=== PATIENT | female | born 1960 ===

== ENCOUNTER 2021-02-09 15:05 | Observation (INO) | payer MEDICAID, MEDICARE ==
[2021-02-09 20:14] VITALS: BP 127/81
--- NOTE | 2021-02-09 20:30 | NUR ---
The patient, PENNIE GORDILLO, 60 y/o, F admitted by GLENN CAVANAUGH MD, was given written information regarding hospital policies, unit procedures and contact persons. Pt is being admitted for 48hr hold to then transfer to [facility]. Valuables were checked and vitals obtained. Pt is alert and oriented to self and time only. Pt can ambulated to toilet with minimal assist. Currently pt is eating a box lunch. Will continue to monitor.
--- NOTE | 2021-02-10 03:38 | EKG ---
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
[2021-02-10 06:48] LABS: BASO # 0.1 x10^3/uL (0.0-0.2); BASO % 1 % (0-3); EOS # 0.1 x10^3/uL (0.0-0.7); EOS % 2 % (0-3); HEMATOCRIT 39.7 % (36.0-47.0); HEMOGLOBIN 13.5 g/dL (12.0-15.5); LYMPH # 2.5 x10^3/uL (1.0-4.8); LYMPH % 39 % (24-48); MEAN CORPUSCULAR HEMOGLOBIN 34 pg (25-35); MEAN CORPUSCULAR HGB CONC 34 g/dL (31-37); MEAN CORPUSCULAR VOLUME 100 fL (79-100); MONO # 0.6 x10^3/uL (0.0-1.1); MONO % 10 % (0-9); NEUT # 3.1 x10^3uL (1.8-7.7); NEUT % 48 % (31-73); PLATELET COUNT 518 x10^3/uL (140-400); RED BLOOD COUNT 3.99 x10^6/uL (3.50-5.40); RED CELL DISTRIBUTION WIDTH 15.7 % (11.5-14.5); WHITE BLOOD COUNT 6.4 x10^3/uL (4.0-11.0)
[2021-02-10 07:12] LABS: ALBUMIN 2.8 g/dL (3.4-5.0); ALBUMIN/GLOBULIN RATIO 0.8 (1.0-1.7); CALCIUM 8.4 mg/dL (8.5-10.1); CREATININE 0.4 mg/dL (0.6-1.0); GFR 162.8; MAGNESIUM 1.7 mg/dL (1.8-2.4); POTASSIUM 4.1 mmol/L (3.5-5.1); TOTAL BILIRUBIN 0.5 mg/dL (0.2-1.0); TOTAL PROTEIN 6.1 g/dL (6.4-8.2)
--- NOTE | 2021-02-10 08:43 | NUR ---
nursing note pt attempting to hit staff, trying to walk out the door, exit seeking, banging on the window. pt not redirectable. dr so notified, order for prn Zyprexa ordered and given. nursing sup notified of risk of self harm, motorcoach driver at bedside until pt calms down. sanjuana gil
--- NOTE | 2021-02-10 09:16 | NUR ---
Patient has been provided with Practical Counseling for tobacco cessation. It included a face to face interaction and the following was discussed: Recognizing danger situations, Developing coping skills,Basic cessation information. Will follow for discharge needs and discharge planning.
[2021-02-10 10:18] VITALS: BP 114/71
--- NOTE | 2021-02-10 11:59 | HP ---
ATTENDING PHYSICIAN: Dr. Otoole. We were asked to see this patient for medical admission and screening prior to going to the [facility]. HISTORY OF PRESENT ILLNESS: The patient is a 60-year-old female from [place], [place]. Recently, she was hospitalized at [facility] in [place]. She is demented. She has significant alcohol-related Wernicke-Korsakoff syndrome. She is a smoker with COPD, transaminitis, generalized anxiety and some hyponatremia. She was given several doses of Haldol and lorazepam on the recent hospitalization. She is transferred here for eventual admission to the [facility]. Prior to that she had to have coronavirus screening ruled out. She does not appear toxic. There are no fevers or chills. PAST MEDICAL HISTORY: Unobtainable except from the old chart. She has been acting up with the behavioral issues at her previous facility. ALLERGIES: She has no known drug allergies. CURRENT MEDICATIONS: Zyprexa Zydis only. SOCIAL HISTORY: Smoking history as noted; drinking history, heavy in the past. FAMILY HISTORY: Unobtainable. REVIEW OF SYSTEMS: Significant for the behavioral issues. She does not have any fevers, chills or recent exposure. I am not aware of her vaccination status. PHYSICAL EXAMINATION: GENERAL: When I saw her, this is a pleasant, confused female. VITAL SIGNS: Showed blood pressure of 127/81, pulse is 100 and regular, she was afebrile, oxygen saturation 99% on room air. HEENT: Head is without trauma. Pupils are reactive. Sclerae nonicteric. Oropharynx is clear. NECK: Supple, no bruits identified. LUNGS: Clear. CARDIOVASCULAR: Showed regular heart tones. No gallop. ABDOMEN: Soft. EXTREMITIES: Without edema. NEUROLOGIC: Pleasantly confused. PERTINENT LABORATORY AND X-RAY STUDIES: Hemoglobin 13.5 g/dL, white count 6400. Electrolytes within normal range. Transaminases were normal. Serology is pending. ASSESSMENT: 1. A 60-year-old female with dementia. 2. Wernicke-Korsakoff syndrome. 3. Chronic alcoholism. 4. Chronic obstructive pulmonary disease. PLAN: 1. The patient is medically stable. 2. I will await her coronavirus swab. 3. She will be discharged to the [facility] when the swab is negative. LYLA/MYKEL DR: Mary TID: [id number] CC: Dr. Carreon
[2021-02-10 14:12] LABS: THYROXINE 5.2 ug/dL (4.5-12.0)
[2021-02-10 14:29] LABS: THYROID STIM HORMONE (TSH) 3.563 uIU/mL (0.358-3.740)
[2021-02-10 15:08] VITALS: BP 115/66
--- NOTE | 2021-02-10 18:12 | NUR ---
NURSING NOTE THIS PT BEGAN YELLING AND AGGRESSIVE AFTER NEW ADMISSION NEXT DOOR TO HER. PT WOULD NOT STAY IN HER ROOM, DEMANDING TO CALL 911. PRN ZYPREXA GIVEN. SAM SHERMAN
[2021-02-10 19:55] VITALS: BP 129/87
[2021-02-10 23:02] LABS: BILIRUBIN,URINE NEG (NEG); CLARITY,URINE CLEAR; COLOR,URINE YELLOW; GLUCOSE,URINE NEG (NEG)
[2021-02-10 23:03] LABS: BACTERIA,URINE 0 /HPF (0-FEW); NITRITE,URINE NEG (NEG); RBC,URINE 0 /HPF (0-2); SQUAMOUS EPITHELIAL CELL,UR OCC /LPF; UROBILINOGEN,URINE 0.2 mg/dL (0.2 mg/dL); WBC,URINE OCC /HPF (0-4)
[2021-02-11 00:10] LABS: HEMOGLOBIN A1C 5.2 % (4.8-5.6)
--- NOTE | 2021-02-11 00:42 | NUR ---
Nursing Note Pt in room awakens periodically to look for her family and her car. Is confused, speech is hyperverbal and rambling, manic. Pt talks about events from her youth as if they are happening currently, regarding feeling neglected, no one cared about her, she was the middle child, no one congratulated her on anything, she wasn't special. Seems to be processing intense feelings of inadequacy regarding her place within the family unit. States she was forced to sleep on the couch most of her life and didn't have a bed or room of her own. Pt is hyperverbal, manic, tangential and tearful at times.
[2021-02-11] MEDS ORDERED: OLAN5TAB67 PO (05:45)
[2021-02-11] MEDS ORDERED: NICO1PAT21 TP (05:51)
[2021-02-11] MEDS ORDERED: FOLI0.8C PO (05:55)
[2021-02-11] MEDS ORDERED: ENOX40DI SQ (06:37)
[2021-02-11] MEDS ORDERED: POTA-121 PO (06:37)
[2021-02-11] MEDS ORDERED: Folic Acid PO (06:37)
[2021-02-11] MEDS ORDERED: THIA100T57 PO (06:37)
[2021-02-11] MEDS ORDERED: NICO2GUM5 BC (06:37)
[2021-02-11] MEDS ORDERED: ACET325T21 PO (06:37)
[2021-02-11] MEDS ORDERED: OLAN5TAB7 PO (06:37)
[2021-02-11] MEDS ORDERED: NICO1PAT21 TD (06:37)
[2021-02-11] MEDS ORDERED: LORA-254 PO (06:37)
[2021-02-11] MEDS ORDERED: MELA3TAB4 PO (06:37)
--- NOTE | 2021-02-11 07:31 | NUR ---
Nursing Note Discharge to [facility] report to Allan Nicholson RN. Transfer documents faxed to [id number].
--- NOTE | 2021-02-20 09:12 | DS ---
DATE OF DISCHARGE: 02/10/2021 ATTENDING PHYSICIAN: Dr. Otoole. FINAL DISCHARGE DIAGNOSES: 1. A 60-year-old female with dementia. 2. Wernicke-Korsakoff syndrome. 3. Chronic alcoholism. 4. Chronic obstructive pulmonary disease. HISTORY AND PHYSICAL: The patient is a 60-year-old female admitted to the medical floor prior to going to the [facility]. She is here for screening and rule out COVID. The patient is from [place], [place]. Recently hospitalized in [place]. She is demented, significant alcohol-related Wernicke-Korsakoff syndrome. She is also a smoker with some generalized medical issues. PHYSICAL EXAMINATION: Please see the dictated note. PERTINENT LABORATORY AND X-RAY STUDIES: Hemoglobin on admission was 13.5 g/dL, white count 6400. Chemistry panel was fairly unremarkable. Iron is 93. Serology was negative for coronavirus. Urinalysis was clear. COURSE IN THE HOSPITAL: The patient was admitted to the medical floor. She had her labs drawn, some of her home meds were continued. She was not on any prescription meds. On the second hospital day, she was discharged to the [facility], folic acid only. Other psychiatric meds per psychiatry service. We did try to do smoking cessation, but with all due respect, I do not think she understood even though we tried because of her dementia. LYLA/KWASI DR: Mary TID: [id number] CC: IVANNA GUNDERSON MD
== END 2021-02-11 06:15 ==
LOC: 1 SOUTH 19:49
PROVIDERS: ADMIT Hospitalist; ATTEND Hospitalist
DX: F03.90 Unspecified dementia, unspecified severity, without behavioral disturbance, psychotic disturbance, mood disturbance, and anxiety (principal); F41.1 Generalized anxiety disorder; J44.9 Chronic obstructive pulmonary disease, unspecified; E87.1 Hypo-osmolality and hyponatremia; F10.26 Alcohol dependence with alcohol-induced persisting amnestic disorder; F17.200 Nicotine dependence, unspecified, uncomplicated; Z71.6 Tobacco abuse counseling
CPT/HCPCS: G0378; G0379; 36415; 80053; 80061; 81001; 82306; 82607; 83036; 83540; 83550; 83735; 84436; 84443; 84480; 85025; 85379; 86592; 93005; 99406; U0003

== ENCOUNTER 2021-02-11 06:29 | Inpatient (IN) | payer MEDICARE, MEDICAID ==
[~2021-02-11] VITALS: Ht 162.6 cm; Wt 55.1 kg
[~2021-02-11 06:29] MED LIST: FOLI0.8C PO; NICO1PAT21 TP; OLAN5TAB67 PO
[2021-02-11] MEDS ORDERED: Folic Acid PO (06:37)
[2021-02-11] MEDS ORDERED: NICO2GUM5 BC (06:37)
[2021-02-11] MEDS ORDERED: ACET325T21 PO (06:37)
[2021-02-11] MEDS ORDERED: MELA3TAB4 PO (06:37)
[2021-02-11] MEDS ORDERED: NICO1PAT21 TD (06:37)
[2021-02-11] MEDS ORDERED: ENOX40DI SQ (06:37)
[2021-02-11] MEDS ORDERED: LORA-254 PO (06:37)
[2021-02-11] MEDS ORDERED: THIA100T57 PO (06:37)
[2021-02-11] MEDS ORDERED: POTA-121 PO (06:37)
[2021-02-11] MEDS ORDERED: OLAN5TAB7 PO (06:37)
[2021-02-11] MEDS ORDERED: MAG HYDROX/AL HYDROX/SIMETH 30 ML ORAL.SUSP PO PRN ×2 (06:45→12:15)
[2021-02-11] MEDS ORDERED: MAGNESIUM HYDROXIDE 2,400 MG/30 ML ORAL.SUSP. PO PRN ×2 (06:45→12:15)
[2021-02-11 09:00] VITALS: BP 108/84
[2021-02-11] MEDS ORDERED: LORazepam 1 MG TABLET PO PRN (12:00)
[2021-02-11] MEDS ORDERED: METHYL SALICYLATE/MENTHOL TOPICAL OINTMENT 57GM TUBE. TP PRN (12:15)
[2021-02-11] MEDS ORDERED: ACETAMINOPHEN 325 MG TABLET PO PRN (12:15)
[2021-02-11 16:02] VITALS: BP 95/71
--- NOTE | 2021-02-11 21:58 | PDOC ---
Exam Note: Nadeem Note: Please also refer to the separate dictated note~for this date of service dictated separately.~Patient seen individually. Discussed the patient with Nursing staff reviewed the chart.~Reviewed interim history and current functioning. Reviewed vital signs,~Labs/ Radiology~and current medications noted below. Continue current treatment with the changes noted in the dictated addendum note Assessment: Vital Signs/I&O: Vital Signs Date Time Temp Pulse Resp B/P (MAP) Pulse Ox O2 Delivery O2 Flow Rate FiO2 02/11/21 16:02 97.4 93 16 95/71 (79) 99 02/11/21 09:00 Room Air Current Medications: Meds: Current Medications Medications (Trade) Dose Ordered Sig/Hunter Route PRN Reason Start Time Stop Time Status Last Admin Dose Admin Multi-Ingredient Ointment (Analgesic [place]) 1 lico PRN QID PRN TP MUSCLE PAIN 02/11/21 06:45 Al Hydroxide/Mg Hydroxide (Mylanta Plus Xs) 15 ml PRN AFTMEALHC PRN PO DYSPEPSIA 02/11/21 06:45 Magnesium Hydroxide (Milk Of Magnesia) 2,400 mg PRN QHS PRN PO CONSTIPATION 02/11/21 06:45 Acetaminophen (Tylenol) 650 mg PRN Q6HRS PRN PO MILD PAIN / TEMP > 100.3'F 02/11/21 12:00 Enoxaparin Sodium (Lovenox 40mg Syringe) 40 mg DAILY SQ 02/12/21 09:00 Lorazepam (Ativan) 1 mg PRN Q4HRS PRN PO ANXIETY / AGITATION 02/11/21 12:00 Melatonin (Melatonin) 3 mg PRN QHS PRN PO INSOMNIA 02/11/21 12:00 Nicotine (Nicoderm Cq 21mg Patch) 1 patch DAILY TD 02/12/21 09:00 Nicotine Polacrilex (Nicorette Gum) 2 mg PRN Q2HRS PRN BC SMOKING CESSATION 02/11/21 12:00 Olanzapine (ZyPREXA ZYDIS) 5 mg PRN BID PRN PO PSYCHOSIS 02/11/21 12:00 Potassium Chloride (Klor-Con) 20 meq DAILY PO 02/12/21 09:00 Folic Acid (Folic Acid) 1 mg DAILY PO 02/12/21 09:00 Thiamine HCl (Vitamin B-1) 100 mg DAILY PO 02/12/21 09:00 Non-Formulary Medication ([Folic Acid] ) 1 mg DAILY PO 02/12/21 09:00 02/11/21 12:25 DC Acetaminophen (Tylenol) 650 mg PRN Q6HRS PRN PO MILD PAIN / TEMP > 100.3'F 02/11/21 12:15 02/11/21 12:22 DC Multi-Ingredient Ointment (Analgesic [place]) 1 lico PRN QID PRN TP MUSCLE PAIN 02/11/21 12:15 02/11/21 12:22 DC Al Hydroxide/Mg Hydroxide (Mylanta Plus Xs) 15 ml PRN AFTMEALHC PRN PO DYSPEPSIA 02/11/21 12:15 02/11/21 12:22 DC Magnesium Hydroxide (Milk Of Magnesia) 2,400 mg PRN QHS PRN PO CONSTIPATION 02/11/21 12:15 02/11/21 12:22 DC I have reviewed the current psychotropics carefully including drug interactions. Risk benefit ratio favors no change other than as noted in my dictated progress note. IVANNA GUNDERSON MD Feb 11, 2021 21:58
[2021-02-12] MEDS: MELATONIN 3 MG TABLET PO PRN (01:29)
[2021-02-12 06:15] VITALS: BP 144/77
[2021-02-12] MEDS ORDERED: FOLIC ACID 1 MG PO SCH (09:00)
[2021-02-12] MEDS: ENOXAPARIN 40 MG/0.4 ML SYRINGE. SQ SCH (09:00)
[2021-02-12] MEDS: FOLIC ACID 1 MG TABLET PO SCH (09:04)
[2021-02-12] MEDS: THIAMINE 100 MG TABLET. PO SCH (09:04)
[2021-02-12] MEDS: POTASSIUM CHLORIDE 20 MEQ TABLET.ER. PO SCH (09:04)
[2021-02-12] MEDS: NICOTINE 21MG PATCH. TD SCH (09:06)
[2021-02-12] MEDS: ACETAMINOPHEN 325 MG TABLET PO PRN (13:27)
[2021-02-12 16:26] VITALS: BP 125/85
--- NOTE | 2021-02-12 22:17 | PDOC ---
Exam Note: Nadeem Note: Please also refer to the separate dictated note~for this date of service dictated separately.~Patient seen individually. Discussed the patient with Nursing staff reviewed the chart.~Reviewed interim history and current functioning. Reviewed vital signs,~Labs/ Radiology~and current medications noted below. Continue current treatment with the changes noted in the dictated addendum note Assessment: Vital Signs/I&O: Vital Signs Date Time Temp Pulse Resp B/P (MAP) Pulse Ox O2 Delivery O2 Flow Rate FiO2 02/12/21 16:26 98.1 76 18 125/85 (98) 99 02/11/21 09:00 Room Air I & O 02/11/21 02/11/21 02/12/21 14:00 22:00 06:00 Intake Total 240 ml 600 ml 360 ml Balance 240 ml 600 ml 360 ml Current Medications: Meds: Current Medications Medications (Trade) Dose Ordered Sig/Hunter Route PRN Reason Start Time Stop Time Status Last Admin Dose Admin Nicotine (Nicoderm Cq 21mg Patch) 1 patch DAILY TD 02/12/21 09:00 02/12/21 09:06 Potassium Chloride (Klor-Con) 20 meq DAILY PO 02/12/21 09:00 02/12/21 09:04 Folic Acid (Folic Acid) 1 mg DAILY PO 02/12/21 09:00 02/12/21 09:04 Thiamine HCl (Vitamin B-1) 100 mg DAILY PO 02/12/21 09:00 02/12/21 09:04 I have reviewed the current psychotropics carefully including drug interactions. Risk benefit ratio favors no change other than as noted in my dictated progress note. IVANNA GUNDERSON MD Feb 12, 2021 22:17
--- NOTE | 2021-02-12 23:02 | HP ---
ADMIT DATE: 02/11/2021 PSYCHIATRIC ADMISSION HISTORY/EVALUATION This is a late entry, date of service 02/11/2021, covers elements not covered in my initial note. IDENTIFYING DATA: The patient is a 60-year-old female referred to us from [facility] on account of her alcohol dependence and Wernicke's encephalopathy. Reportedly, the patient has been having active hallucinations, has been abusing alcohol, had acute mental status changes, was wandering naked in the street. She had crawled into the neighbor's car. She had a marked mood lability, disorganized speech, cognitively impaired, restless, fighting with staff at the [facility]. She had failed outpatient psychiatric interventions. Behavior is deemed dangerous, unmanageable where she lives alone at home, referred for inpatient psychiatric stabilization. CHIEF COMPLAINT: "I just had too much to drink and it is silly things." HISTORY OF PRESENT ILLNESS: The patient has a history of alcohol abuse and dependence. She has had two DUIs in the past, lost her license. Currently, she lives alone. Family is involved in her care and she has been extremely disorganized, paranoid with marked mood lability, worsening alcohol abuse, and admits to being depressed. No active suicidal or homicidal ideation. No clear history of bipolar disorder. PAST PSYCHIATRIC HISTORY: As above. MEDICAL HISTORY: Positive for hyponatremia, hypokalemia, Wernicke's encephalopathy, COPD, partial lung removal. ACCU-CHEKS: None. DIET: Regular. Takes medications whole. Ambulates ad carli. CODE STATUS: Full code. ALLERGIES: Negative. CURRENT PSYCHOTROPICS: Melatonin 3 mg at bedtime p.r.n., Zyprexa p.r.n. FAMILY HISTORY: Noncontributory. SOCIAL HISTORY: No physical, sexual, or elder abuse history is noted. She is not known to be a perpetrator. She denies any drug abuse. Does admit to the alcohol abuse as noted. REVIEW OF SYSTEMS: No CV, , pulmonary, eye system symptoms on review. MENTAL STATUS EXAM: Oriented to herself, situation. Speech is coherent, has some latency. Abstraction fair. Computation, unable to do serial sevens even one step. Attention span short. Distractible, anxious, with ongoing mood lability. No active suicidal or homicidal ideation. LABORATORY DATA: Reviewed. IMPRESSION: Major depressive disorder, recurrent; history of alcohol dependence; history of Wernicke's encephalopathy; anxiety disorder, unspecified; impulse control disorder, unspecified. Rest unchanged from admission. PLAN: Admit to geropsychiatry unit at [facility]. I will see the patient daily individually from a psychiatric standpoint, medical followup with Dr. Vidales/Dr. Otoole. The patient had a CT head on the 02/03. No acute changes. No midline shift. Does show some chronic sinusitis, we will defer to Dr. Mcintyre. We will observe the patient's baseline and adjust psychotropics as clinically indicated. Consider Antabuse or naltrexone for alcohol. Consider SSRIs. ESTIMATED LENGTH OF STAY: 10-12 days. DISPOSITION PLANS: Transition to [facility] when stable. RADHA DR: Vianey TID: [id number]
[2021-02-13 06:22] VITALS: BP 115/69
[2021-02-13] MEDS: NICOTINE 21MG PATCH. TD SCH (08:18)
[2021-02-13] MEDS: FOLIC ACID 1 MG TABLET PO SCH (08:18)
[2021-02-13] MEDS: THIAMINE 100 MG TABLET. PO SCH (08:19)
[2021-02-13] MEDS: POTASSIUM CHLORIDE 20 MEQ TABLET.ER. PO SCH (08:19)
[2021-02-13] MEDS: ENOXAPARIN 40 MG/0.4 ML SYRINGE. SQ SCH (09:00)
--- NOTE | 2021-02-13 09:21 | PDOC ---
Exam Note: Nadeem Note: This note is a late entry for 02/12/2021 covers elements not covered in my initial note. Subjective: The patient was reviewed at treatment team meeting individually in the morning on 02/12/2021 with Keli Butler (social services coordinator), Lissette, activity therapy and Allan SHERMAN, discussed and reviewed the chart. The patient slept 6-1/4 hours previous night. We reviewed the patients history, diagnoses. Per Allan RN the patient has been exit seeking, wanting to be home. Reviewed that she has lost the license with 2 DUIs. Review of Systems: No CV, , pulmonary, eye, ENT system symptoms on review. Mental Status Exam: The patient is oriented to herself and situation. Speech has some latency, coherent. Abstraction fair. Computation impaired. Language function intact. She felt the day was 09/11/2020 and that President was President Devonte and before him was President Gaurav. Mood and affect somewhat depressed, withdrawn. No suicidal or homicidal ideation. Laboratory Data: Reviewed. Impression: Major depressive disorder recurrent. Alcohol dependence and abuse. Anxiety disorder unspecified. History of Wernickes encephalopathy. Plan: Continue current psychotropics. Check CT head if not done in 3 months. Observe baseline and make further adjustments as clinically indicated. Assessment: Vital Signs/I&O: Vital Signs Date Time Temp Pulse Resp B/P (MAP) Pulse Ox O2 Delivery O2 Flow Rate FiO2 02/13/21 06:22 96.4 64 18 115/69 (84) 100 02/11/21 09:00 Room Air I & O 02/12/21 02/12/21 02/13/21 14:00 22:00 06:00 Intake Total 360 ml 560 ml 240 ml Balance 360 ml 560 ml 240 ml Current Medications: Meds: Current Medications Medications (Trade) Dose Ordered Sig/Hunter Route PRN Reason Start Time Stop Time Status Last Admin Dose Admin Multi-Ingredient Ointment (Analgesic [place]) 1 lico PRN QID PRN TP MUSCLE PAIN 02/11/21 06:45 Al Hydroxide/Mg Hydroxide (Mylanta Plus Xs) 15 ml PRN AFTMEALHC PRN PO DYSPEPSIA 02/11/21 06:45 Magnesium Hydroxide (Milk Of Magnesia) 2,400 mg PRN QHS PRN PO CONSTIPATION 02/11/21 06:45 Acetaminophen (Tylenol) 650 mg PRN Q6HRS PRN PO MILD PAIN / TEMP > 100.3'F 02/11/21 12:00 02/12/21 13:27 Enoxaparin Sodium (Lovenox 40mg Syringe) 40 mg DAILY SQ 02/12/21 09:00 Lorazepam (Ativan) 1 mg PRN Q4HRS PRN PO ANXIETY / AGITATION 02/11/21 12:00 Melatonin (Melatonin) 3 mg PRN QHS PRN PO INSOMNIA 02/11/21 12:00 02/12/21 01:29 Nicotine (Nicoderm Cq 21mg Patch) 1 patch DAILY TD 02/12/21 09:00 02/13/21 08:18 Nicotine Polacrilex (Nicorette Gum) 2 mg PRN Q2HRS PRN BC SMOKING CESSATION 02/11/21 12:00 Olanzapine (ZyPREXA ZYDIS) 5 mg PRN BID PRN PO PSYCHOSIS 02/11/21 12:00 Potassium Chloride (Klor-Con) 20 meq DAILY PO 02/12/21 09:00 02/13/21 08:19 Folic Acid (Folic Acid) 1 mg DAILY PO 02/12/21 09:00 02/13/21 08:18 Thiamine HCl (Vitamin B-1) 100 mg DAILY PO 02/12/21 09:00 02/13/21 08:19 Non-Formulary Medication ([Folic Acid] ) 1 mg DAILY PO 02/12/21 09:00 02/11/21 12:25 DC Acetaminophen (Tylenol) 650 mg PRN Q6HRS PRN PO MILD PAIN / TEMP > 100.3'F 02/11/21 12:15 02/11/21 12:22 DC Multi-Ingredient Ointment (Analgesic [place]) 1 lico PRN QID PRN TP MUSCLE PAIN 02/11/21 12:15 02/11/21 12:22 DC Al Hydroxide/Mg Hydroxide (Mylanta Plus Xs) 15 ml PRN AFTMEALHC PRN PO DYSPEPSIA 02/11/21 12:15 02/11/21 12:22 DC Magnesium Hydroxide (Milk Of Magnesia) 2,400 mg PRN QHS PRN PO CONSTIPATION 02/11/21 12:15 02/11/21 12:22 DC I have reviewed the current psychotropics carefully including drug interactions. Risk benefit ratio favors no change other than as noted in my dictated progress note. Diagnosis: Problems: (1) Major depressive disorder, recurrent episode (2) Alcohol abuse (3) Anxiety disorder, unspecified (4) Wernicke encephalopathy IVANNA GUNDERSON MD Feb 13, 2021 09:21
[2021-02-13 15:46] VITALS: BP 123/77
[2021-02-13] MEDS: risperiDONE 0.5 MG TABLET. PO SCH (20:24)
[2021-02-13] MEDS: MULTIVITAMIN with MINERAL TABLET. PO SCH (21:30)
[2021-02-13] MEDS ORDERED: cloNIDine HCL 0.1 MG TABLET PO PRN (21:30)
[2021-02-13] MEDS: MAGNESIUM OXIDE 400 MG TABLET PO SCH (21:45)
--- NOTE | 2021-02-13 22:03 | PDOC ---
Exam Note: Nadeem Note: Please also refer to the separate dictated note~for this date of service dictated separately.~Patient seen individually. Discussed the patient with Nursing staff reviewed the chart.~Reviewed interim history and current functioning. Reviewed vital signs,~Labs/ Radiology~and current medications noted below. Continue current treatment with the changes noted in the dictated addendum note Assessment: Vital Signs/I&O: Vital Signs Date Time Temp Pulse Resp B/P (MAP) Pulse Ox O2 Delivery O2 Flow Rate FiO2 02/13/21 15:46 98.7 69 18 123/77 (92) 98 Room Air I & O 02/12/21 02/12/21 02/13/21 14:00 22:00 06:00 Intake Total 360 ml 560 ml 240 ml Balance 360 ml 560 ml 240 ml Current Medications: Meds: Current Medications Medications (Trade) Dose Ordered Sig/Hunter Route PRN Reason Start Time Stop Time Status Last Admin Dose Admin Multi-Ingredient Ointment (Analgesic [place]) 1 lico PRN QID PRN TP MUSCLE PAIN 02/11/21 06:45 Al Hydroxide/Mg Hydroxide (Mylanta Plus Xs) 15 ml PRN AFTMEALHC PRN PO DYSPEPSIA 02/11/21 06:45 Magnesium Hydroxide (Milk Of Magnesia) 2,400 mg PRN QHS PRN PO CONSTIPATION 02/11/21 06:45 Acetaminophen (Tylenol) 650 mg PRN Q6HRS PRN PO MILD PAIN / TEMP > 100.3'F 02/11/21 12:00 02/12/21 13:27 Enoxaparin Sodium (Lovenox 40mg Syringe) 40 mg DAILY SQ 02/12/21 09:00 02/13/21 17:54 DC Lorazepam (Ativan) 1 mg PRN Q4HRS PRN PO ANXIETY / AGITATION 02/11/21 12:00 02/13/21 21:35 DC 02/13/21 16:15 Melatonin (Melatonin) 3 mg PRN QHS PRN PO INSOMNIA 02/11/21 12:00 02/12/21 01:29 Nicotine (Nicoderm Cq 21mg Patch) 1 patch DAILY TD 02/12/21 09:00 02/13/21 08:18 Nicotine Polacrilex (Nicorette Gum) 2 mg PRN Q2HRS PRN BC SMOKING CESSATION 02/11/21 12:00 Olanzapine (ZyPREXA ZYDIS) 5 mg PRN BID PRN PO PSYCHOSIS 02/11/21 12:00 02/13/21 20:07 DC 02/13/21 18:10 Potassium Chloride (Klor-Con) 20 meq DAILY PO 02/12/21 09:00 02/13/21 08:19 Folic Acid (Folic Acid) 1 mg DAILY PO 02/12/21 09:00 02/13/21 08:18 Thiamine HCl (Vitamin B-1) 100 mg DAILY PO 02/12/21 09:00 02/13/21 08:19 Non-Formulary Medication ([Folic Acid] ) 1 mg DAILY PO 02/12/21 09:00 02/11/21 12:25 DC Acetaminophen (Tylenol) 650 mg PRN Q6HRS PRN PO MILD PAIN / TEMP > 100.3'F 02/11/21 12:15 02/11/21 12:22 DC Multi-Ingredient Ointment (Analgesic [place]) 1 lico PRN QID PRN TP MUSCLE PAIN 02/11/21 12:15 02/11/21 12:22 DC Al Hydroxide/Mg Hydroxide (Mylanta Plus Xs) 15 ml PRN AFTMEALHC PRN PO DYSPEPSIA 02/11/21 12:15 02/11/21 12:22 DC Magnesium Hydroxide (Milk Of Magnesia) 2,400 mg PRN QHS PRN PO CONSTIPATION 02/11/21 12:15 02/11/21 12:22 DC Lidocaine (Lidoderm) 1 patch PRN DAILY PRN TD MUSCLE PAIN 02/13/21 19:00 Olanzapine (ZyPREXA ZYDIS) 2.5 mg PRN Q2HR PRN PO PSYCHOSIS 02/13/21 20:15 02/13/21 20:24 Sertraline HCl (Zoloft) 50 mg DAILY PO 02/14/21 09:00 Risperidone (RisperDAL) 0.5 mg QHS PO 02/13/21 21:00 02/13/21 20:24 Lorazepam (Ativan) 0.5 mg PRN Q1HR PRN PO ANXIETY / AGITATION 02/13/21 21:45 Multivitamins/ Calcium (Thera-M Plus) 1 tab DAILY PO 02/13/21 21:30 Clonidine HCl (Catapres) 0.1 mg PRN Q1HR PRN PO SBP>180 OR DBP>100, MR X 3 02/13/21 21:30 Magnesium Oxide (Magnesium Oxide) 400 mg DAILY PO 02/14/21 09:00 02/13/21 21:36 DC Magnesium Oxide (Magnesium Oxide) 400 mg DAILY PO 02/13/21 21:45 Current Medications Medications (Trade) Dose Ordered Sig/Hunter Route PRN Reason Start Time Stop Time Status Last Admin Dose Admin Olanzapine (ZyPREXA ZYDIS) 2.5 mg PRN Q2HR PRN PO PSYCHOSIS 02/13/21 20:15 02/13/21 20:24 Risperidone (RisperDAL) 0.5 mg QHS PO 02/13/21 21:00 02/13/21 20:24 I have reviewed the current psychotropics carefully including drug interactions. Risk benefit ratio favors no change other than as noted in my dictated progress note. Diagnosis: Problems: (1) Alcohol dependence (2) Major depressive disorder, recurrent episode (3) Wernicke encephalopathy (4) Anxiety disorder, unspecified (5) Alcohol abuse IVANNA GUNDERSON MD Feb 13, 2021 22:03
[2021-02-13] MEDS: LORazepam 0.5 MG TABLET PO PRN ×2 (22:06→23:06)
[2021-02-13 22:42] LABS: BILIRUBIN,URINE NEG (NEG); CLARITY,URINE CLEAR; COLOR,URINE COLORLESS; GLUCOSE,URINE NEG (NEG); NITRITE,URINE NEG (NEG); UROBILINOGEN,URINE 0.2 mg/dL (0.2 mg/dL)
[2021-02-13 22:43] LABS: BACTERIA,URINE 0 /HPF (0-FEW); RBC,URINE 0 /HPF (0-2); WBC,URINE OCC /HPF (0-4)
[2021-02-14] MEDS: MELATONIN 3 MG TABLET PO PRN ×2 (00:15→19:56)
[2021-02-14 04:26] VITALS: BP 105/69
[2021-02-14] MEDS: SERTRALINE 50 MG TABLET. PO SCH (09:00)
[2021-02-14] MEDS: NICOTINE 21MG PATCH. TD SCH (09:00)
[2021-02-14] MEDS: FOLIC ACID 1 MG TABLET PO SCH (09:00)
[2021-02-14] MEDS ORDERED: MAGNESIUM OXIDE 400 MG TABLET PO SCH (09:00)
[2021-02-14] MEDS: THIAMINE 100 MG TABLET. PO SCH (09:00)
[2021-02-14] MEDS: MAGNESIUM OXIDE 400 MG TABLET PO SCH (09:00)
[2021-02-14] MEDS: POTASSIUM CHLORIDE 20 MEQ TABLET.ER. PO SCH (09:00)
[2021-02-14] MEDS: MULTIVITAMIN with MINERAL TABLET. PO SCH (09:00)
[2021-02-14] MEDS: LORazepam 0.5 MG TABLET PO PRN ×3 (11:16→19:55)
[2021-02-14 15:05] VITALS: BP 88/59
[2021-02-14] MEDS: risperiDONE 0.5 MG TABLET. PO SCH (19:53)
--- NOTE | 2021-02-14 22:15 | PDOC ---
Exam Note: Nadeem Note: Please also refer to the separate dictated note~for this date of service dictated separately.~Patient seen individually. Discussed the patient with Nursing staff reviewed the chart.~Reviewed interim history and current functioning. Reviewed vital signs,~Labs/ Radiology~and current medications noted below. Continue current treatment with the changes noted in the dictated addendum note Assessment: Vital Signs/I&O: Vital Signs Date Time Temp Pulse Resp B/P (MAP) Pulse Ox O2 Delivery O2 Flow Rate FiO2 02/14/21 15:05 98.7 77 16 88/59 (69) 95 02/13/21 15:46 Room Air I & O 02/13/21 02/13/21 02/14/21 14:00 22:00 06:00 Intake Total 900 ml 240 ml 360 ml Balance 900 ml 240 ml 360 ml Current Medications: Meds: Current Medications Medications (Trade) Dose Ordered Sig/Hunter Route PRN Reason Start Time Stop Time Status Last Admin Dose Admin Multi-Ingredient Ointment (Analgesic [place]) 1 lico PRN QID PRN TP MUSCLE PAIN 02/11/21 06:45 Al Hydroxide/Mg Hydroxide (Mylanta Plus Xs) 15 ml PRN AFTMEALHC PRN PO DYSPEPSIA 02/11/21 06:45 Magnesium Hydroxide (Milk Of Magnesia) 2,400 mg PRN QHS PRN PO CONSTIPATION 02/11/21 06:45 Acetaminophen (Tylenol) 650 mg PRN Q6HRS PRN PO MILD PAIN / TEMP > 100.3'F 02/11/21 12:00 02/12/21 13:27 Enoxaparin Sodium (Lovenox 40mg Syringe) 40 mg DAILY SQ 02/12/21 09:00 02/13/21 17:54 DC Lorazepam (Ativan) 1 mg PRN Q4HRS PRN PO ANXIETY / AGITATION 02/11/21 12:00 02/13/21 21:35 DC 02/13/21 16:15 Melatonin (Melatonin) 3 mg PRN QHS PRN PO INSOMNIA 02/11/21 12:00 02/14/21 19:56 Nicotine (Nicoderm Cq 21mg Patch) 1 patch DAILY TD 02/12/21 09:00 02/14/21 09:00 Nicotine Polacrilex (Nicorette Gum) 2 mg PRN Q2HRS PRN BC SMOKING CESSATION 02/11/21 12:00 Olanzapine (ZyPREXA ZYDIS) 5 mg PRN BID PRN PO PSYCHOSIS 02/11/21 12:00 02/13/21 20:07 DC 02/13/21 18:10 Potassium Chloride (Klor-Con) 20 meq DAILY PO 02/12/21 09:00 02/14/21 09:00 Folic Acid (Folic Acid) 1 mg DAILY PO 02/12/21 09:00 02/14/21 09:00 Thiamine HCl (Vitamin B-1) 100 mg DAILY PO 02/12/21 09:00 02/14/21 09:00 Non-Formulary Medication ([Folic Acid] ) 1 mg DAILY PO 02/12/21 09:00 02/11/21 12:25 DC Acetaminophen (Tylenol) 650 mg PRN Q6HRS PRN PO MILD PAIN / TEMP > 100.3'F 02/11/21 12:15 02/11/21 12:22 DC Multi-Ingredient Ointment (Analgesic [place]) 1 lico PRN QID PRN TP MUSCLE PAIN 02/11/21 12:15 02/11/21 12:22 DC Al Hydroxide/Mg Hydroxide (Mylanta Plus Xs) 15 ml PRN AFTMEALHC PRN PO DYSPEPSIA 02/11/21 12:15 02/11/21 12:22 DC Magnesium Hydroxide (Milk Of Magnesia) 2,400 mg PRN QHS PRN PO CONSTIPATION 02/11/21 12:15 02/11/21 12:22 DC Lidocaine (Lidoderm) 1 patch PRN DAILY PRN TD MUSCLE PAIN 02/13/21 19:00 Olanzapine (ZyPREXA ZYDIS) 2.5 mg PRN Q2HR PRN PO PSYCHOSIS 02/13/21 20:15 02/13/21 23:06 Sertraline HCl (Zoloft) 50 mg DAILY PO 02/14/21 09:00 02/14/21 09:00 Risperidone (RisperDAL) 0.5 mg QHS PO 02/13/21 21:00 02/14/21 19:53 Lorazepam (Ativan) 0.5 mg PRN Q1HR PRN PO ANXIETY / AGITATION 02/13/21 21:45 02/14/21 19:55 Multivitamins/ Calcium (Thera-M Plus) 1 tab DAILY PO 02/13/21 21:30 02/14/21 09:00 Clonidine HCl (Catapres) 0.1 mg PRN Q1HR PRN PO SBP>180 OR DBP>100, MR X 3 02/13/21 21:30 Magnesium Oxide (Magnesium Oxide) 400 mg DAILY PO 02/14/21 09:00 02/13/21 21:36 DC Magnesium Oxide (Magnesium Oxide) 400 mg DAILY PO 02/13/21 21:45 02/14/21 09:00 Current Medications Medications (Trade) Dose Ordered Sig/Hunter Route PRN Reason Start Time Stop Time Status Last Admin Dose Admin Sertraline HCl (Zoloft) 50 mg DAILY PO 02/14/21 09:00 02/14/21 09:00 I have reviewed the current psychotropics carefully including drug interactions. Risk benefit ratio favors no change other than as noted in my dictated progress note. Diagnosis: Problems: (1) Major depressive disorder, recurrent episode (2) Wernicke encephalopathy (3) Anxiety disorder, unspecified (4) Alcohol dependence IVANNA GUNDERSON MD Feb 14, 2021 22:15
--- NOTE | 2021-02-14 23:05 | CONS ---
DATE OF CONSULTATION: 02/14/2021 HISTORY OF PRESENT ILLNESS: The patient is a 60-year-old female patient who was referred from [facility] on account of her alcohol dependence and Wernicke's encephalopathy. She apparently was admitted to [address] [place] [address] and screened for coronavirus and was found to be negative, and therefore, she was admitted for inpatient psychiatric stabilization. PAST MEDICAL HISTORY: Significant for Wernicke's encephalopathy, COPD, hyponatremia, hypokalemia. PAST SURGICAL HISTORY: Significant for partial lung removal. ALLERGIES: She has no known drug allergies. FAMILY HISTORY: Noncontributory. SOCIAL HISTORY: Unremarkable except that she apparently has been abusing alcohol. MEDICATIONS: She is currently on the following medications: She is on sertraline 50 mg once a day, magnesium oxide 400 mg daily, lorazepam 0.5 mg every hour as needed, clonidine 0.4 mg every hour as needed, multivitamin 1 tablet once a day, risperidone 0.5 mg at bedtime, olanzapine 2.5 mg every 2 hours, thiamine 100 mg daily, folic acid 1 mg once a day, potassium chloride 20 mEq daily, nicotine patch 21 mg topically daily, she is on melatonin 3 mg at bedtime, Tylenol 650 mg every 4 hours, magnesium hydroxide for milk of magnesia 30 mL p.o. daily p.r.n. for constipation, Mylanta 15 mL after meals and bedtime. PHYSICAL EXAMINATION: GENERAL: On examining her, she looked well and was clearly in no apparent respiratory distress. No pallor, jaundice, cyanosis, or thyromegaly. No jugular venous distention. No limb edema. VITAL SIGNS: Her heart rate was 100, blood pressure was 105/69, temperature 97.6, respiratory rate was 18, and oxygen saturation was 100% on room air. HEAD, EYES, EARS, NOSE, AND THROAT: Showed she is normocephalic, atraumatic. NECK: Supple. HEART: Normal first and second heart sounds. No gallop, rub, or murmur. CHEST: Clear to auscultation. No crepitation or rhonchi. ABDOMEN: Distended, soft, nontender. NEUROLOGIC: She was grossly intact, but confused. LABORATORY DATA: Her lab work showed a white cell count of 6400, hemoglobin 13.5, hematocrit 39, MCV 100, and platelet count of 518,000 with normal manual differential. Her chemistry showed a serum sodium 137, potassium 4.1, chloride 104, bicarbonate 27, anion gap of 6, BUN 8, creatinine 0.4. Estimated GFR was 162 mL per minute. Her glucose was 90, calcium was 8.4, magnesium was 1.7. Total bilirubin, AST, ALT, alkaline phosphatase were normal. Total protein 6.1, albumin was 2.8. Her D-dimer was 0.45. Urinalysis showed the urine was yellow, clear with a pH of 7, specific gravity of 1.010. The urine was negative for protein, glucose, ketones, blood, nitrite, and leukocyte esterase. There are no rbc's, no wbc's, and no bacteria. Her treponema pallidum antibodies were negative and coronavirus by PCR was negative. ASSESSMENT AND PLAN: In summary, this is a 60-year-old female patient who was referred to [facility] from [facility] on account of her alcohol dependence and Wernicke's encephalopathy. Reportedly, the patient has been having active hallucination, has been abusing alcohol, had acute mental status change, was wandering naked in the street. She had crawled into the neighbor's car. She had a marked mood lability, disorganized speech, cognitive impairment, restlessness, fighting with staff at [facility]. She apparently had failed outpatient psychiatric intervention and behavior that is deemed dangerous, unmanageable where she lives alone at home. Medically, the patient has history of Wernicke's encephalopathy, nicotine use disorder, and COPD. She has also alcoholism. However, for the time being, all her vital signs seem to be well within normal range. Her labs are also well within acceptable range. There are mild thrombocytosis. Her vitamin B12 was normal. A 25-hydroxy vitamin D is low. However, her TSH, total T4, and total T3 are all within normal range. Her iron studies are all consistent with replete iron stores, and so all in all, the patient seems to be medically stable. We will obviously follow her closely, and if there are any labs that are still pending, I will make any necessary recommendation. Otherwise, I will start her on vitamin D if she was not started already. Thank you, Dr. Carreon, for allowing me to participate in the care of this patient. MAXIMO DR: Isabel TID: [id number]
[2021-02-15 06:12] VITALS: BP 121/72
[2021-02-15] MEDS: SERTRALINE 50 MG TABLET. PO SCH (08:08)
[2021-02-15] MEDS: POTASSIUM CHLORIDE 20 MEQ TABLET.ER. PO SCH (08:08)
[2021-02-15] MEDS: MULTIVITAMIN with MINERAL TABLET. PO SCH (08:08)
[2021-02-15] MEDS: THIAMINE 100 MG TABLET. PO SCH (08:08)
[2021-02-15] MEDS: FOLIC ACID 1 MG TABLET PO SCH (08:08)
[2021-02-15] MEDS: MAGNESIUM OXIDE 400 MG TABLET PO SCH (08:09)
[2021-02-15] MEDS: NICOTINE 21MG PATCH. TD SCH (08:10)
[2021-02-15 10:32] LABS: BASO # 0.2 x10^3/uL (0.0-0.2); BASO % 3 % (0-3); EOS # 0.1 x10^3/uL (0.0-0.7); EOS % 2 % (0-3); HEMATOCRIT 40.1 % (36.0-47.0); HEMOGLOBIN 13.5 g/dL (12.0-15.5); LYMPH # 1.9 x10^3/uL (1.0-4.8); LYMPH % 26 % (24-48); MEAN CORPUSCULAR HEMOGLOBIN 34 pg (25-35); MEAN CORPUSCULAR HGB CONC 34 g/dL (31-37); MEAN CORPUSCULAR VOLUME 100 fL (79-100); MONO # 0.5 x10^3/uL (0.0-1.1); MONO % 7 % (0-9); NEUT # 4.7 x10^3uL (1.8-7.7); NEUT % 63 % (31-73); PLATELET COUNT 715 x10^3/uL (140-400); RED CELL DISTRIBUTION WIDTH 15.2 % (11.5-14.5); WHITE BLOOD COUNT 7.5 x10^3/uL (4.0-11.0)
[2021-02-15 10:42] LABS: ALBUMIN/GLOBULIN RATIO 0.8 (1.0-1.7); CALCIUM 8.6 mg/dL (8.5-10.1); CREATININE 0.5 mg/dL (0.6-1.0); GFR 125.9; POTASSIUM 3.8 mmol/L (3.5-5.1); TOTAL BILIRUBIN 0.3 mg/dL (0.2-1.0); TOTAL PROTEIN 6.6 g/dL (6.4-8.2)
[2021-02-15 15:55] VITALS: BP 107/69
[2021-02-15] MEDS: CHOLECALCIFEROL (VITAMIN D3) 50,000 UNIT CAPSULE PO SCH (17:01)
[2021-02-15] MEDS: risperiDONE 0.5 MG TABLET. PO SCH (20:10)
[2021-02-15] MEDS: MELATONIN 3 MG TABLET PO PRN (20:10)
--- NOTE | 2021-02-15 22:01 | PDOC ---
Exam Note: Nadeem Note: Please also refer to the separate dictated note~for this date of service dictated separately.~Patient seen individually. Discussed the patient with Nursing staff reviewed the chart.~Reviewed interim history and current functioning. Reviewed vital signs,~Labs/ Radiology~and current medications noted below. Continue current treatment with the changes noted in the dictated addendum note Assessment: Vital Signs/I&O: Vital Signs Date Time Temp Pulse Resp B/P (MAP) Pulse Ox O2 Delivery O2 Flow Rate FiO2 02/15/21 15:55 98.0 92 16 107/69 (82) 98 02/13/21 15:46 Room Air I & O 02/14/21 02/14/21 02/15/21 15:00 23:00 07:00 Intake Total 480 ml 780 ml Balance 480 ml 780 ml Labs: Laboratory Tests Test 02/15/21 10:07 White Blood Count 7.5 x10^3/uL (4.0-11.0) Red Blood Count 4.00 x10^6/uL (3.50-5.40) Hemoglobin 13.5 g/dL (12.0-15.5) Hematocrit 40.1 % (36.0-47.0) Mean Corpuscular Volume 100 fL (79-100) Mean Corpuscular Hemoglobin 34 pg (25-35) Mean Corpuscular Hemoglobin Concent 34 g/dL (31-37) Red Cell Distribution Width 15.2 % (11.5-14.5) H Platelet Count 715 x10^3/uL (140-400) H Neutrophils (%) (Auto) 63 % (31-73) Lymphocytes (%) (Auto) 26 % (24-48) Monocytes (%) (Auto) 7 % (0-9) Eosinophils (%) (Auto) 2 % (0-3) Basophils (%) (Auto) 3 % (0-3) Neutrophils # (Auto) 4.7 x10^3uL (1.8-7.7) Lymphocytes # (Auto) 1.9 x10^3/uL (1.0-4.8) Monocytes # (Auto) 0.5 x10^3/uL (0.0-1.1) Eosinophils # (Auto) 0.1 x10^3/uL (0.0-0.7) Basophils # (Auto) 0.2 x10^3/uL (0.0-0.2) Sodium Level 139 mmol/L (136-145) Potassium Level 3.8 mmol/L (3.5-5.1) Chloride Level 102 mmol/L (98-107) Carbon Dioxide Level 30 mmol/L (21-32) Anion Gap 7 (6-14) Blood Urea Nitrogen 15 mg/dL (7-20) Creatinine 0.5 mg/dL (0.6-1.0) L Estimated GFR (Cockcroft-Gault) 125.9 BUN/Creatinine Ratio 30 (6-20) H Glucose Level 128 mg/dL (70-99) H Calcium Level 8.6 mg/dL (8.5-10.1) Total Bilirubin 0.3 mg/dL (0.2-1.0) Aspartate Amino Transferase (AST) 22 U/L (15-37) Alanine Aminotransferase (ALT) 41 U/L (14-59) Alkaline Phosphatase 69 U/L (46-116) Ammonia < 10 mcmol/L (11-34) L Total Protein 6.6 g/dL (6.4-8.2) Albumin 3.0 g/dL (3.4-5.0) L Albumin/Globulin Ratio 0.8 (1.0-1.7) L Current Medications: Meds: Laboratory Tests Test 02/15/21 10:07 White Blood Count 7.5 x10^3/uL Red Blood Count 4.00 x10^6/uL Hemoglobin 13.5 g/dL Hematocrit 40.1 % Mean Corpuscular Volume 100 fL Mean Corpuscular Hemoglobin 34 pg Mean Corpuscular Hemoglobin Concent 34 g/dL Red Cell Distribution Width 15.2 % Platelet Count 715 x10^3/uL Neutrophils (%) (Auto) 63 % Lymphocytes (%) (Auto) 26 % Monocytes (%) (Auto) 7 % Eosinophils (%) (Auto) 2 % Basophils (%) (Auto) 3 % Neutrophils # (Auto) 4.7 x10^3uL Lymphocytes # (Auto) 1.9 x10^3/uL Monocytes # (Auto) 0.5 x10^3/uL Eosinophils # (Auto) 0.1 x10^3/uL Basophils # (Auto) 0.2 x10^3/uL Sodium Level 139 mmol/L Potassium Level 3.8 mmol/L Chloride Level 102 mmol/L Carbon Dioxide Level 30 mmol/L Anion Gap 7 Blood Urea Nitrogen 15 mg/dL Creatinine 0.5 mg/dL Estimated GFR (Cockcroft-Gault) 125.9 BUN/Creatinine Ratio 30 Glucose Level 128 mg/dL Calcium Level 8.6 mg/dL Total Bilirubin 0.3 mg/dL Aspartate Amino Transf (AST/SGOT) 22 U/L Alanine Aminotransferase (ALT/SGPT) 41 U/L Alkaline Phosphatase 69 U/L Ammonia < 10 mcmol/L Total Protein 6.6 g/dL Albumin 3.0 g/dL Albumin/Globulin Ratio 0.8 Current Medications Medications (Trade) Dose Ordered Sig/Hunter Route PRN Reason Start Time Stop Time Status Last Admin Dose Admin Multi-Ingredient Ointment (Analgesic [place]) 1 lico PRN QID PRN TP MUSCLE PAIN 02/11/21 06:45 Al Hydroxide/Mg Hydroxide (Mylanta Plus Xs) 15 ml PRN AFTMEALHC PRN PO DYSPEPSIA 02/11/21 06:45 Magnesium Hydroxide (Milk Of Magnesia) 2,400 mg PRN QHS PRN PO CONSTIPATION 02/11/21 06:45 Acetaminophen (Tylenol) 650 mg PRN Q6HRS PRN PO MILD PAIN / TEMP > 100.3'F 02/11/21 12:00 02/12/21 13:27 Enoxaparin Sodium (Lovenox 40mg Syringe) 40 mg DAILY SQ 02/12/21 09:00 02/13/21 17:54 DC Lorazepam (Ativan) 1 mg PRN Q4HRS PRN PO ANXIETY / AGITATION 02/11/21 12:00 02/13/21 21:35 DC 02/13/21 16:15 Melatonin (Melatonin) 3 mg PRN QHS PRN PO INSOMNIA 02/11/21 12:00 02/15/21 20:10 Nicotine (Nicoderm Cq 21mg Patch) 1 patch DAILY TD 02/12/21 09:00 02/15/21 08:10 Nicotine Polacrilex (Nicorette Gum) 2 mg PRN Q2HRS PRN BC SMOKING CESSATION 02/11/21 12:00 Olanzapine (ZyPREXA ZYDIS) 5 mg PRN BID PRN PO PSYCHOSIS 02/11/21 12:00 02/13/21 20:07 DC 02/13/21 18:10 Potassium Chloride (Klor-Con) 20 meq DAILY PO 02/12/21 09:00 02/15/21 08:08 Folic Acid (Folic Acid) 1 mg DAILY PO 02/12/21 09:00 02/15/21 08:08 Thiamine HCl (Vitamin B-1) 100 mg DAILY PO 02/12/21 09:00 02/15/21 08:08 Non-Formulary Medication ([Folic Acid] ) 1 mg DAILY PO 02/12/21 09:00 02/11/21 12:25 DC Acetaminophen (Tylenol) 650 mg PRN Q6HRS PRN PO MILD PAIN / TEMP > 100.3'F 02/11/21 12:15 02/11/21 12:22 DC Multi-Ingredient Ointment (Analgesic [place]) 1 lico PRN QID PRN TP MUSCLE PAIN 02/11/21 12:15 02/11/21 12:22 DC Al Hydroxide/Mg Hydroxide (Mylanta Plus Xs) 15 ml PRN AFTMEALHC PRN PO DYSPEPSIA 02/11/21 12:15 02/11/21 12:22 DC Magnesium Hydroxide (Milk Of Magnesia) 2,400 mg PRN QHS PRN PO CONSTIPATION 02/11/21 12:15 02/11/21 12:22 DC Lidocaine (Lidoderm) 1 patch PRN DAILY PRN TD MUSCLE PAIN 02/13/21 19:00 Olanzapine (ZyPREXA ZYDIS) 2.5 mg PRN Q2HR PRN PO PSYCHOSIS 02/13/21 20:15 02/13/21 23:06 Sertraline HCl (Zoloft) 50 mg DAILY PO 02/14/21 09:00 02/15/21 08:08 Risperidone (RisperDAL) 0.5 mg QHS PO 02/13/21 21:00 02/15/21 20:10 Lorazepam (Ativan) 0.5 mg PRN Q1HR PRN PO ANXIETY / AGITATION 02/13/21 21:45 02/14/21 19:55 Multivitamins/ Calcium (Thera-M Plus) 1 tab DAILY PO 02/13/21 21:30 02/15/21 08:08 Clonidine HCl (Catapres) 0.1 mg PRN Q1HR PRN PO SBP>180 OR DBP>100, MR X 3 8/27/21 21:30 Magnesium Oxide (Magnesium Oxide) 400 mg DAILY PO 02/14/21 09:00 02/13/21 21:36 DC Magnesium Oxide (Magnesium Oxide) 400 mg DAILY PO 02/13/21 21:45 02/15/21 08:09 Vitamin D (Vitamin D3) 50,000 unit WEEKLY PO 02/15/21 16:30 02/15/21 17:01 Current Medications Medications (Trade) Dose Ordered Sig/Hunter Route PRN Reason Start Time Stop Time Status Last Admin Dose Admin Vitamin D (Vitamin D3) 50,000 unit WEEKLY PO 02/15/21 16:30 02/15/21 17:01 I have reviewed the current psychotropics carefully including drug interactions. Risk benefit ratio favors no change other than as noted in my dictated progress note. Diagnosis: Problems: (1) Major depressive disorder, recurrent episode (2) Wernicke encephalopathy (3) Anxiety disorder, unspecified (4) Alcohol dependence (5) Alcohol abuse IVANNA GUNDERSON MD Feb 15, 2021 22:01
[2021-02-16 05:34] VITALS: BP 112/74
--- NOTE | 2021-02-16 06:40 | PDOC ---
Exam Note: Nadeem Note: This note is a late entry for 02/13/2021 covers elements not covered in my initial note. Subjective: The patient was seen face to face in the evening of 02/13/2021 with Asia SHERMAN, discussed and reviewed the chart. The patient slept 4 hours previous night. She has been crying, anxious per nursing staff, more confused in the evening, grabbing at things on the floor as I met with her. She seems somewhat delirious. Given her history of alcohol withdrawal treated on IV Ativan at the [facility], we will go ahead and initiate Ativan 0.5 mg q.1h. p.r.n. alcohol withdrawal symptoms/delirium and magnesium, vitamin B1 supplements, multivitamins and the other supplements per alcohol withdrawal protocol. We will also start her on Zoloft 50 mg a day, Risperdal 0.5 mg h.s and change Zyprexa to 2.5 mg q.2h. p.r.n. psychosis and agitation max 10 mg in 24 hours. At times she has been combative, kicked at the female nursing staff Neville during the day. She was delusional, at times hallucinating, paranoid. Zyprexa p.r.n. had to be syringed. Review of Systems: No CV, , pulmonary, eye, ENT system symptoms on review. Reliability poor. Mental Status Exam: The patient is oriented to herself. Insight and judgment, recent and remote memory, attention and concentration, fund of knowledge is poor consistent with her diagnoses. This is quite a change from the day before probably accounted at least to a large part by the possible delirium consequent to alcohol withdrawal. Laboratory Data: Reviewed. Impression: Major depressive disorder recurrent. Alcohol abuse/depend ence/withdrawal. Probable early delirium tremens. Anxiety disorder unspecified. History of Wernickes encephalopathy. Plan: We will initiate the changes as noted above in her psychotropics. Monitor her for the alcohol withdrawal symptoms. Treat further as clinically indicated. Assessment: Vital Signs/I&O: Vital Signs Date Time Temp Pulse Resp B/P (MAP) Pulse Ox O2 Delivery O2 Flow Rate FiO2 02/16/21 05:34 98.6 67 16 112/74 (87) 99 Room Air I & O 02/15/21 02/15/21 02/16/21 15:00 23:00 07:00 Intake Total 960 ml 480 ml Balance 960 ml 480 ml Labs: Laboratory Tests Test 02/15/21 10:07 White Blood Count 7.5 x10^3/uL (4.0-11.0) Red Blood Count 4.00 x10^6/uL (3.50-5.40) Hemoglobin 13.5 g/dL (12.0-15.5) Hematocrit 40.1 % (36.0-47.0) Mean Corpuscular Volume 100 fL (79-100) Mean Corpuscular Hemoglobin 34 pg (25-35) Mean Corpuscular Hemoglobin Concent 34 g/dL (31-37) Red Cell Distribution Width 15.2 % (11.5-14.5) H Platelet Count 715 x10^3/uL (140-400) H Neutrophils (%) (Auto) 63 % (31-73) Lymphocytes (%) (Auto) 26 % (24-48) Monocytes (%) (Auto) 7 % (0-9) Eosinophils (%) (Auto) 2 % (0-3) Basophils (%) (Auto) 3 % (0-3) Neutrophils # (Auto) 4.7 x10^3uL (1.8-7.7) Lymphocytes # (Auto) 1.9 x10^3/uL (1.0-4.8) Monocytes # (Auto) 0.5 x10^3/uL (0.0-1.1) Eosinophils # (Auto) 0.1 x10^3/uL (0.0-0.7) Basophils # (Auto) 0.2 x10^3/uL (0.0-0.2) Sodium Level 139 mmol/L (136-145) Potassium Level 3.8 mmol/L (3.5-5.1) Chloride Level 102 mmol/L (98-107) Carbon Dioxide Level 30 mmol/L (21-32) Anion Gap 7 (6-14) Blood Urea Nitrogen 15 mg/dL (7-20) Creatinine 0.5 mg/dL (0.6-1.0) L Estimated GFR (Cockcroft-Gault) 125.9 BUN/Creatinine Ratio 30 (6-20) H Glucose Level 128 mg/dL (70-99) H Calcium Level 8.6 mg/dL (8.5-10.1) Total Bilirubin 0.3 mg/dL (0.2-1.0) Aspartate Amino Transferase (AST) 22 U/L (15-37) Alanine Aminotransferase (ALT) 41 U/L (14-59) Alkaline Phosphatase 69 U/L (46-116) Ammonia < 10 mcmol/L (11-34) L Total Protein 6.6 g/dL (6.4-8.2) Albumin 3.0 g/dL (3.4-5.0) L Albumin/Globulin Ratio 0.8 (1.0-1.7) L Current Medications: Meds: Current Medications Medications (Trade) Dose Ordered Sig/Hunter Route PRN Reason Start Time Stop Time Status Last Admin Dose Admin Vitamin D (Vitamin D3) 50,000 unit WEEKLY PO 02/15/21 16:30 02/15/21 17:01 I have reviewed the current psychotropics carefully including drug interactions. Risk benefit ratio favors no change other than as noted in my dictated progress note. Diagnosis: Problems: (1) Major depressive disorder, recurrent episode (2) Wernicke encephalopathy (3) Anxiety disorder, unspecified (4) Alcohol dependence (5) Alcohol abuse (6) DTs (delirium tremens) (7) Alcohol withdrawal IVANNA GUNDERSON MD Feb 16, 2021 06:40
--- NOTE | 2021-02-16 06:53 | PDOC ---
Exam Note: Nadeem Note: This note is a late entry for 02/14/2021 covers elements not covered in my initial note. Subjective: The patient was seen face to face in the evening of 02/14/2021 with Asia SHERMAN, discussed and reviewed the chart. The patient slept 2-3/4 hours previous night. She did receive Ativan previous night, is being much better today and it does seem like she was having some early DTs which seems to resolve with the Ativan. She has had some aspiration risk, has been coughing. We will speech eval, will defer to Dr. Vidales. She is somewhat delusional, talking about going to a wedding. Review of Systems: No CV, , pulmonary, eye, ENT system symptoms on review. Mental Status Exam: The patient is oriented to herself and situation. Speech has some latency, coherent. Abstraction fair. Computation impaired. Language function intact. Attention span short. Mood and affect somewhat anxious, labile. Laboratory Data: Reviewed. Impression: Major depressive disorder recurrent. Alcohol abuse/dependence/withdrawal. Probable early delirium tremens. Anxiety disorder unspecified. History of Wernickes encephalopathy. Plan: Continue current psychotropics. Adjust as clinically indicated. Assessment: Vital Signs/I&O: Vital Signs Date Time Temp Pulse Resp B/P (MAP) Pulse Ox O2 Delivery O2 Flow Rate FiO2 02/16/21 05:34 98.6 67 16 112/74 (87) 99 Room Air I & O 02/15/21 02/15/21 02/16/21 15:00 23:00 07:00 Intake Total 960 ml 480 ml Balance 960 ml 480 ml Labs: Laboratory Tests Test 02/15/21 10:07 White Blood Count 7.5 x10^3/uL (4.0-11.0) Red Blood Count 4.00 x10^6/uL (3.50-5.40) Hemoglobin 13.5 g/dL (12.0-15.5) Hematocrit 40.1 % (36.0-47.0) Mean Corpuscular Volume 100 fL (79-100) Mean Corpuscular Hemoglobin 34 pg (25-35) Mean Corpuscular Hemoglobin Concent 34 g/dL (31-37) Red Cell Distribution Width 15.2 % (11.5-14.5) H Platelet Count 715 x10^3/uL (140-400) H Neutrophils (%) (Auto) 63 % (31-73) Lymphocytes (%) (Auto) 26 % (24-48) Monocytes (%) (Auto) 7 % (0-9) Eosinophils (%) (Auto) 2 % (0-3) Basophils (%) (Auto) 3 % (0-3) Neutrophils # (Auto) 4.7 x10^3uL (1.8-7.7) Lymphocytes # (Auto) 1.9 x10^3/uL (1.0-4.8) Monocytes # (Auto) 0.5 x10^3/uL (0.0-1.1) Eosinophils # (Auto) 0.1 x10^3/uL (0.0-0.7) Basophils # (Auto) 0.2 x10^3/uL (0.0-0.2) Sodium Level 139 mmol/L (136-145) Potassium Level 3.8 mmol/L (3.5-5.1) Chloride Level 102 mmol/L (98-107) Carbon Dioxide Level 30 mmol/L (21-32) Anion Gap 7 (6-14) Blood Urea Nitrogen 15 mg/dL (7-20) Creatinine 0.5 mg/dL (0.6-1.0) L Estimated GFR (Cockcroft-Gault) 125.9 BUN/Creatinine Ratio 30 (6-20) H Glucose Level 128 mg/dL (70-99) H Calcium Level 8.6 mg/dL (8.5-10.1) Total Bilirubin 0.3 mg/dL (0.2-1.0) Aspartate Amino Transferase (AST) 22 U/L (15-37) Alanine Aminotransferase (ALT) 41 U/L (14-59) Alkaline Phosphatase 69 U/L (46-116) Ammonia < 10 mcmol/L (11-34) L Total Protein 6.6 g/dL (6.4-8.2) Albumin 3.0 g/dL (3.4-5.0) L Albumin/Globulin Ratio 0.8 (1.0-1.7) L Current Medications: Meds: Laboratory Tests Test 02/15/21 10:07 White Blood Count 7.5 x10^3/uL Red Blood Count 4.00 x10^6/uL Hemoglobin 13.5 g/dL Hematocrit 40.1 % Mean Corpuscular Volume 100 fL Mean Corpuscular Hemoglobin 34 pg Mean Corpuscular Hemoglobin Concent 34 g/dL Red Cell Distribution Width 15.2 % Platelet Count 715 x10^3/uL Neutrophils (%) (Auto) 63 % Lymphocytes (%) (Auto) 26 % Monocytes (%) (Auto) 7 % Eosinophils (%) (Auto) 2 % Basophils (%) (Auto) 3 % Neutrophils # (Auto) 4.7 x10^3uL Lymphocytes # (Auto) 1.9 x10^3/uL Monocytes # (Auto) 0.5 x10^3/uL Eosinophils # (Auto) 0.1 x10^3/uL Basophils # (Auto) 0.2 x10^3/uL Sodium Level 139 mmol/L Potassium Level 3.8 mmol/L Chloride Level 102 mmol/L Carbon Dioxide Level 30 mmol/L Anion Gap 7 Blood Urea Nitrogen 15 mg/dL Creatinine 0.5 mg/dL Estimated GFR (Cockcroft-Gault) 125.9 BUN/Creatinine Ratio 30 Glucose Level 128 mg/dL Calcium Level 8.6 mg/dL Total Bilirubin 0.3 mg/dL Aspartate Amino Transf (AST/SGOT) 22 U/L Alanine Aminotransferase (ALT/SGPT) 41 U/L Alkaline Phosphatase 69 U/L Ammonia < 10 mcmol/L Total Protein 6.6 g/dL Albumin 3.0 g/dL Albumin/Globulin Ratio 0.8 Current Medications Medications (Trade) Dose Ordered Sig/Hunter Route PRN Reason Start Time Stop Time Status Last Admin Dose Admin Multi-Ingredient Ointment (Analgesic [place]) 1 lico PRN QID PRN TP MUSCLE PAIN 02/11/21 06:45 Al Hydroxide/Mg Hydroxide (Mylanta Plus Xs) 15 ml PRN AFTMEALHC PRN PO DYSPEPSIA 02/11/21 06:45 Magnesium Hydroxide (Milk Of Magnesia) 2,400 mg PRN QHS PRN PO CONSTIPATION 02/11/21 06:45 Acetaminophen (Tylenol) 650 mg PRN Q6HRS PRN PO MILD PAIN / TEMP > 100.3'F 02/11/21 12:00 02/12/21 13:27 Enoxaparin Sodium (Lovenox 40mg Syringe) 40 mg DAILY SQ 02/12/21 09:00 02/13/21 17:54 DC Lorazepam (Ativan) 1 mg PRN Q4HRS PRN PO ANXIETY / AGITATION 02/11/21 12:00 02/13/21 21:35 DC 02/13/21 16:15 Melatonin (Melatonin) 3 mg PRN QHS PRN PO INSOMNIA 02/11/21 12:00 02/15/21 20:10 Nicotine (Nicoderm Cq 21mg Patch) 1 patch DAILY TD 02/12/21 09:00 02/15/21 08:10 Nicotine Polacrilex (Nicorette Gum) 2 mg PRN Q2HRS PRN BC SMOKING CESSATION 02/11/21 12:00 Olanzapine (ZyPREXA ZYDIS) 5 mg PRN BID PRN PO PSYCHOSIS 02/11/21 12:00 02/13/21 20:07 DC 02/13/21 18:10 Potassium Chloride (Klor-Con) 20 meq DAILY PO 02/12/21 09:00 02/15/21 08:08 Folic Acid (Folic Acid) 1 mg DAILY PO 02/12/21 09:00 02/15/21 08:08 Thiamine HCl (Vitamin B-1) 100 mg DAILY PO 02/12/21 09:00 02/15/21 08:08 Non-Formulary Medication ([Folic Acid] ) 1 mg DAILY PO 02/12/21 09:00 02/11/21 12:25 DC Acetaminophen (Tylenol) 650 mg PRN Q6HRS PRN PO MILD PAIN / TEMP > 100.3'F 02/11/21 12:15 02/11/21 12:22 DC Multi-Ingredient Ointment (Analgesic [place]) 1 lico PRN QID PRN TP MUSCLE PAIN 02/11/21 12:15 02/11/21 12:22 DC Al Hydroxide/Mg Hydroxide (Mylanta Plus Xs) 15 ml PRN AFTMEALHC PRN PO DYSPEPSIA 02/11/21 12:15 02/11/21 12:22 DC Magnesium Hydroxide (Milk Of Magnesia) 2,400 mg PRN QHS PRN PO CONSTIPATION 02/11/21 12:15 02/11/21 12:22 DC Lidocaine (Lidoderm) 1 patch PRN DAILY PRN TD MUSCLE PAIN 02/13/21 19:00 Olanzapine (ZyPREXA ZYDIS) 2.5 mg PRN Q2HR PRN PO PSYCHOSIS 02/13/21 20:15 02/13/21 23:06 Sertraline HCl (Zoloft) 50 mg DAILY PO 02/14/21 09:00 02/15/21 08:08 Risperidone (RisperDAL) 0.5 mg QHS PO 02/13/21 21:00 02/15/21 20:10 Lorazepam (Ativan) 0.5 mg PRN Q1HR PRN PO ANXIETY / AGITATION 02/13/21 21:45 02/14/21 19:55 Multivitamins/ Calcium (Thera-M Plus) 1 tab DAILY PO 02/13/21 21:30 02/15/21 08:08 Clonidine HCl (Catapres) 0.1 mg PRN Q1HR PRN PO SBP>180 OR DBP>100, MR X 3 02/13/21 21:30 Magnesium Oxide (Magnesium Oxide) 400 mg DAILY PO 02/14/21 09:00 02/13/21 21:36 DC Magnesium Oxide (Magnesium Oxide) 400 mg DAILY PO 02/13/21 21:45 02/15/21 08:09 Vitamin D (Vitamin D3) 50,000 unit WEEKLY PO 02/15/21 16:30 02/15/21 17:01 Current Medications Medications (Trade) Dose Ordered Sig/Hunter Route PRN Reason Start Time Stop Time Status Last Admin Dose Admin Vitamin D (Vitamin D3) 50,000 unit WEEKLY PO 02/15/21 16:30 02/15/21 17:01 I have reviewed the current psychotropics carefully including drug interactions. Risk benefit ratio favors no change other than as noted in my dictated progress note. Diagnosis: Problems: (1) Major depressive disorder, recurrent episode (2) Wernicke encephalopathy (3) Anxiety disorder, unspecified (4) Alcohol dependence (5) Alcohol withdrawal delirium (6) DTs (delirium tremens) IVANNA GUNDERSON MD Feb 16, 2021 06:53
[2021-02-16] MEDS: NICOTINE 21MG PATCH. TD SCH (08:40)
[2021-02-16] MEDS: MAGNESIUM OXIDE 400 MG TABLET PO SCH (08:40)
[2021-02-16] MEDS: MULTIVITAMIN with MINERAL TABLET. PO SCH (08:40)
[2021-02-16] MEDS: FOLIC ACID 1 MG TABLET PO SCH (08:40)
[2021-02-16] MEDS: SERTRALINE 50 MG TABLET. PO SCH (08:40)
[2021-02-16] MEDS: POTASSIUM CHLORIDE 20 MEQ TABLET.ER. PO SCH (08:41)
[2021-02-16] MEDS: THIAMINE 100 MG TABLET. PO SCH (08:41)
[2021-02-16 16:29] VITALS: BP 124/77
[2021-02-16] MEDS: ACETAMINOPHEN 325 MG TABLET PO PRN (18:16)
[2021-02-16] MEDS: MELATONIN 3 MG TABLET PO PRN (20:31)
[2021-02-16] MEDS: risperiDONE 0.5 MG TABLET. PO SCH (20:31)
--- NOTE | 2021-02-16 22:03 | PDOC ---
Exam Note: Nadeem Note: Please also refer to the separate dictated note~for this date of service dictated separately.~Patient seen individually. Discussed the patient with Nursing staff reviewed the chart.~Reviewed interim history and current functioning. Reviewed vital signs,~Labs/ Radiology~and current medications noted below. Continue current treatment with the changes noted in the dictated addendum note Assessment: Vital Signs/I&O: Vital Signs Date Time Temp Pulse Resp B/P (MAP) Pulse Ox O2 Delivery O2 Flow Rate FiO2 02/16/21 16:29 97.7 80 16 124/77 (93) 99 02/16/21 05:34 Room Air I & O 02/15/21 02/15/21 02/16/21 15:00 23:00 07:00 Intake Total 960 ml 480 ml Balance 960 ml 480 ml Current Medications: Meds: Current Medications Medications (Trade) Dose Ordered Sig/Hunter Route PRN Reason Start Time Stop Time Status Last Admin Dose Admin Multi-Ingredient Ointment (Analgesic [place]) 1 lico PRN QID PRN TP MUSCLE PAIN 02/11/21 06:45 Al Hydroxide/Mg Hydroxide (Mylanta Plus Xs) 15 ml PRN AFTMEALHC PRN PO DYSPEPSIA 02/11/21 06:45 Magnesium Hydroxide (Milk Of Magnesia) 2,400 mg PRN QHS PRN PO CONSTIPATION 02/11/21 06:45 Acetaminophen (Tylenol) 650 mg PRN Q6HRS PRN PO MILD PAIN / TEMP > 100.3'F 02/11/21 12:00 02/16/21 18:16 Enoxaparin Sodium (Lovenox 40mg Syringe) 40 mg DAILY SQ 02/12/21 09:00 02/13/21 17:54 DC Lorazepam (Ativan) 1 mg PRN Q4HRS PRN PO ANXIETY / AGITATION 02/11/21 12:00 02/13/21 21:35 DC 02/13/21 16:15 Melatonin (Melatonin) 3 mg PRN QHS PRN PO INSOMNIA 02/11/21 12:00 02/16/21 20:31 Nicotine (Nicoderm Cq 21mg Patch) 1 patch DAILY TD 02/12/21 09:00 02/16/21 08:40 Nicotine Polacrilex (Nicorette Gum) 2 mg PRN Q2HRS PRN BC SMOKING CESSATION 02/11/21 12:00 Olanzapine (ZyPREXA ZYDIS) 5 mg PRN BID PRN PO PSYCHOSIS 02/11/21 12:00 02/13/21 20:07 DC 02/13/21 18:10 Potassium Chloride (Klor-Con) 20 meq DAILY PO 02/12/21 09:00 02/16/21 08:41 Folic Acid (Folic Acid) 1 mg DAILY PO 02/12/21 09:00 02/16/21 08:40 Thiamine HCl (Vitamin B-1) 100 mg DAILY PO 02/12/21 09:00 02/16/21 08:41 Non-Formulary Medication ([Folic Acid] ) 1 mg DAILY PO 02/12/21 09:00 02/11/21 12:25 DC Acetaminophen (Tylenol) 650 mg PRN Q6HRS PRN PO MILD PAIN / TEMP > 100.3'F 02/11/21 12:15 02/11/21 12:22 DC Multi-Ingredient Ointment (Analgesic [place]) 1 lico PRN QID PRN TP MUSCLE PAIN 02/11/21 12:15 02/11/21 12:22 DC Al Hydroxide/Mg Hydroxide (Mylanta Plus Xs) 15 ml PRN AFTMEALHC PRN PO DYSPEPSIA 02/11/21 12:15 02/11/21 12:22 DC Magnesium Hydroxide (Milk Of Magnesia) 2,400 mg PRN QHS PRN PO CONSTIPATION 02/11/21 12:15 02/11/21 12:22 DC Lidocaine (Lidoderm) 1 patch PRN DAILY PRN TD MUSCLE PAIN 02/13/21 19:00 Olanzapine (ZyPREXA ZYDIS) 2.5 mg PRN Q2HR PRN PO PSYCHOSIS 02/13/21 20:15 02/13/21 23:06 Sertraline HCl (Zoloft) 50 mg DAILY PO 02/14/21 09:00 02/16/21 08:40 Risperidone (RisperDAL) 0.5 mg QHS PO 02/13/21 21:00 02/16/21 20:31 Lorazepam (Ativan) 0.5 mg PRN Q1HR PRN PO ANXIETY / AGITATION 02/13/21 21:45 02/14/21 19:55 Multivitamins/ Calcium (Thera-M Plus) 1 tab DAILY PO 02/13/21 21:30 02/16/21 08:40 Clonidine HCl (Catapres) 0.1 mg PRN Q1HR PRN PO SBP>180 OR DBP>100, MR X 3 02/13/21 21:30 Magnesium Oxide (Magnesium Oxide) 400 mg DAILY PO 02/14/21 09:00 02/13/21 21:36 DC Magnesium Oxide (Magnesium Oxide) 400 mg DAILY PO 02/13/21 21:45 02/16/21 08:40 Vitamin D (Vitamin D3) 50,000 unit WEEKLY PO 02/15/21 16:30 02/15/21 17:01 I have reviewed the current psychotropics carefully including drug interactions. Risk benefit ratio favors no change other than as noted in my dictated progress note. Diagnosis: Problems: (1) Major depressive disorder, recurrent episode (2) Wernicke encephalopathy (3) Anxiety disorder, unspecified (4) Alcohol dependence (5) Alcohol withdrawal (6) DTs (delirium tremens) IVANNA GUNDERSON MD Feb 16, 2021 22:03
[2021-02-17 05:51] VITALS: BP 92/60
[2021-02-17] MEDS: NICOTINE 21MG PATCH. TD SCH (08:51)
[2021-02-17] MEDS: THIAMINE 100 MG TABLET. PO SCH (08:51)
[2021-02-17] MEDS: FOLIC ACID 1 MG TABLET PO SCH (08:51)
[2021-02-17] MEDS: POTASSIUM CHLORIDE 20 MEQ TABLET.ER. PO SCH (08:51)
[2021-02-17] MEDS: MULTIVITAMIN with MINERAL TABLET. PO SCH (08:51)
[2021-02-17] MEDS: SERTRALINE 50 MG TABLET. PO SCH (08:51)
[2021-02-17] MEDS: ACETAMINOPHEN 325 MG TABLET PO PRN (08:56)
[2021-02-17] MEDS: MAGNESIUM OXIDE 400 MG TABLET PO SCH (08:57)
[2021-02-17] MEDS: NICOTINE POLACRILEX GUM 2 MG GUM. BC PRN ×2 (12:56→18:24)
[2021-02-17 15:32] VITALS: BP 109/70
[2021-02-17] MEDS: risperiDONE 0.5 MG TABLET. PO SCH (20:20)
[2021-02-17] MEDS: MELATONIN 3 MG TABLET PO PRN (20:20)
[2021-02-17] MEDS: LORazepam 0.5 MG TABLET PO PRN (21:05)
--- NOTE | 2021-02-17 21:59 | PDOC ---
Exam Note: Nadeem Note: Please also refer to the separate dictated note~for this date of service dictated separately.~Patient seen individually. Discussed the patient with Nursing staff reviewed the chart.~Reviewed interim history and current functioning. Reviewed vital signs,~Labs/ Radiology~and current medications noted below. Continue current treatment with the changes noted in the dictated addendum note Assessment: Vital Signs/I&O: Vital Signs Date Time Temp Pulse Resp B/P (MAP) Pulse Ox O2 Delivery O2 Flow Rate FiO2 02/17/21 15:32 97.9 69 16 109/70 (83) 98 02/16/21 05:34 Room Air I & O 02/16/21 02/16/21 02/17/21 15:00 23:00 07:00 Intake Total 840 ml 840 ml Balance 840 ml 840 ml Labs: Laboratory Tests Test 02/17/21 05:15 SARS-CoV-2 (PCR) Negative (NEGATIVE) Current Medications: Meds: Laboratory Tests Test 02/17/21 05:15 Coronavirus (COVID-19)(PCR) Negative Current Medications Medications (Trade) Dose Ordered Sig/Hunter Route PRN Reason Start Time Stop Time Status Last Admin Dose Admin Multi-Ingredient Ointment (Analgesic [place]) 1 lico PRN QID PRN TP MUSCLE PAIN 02/11/21 06:45 Al Hydroxide/Mg Hydroxide (Mylanta Plus Xs) 15 ml PRN AFTMEALHC PRN PO DYSPEPSIA 02/11/21 06:45 Magnesium Hydroxide (Milk Of Magnesia) 2,400 mg PRN QHS PRN PO CONSTIPATION 02/11/21 06:45 Acetaminophen (Tylenol) 650 mg PRN Q6HRS PRN PO MILD PAIN / TEMP > 100.3'F 02/11/21 12:00 02/17/21 08:56 Enoxaparin Sodium (Lovenox 40mg Syringe) 40 mg DAILY SQ 02/12/21 09:00 02/13/21 17:54 DC Lorazepam (Ativan) 1 mg PRN Q4HRS PRN PO ANXIETY / AGITATION 02/11/21 12:00 02/13/21 21:35 DC 02/13/21 16:15 Melatonin (Melatonin) 3 mg PRN QHS PRN PO INSOMNIA 02/11/21 12:00 02/17/21 20:20 Nicotine (Nicoderm Cq 21mg Patch) 1 patch DAILY TD 02/12/21 09:00 02/17/21 08:51 Nicotine Polacrilex (Nicorette Gum) 2 mg PRN Q2HRS PRN BC SMOKING CESSATION 02/11/21 12:00 02/17/21 18:24 Olanzapine (ZyPREXA ZYDIS) 5 mg PRN BID PRN PO PSYCHOSIS 02/11/21 12:00 02/13/21 20:07 DC 02/13/21 18:10 Potassium Chloride (Klor-Con) 20 meq DAILY PO 02/12/21 09:00 02/17/21 08:51 Folic Acid (Folic Acid) 1 mg DAILY PO 02/12/21 09:00 02/17/21 08:51 Thiamine HCl (Vitamin B-1) 100 mg DAILY PO 02/12/21 09:00 02/17/21 08:51 Non-Formulary Medication ([Folic Acid] ) 1 mg DAILY PO 02/12/21 09:00 02/11/21 12:25 DC Acetaminophen (Tylenol) 650 mg PRN Q6HRS PRN PO MILD PAIN / TEMP > 100.3'F 02/11/21 12:15 02/11/21 12:22 DC Multi-Ingredient Ointment (Analgesic [place]) 1 lico PRN QID PRN TP MUSCLE PAIN 02/11/21 12:15 02/11/21 12:22 DC Al Hydroxide/Mg Hydroxide (Mylanta Plus Xs) 15 ml PRN AFTMEALHC PRN PO DYSPEPSIA 02/11/21 12:15 02/11/21 12:22 DC Magnesium Hydroxide (Milk Of Magnesia) 2,400 mg PRN QHS PRN PO CONSTIPATION 02/11/21 12:15 02/11/21 12:22 DC Lidocaine (Lidoderm) 1 patch PRN DAILY PRN TD MUSCLE PAIN 02/13/21 19:00 Olanzapine (ZyPREXA ZYDIS) 2.5 mg PRN Q2HR PRN PO PSYCHOSIS 02/13/21 20:15 02/13/21 23:06 Sertraline HCl (Zoloft) 50 mg DAILY PO 02/14/21 09:00 02/17/21 08:51 Risperidone (RisperDAL) 0.5 mg QHS PO 02/13/21 21:00 02/17/21 20:20 Lorazepam (Ativan) 0.5 mg PRN Q1HR PRN PO ANXIETY / AGITATION 02/13/21 21:45 02/17/21 21:05 Multivitamins/ Calcium (Thera-M Plus) 1 tab DAILY PO 02/13/21 21:30 02/17/21 08:51 Clonidine HCl (Catapres) 0.1 mg PRN Q1HR PRN PO SBP>180 OR DBP>100, MR X 3 02/13/21 21:30 Magnesium Oxide (Magnesium Oxide) 400 mg DAILY PO 02/14/21 09:00 02/13/21 21:36 DC Magnesium Oxide (Magnesium Oxide) 400 mg DAILY PO 02/13/21 21:45 02/17/21 08:57 Vitamin D (Vitamin D3) 50,000 unit WEEKLY PO 02/15/21 16:30 02/15/21 17:01 I have reviewed the current psychotropics carefully including drug interactions. Risk benefit ratio favors no change other than as noted in my dictated progress note. Diagnosis: Problems: (1) Major depressive disorder, recurrent episode (2) Wernicke encephalopathy (3) Anxiety disorder, unspecified (4) Alcohol dependence (5) Alcohol withdrawal (6) DTs (delirium tremens) IVANNA GUNDERSON MD Feb 17, 2021 21:59
[2021-02-18] MEDS: LORazepam 0.5 MG TABLET PO PRN ×2 (04:14→14:36)
[2021-02-18 06:15] VITALS: BP 102/58
[2021-02-18] MEDS: THIAMINE 100 MG TABLET. PO SCH (08:26)
[2021-02-18] MEDS: POTASSIUM CHLORIDE 20 MEQ TABLET.ER. PO SCH (08:26)
[2021-02-18] MEDS: MULTIVITAMIN with MINERAL TABLET. PO SCH (08:26)
[2021-02-18] MEDS: FOLIC ACID 1 MG TABLET PO SCH (08:27)
[2021-02-18] MEDS: NICOTINE 21MG PATCH. TD SCH (08:27)
[2021-02-18] MEDS: SERTRALINE 50 MG TABLET. PO SCH (08:27)
[2021-02-18] MEDS: MAGNESIUM OXIDE 400 MG TABLET PO SCH (08:27)
--- NOTE | 2021-02-18 09:06 | PDOC ---
Exam Note: Nadeem Note: This note is a late entry for 02/15/2021 covers elements not covered in my initial note. Subjective: The patient was seen face to face in the evening of 02/15/2021 with Keisha SHERMAN, discussed and reviewed the chart. The patient slept 7-3/4 hours previous night. She is compliant with her medications. Short-term memory is impaired. She is asking for her purse. Review of Systems: No CV, , pulmonary, eye, ENT system symptoms on review. Mental Status Exam: The patient is reasonably oriented, pleasant at times. Speech coherent. Abstraction fair. Computation impaired. Language function intact. Attention span short. Mood and affect lability is improved. Short- term memory is impaired. Laboratory Data: Reviewed. Impression: Major depressive disorder recurrent. Alcohol abuse/dependence/withdrawal. Probable early delirium tremens. Anxiety disorder unspecified. History of Wernickes encephalopathy. Plan: Continue current psychotropics. I had lengthy discussion with the patient about abstaining from alcohol post discharge. She convincingly states she will do this but it is unclear she will be able to follow through with this once she returns home. Assessment: Vital Signs/I&O: Vital Signs Date Time Temp Pulse Resp B/P (MAP) Pulse Ox O2 Delivery O2 Flow Rate FiO2 02/18/21 06:15 97.4 63 20 102/58 (73) 98 02/16/21 05:34 Room Air I & O 02/17/21 02/17/21 02/18/21 15:00 23:00 07:00 Intake Total 840 ml 720 ml Balance 840 ml 720 ml Current Medications: Meds: Current Medications Medications (Trade) Dose Ordered Sig/Hunter Route PRN Reason Start Time Stop Time Status Last Admin Dose Admin Multi-Ingredient Ointment (Analgesic [place]) 1 lico PRN QID PRN TP MUSCLE PAIN 02/11/21 06:45 Al Hydroxide/Mg Hydroxide (Mylanta Plus Xs) 15 ml PRN AFTMEALHC PRN PO DYSPEPSIA 02/11/21 06:45 Magnesium Hydroxide (Milk Of Magnesia) 2,400 mg PRN QHS PRN PO CONSTIPATION 02/11/21 06:45 Acetaminophen (Tylenol) 650 mg PRN Q6HRS PRN PO MILD PAIN / TEMP > 100.3'F 02/11/21 12:00 02/17/21 08:56 Enoxaparin Sodium (Lovenox 40mg Syringe) 40 mg DAILY SQ 02/12/21 09:00 02/13/21 17:54 DC Lorazepam (Ativan) 1 mg PRN Q4HRS PRN PO ANXIETY / AGITATION 02/11/21 12:00 02/13/21 21:35 DC 02/13/21 16:15 Melatonin (Melatonin) 3 mg PRN QHS PRN PO INSOMNIA 02/11/21 12:00 02/17/21 20:20 Nicotine (Nicoderm Cq 21mg Patch) 1 patch DAILY TD 02/12/21 09:00 02/18/21 08:27 Nicotine Polacrilex (Nicorette Gum) 2 mg PRN Q2HRS PRN BC SMOKING CESSATION 02/11/21 12:00 02/17/21 18:24 Olanzapine (ZyPREXA ZYDIS) 5 mg PRN BID PRN PO PSYCHOSIS 02/11/21 12:00 02/13/21 20:07 DC 02/13/21 18:10 Potassium Chloride (Klor-Con) 20 meq DAILY PO 02/12/21 09:00 02/18/21 08:26 Folic Acid (Folic Acid) 1 mg DAILY PO 02/12/21 09:00 02/18/21 08:27 Thiamine HCl (Vitamin B-1) 100 mg DAILY PO 02/12/21 09:00 02/18/21 08:26 Non-Formulary Medication ([Folic Acid] ) 1 mg DAILY PO 02/12/21 09:00 02/11/21 12:25 DC Acetaminophen (Tylenol) 650 mg PRN Q6HRS PRN PO MILD PAIN / TEMP > 100.3'F 02/11/21 12:15 02/11/21 12:22 DC Multi-Ingredient Ointment (Analgesic [place]) 1 lico PRN QID PRN TP MUSCLE PAIN 02/11/21 12:15 02/11/21 12:22 DC Al Hydroxide/Mg Hydroxide (Mylanta Plus Xs) 15 ml PRN AFTMEALHC PRN PO DYSPEPSIA 02/11/21 12:15 02/11/21 12:22 DC Magnesium Hydroxide (Milk Of Magnesia) 2,400 mg PRN QHS PRN PO CONSTIPATION 02/11/21 12:15 02/11/21 12:22 DC Lidocaine (Lidoderm) 1 patch PRN DAILY PRN TD MUSCLE PAIN 02/13/21 19:00 Olanzapine (ZyPREXA ZYDIS) 2.5 mg PRN Q2HR PRN PO PSYCHOSIS 02/13/21 20:15 02/13/21 23:06 Sertraline HCl (Zoloft) 50 mg DAILY PO 02/14/21 09:00 02/18/21 08:27 Risperidone (RisperDAL) 0.5 mg QHS PO 02/13/21 21:00 02/17/21 20:20 Lorazepam (Ativan) 0.5 mg PRN Q1HR PRN PO ANXIETY / AGITATION 02/13/21 21:45 02/18/21 04:14 Multivitamins/ Calcium (Thera-M Plus) 1 tab DAILY PO 02/13/21 21:30 02/18/21 08:26 Clonidine HCl (Catapres) 0.1 mg PRN Q1HR PRN PO SBP>180 OR DBP>100, MR X 3 02/13/21 21:30 Magnesium Oxide (Magnesium Oxide) 400 mg DAILY PO 02/14/21 09:00 02/13/21 21:36 DC Magnesium Oxide (Magnesium Oxide) 400 mg DAILY PO 02/13/21 21:45 02/18/21 08:27 Vitamin D (Vitamin D3) 50,000 unit WEEKLY PO 02/15/21 16:30 02/15/21 17:01 I have reviewed the current psychotropics carefully including drug interactions. Risk benefit ratio favors no change other than as noted in my dictated progress note. Diagnosis: Problems: (1) Major depressive disorder, recurrent episode (2) Wernicke encephalopathy (3) Anxiety disorder, unspecified (4) Alcohol dependence (5) Alcohol withdrawal delirium (6) DTs (delirium tremens) IVANNA GUNDERSON MD Feb 18, 2021 09:06
--- NOTE | 2021-02-18 09:34 | PDOC ---
Exam Note: Nadeem Note: This note is a late entry for 02/16/2021 covers elements not covered in my initial note. Subjective: The patient was seen face to face in the evening of 02/16/2021 with Neville SHERMAN, discussed and reviewed the chart. The patient slept 7 hours previous night. She talked about using alcohol because she is lonely at home. Review of Systems: No CV, , pulmonary, eye, ENT system symptoms on review. Mental Status Exam: The patient is reasonably oriented. Speech coherent. Abstraction fair. Computation impaired. Language function intact. Mood and affect improved. Laboratory Data: Reviewed. Impression: Major depressive disorder recurrent. Alcohol abuse/dependence/withdrawal. Probable early delirium tremens. Anxiety disorder unspecified. History of Wernickes encephalopathy. Plan: Continue current psychotropics. Adjust as clinically indicated.Continue current treatment with the changes noted in the dictated addendum note Assessment: Vital Signs/I&O: Vital Signs Date Time Temp Pulse Resp B/P (MAP) Pulse Ox O2 Delivery O2 Flow Rate FiO2 02/18/21 06:15 97.4 63 20 102/58 (73) 98 02/16/21 05:34 Room Air I & O 02/17/21 02/17/21 02/18/21 15:00 23:00 07:00 Intake Total 840 ml 720 ml Balance 840 ml 720 ml Current Medications: Meds: Current Medications Medications (Trade) Dose Ordered Sig/Hunter Route PRN Reason Start Time Stop Time Status Last Admin Dose Admin Multi-Ingredient Ointment (Analgesic [place]) 1 lico PRN QID PRN TP MUSCLE PAIN 02/11/21 06:45 Al Hydroxide/Mg Hydroxide (Mylanta Plus Xs) 15 ml PRN AFTMEALHC PRN PO DYSPEPSIA 02/11/21 06:45 Magnesium Hydroxide (Milk Of Magnesia) 2,400 mg PRN QHS PRN PO CONSTIPATION 02/11/21 06:45 Acetaminophen (Tylenol) 650 mg PRN Q6HRS PRN PO MILD PAIN / TEMP > 100.3'F 02/11/21 12:00 02/17/21 08:56 Enoxaparin Sodium (Lovenox 40mg Syringe) 40 mg DAILY SQ 02/12/21 09:00 02/13/21 17:54 DC Lorazepam (Ativan) 1 mg PRN Q4HRS PRN PO ANXIETY / AGITATION 02/11/21 12:00 02/13/21 21:35 DC 02/13/21 16:15 Melatonin (Melatonin) 3 mg PRN QHS PRN PO INSOMNIA 02/11/21 12:00 02/17/21 20:20 Nicotine (Nicoderm Cq 21mg Patch) 1 patch DAILY TD 02/12/21 09:00 02/18/21 08:27 Nicotine Polacrilex (Nicorette Gum) 2 mg PRN Q2HRS PRN BC SMOKING CESSATION 02/11/21 12:00 02/17/21 18:24 Olanzapine (ZyPREXA ZYDIS) 5 mg PRN BID PRN PO PSYCHOSIS 02/11/21 12:00 02/13/21 20:07 DC 02/13/21 18:10 Potassium Chloride (Klor-Con) 20 meq DAILY PO 02/12/21 09:00 02/18/21 08:26 Folic Acid (Folic Acid) 1 mg DAILY PO 02/12/21 09:00 02/18/21 08:27 Thiamine HCl (Vitamin B-1) 100 mg DAILY PO 02/12/21 09:00 02/18/21 08:26 Non-Formulary Medication ([Folic Acid] ) 1 mg DAILY PO 02/12/21 09:00 02/11/21 12:25 DC Acetaminophen (Tylenol) 650 mg PRN Q6HRS PRN PO MILD PAIN / TEMP > 100.3'F 02/11/21 12:15 02/11/21 12:22 DC Multi-Ingredient Ointment (Analgesic [place]) 1 lico PRN QID PRN TP MUSCLE PAIN 02/11/21 12:15 02/11/21 12:22 DC Al Hydroxide/Mg Hydroxide (Mylanta Plus Xs) 15 ml PRN AFTMEALHC PRN PO DYSPEPSIA 02/11/21 12:15 02/11/21 12:22 DC Magnesium Hydroxide (Milk Of Magnesia) 2,400 mg PRN QHS PRN PO CONSTIPATION 02/11/21 12:15 02/11/21 12:22 DC Lidocaine (Lidoderm) 1 patch PRN DAILY PRN TD MUSCLE PAIN 02/13/21 19:00 Olanzapine (ZyPREXA ZYDIS) 2.5 mg PRN Q2HR PRN PO PSYCHOSIS 02/13/21 20:15 02/13/21 23:06 Sertraline HCl (Zoloft) 50 mg DAILY PO 02/14/21 09:00 02/18/21 08:27 Risperidone (RisperDAL) 0.5 mg QHS PO 02/13/21 21:00 02/17/21 20:20 Lorazepam (Ativan) 0.5 mg PRN Q1HR PRN PO ANXIETY / AGITATION 02/13/21 21:45 02/18/21 04:14 Multivitamins/ Calcium (Thera-M Plus) 1 tab DAILY PO 02/13/21 21:30 02/18/21 08:26 Clonidine HCl (Catapres) 0.1 mg PRN Q1HR PRN PO SBP>180 OR DBP>100, MR X 3 02/13/21 21:30 Magnesium Oxide (Magnesium Oxide) 400 mg DAILY PO 02/14/21 09:00 02/13/21 21:36 DC Magnesium Oxide (Magnesium Oxide) 400 mg DAILY PO 02/13/21 21:45 02/18/21 08:27 Vitamin D (Vitamin D3) 50,000 unit WEEKLY PO 02/15/21 16:30 02/15/21 17:01 I have reviewed the current psychotropics carefully including drug interactions. Risk benefit ratio favors no change other than as noted in my dictated progress note. Diagnosis: Problems: (1) Major depressive disorder, recurrent episode (2) Wernicke encephalopathy (3) Anxiety disorder, unspecified (4) Alcohol dependence (5) Alcohol withdrawal (6) DTs (delirium tremens) IVANNA GUNDERSON MD Feb 18, 2021 09:34
--- NOTE | 2021-02-18 10:34 | PDOC ---
Exam Note: Nadeem Note: This note is a late entry for 02/17/2021 covers elements not covered in my initial note. Subjective: The patient was seen face to face in the evening of 02/17/2021 with Aicha SHERMAN, discussed and reviewed the chart. The patient slept 6-1/2 hours previous night. She is cooperative, compliant with treatment. Review of Systems: No CV, , pulmonary, eye, ENT system symptoms on review. Mental Status Exam: The patient is alert and oriented x4. Speech coherent. Abstraction fair. Computation impaired. Language function intact. Attention span short. Mood and affect appears more interactive, less withdrawn, less anxious. Laboratory Data: Reviewed. Impression: Major depressive disorder recurrent. Alcohol abuse/dependence/withdrawal. Probable early delirium tremens. Anxiety disorder unspecified. History of Wernickes encephalopathy. Plan: Continue current psychotropics. I had a lengthy discussion with the patient about abstaining from alcohol and she convincingly stated she intends to do that. Assessment: Vital Signs/I&O: Vital Signs Date Time Temp Pulse Resp B/P (MAP) Pulse Ox O2 Delivery O2 Flow Rate FiO2 02/18/21 06:15 97.4 63 20 102/58 (73) 98 02/16/21 05:34 Room Air I & O 02/17/21 02/17/21 02/18/21 15:00 23:00 07:00 Intake Total 840 ml 720 ml Balance 840 ml 720 ml Current Medications: Meds: Current Medications Medications (Trade) Dose Ordered Sig/[place]unter Route PRN Reason Start Time Stop Time Status Last Admin Dose Admin Multi-Ingredient Ointment (Analgesic [place]) 1 lico PRN QID PRN TP MUSCLE PAIN 02/11/21 06:45 Al Hydroxide/Mg Hydroxide (Mylanta Plus Xs) 15 ml PRN AFTMEALHC PRN PO DYSPEPSIA 02/11/21 06:45 Magnesium Hydroxide (Milk Of Magnesia) 2,400 mg PRN QHS PRN PO CONSTIPATION 02/11/21 06:45 Acetaminophen (Tylenol) 650 mg PRN Q6HRS PRN PO MILD PAIN / TEMP > 100.3'F 02/11/21 12:00 02/17/21 08:56 Enoxaparin Sodium (Lovenox 40mg Syringe) 40 mg DAILY SQ 02/12/21 09:00 02/13/21 17:54 DC Lorazepam (Ativan) 1 mg PRN Q4HRS PRN PO ANXIETY / AGITATION 02/11/21 12:00 02/13/21 21:35 DC 02/13/21 16:15 Melatonin (Melatonin) 3 mg PRN QHS PRN PO INSOMNIA 02/11/21 12:00 02/17/21 20:20 Nicotine (Nicoderm Cq 21mg Patch) 1 patch DAILY TD 02/12/21 09:00 02/18/21 08:27 Nicotine Polacrilex (Nicorette Gum) 2 mg PRN Q2HRS PRN BC SMOKING CESSATION 02/11/21 12:00 02/17/21 18:24 Olanzapine (ZyPREXA ZYDIS) 5 mg PRN BID PRN PO PSYCHOSIS 02/11/21 12:00 02/13/21 20:07 DC 02/13/21 18:10 Potassium Chloride (Klor-Con) 20 meq DAILY PO 02/12/21 09:00 02/18/21 08:26 Folic Acid (Folic Acid) 1 mg DAILY PO 02/12/21 09:00 02/18/21 08:27 Thiamine HCl (Vitamin B-1) 100 mg DAILY PO 02/12/21 09:00 02/18/21 08:26 Non-Formulary Medication ([Folic Acid] ) 1 mg DAILY PO 02/12/21 09:00 02/11/21 12:25 DC Acetaminophen (Tylenol) 650 mg PRN Q6HRS PRN PO MILD PAIN / TEMP > 100.3'F 02/11/21 12:15 02/11/21 12:22 DC Multi-Ingredient Ointment (Analgesic [place]) 1 lico PRN QID PRN TP MUSCLE PAIN 02/11/21 12:15 02/11/21 12:22 DC Al Hydroxide/Mg Hydroxide (Mylanta Plus Xs) 15 ml PRN AFTMEALHC PRN PO DYSPEPSIA 02/11/21 12:15 02/11/21 12:22 DC Magnesium Hydroxide (Milk Of Magnesia) 2,400 mg PRN QHS PRN PO CONSTIPATION 02/11/21 12:15 02/11/21 12:22 DC Lidocaine (Lidoderm) 1 patch PRN DAILY PRN TD MUSCLE PAIN 02/13/21 19:00 Olanzapine (ZyPREXA ZYDIS) 2.5 mg PRN Q2HR PRN PO PSYCHOSIS 02/13/21 20:15 02/13/21 23:06 Sertraline HCl (Zoloft) 50 mg DAILY PO 02/14/21 09:00 02/18/21 08:27 Risperidone (RisperDAL) 0.5 mg QHS PO 02/13/21 21:00 02/17/21 20:20 Lorazepam (Ativan) 0.5 mg PRN Q1HR PRN PO ANXIETY / AGITATION 02/13/21 21:45 02/18/21 04:14 Multivitamins/ Calcium (Thera-M Plus) 1 tab DAILY PO 02/13/21 21:30 02/18/21 08:26 Clonidine HCl (Catapres) 0.1 mg PRN Q1HR PRN PO SBP>180 OR DBP>100, MR X 3 02/13/21 21:30 Magnesium Oxide (Magnesium Oxide) 400 mg DAILY PO 02/14/21 09:00 02/13/21 21:36 DC Magnesium Oxide (Magnesium Oxide) 400 mg DAILY PO 02/13/21 21:45 02/18/21 08:27 Vitamin D (Vitamin D3) 50,000 unit WEEKLY PO 02/15/21 16:30 02/15/21 17:01 I have reviewed the current psychotropics carefully including drug interactions. Risk benefit ratio favors no change other than as noted in my dictated progress note. Diagnosis: Problems: (1) Major depressive disorder, recurrent episode (2) Wernicke encephalopathy (3) Anxiety disorder, unspecified (4) Alcohol dependence (5) Alcohol withdrawal (6) DTs (delirium tremens) IVANNA GUNDERSON MD Feb 18, 2021 10:34
[2021-02-18] MEDS: ACETAMINOPHEN 325 MG TABLET PO PRN (14:37)
[2021-02-18 15:45] VITALS: BP 102/71
[2021-02-18] MEDS: risperiDONE 0.5 MG TABLET. PO SCH (19:54)
--- NOTE | 2021-02-18 21:56 | PDOC ---
Exam Note: Nadeem Note: Please also refer to the separate dictated note~for this date of service dictated separately.~Patient seen individually. Discussed the patient with Nursing staff reviewed the chart.~Reviewed interim history and current functioning. Reviewed vital signs,~Labs/ Radiology~and current medications noted below. Continue current treatment with the changes noted in the dictated addendum note Assessment: Vital Signs/I&O: Vital Signs Date Time Temp Pulse Resp B/P (MAP) Pulse Ox O2 Delivery O2 Flow Rate FiO2 02/18/21 15:45 98.3 77 16 102/71 (81) 99 02/16/21 05:34 Room Air I & O 02/17/21 02/17/21 02/18/21 15:00 23:00 07:00 Intake Total 840 ml 720 ml Balance 840 ml 720 ml Current Medications: Meds: Current Medications Medications (Trade) Dose Ordered Sig/Hunter Route PRN Reason Start Time Stop Time Status Last Admin Dose Admin Multi-Ingredient Ointment (Analgesic [place]) 1 lico PRN QID PRN TP MUSCLE PAIN 02/11/21 06:45 Al Hydroxide/Mg Hydroxide (Mylanta Plus Xs) 15 ml PRN AFTMEALHC PRN PO DYSPEPSIA 02/11/21 06:45 Magnesium Hydroxide (Milk Of Magnesia) 2,400 mg PRN QHS PRN PO CONSTIPATION 02/11/21 06:45 Acetaminophen (Tylenol) 650 mg PRN Q6HRS PRN PO MILD PAIN / TEMP > 100.3'F 02/11/21 12:00 02/18/21 14:37 Enoxaparin Sodium (Lovenox 40mg Syringe) 40 mg DAILY SQ 02/12/21 09:00 02/13/21 17:54 DC Lorazepam (Ativan) 1 mg PRN Q4HRS PRN PO ANXIETY / AGITATION 02/11/21 12:00 02/13/21 21:35 DC 02/13/21 16:15 Melatonin (Melatonin) 3 mg PRN QHS PRN PO INSOMNIA 02/11/21 12:00 02/17/21 20:20 Nicotine (Nicoderm Cq 21mg Patch) 1 patch DAILY TD 02/12/21 09:00 02/18/21 08:27 Nicotine Polacrilex (Nicorette Gum) 2 mg PRN Q2HRS PRN BC SMOKING CESSATION 02/11/21 12:00 02/17/21 18:24 Olanzapine (ZyPREXA ZYDIS) 5 mg PRN BID PRN PO PSYCHOSIS 02/11/21 12:00 02/13/21 20:07 DC 02/13/21 18:10 Potassium Chloride (Klor-Con) 20 meq DAILY PO 02/12/21 09:00 02/18/21 08:26 Folic Acid (Folic Acid) 1 mg DAILY PO 02/12/21 09:00 02/18/21 08:27 Thiamine HCl (Vitamin B-1) 100 mg DAILY PO 02/12/21 09:00 02/18/21 08:26 Non-Formulary Medication ([Folic Acid] ) 1 mg DAILY PO 02/12/21 09:00 02/11/21 12:25 DC Acetaminophen (Tylenol) 650 mg PRN Q6HRS PRN PO MILD PAIN / TEMP > 100.3'F 02/11/21 12:15 02/11/21 12:22 DC Multi-Ingredient Ointment (Analgesic [place]) 1 lico PRN QID PRN TP MUSCLE PAIN 02/11/21 12:15 02/11/21 12:22 DC Al Hydroxide/Mg Hydroxide (Mylanta Plus Xs) 15 ml PRN AFTMEALHC PRN PO DYSPEPSIA 02/11/21 12:15 02/11/21 12:22 DC Magnesium Hydroxide (Milk Of Magnesia) 2,400 mg PRN QHS PRN PO CONSTIPATION 02/11/21 12:15 02/11/21 12:22 DC Lidocaine (Lidoderm) 1 patch PRN DAILY PRN TD MUSCLE PAIN 02/13/21 19:00 Olanzapine (ZyPREXA ZYDIS) 2.5 mg PRN Q2HR PRN PO PSYCHOSIS 02/13/21 20:15 02/13/21 23:06 Sertraline HCl (Zoloft) 50 mg DAILY PO 02/14/21 09:00 02/18/21 08:27 Risperidone (RisperDAL) 0.5 mg QHS PO 02/13/21 21:00 02/18/21 19:54 Lorazepam (Ativan) 0.5 mg PRN Q1HR PRN PO ANXIETY / AGITATION 02/13/21 21:45 02/18/21 14:36 Multivitamins/ Calcium (Thera-M Plus) 1 tab DAILY PO 02/13/21 21:30 02/18/21 08:26 Clonidine HCl (Catapres) 0.1 mg PRN Q1HR PRN PO SBP>180 OR DBP>100, MR X 3 02/13/21 21:30 Magnesium Oxide (Magnesium Oxide) 400 mg DAILY PO 02/14/21 09:00 02/13/21 21:36 DC Magnesium Oxide (Magnesium Oxide) 400 mg DAILY PO 02/13/21 21:45 02/18/21 08:27 Vitamin D (Vitamin D3) 50,000 unit WEEKLY PO 02/15/21 16:30 02/15/21 17:01 I have reviewed the current psychotropics carefully including drug interactions. Risk benefit ratio favors no change other than as noted in my dictated progress note. Diagnosis: Problems: (1) Major depressive disorder, recurrent episode (2) Wernicke encephalopathy (3) Anxiety disorder, unspecified (4) Alcohol dependence (5) Alcohol withdrawal (6) DTs (delirium tremens) IVANNA GUNDERSON MD Feb 18, 2021 21:56
[2021-02-19 05:19] VITALS: BP 107/71
[2021-02-19] MEDS: SERTRALINE 50 MG TABLET. PO SCH (08:16)
[2021-02-19] MEDS: POTASSIUM CHLORIDE 20 MEQ TABLET.ER. PO SCH (08:16)
[2021-02-19] MEDS: THIAMINE 100 MG TABLET. PO SCH (08:17)
[2021-02-19] MEDS: MULTIVITAMIN with MINERAL TABLET. PO SCH (08:17)
[2021-02-19] MEDS: FOLIC ACID 1 MG TABLET PO SCH (08:17)
[2021-02-19] MEDS: NICOTINE 21MG PATCH. TD SCH (08:17)
[2021-02-19] MEDS: MAGNESIUM OXIDE 400 MG TABLET PO SCH (08:18)
[2021-02-19] MEDS: ACETAMINOPHEN 325 MG TABLET PO PRN ×2 (11:00→20:42)
--- NOTE | 2021-02-19 14:56 | TX PLAN ---
Interdisciplinary Tx Plan Admission Information Feb 11, 2021 at 06:29 Legal Status (on Admission): Voluntary DPOA/Guardian Name: Harshil Tesfaye Contact Other Contact Verified Code Status: Full Code Allergies: Coded Allergies: No Known Drug Allergies (Unverified , 02/10/21) Diagnoses Primary Diagnosis: Alcohol Dependence Werneke's Encephalopathy Reasons for Admission: Alcohol Abuse, Hallucinations, Confusion/Disoriented, Poor impulse control, Other Problem in Patient's Words: She has a drinking problem and can no longer care for herself. Additional Admission Comments: According to the intake, pt is restless, fighting with staff in the ED, hallucinating, altered mental status, was find wandering the streets naked, crawing into the neighbors car, labile mood, having tangential speech, cognitively impaired. Problems Active Problems: restless anxious confused non-compliant Inactive Problems: N/A Pt Strengths/Limitations Ability for [place]: Poor Cognitive Functioning/Ability: Fair Communication Skills/Ability: Fair Financial Resources: Poor Insight/Judgement: Poor Intellectual Ability: Fair Physical Health: Poor Social Skills: Fair Stability in Family: Good Stability in School/Work: Poor Verbal Skills: Fair Discharge Criteria Discharge Criteria: No need for close observ., Adequate arrangements @DC, Improved behavior, Withdrawal Sx absent, Improved mood/thought Preliminary Discharge Plan Preliminary DC Plan: Placement Needed Special Precautions Fall Risk: Low Initial D/C Plan Pt is not able to live by herself; will need placement at the time of discharge. Identified Discharge Needs: Referrals to a higher level of care Currently Utilized Resources Currently Utilized Resources/P: Primary Care Physicians Identified Problems/Hx/Goals Objectives/Short-Term Goals Short Term Goals: Dec. Aggression, Dec. Hallucination/Delus, Dec. Outbursts, Medication Stabilization, Promote Coping Skill Short Term Goals in Patient's: N/A Interventions/Frequency Staff Interventions/Frequency&: Psychiatrist to assess pt at least 3x per week for medication management. Social Work to assess pt at least 2x per week to identify barriers and discharge and finalize discharge plans. Nursing to assess medication effects, behavior modification and complete 15 minute checks daily. Encourage participation in group activities (if applicable) or 1:1 engagement based off activity dept goals. History Vocational History: Pt had multiple jobs that did not last long. 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 She has been on disability most of her life. 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
[2021-02-19 16:16] VITALS: BP 124/69
[2021-02-19] MEDS: LORazepam 0.5 MG TABLET PO PRN (20:42)
[2021-02-19] MEDS: risperiDONE 0.5 MG TABLET. PO SCH (20:42)
--- NOTE | 2021-02-19 21:57 | PDOC ---
Exam Note: Nadeem Note: Please also refer to the separate dictated note~for this date of service dictated separately.~Patient seen individually. Discussed the patient with Nursing staff reviewed the chart.~Reviewed interim history and current functioning. Reviewed vital signs,~Labs/ Radiology~and current medications noted below. Continue current treatment with the changes noted in the dictated addendum note Assessment: Vital Signs/I&O: Vital Signs Date Time Temp Pulse Resp B/P (MAP) Pulse Ox O2 Delivery O2 Flow Rate FiO2 02/19/21 16:16 98.4 106 24 124/69 (87) 97 02/16/21 05:34 Room Air I & O 02/18/21 02/18/21 02/19/21 15:00 23:00 07:00 Intake Total 720 ml 240 ml Balance 720 ml 240 ml Current Medications: Meds: Current Medications Medications (Trade) Dose Ordered Sig/Hunter Route PRN Reason Start Time Stop Time Status Last Admin Dose Admin Multi-Ingredient Ointment (Analgesic [place]) 1 lico PRN QID PRN TP MUSCLE PAIN 02/11/21 06:45 Al Hydroxide/Mg Hydroxide (Mylanta Plus Xs) 15 ml PRN AFTMEALHC PRN PO DYSPEPSIA 02/11/21 06:45 Magnesium Hydroxide (Milk Of Magnesia) 2,400 mg PRN QHS PRN PO CONSTIPATION 02/11/21 06:45 Acetaminophen (Tylenol) 650 mg PRN Q6HRS PRN PO MILD PAIN / TEMP > 100.3'F 02/11/21 12:00 02/19/21 20:42 Enoxaparin Sodium (Lovenox 40mg Syringe) 40 mg DAILY SQ 02/12/21 09:00 02/13/21 17:54 DC Lorazepam (Ativan) 1 mg PRN Q4HRS PRN PO ANXIETY / AGITATION 02/11/21 12:00 02/13/21 21:35 DC 02/13/21 16:15 Melatonin (Melatonin) 3 mg PRN QHS PRN PO INSOMNIA 02/11/21 12:00 02/17/21 20:20 Nicotine (Nicoderm Cq 21mg Patch) 1 patch DAILY TD 02/12/21 09:00 02/19/21 08:17 Nicotine Polacrilex (Nicorette Gum) 2 mg PRN Q2HRS PRN BC SMOKING CESSATION 02/11/21 12:00 02/17/21 18:24 Olanzapine (ZyPREXA ZYDIS) 5 mg PRN BID PRN PO PSYCHOSIS 02/11/21 12:00 02/13/21 20:07 DC 02/13/21 18:10 Potassium Chloride (Klor-Con) 20 meq DAILY PO 02/12/21 09:00 02/19/21 08:16 Folic Acid (Folic Acid) 1 mg DAILY PO 02/12/21 09:00 02/19/21 08:17 Thiamine HCl (Vitamin B-1) 100 mg DAILY PO 02/12/21 09:00 02/19/21 08:17 Non-Formulary Medication ([Folic Acid] ) 1 mg DAILY PO 02/12/21 09:00 02/11/21 12:25 DC Acetaminophen (Tylenol) 650 mg PRN Q6HRS PRN PO MILD PAIN / TEMP > 100.3'F 02/11/21 12:15 02/11/21 12:22 DC Multi-Ingredient Ointment (Analgesic [place]) 1 lico PRN QID PRN TP MUSCLE PAIN 02/11/21 12:15 02/11/21 12:22 DC Al Hydroxide/Mg Hydroxide (Mylanta Plus Xs) 15 ml PRN AFTMEALHC PRN PO DYSPEPSIA 02/11/21 12:15 02/11/21 12:22 DC Magnesium Hydroxide (Milk Of Magnesia) 2,400 mg PRN QHS PRN PO CONSTIPATION 02/11/21 12:15 02/11/21 12:22 DC Lidocaine (Lidoderm) 1 patch PRN DAILY PRN TD MUSCLE PAIN 02/13/21 19:00 Olanzapine (ZyPREXA ZYDIS) 2.5 mg PRN Q2HR PRN PO PSYCHOSIS 02/13/21 20:15 02/13/21 23:06 Sertraline HCl (Zoloft) 50 mg DAILY PO 02/14/21 09:00 02/19/21 08:16 Risperidone (RisperDAL) 0.5 mg QHS PO 02/13/21 21:00 02/19/21 20:42 Lorazepam (Ativan) 0.5 mg PRN Q1HR PRN PO ANXIETY / AGITATION 02/13/21 21:45 02/19/21 20:42 Multivitamins/ Calcium (Thera-M Plus) 1 tab DAILY PO 02/13/21 21:30 02/19/21 08:17 Clonidine HCl (Catapres) 0.1 mg PRN Q1HR PRN PO SBP>180 OR DBP>100, MR X 3 02/13/21 21:30 Magnesium Oxide (Magnesium Oxide) 400 mg DAILY PO 02/14/21 09:00 02/13/21 21:36 DC Magnesium Oxide (Magnesium Oxide) 400 mg DAILY PO 02/13/21 21:45 02/19/21 08:18 Vitamin D (Vitamin D3) 50,000 unit WEEKLY PO 02/15/21 16:30 02/15/21 17:01 I have reviewed the current psychotropics carefully including drug interactions. Risk benefit ratio favors no change other than as noted in my dictated progress note. Diagnosis: Problems: (1) Major depressive disorder, recurrent episode (2) Wernicke encephalopathy (3) Anxiety disorder, unspecified (4) Alcohol dependence (5) Alcohol withdrawal (6) DTs (delirium tremens) IVANNA GUNDERSON MD Feb 19, 2021 21:57
[2021-02-20 06:04] VITALS: BP 146/82
[2021-02-20] MEDS: FOLIC ACID 1 MG TABLET PO SCH (08:25)
[2021-02-20] MEDS: SERTRALINE 50 MG TABLET. PO SCH (08:25)
[2021-02-20] MEDS: THIAMINE 100 MG TABLET. PO SCH (08:25)
[2021-02-20] MEDS: MULTIVITAMIN with MINERAL TABLET. PO SCH (08:25)
[2021-02-20] MEDS: MAGNESIUM OXIDE 400 MG TABLET PO SCH (08:25)
[2021-02-20] MEDS: POTASSIUM CHLORIDE 20 MEQ TABLET.ER. PO SCH (08:25)
[2021-02-20] MEDS: NICOTINE 21MG PATCH. TD SCH (08:26)
--- NOTE | 2021-02-20 09:49 | PDOC ---
Exam Note: Nadeem Note: This note is a late entry for 02/18/2021 covers elements not covered in my initial note. Subjective: The patient was seen face to face in the evening of 02/18/2021 with Jackie SHERMAN, discussed and reviewed the chart. The patient slept 6-1/4 hours previous night. She has been somewhat anxious. Received a p.r.n. Ativan. She states she is anxious because she has to go home and pay bills. She complains of some headaches. Review of Systems: No CV, , pulmonary, eye, ENT system symptoms on review. Mental Status Exam: The patient is oriented reasonably. Speech coherent. Abstraction fair. Computation impaired. Language function intact. Attention span short. Mood and affect less withdrawn. We talked at length about abstaining from alcohol and the possibility she may develop Wernickes encephalopathy and she is quite taken aback by this. Laboratory Data: Reviewed. Impression: Major depressive disorder recurrent. Alcohol abuse/depe ndence/withdrawal. Probable early delirium tremens. Anxiety disorder unspecified. History of Wernickes encephalopathy. Plan: Continue current psychotropics. Assessment: Vital Signs/I&O: Vital Signs Date Time Temp Pulse Resp B/P (MAP) Pulse Ox O2 Delivery O2 Flow Rate FiO2 02/20/21 06:04 97.8 75 18 146/82 (103) 94 02/16/21 05:34 Room Air I & O 02/19/21 02/19/21 02/20/21 15:00 23:00 07:00 Intake Total 360 ml 720 ml Balance 360 ml 720 ml Current Medications: Meds: Current Medications Medications (Trade) Dose Ordered Sig/Hunter Route PRN Reason Start Time Stop Time Status Last Admin Dose Admin Multi-Ingredient Ointment (Analgesic [place]) 1 lico PRN QID PRN TP MUSCLE PAIN 02/11/21 06:45 Al Hydroxide/Mg Hydroxide (Mylanta Plus Xs) 15 ml PRN AFTMEALHC PRN PO DYSPEPSIA 02/11/21 06:45 Magnesium Hydroxide (Milk Of Magnesia) 2,400 mg PRN QHS PRN PO CONSTIPATION 02/11/21 06:45 Acetaminophen (Tylenol) 650 mg PRN Q6HRS PRN PO MILD PAIN / TEMP > 100.3'F 02/11/21 12:00 02/19/21 20:42 Enoxaparin Sodium (Lovenox 40mg Syringe) 40 mg DAILY SQ 02/12/21 09:00 02/13/21 17:54 DC Lorazepam (Ativan) 1 mg PRN Q4HRS PRN PO ANXIETY / AGITATION 02/11/21 12:00 02/13/21 21:35 DC 02/13/21 16:15 Melatonin (Melatonin) 3 mg PRN QHS PRN PO INSOMNIA 02/11/21 12:00 02/17/21 20:20 Nicotine (Nicoderm Cq 21mg Patch) 1 patch DAILY TD 02/12/21 09:00 02/20/21 08:26 Nicotine Polacrilex (Nicorette Gum) 2 mg PRN Q2HRS PRN BC SMOKING CESSATION 02/11/21 12:00 02/17/21 18:24 Olanzapine (ZyPREXA ZYDIS) 5 mg PRN BID PRN PO PSYCHOSIS 02/11/21 12:00 02/13/21 20:07 DC 02/13/21 18:10 Potassium Chloride (Klor-Con) 20 meq DAILY PO 02/12/21 09:00 02/20/21 08:25 Folic Acid (Folic Acid) 1 mg DAILY PO 02/12/21 09:00 02/20/21 08:25 Thiamine HCl (Vitamin B-1) 100 mg DAILY PO 02/12/21 09:00 02/20/21 08:25 Non-Formulary Medication ([Folic Acid] ) 1 mg DAILY PO 02/12/21 09:00 02/11/21 12:25 DC Acetaminophen (Tylenol) 650 mg PRN Q6HRS PRN PO MILD PAIN / TEMP > 100.3'F 02/11/21 12:15 02/11/21 12:22 DC Multi-Ingredient Ointment (Analgesic [place]) 1 lico PRN QID PRN TP MUSCLE PAIN 02/11/21 12:15 02/11/21 12:22 DC Al Hydroxide/Mg Hydroxide (Mylanta Plus Xs) 15 ml PRN AFTMEALHC PRN PO DYSPEPSIA 02/11/21 12:15 02/11/21 12:22 DC Magnesium Hydroxide (Milk Of Magnesia) 2,400 mg PRN QHS PRN PO CONSTIPATION 02/11/21 12:15 02/11/21 12:22 DC Lidocaine (Lidoderm) 1 patch PRN DAILY PRN TD MUSCLE PAIN 02/13/21 19:00 Olanzapine (ZyPREXA ZYDIS) 2.5 mg PRN Q2HR PRN PO PSYCHOSIS 02/13/21 20:15 02/13/21 23:06 Sertraline HCl (Zoloft) 50 mg DAILY PO 02/14/21 09:00 02/20/21 08:25 Risperidone (RisperDAL) 0.5 mg QHS PO 02/13/21 21:00 02/19/21 20:42 Lorazepam (Ativan) 0.5 mg PRN Q1HR PRN PO ANXIETY / AGITATION 02/13/21 21:45 02/19/21 20:42 Multivitamins/ Calcium (Thera-M Plus) 1 tab DAILY PO 02/13/21 21:30 02/20/21 08:25 Clonidine HCl (Catapres) 0.1 mg PRN Q1HR PRN PO SBP>180 OR DBP>100, MR X 3 02/13/21 21:30 Magnesium Oxide (Magnesium Oxide) 400 mg DAILY PO 02/14/21 09:00 02/13/21 21:36 DC Magnesium Oxide (Magnesium Oxide) 400 mg DAILY PO 02/13/21 21:45 02/20/21 08:25 Vitamin D (Vitamin D3) 50,000 unit WEEKLY PO 02/15/21 16:30 02/15/21 17:01 I have reviewed the current psychotropics carefully including drug interactions. Risk benefit ratio favors no change other than as noted in my dictated progress note. Diagnosis: Problems: (1) Major depressive disorder, recurrent episode (2) Wernicke encephalopathy (3) Anxiety disorder, unspecified (4) Alcohol dependence (5) Alcohol withdrawal (6) DTs (delirium tremens) IVANNA GUNDERSON MD Feb 20, 2021 09:49
--- NOTE | 2021-02-20 10:01 | PDOC ---
Exam Note: Nadeem Note: This note is a late entry for 02/19/2021 covers elements not covered in my initial note. Subjective: The patient was reviewed at treatment team meeting individually in the morning on 02/19/2021 with Cindy Santana, Keli Ortiz (social media project manager), Lissette, activity therapy and Jackie SHERMAN, discussed and reviewed the chart. The patient slept 6-1/4 hours previous night. She has short-term memory deficits, somewhat needy, anxious. Also met with her in the evening. We had a lengthy discussion about her abstaining from alcohol use post discharge. She is quite categorical she will never use alcohol again but her history would suggest otherwise. Review of Systems: No CV, , pulmonary, eye, ENT system symptoms on review. Mental Status Exam: The patient is reasonably oriented. Speech coherent. Abstraction fair. Computation impaired. Language function intact. Attention span short. Mood and affect withdrawn. Laboratory Data: Reviewed. Impression: Major depressive disorder recurrent. Alcohol abuse/dependence/withdrawal. Probable early delirium tremens. Anxiety disorder unspecified. History of Wernickes encephalopathy. Plan: Continue current psychotropics. We discussed treatment on Naltrexone oral versus Naltrexone extended release intramuscular i.e. Vivitrol or Antabuse but we will defer all of this because she will probably be in a placement where they would ensure she remains abstinent from alcohol. Assessment: Vital Signs/I&O: Vital Signs Date Time Temp Pulse Resp B/P (MAP) Pulse Ox O2 Delivery O2 Flow Rate FiO2 02/20/21 06:04 97.8 75 18 146/82 (103) 94 02/16/21 05:34 Room Air I & O 02/19/21 02/19/21 02/20/21 15:00 23:00 07:00 Intake Total 360 ml 720 ml Balance 360 ml 720 ml Current Medications: Meds: Current Medications Medications (Trade) Dose Ordered Sig/[place]unter Route PRN Reason Start Time Stop Time Status Last Admin Dose Admin Multi-Ingredient Ointment (Analgesic [place]) 1 lico PRN QID PRN TP MUSCLE PAIN 02/11/21 06:45 Al Hydroxide/Mg Hydroxide (Mylanta Plus Xs) 15 ml PRN AFTMEALHC PRN PO DYSPEPSIA 02/11/21 06:45 Magnesium Hydroxide (Milk Of Magnesia) 2,400 mg PRN QHS PRN PO CONSTIPATION 02/11/21 06:45 Acetaminophen (Tylenol) 650 mg PRN Q6HRS PRN PO MILD PAIN / TEMP > 100.3'F 02/11/21 12:00 02/19/21 20:42 Enoxaparin Sodium (Lovenox 40mg Syringe) 40 mg DAILY SQ 02/12/21 09:00 02/13/21 17:54 DC Lorazepam (Ativan) 1 mg PRN Q4HRS PRN PO ANXIETY / AGITATION 02/11/21 12:00 02/13/21 21:35 DC 02/13/21 16:15 Melatonin (Melatonin) 3 mg PRN QHS PRN PO INSOMNIA 02/11/21 12:00 02/17/21 20:20 Nicotine (Nicoderm Cq 21mg Patch) 1 patch DAILY TD 02/12/21 09:00 02/20/21 08:26 Nicotine Polacrilex (Nicorette Gum) 2 mg PRN Q2HRS PRN BC SMOKING CESSATION 02/11/21 12:00 02/17/21 18:24 Olanzapine (ZyPREXA ZYDIS) 5 mg PRN BID PRN PO PSYCHOSIS 02/11/21 12:00 02/13/21 20:07 DC 02/13/21 18:10 Potassium Chloride (Klor-Con) 20 meq DAILY PO 02/12/21 09:00 02/20/21 08:25 Folic Acid (Folic Acid) 1 mg DAILY PO 02/12/21 09:00 02/20/21 08:25 Thiamine HCl (Vitamin B-1) 100 mg DAILY PO 02/12/21 09:00 02/20/21 08:25 Non-Formulary Medication ([Folic Acid] ) 1 mg DAILY PO 02/12/21 09:00 02/11/21 12:25 DC Acetaminophen (Tylenol) 650 mg PRN Q6HRS PRN PO MILD PAIN / TEMP > 100.3'F 02/11/21 12:15 02/11/21 12:22 DC Multi-Ingredient Ointment (Analgesic [place]) 1 lico PRN QID PRN TP MUSCLE PAIN 02/11/21 12:15 02/11/21 12:22 DC Al Hydroxide/Mg Hydroxide (Mylanta Plus Xs) 15 ml PRN AFTMEALHC PRN PO DYSPEPSIA 02/11/21 12:15 02/11/21 12:22 DC Magnesium Hydroxide (Milk Of Magnesia) 2,400 mg PRN QHS PRN PO CONSTIPATION 02/11/21 12:15 02/11/21 12:22 DC Lidocaine (Lidoderm) 1 patch PRN DAILY PRN TD MUSCLE PAIN 02/13/21 19:00 Olanzapine (ZyPREXA ZYDIS) 2.5 mg PRN Q2HR PRN PO PSYCHOSIS 02/13/21 20:15 02/13/21 23:06 Sertraline HCl (Zoloft) 50 mg DAILY PO 02/14/21 09:00 02/20/21 08:25 Risperidone (RisperDAL) 0.5 mg QHS PO 02/13/21 21:00 02/19/21 20:42 Lorazepam (Ativan) 0.5 mg PRN Q1HR PRN PO ANXIETY / AGITATION 02/13/21 21:45 02/19/21 20:42 Multivitamins/ Calcium (Thera-M Plus) 1 tab DAILY PO 02/13/21 21:30 02/20/21 08:25 Clonidine HCl (Catapres) 0.1 mg PRN Q1HR PRN PO SBP>180 OR DBP>100, MR X 3 02/13/21 21:30 Magnesium Oxide (Magnesium Oxide) 400 mg DAILY PO 02/14/21 09:00 02/13/21 21:36 DC Magnesium Oxide (Magnesium Oxide) 400 mg DAILY PO 02/13/21 21:45 02/20/21 08:25 Vitamin D (Vitamin D3) 50,000 unit WEEKLY PO 02/15/21 16:30 02/15/21 17:01 I have reviewed the current psychotropics carefully including drug interactions. Risk benefit ratio favors no change other than as noted in my dictated progress note. Diagnosis: Problems: (1) Major depressive disorder, recurrent episode (2) Wernicke encephalopathy (3) Anxiety disorder, unspecified (4) Alcohol dependence (5) Alcohol withdrawal delirium (6) DTs (delirium tremens) IVANNA GUNDERSON MD Feb 20, 2021 10:01
[2021-02-20 16:34] VITALS: BP 121/78
[2021-02-20] MEDS: LORazepam 0.5 MG TABLET PO PRN (16:54)
[2021-02-20] MEDS: ACETAMINOPHEN 325 MG TABLET PO PRN (21:06)
[2021-02-20] MEDS: risperiDONE 0.5 MG TABLET. PO SCH (21:07)
[2021-02-20] MEDS: MELATONIN 3 MG TABLET PO PRN (21:51)
--- NOTE | 2021-02-20 22:07 | PDOC ---
Exam Note: Nadeem Note: Please also refer to the separate dictated note~for this date of service dictated separately.~Patient seen individually. Discussed the patient with Nursing staff reviewed the chart.~Reviewed interim history and current functioning. Reviewed vital signs,~Labs/ Radiology~and current medications noted below. Continue current treatment with the changes noted in the dictated addendum note Assessment: Vital Signs/I&O: Vital Signs Date Time Temp Pulse Resp B/P (MAP) Pulse Ox O2 Delivery O2 Flow Rate FiO2 02/20/21 16:34 97.8 83 18 121/78 (92) 99 02/16/21 05:34 Room Air I & O 02/19/21 02/19/21 02/20/21 15:00 23:00 07:00 Intake Total 360 ml 720 ml Balance 360 ml 720 ml Current Medications: Meds: Current Medications Medications (Trade) Dose Ordered Sig/Hunter Route PRN Reason Start Time Stop Time Status Last Admin Dose Admin Multi-Ingredient Ointment (Analgesic [place]) 1 lico PRN QID PRN TP MUSCLE PAIN 02/11/21 06:45 Al Hydroxide/Mg Hydroxide (Mylanta Plus Xs) 15 ml PRN AFTMEALHC PRN PO DYSPEPSIA 02/11/21 06:45 Magnesium Hydroxide (Milk Of Magnesia) 2,400 mg PRN QHS PRN PO CONSTIPATION 02/11/21 06:45 Acetaminophen (Tylenol) 650 mg PRN Q6HRS PRN PO MILD PAIN / TEMP > 100.3'F 02/11/21 12:00 02/20/21 21:06 Enoxaparin Sodium (Lovenox 40mg Syringe) 40 mg DAILY SQ 02/12/21 09:00 02/13/21 17:54 DC Lorazepam (Ativan) 1 mg PRN Q4HRS PRN PO ANXIETY / AGITATION 02/11/21 12:00 02/13/21 21:35 DC 02/13/21 16:15 Melatonin (Melatonin) 3 mg PRN QHS PRN PO INSOMNIA 02/11/21 12:00 02/20/21 21:51 Nicotine (Nicoderm Cq 21mg Patch) 1 patch DAILY TD 02/12/21 09:00 02/20/21 08:26 Nicotine Polacrilex (Nicorette Gum) 2 mg PRN Q2HRS PRN BC SMOKING CESSATION 02/11/21 12:00 02/17/21 18:24 Olanzapine (ZyPREXA ZYDIS) 5 mg PRN BID PRN PO PSYCHOSIS 02/11/21 12:00 02/13/21 20:07 DC 02/13/21 18:10 Potassium Chloride (Klor-Con) 20 meq DAILY PO 02/12/21 09:00 02/20/21 08:25 Folic Acid (Folic Acid) 1 mg DAILY PO 02/12/21 09:00 02/20/21 08:25 Thiamine HCl (Vitamin B-1) 100 mg DAILY PO 02/12/21 09:00 02/20/21 08:25 Non-Formulary Medication ([Folic Acid] ) 1 mg DAILY PO 02/12/21 09:00 02/11/21 12:25 DC Acetaminophen (Tylenol) 650 mg PRN Q6HRS PRN PO MILD PAIN / TEMP > 100.3'F 02/11/21 12:15 02/11/21 12:22 DC Multi-Ingredient Ointment (Analgesic [place]) 1 lico PRN QID PRN TP MUSCLE PAIN 02/11/21 12:15 02/11/21 12:22 DC Al Hydroxide/Mg Hydroxide (Mylanta Plus Xs) 15 ml PRN AFTMEALHC PRN PO DYSPEPSIA 02/11/21 12:15 02/11/21 12:22 DC Magnesium Hydroxide (Milk Of Magnesia) 2,400 mg PRN QHS PRN PO CONSTIPATION 02/11/21 12:15 02/11/21 12:22 DC Lidocaine (Lidoderm) 1 patch PRN DAILY PRN TD MUSCLE PAIN 02/13/21 19:00 Olanzapine (ZyPREXA ZYDIS) 2.5 mg PRN Q2HR PRN PO PSYCHOSIS 02/13/21 20:15 02/13/21 23:06 Sertraline HCl (Zoloft) 50 mg DAILY PO 02/14/21 09:00 02/20/21 08:25 Risperidone (RisperDAL) 0.5 mg QHS PO 02/13/21 21:00 02/20/21 21:07 Lorazepam (Ativan) 0.5 mg PRN Q1HR PRN PO ANXIETY / AGITATION 02/13/21 21:45 02/20/21 20:58 DC 02/20/21 16:54 Multivitamins/ Calcium (Thera-M Plus) 1 tab DAILY PO 02/13/21 21:30 02/20/21 08:25 Clonidine HCl (Catapres) 0.1 mg PRN Q1HR PRN PO SBP>180 OR DBP>100, MR X 3 02/13/21 21:30 Magnesium Oxide (Magnesium Oxide) 400 mg DAILY PO 02/14/21 09:00 02/13/21 21:36 DC Magnesium Oxide (Magnesium Oxide) 400 mg DAILY PO 02/13/21 21:45 02/20/21 08:25 Vitamin D (Vitamin D3) 50,000 unit WEEKLY PO 02/15/21 16:30 02/15/21 17:01 Lorazepam (Ativan) 0.5 mg PRN TID PRN PO ANXIETY / AGITATION 02/20/21 21:00 I have reviewed the current psychotropics carefully including drug interactions. Risk benefit ratio favors no change other than as noted in my dictated progress note. Diagnosis: Problems: (1) Major depressive disorder, recurrent episode (2) Wernicke encephalopathy (3) Anxiety disorder, unspecified (4) Alcohol dependence (5) Alcohol withdrawal delirium (6) DTs (delirium tremens) IVANNA GUNDERSON MD Feb 20, 2021 22:07
[2021-02-21 06:10] VITALS: BP 132/81
[2021-02-21] MEDS: POTASSIUM CHLORIDE 20 MEQ TABLET.ER. PO SCH (08:09)
[2021-02-21] MEDS: MULTIVITAMIN with MINERAL TABLET. PO SCH (08:09)
[2021-02-21] MEDS: SERTRALINE 50 MG TABLET. PO SCH (08:09)
[2021-02-21] MEDS: MAGNESIUM OXIDE 400 MG TABLET PO SCH (08:09)
[2021-02-21] MEDS: THIAMINE 100 MG TABLET. PO SCH (08:09)
[2021-02-21] MEDS: FOLIC ACID 1 MG TABLET PO SCH (08:09)
[2021-02-21] MEDS: NICOTINE 21MG PATCH. TD SCH (08:10)
[2021-02-21] MEDS: LIDOCAINE (700MG/PATCH) PATCH. TD PRN (09:24)
[2021-02-21] MEDS: ACETAMINOPHEN 325 MG TABLET PO PRN (09:24)
[2021-02-21] MEDS: CYCLOBENZAPRINE 10 MG TABLET. PO SCH ×2 (09:58→20:00)
[2021-02-21 15:35] VITALS: BP 111/77
[2021-02-21] MEDS: MELATONIN 3 MG TABLET PO PRN (20:00)
[2021-02-21] MEDS: risperiDONE 0.5 MG TABLET. PO SCH (20:00)
[2021-02-21] MEDS ORDERED: CYCLOBENZAPRINE 10 MG TABLET. PO SCH (21:00)
--- NOTE | 2021-02-21 22:03 | PDOC ---
Exam Note: Nadeem Note: Please also refer to the separate dictated note~for this date of service dictated separately.~Patient seen individually. Discussed the patient with Nursing staff reviewed the chart.~Reviewed interim history and current functioning. Reviewed vital signs,~Labs/ Radiology~and current medications noted below. Continue current treatment with the changes noted in the dictated addendum note Assessment: Vital Signs/I&O: Vital Signs Date Time Temp Pulse Resp B/P (MAP) Pulse Ox O2 Delivery O2 Flow Rate FiO2 02/21/21 15:35 97.4 87 16 111/77 (88) 96 02/16/21 05:34 Room Air I & O 02/20/21 02/20/21 02/21/21 15:00 23:00 07:00 Intake Total 960 ml 840 ml Balance 960 ml 840 ml Current Medications: Meds: Current Medications Medications (Trade) Dose Ordered Sig/Hunter Route PRN Reason Start Time Stop Time Status Last Admin Dose Admin Multi-Ingredient Ointment (Analgesic [place]) 1 lico PRN QID PRN TP MUSCLE PAIN 02/11/21 06:45 Al Hydroxide/Mg Hydroxide (Mylanta Plus Xs) 15 ml PRN AFTMEALHC PRN PO DYSPEPSIA 02/11/21 06:45 Magnesium Hydroxide (Milk Of Magnesia) 2,400 mg PRN QHS PRN PO CONSTIPATION 02/11/21 06:45 Acetaminophen (Tylenol) 650 mg PRN Q6HRS PRN PO MILD PAIN / TEMP > 100.3'F 02/11/21 12:00 02/21/21 09:24 Enoxaparin Sodium (Lovenox 40mg Syringe) 40 mg DAILY SQ 02/12/21 09:00 02/13/21 17:54 DC Lorazepam (Ativan) 1 mg PRN Q4HRS PRN PO ANXIETY / AGITATION 02/11/21 12:00 02/13/21 21:35 DC 02/13/21 16:15 Melatonin (Melatonin) 3 mg PRN QHS PRN PO INSOMNIA 02/11/21 12:00 02/21/21 20:00 Nicotine (Nicoderm Cq 21mg Patch) 1 patch DAILY TD 02/12/21 09:00 02/21/21 08:10 Nicotine Polacrilex (Nicorette Gum) 2 mg PRN Q2HRS PRN BC SMOKING CESSATION 02/11/21 12:00 02/17/21 18:24 Olanzapine (ZyPREXA ZYDIS) 5 mg PRN BID PRN PO PSYCHOSIS 02/11/21 12:00 02/13/21 20:07 DC 02/13/21 18:10 Potassium Chloride (Klor-Con) 20 meq DAILY PO 02/12/21 09:00 02/21/21 08:09 Folic Acid (Folic Acid) 1 mg DAILY PO 02/12/21 09:00 02/21/21 08:09 Thiamine HCl (Vitamin B-1) 100 mg DAILY PO 02/12/21 09:00 02/21/21 08:09 Non-Formulary Medication ([Folic Acid] ) 1 mg DAILY PO 02/12/21 09:00 02/11/21 12:25 DC Acetaminophen (Tylenol) 650 mg PRN Q6HRS PRN PO MILD PAIN / TEMP > 100.3'F 02/11/21 12:15 02/11/21 12:22 DC Multi-Ingredient Ointment (Analgesic [place]) 1 lico PRN QID PRN TP MUSCLE PAIN 02/11/21 12:15 02/11/21 12:22 DC Al Hydroxide/Mg Hydroxide (Mylanta Plus Xs) 15 ml PRN AFTMEALHC PRN PO DYSPEPSIA 02/11/21 12:15 02/11/21 12:22 DC Magnesium Hydroxide (Milk Of Magnesia) 2,400 mg PRN QHS PRN PO CONSTIPATION 02/11/21 12:15 02/11/21 12:22 DC Lidocaine (Lidoderm) 1 patch PRN DAILY PRN TD MUSCLE PAIN 02/13/21 19:00 02/21/21 09:24 Olanzapine (ZyPREXA ZYDIS) 2.5 mg PRN Q2HR PRN PO PSYCHOSIS 02/13/21 20:15 02/13/21 23:06 Sertraline HCl (Zoloft) 50 mg DAILY PO 02/14/21 09:00 02/21/21 19:55 DC 02/21/21 08:09 Risperidone (RisperDAL) 0.5 mg QHS PO 02/13/21 21:00 02/21/21 20:00 Lorazepam (Ativan) 0.5 mg PRN Q1HR PRN PO ANXIETY / AGITATION 02/13/21 21:45 02/20/21 20:58 DC 02/20/21 16:54 Multivitamins/ Calcium (Thera-M Plus) 1 tab DAILY PO 02/13/21 21:30 02/21/21 08:09 Clonidine HCl (Catapres) 0.1 mg PRN Q1HR PRN PO SBP>180 OR DBP>100, MR X 3 02/13/21 21:30 Magnesium Oxide (Magnesium Oxide) 400 mg DAILY PO 02/14/21 09:00 02/13/21 21:36 DC Magnesium Oxide (Magnesium Oxide) 400 mg DAILY PO 02/13/21 21:45 02/21/21 08:09 Vitamin D (Vitamin D3) 50,000 unit WEEKLY PO 02/15/21 16:30 02/15/21 17:01 Lorazepam (Ativan) 0.5 mg PRN TID PRN PO ANXIETY / AGITATION 02/20/21 21:00 Cyclobenzaprine HCl (Flexeril) 10 mg BID PO 02/21/21 21:00 02/21/21 09:33 DC Cyclobenzaprine HCl (Flexeril) 10 mg BID PO 02/21/21 09:45 02/21/21 20:00 Sertraline HCl (Zoloft) 75 mg DAILY PO 02/22/21 09:00 Current Medications Medications (Trade) Dose Ordered Sig/Hunter Route PRN Reason Start Time Stop Time Status Last Admin Dose Admin Cyclobenzaprine HCl (Flexeril) 10 mg BID PO 02/21/21 09:45 02/21/21 20:00 I have reviewed the current psychotropics carefully including drug interactions. Risk benefit ratio favors no change other than as noted in my dictated progress note. Diagnosis: Problems: (1) Person under investigation for COVID-19 (2) Major depressive disorder, recurrent episode (3) Wernicke encephalopathy (4) Anxiety disorder, unspecified (5) Alcohol dependence (6) DTs (delirium tremens) (7) Alcohol withdrawal IVANNA GUNDERSON MD Feb 21, 2021 22:02
--- NOTE | 2021-02-21 23:57 | PDOC ---
Exam Note: Nadeem Note: This note is a late entry for 02/20/2021 covers elements not covered in my initial note. Subjective: The patient was seen face to face in the evening of 02/20/2021 with Kristen SHERMAN, discussed and reviewed the chart. The patient slept 6 hours previous night. She was seated in her hallway outside her room this is where I met with her. She has been connecting with another recently admitted patient on the unit who is reasonably oriented. We will change her Ativan withdrawal protocol to 0.5 mg t.i.d. p.r.n., alcohol, withdrawal tremor symptoms. Per nursing report she have had a diagnosis of borderline personality in the past. Review of Systems: No CV, , pulmonary, eye, ENT system symptoms on review. Mental Status Exam: The patient is reasonably oriented. Speech coherent. Abstraction fair. Computation impaired. Language function intact. Attention span short. Mood and affect withdrawn. We had a very lengthy discussion about her alcohol abuse and ways to abstain from this. She seemed insightful. Laboratory Data: Reviewed. Impression: Major depressive disorder recurrent. Alcohol abuse/dependence/withdrawal. Probable early delirium tremens. Anxiety disorder unspecified. History of Wernickes encephalopathy. Plan: Continue current psychotropics. Assessment: Vital Signs/I&O: Vital Signs Date Time Temp Pulse Resp B/P (MAP) Pulse Ox O2 Delivery O2 Flow Rate FiO2 02/21/21 15:35 97.4 87 16 111/77 (88) 96 02/16/21 05:34 Room Air I & O 02/20/21 02/20/21 02/21/21 15:00 23:00 07:00 Intake Total 960 ml 840 ml Balance 960 ml 840 ml Current Medications: Meds: Current Medications Medications (Trade) Dose Ordered Sig/Hunter Route PRN Reason Start Time Stop Time Status Last Admin Dose Admin Multi-Ingredient Ointment (Analgesic [place]) 1 lico PRN QID PRN TP MUSCLE PAIN 02/11/21 06:45 Al Hydroxide/Mg Hydroxide (Mylanta Plus Xs) 15 ml PRN AFTMEALHC PRN PO DYSPEPSIA 02/11/21 06:45 Magnesium Hydroxide (Milk Of Magnesia) 2,400 mg PRN QHS PRN PO CONSTIPATION 02/11/21 06:45 Acetaminophen (Tylenol) 650 mg PRN Q6HRS PRN PO MILD PAIN / TEMP > 100.3'F 02/11/21 12:00 02/21/21 09:24 Enoxaparin Sodium (Lovenox 40mg Syringe) 40 mg DAILY SQ 02/12/21 09:00 02/13/21 17:54 DC Lorazepam (Ativan) 1 mg PRN Q4HRS PRN PO ANXIETY / AGITATION 02/11/21 12:00 02/13/21 21:35 DC 02/13/21 16:15 Melatonin (Melatonin) 3 mg PRN QHS PRN PO INSOMNIA 02/11/21 12:00 02/21/21 20:00 Nicotine (Nicoderm Cq 21mg Patch) 1 patch DAILY TD 02/12/21 09:00 02/21/21 08:10 Nicotine Polacrilex (Nicorette Gum) 2 mg PRN Q2HRS PRN BC SMOKING CESSATION 02/11/21 12:00 02/17/21 18:24 Olanzapine (ZyPREXA ZYDIS) 5 mg PRN BID PRN PO PSYCHOSIS 02/11/21 12:00 02/13/21 20:07 DC 02/13/21 18:10 Potassium Chloride (Klor-Con) 20 meq DAILY PO 02/12/21 09:00 02/21/21 08:09 Folic Acid (Folic Acid) 1 mg DAILY PO 02/12/21 09:00 02/21/21 08:09 Thiamine HCl (Vitamin B-1) 100 mg DAILY PO 02/12/21 09:00 02/21/21 08:09 Non-Formulary Medication ([Folic Acid] ) 1 mg DAILY PO 02/12/21 09:00 02/11/21 12:25 DC Acetaminophen (Tylenol) 650 mg PRN Q6HRS PRN PO MILD PAIN / TEMP > 100.3'F 02/11/21 12:15 02/11/21 12:22 DC Multi-Ingredient Ointment (Analgesic [place]) 1 lico PRN QID PRN TP MUSCLE PAIN 02/11/21 12:15 02/11/21 12:22 DC Al Hydroxide/Mg Hydroxide (Mylanta Plus Xs) 15 ml PRN AFTMEALHC PRN PO DYSPEPSIA 02/11/21 12:15 02/11/21 12:22 DC Magnesium Hydroxide (Milk Of Magnesia) 2,400 mg PRN QHS PRN PO CONSTIPATION 02/11/21 12:15 02/11/21 12:22 DC Lidocaine (Lidoderm) 1 patch PRN DAILY PRN TD MUSCLE PAIN 02/13/21 19:00 02/21/21 09:24 Olanzapine (ZyPREXA ZYDIS) 2.5 mg PRN Q2HR PRN PO PSYCHOSIS 02/13/21 20:15 02/13/21 23:06 Sertraline HCl (Zoloft) 50 mg DAILY PO 02/14/21 09:00 02/21/21 19:55 DC 02/21/21 08:09 Risperidone (RisperDAL) 0.5 mg QHS PO 02/13/21 21:00 02/21/21 20:00 Lorazepam (Ativan) 0.5 mg PRN Q1HR PRN PO ANXIETY / AGITATION 02/13/21 21:45 02/20/21 20:58 DC 02/20/21 16:54 Multivitamins/ Calcium (Thera-M Plus) 1 tab DAILY PO 02/13/21 21:30 02/21/21 08:09 Clonidine HCl (Catapres) 0.1 mg PRN Q1HR PRN PO SBP>180 OR DBP>100, MR X 3 02/13/21 21:30 Magnesium Oxide (Magnesium Oxide) 400 mg DAILY PO 02/14/21 09:00 02/13/21 21:36 DC Magnesium Oxide (Magnesium Oxide) 400 mg DAILY PO 02/13/21 21:45 02/21/21 08:09 Vitamin D (Vitamin D3) 50,000 unit WEEKLY PO 02/15/21 16:30 02/15/21 17:01 Lorazepam (Ativan) 0.5 mg PRN TID PRN PO ANXIETY / AGITATION 02/20/21 21:00 Cyclobenzaprine HCl (Flexeril) 10 mg BID PO 02/21/21 21:00 02/21/21 09:33 DC Cyclobenzaprine HCl (Flexeril) 10 mg BID PO 02/21/21 09:45 02/21/21 20:00 Sertraline HCl (Zoloft) 75 mg DAILY PO 02/22/21 09:00 Current Medications Medications (Trade) Dose Ordered Sig/Hunter Route PRN Reason Start Time Stop Time Status Last Admin Dose Admin Cyclobenzaprine HCl (Flexeril) 10 mg BID PO 02/21/21 09:45 02/21/21 20:00 I have reviewed the current psychotropics carefully including drug interactions. Risk benefit ratio favors no change other than as noted in my dictated progress note. Diagnosis: Problems: (1) Major depressive disorder, recurrent episode (2) Wernicke encephalopathy (3) Anxiety disorder, unspecified (4) Alcohol dependence (5) Alcohol withdrawal delirium (6) DTs (delirium tremens) IVANNA GUNDERSON MD Feb 21, 2021 23:57
[2021-02-22 06:15] VITALS: BP 99/69
[2021-02-22] MEDS: MULTIVITAMIN with MINERAL TABLET. PO SCH (08:24)
[2021-02-22] MEDS: POTASSIUM CHLORIDE 20 MEQ TABLET.ER. PO SCH (08:24)
[2021-02-22] MEDS: CHOLECALCIFEROL (VITAMIN D3) 50,000 UNIT CAPSULE PO SCH (08:24)
[2021-02-22] MEDS: CYCLOBENZAPRINE 10 MG TABLET. PO SCH ×2 (08:25→20:16)
[2021-02-22] MEDS: FOLIC ACID 1 MG TABLET PO SCH (08:25)
[2021-02-22] MEDS: SERTRALINE 25 MG TABLET. PO SCH (08:25)
[2021-02-22] MEDS: THIAMINE 100 MG TABLET. PO SCH (08:25)
[2021-02-22] MEDS: MAGNESIUM OXIDE 400 MG TABLET PO SCH (08:29)
[2021-02-22] MEDS: NICOTINE 21MG PATCH. TD SCH (08:29)
[2021-02-22 15:57] VITALS: BP 104/63
[2021-02-22] MEDS: LIDOCAINE (700MG/PATCH) PATCH. TD PRN (18:18)
[2021-02-22] MEDS: MELATONIN 3 MG TABLET PO PRN (20:16)
[2021-02-22] MEDS: risperiDONE 0.5 MG TABLET. PO SCH (20:16)
--- NOTE | 2021-02-22 22:20 | PDOC ---
Exam Note: Nadeem Note: Please also refer to the separate dictated note~for this date of service dictated separately.~Patient seen individually. Discussed the patient with Nursing staff reviewed the chart.~Reviewed interim history and current functioning. Reviewed vital signs,~Labs/ Radiology~and current medications noted below. Continue current treatment with the changes noted in the dictated addendum note Assessment: Vital Signs/I&O: Vital Signs Date Time Temp Pulse Resp B/P (MAP) Pulse Ox O2 Delivery O2 Flow Rate FiO2 02/22/21 15:57 98.0 80 18 104/63 (77) 98 I & O 02/21/21 02/21/21 02/22/21 15:00 23:00 07:00 Intake Total 600 ml 840 ml Balance 600 ml 840 ml Current Medications: Meds: Current Medications Medications (Trade) Dose Ordered Sig/Hunter Route PRN Reason Start Time Stop Time Status Last Admin Dose Admin Multi-Ingredient Ointment (Analgesic [place]) 1 lico PRN QID PRN TP MUSCLE PAIN 02/11/21 06:45 Al Hydroxide/Mg Hydroxide (Mylanta Plus Xs) 15 ml PRN AFTMEALHC PRN PO DYSPEPSIA 02/11/21 06:45 Magnesium Hydroxide (Milk Of Magnesia) 2,400 mg PRN QHS PRN PO CONSTIPATION 02/11/21 06:45 Acetaminophen (Tylenol) 650 mg PRN Q6HRS PRN PO MILD PAIN / TEMP > 100.3'F 02/11/21 12:00 02/21/21 09:24 Enoxaparin Sodium (Lovenox 40mg Syringe) 40 mg DAILY SQ 02/12/21 09:00 02/13/21 17:54 DC Lorazepam (Ativan) 1 mg PRN Q4HRS PRN PO ANXIETY / AGITATION 02/11/21 12:00 02/13/21 21:35 DC 02/13/21 16:15 Melatonin (Melatonin) 3 mg PRN QHS PRN PO INSOMNIA 02/11/21 12:00 02/22/21 20:16 Nicotine (Nicoderm Cq 21mg Patch) 1 patch DAILY TD 02/12/21 09:00 02/22/21 08:29 Nicotine Polacrilex (Nicorette Gum) 2 mg PRN Q2HRS PRN BC SMOKING CESSATION 02/11/21 12:00 02/17/21 18:24 Olanzapine (ZyPREXA ZYDIS) 5 mg PRN BID PRN PO PSYCHOSIS 02/11/21 12:00 02/13/21 20:07 DC 02/13/21 18:10 Potassium Chloride (Klor-Con) 20 meq DAILY PO 02/12/21 09:00 02/22/21 08:24 Folic Acid (Folic Acid) 1 mg DAILY PO 02/12/21 09:00 02/22/21 08:25 Thiamine HCl (Vitamin B-1) 100 mg DAILY PO 02/12/21 09:00 02/22/21 08:25 Non-Formulary Medication ([Folic Acid] ) 1 mg DAILY PO 02/12/21 09:00 02/11/21 12:25 DC Acetaminophen (Tylenol) 650 mg PRN Q6HRS PRN PO MILD PAIN / TEMP > 100.3'F 02/11/21 12:15 02/11/21 12:22 DC Multi-Ingredient Ointment (Analgesic [place]) 1 lico PRN QID PRN TP MUSCLE PAIN 02/11/21 12:15 02/11/21 12:22 DC Al Hydroxide/Mg Hydroxide (Mylanta Plus Xs) 15 ml PRN AFTMEALHC PRN PO DYSPEPSIA 02/11/21 12:15 02/11/21 12:22 DC Magnesium Hydroxide (Milk Of Magnesia) 2,400 mg PRN QHS PRN PO CONSTIPATION 02/11/21 12:15 02/11/21 12:22 DC Lidocaine (Lidoderm) 1 patch PRN DAILY PRN TD MUSCLE PAIN 02/13/21 19:00 02/22/21 18:18 Olanzapine (ZyPREXA ZYDIS) 2.5 mg PRN Q2HR PRN PO PSYCHOSIS 02/13/21 20:15 02/13/21 23:06 Sertraline HCl (Zoloft) 50 mg DAILY PO 02/14/21 09:00 02/21/21 19:55 DC 02/21/21 08:09 Risperidone (RisperDAL) 0.5 mg QHS PO 02/13/21 21:00 02/22/21 20:16 Lorazepam (Ativan) 0.5 mg PRN Q1HR PRN PO ANXIETY / AGITATION 02/13/21 21:45 02/20/21 20:58 DC 02/20/21 16:54 Multivitamins/ Calcium (Thera-M Plus) 1 tab DAILY PO 02/13/21 21:30 02/22/21 08:24 Clonidine HCl (Catapres) 0.1 mg PRN Q1HR PRN PO SBP>180 OR DBP>100, MR X 3 02/13/21 21:30 Magnesium Oxide (Magnesium Oxide) 400 mg DAILY PO 02/14/21 09:00 02/13/21 21:36 DC Magnesium Oxide (Magnesium Oxide) 400 mg DAILY PO 02/13/21 21:45 02/22/21 08:29 Vitamin D (Vitamin D3) 50,000 unit WEEKLY PO 02/15/21 16:30 02/22/21 08:24 Lorazepam (Ativan) 0.5 mg PRN TID PRN PO ANXIETY / AGITATION 02/20/21 21:00 Cyclobenzaprine HCl (Flexeril) 10 mg BID PO 02/21/21 21:00 02/21/21 09:33 DC Cyclobenzaprine HCl (Flexeril) 10 mg BID PO 02/21/21 09:45 02/22/21 20:16 Sertraline HCl (Zoloft) 75 mg DAILY PO 02/22/21 09:00 02/22/21 08:25 Current Medications Medications (Trade) Dose Ordered Sig/Hunter Route PRN Reason Start Time Stop Time Status Last Admin Dose Admin Sertraline HCl (Zoloft) 75 mg DAILY PO 02/22/21 09:00 02/22/21 08:25 I have reviewed the current psychotropics carefully including drug interactions. Risk benefit ratio favors no change other than as noted in my dictated progress note. Diagnosis: Problems: (1) Major depressive disorder, recurrent episode (2) Wernicke encephalopathy (3) Anxiety disorder, unspecified (4) Alcohol dependence (5) Alcohol withdrawal (6) DTs (delirium tremens) IVANNA GUNDERSON MD Feb 22, 2021 22:20
[2021-02-23 05:59] VITALS: BP 109/74
[2021-02-23 05:59] LABS: BASO # 0.2 x10^3/uL (0.0-0.2); BASO % 3 % (0-3); EOS # 0.3 x10^3/uL (0.0-0.7); EOS % 5 % (0-3); HEMATOCRIT 34.7 % (36.0-47.0); HEMOGLOBIN 11.6 g/dL (12.0-15.5); LYMPH % 34 % (24-48); MEAN CORPUSCULAR HEMOGLOBIN 33 pg (25-35); MEAN CORPUSCULAR HGB CONC 34 g/dL (31-37); MEAN CORPUSCULAR VOLUME 99 fL (79-100); MONO # 0.5 x10^3/uL (0.0-1.1); MONO % 9 % (0-9); NEUT % 50 % (31-73); PLATELET COUNT 382 x10^3/uL (140-400); RED CELL DISTRIBUTION WIDTH 14.7 % (11.5-14.5)
[2021-02-23 06:12] LABS: ALBUMIN 2.9 g/dL (3.4-5.0); CALCIUM 8.4 mg/dL (8.5-10.1); CREATININE 0.3 mg/dL (0.6-1.0); GFR 226.9; POTASSIUM 4.2 mmol/L (3.5-5.1); TOTAL BILIRUBIN 0.2 mg/dL (0.2-1.0); TOTAL PROTEIN 5.9 g/dL (6.4-8.2)
[2021-02-23] MEDS: POTASSIUM CHLORIDE 20 MEQ TABLET.ER. PO SCH (08:12)
[2021-02-23] MEDS: FOLIC ACID 1 MG TABLET PO SCH (08:12)
[2021-02-23] MEDS: CYCLOBENZAPRINE 10 MG TABLET. PO SCH ×2 (08:12→20:15)
[2021-02-23] MEDS: MULTIVITAMIN with MINERAL TABLET. PO SCH (08:13)
[2021-02-23] MEDS: THIAMINE 100 MG TABLET. PO SCH (08:13)
[2021-02-23] MEDS: SERTRALINE 25 MG TABLET. PO SCH (08:13)
[2021-02-23] MEDS: MAGNESIUM OXIDE 400 MG TABLET PO SCH (08:13)
[2021-02-23] MEDS: NICOTINE 21MG PATCH. TD SCH (08:14)
--- NOTE | 2021-02-23 10:10 | PDOC ---
Exam Note: Nadeem Note: This note is a late entry for 02/21/2021 covers elements not covered in my initial note. Subjective: The patient was seen individually in the evening of 02/21/2021 with Simi SHERMAN, discussed and reviewed the chart. The patient slept 6 hours previous night. She has been somewhat anxious, demanding, needy. I met with her at great length in her room individually. She was tearful, anxious stating she feels guilty about her past alcohol abuse. She states even in high school they go out and drink and be on the main street honking cars and waving to people and use of alcohol is persisted ever since. We had a lengthy discussion about how to abstain from alcohol, come up with alternate hobbies and interests and support including possible Alcohol Anonymous (AA). Review of Systems: No CV, , pulmonary, eye, ENT system symptoms on review. She does complain of some anxiety. Mental Status Exam: The patient is reasonably oriented. Speech coherent. Abstraction fair. Computation impaired. Language function intact. Attention span short. Mood and affect somewhat depressed and anxious. No suicidal or homicidal ideation. Laboratory Data: Reviewed. Impression: Major depressive disorder recurrent. Alcohol abuse/dependence/withdrawal. Probable early delirium tremens. Anxiety disorder unspecified. History of Wernickes encephalopathy. Plan: We did discuss options of Naltrexone and Antabuse for now. We will hold off on this. Given her depressive symptoms, increase Zoloft from 50 mg a day to 75 mg a day. Discussed and reviewed drug interactions and side effects. Continue rest unchanged. Assessment: Vital Signs/I&O: Vital Signs Date Time Temp Pulse Resp B/P (MAP) Pulse Ox O2 Delivery O2 Flow Rate FiO2 02/23/21 05:59 97.1 69 16 109/74 (86) 98 I & O 02/22/21 02/22/21 02/23/21 15:00 23:00 07:00 Intake Total 960 ml 600 ml Balance 960 ml 600 ml Labs: Laboratory Tests Test 02/23/21 05:49 White Blood Count 6.0 x10^3/uL (4.0-11.0) Red Blood Count 3.50 x10^6/uL (3.50-5.40) Hemoglobin 11.6 g/dL (12.0-15.5) L Hematocrit 34.7 % (36.0-47.0) L Mean Corpuscular Volume 99 fL (79-100) Mean Corpuscular Hemoglobin 33 pg (25-35) Mean Corpuscular Hemoglobin Concent 34 g/dL (31-37) Red Cell Distribution Width 14.7 % (11.5-14.5) H Platelet Count 382 x10^3/uL (140-400) Neutrophils (%) (Auto) 50 % (31-73) Lymphocytes (%) (Auto) 34 % (24-48) Monocytes (%) (Auto) 9 % (0-9) Eosinophils (%) (Auto) 5 % (0-3) H Basophils (%) (Auto) 3 % (0-3) Neutrophils # (Auto) 3.0 x10^3uL (1.8-7.7) Lymphocytes # (Auto) 2.0 x10^3/uL (1.0-4.8) Monocytes # (Auto) 0.5 x10^3/uL (0.0-1.1) Eosinophils # (Auto) 0.3 x10^3/uL (0.0-0.7) Basophils # (Auto) 0.2 x10^3/uL (0.0-0.2) Sodium Level 134 mmol/L (136-145) L Potassium Level 4.2 mmol/L (3.5-5.1) Chloride Level 100 mmol/L (98-107) Carbon Dioxide Level 28 mmol/L (21-32) Anion Gap 6 (6-14) Blood Urea Nitrogen 12 mg/dL (7-20) Creatinine 0.3 mg/dL (0.6-1.0) L Estimated GFR (Cockcroft-Gault) 226.9 BUN/Creatinine Ratio 40 (6-20) H Glucose Level 80 mg/dL (70-99) Calcium Level 8.4 mg/dL (8.5-10.1) L Total Bilirubin 0.2 mg/dL (0.2-1.0) Aspartate Amino Transferase (AST) 17 U/L (15-37) Alanine Aminotransferase (ALT) 25 U/L (14-59) Alkaline Phosphatase 61 U/L (46-116) Total Protein 5.9 g/dL (6.4-8.2) L Albumin 2.9 g/dL (3.4-5.0) L Albumin/Globulin Ratio 1.0 (1.0-1.7) Current Medications: Meds: Laboratory Tests Test 02/23/21 05:49 White Blood Count 6.0 x10^3/uL Red Blood Count 3.50 x10^6/uL Hemoglobin 11.6 g/dL Hematocrit 34.7 % Mean Corpuscular Volume 99 fL Mean Corpuscular Hemoglobin 33 pg Mean Corpuscular Hemoglobin Concent 34 g/dL Red Cell Distribution Width 14.7 % Platelet Count 382 x10^3/uL Neutrophils (%) (Auto) 50 % Lymphocytes (%) (Auto) 34 % Monocytes (%) (Auto) 9 % Eosinophils (%) (Auto) 5 % Basophils (%) (Auto) 3 % Neutrophils # (Auto) 3.0 x10^3uL Lymphocytes # (Auto) 2.0 x10^3/uL Monocytes # (Auto) 0.5 x10^3/uL Eosinophils # (Auto) 0.3 x10^3/uL Basophils # (Auto) 0.2 x10^3/uL Sodium Level 134 mmol/L Potassium Level 4.2 mmol/L Chloride Level 100 mmol/L Carbon Dioxide Level 28 mmol/L Anion Gap 6 Blood Urea Nitrogen 12 mg/dL Creatinine 0.3 mg/dL Estimated GFR (Cockcroft-Gault) 226.9 BUN/Creatinine Ratio 40 Glucose Level 80 mg/dL Calcium Level 8.4 mg/dL Total Bilirubin 0.2 mg/dL Aspartate Amino Transf (AST/SGOT) 17 U/L Alanine Aminotransferase (ALT/SGPT) 25 U/L Alkaline Phosphatase 61 U/L Total Protein 5.9 g/dL Albumin 2.9 g/dL Albumin/Globulin Ratio 1.0 Current Medications Medications (Trade) Dose Ordered Sig/Hunter Route PRN Reason Start Time Stop Time Status Last Admin Dose Admin Multi-Ingredient Ointment (Analgesic [place]) 1 lico PRN QID PRN TP MUSCLE PAIN 02/11/21 06:45 Al Hydroxide/Mg Hydroxide (Mylanta Plus Xs) 15 ml PRN AFTMEALHC PRN PO DYSPEPSIA 02/11/21 06:45 Magnesium Hydroxide (Milk Of Magnesia) 2,400 mg PRN QHS PRN PO CONSTIPATION 02/11/21 06:45 Acetaminophen (Tylenol) 650 mg PRN Q6HRS PRN PO MILD PAIN / TEMP > 100.3'F 02/11/21 12:00 02/21/21 09:24 Enoxaparin Sodium (Lovenox 40mg Syringe) 40 mg DAILY SQ 02/12/21 09:00 02/13/21 17:54 DC Lorazepam (Ativan) 1 mg PRN Q4HRS PRN PO ANXIETY / AGITATION 02/11/21 12:00 02/13/21 21:35 DC 02/13/21 16:15 Melatonin (Melatonin) 3 mg PRN QHS PRN PO INSOMNIA 02/11/21 12:00 02/22/21 20:16 Nicotine (Nicoderm Cq 21mg Patch) 1 patch DAILY TD 02/12/21 09:00 02/23/21 08:14 Nicotine Polacrilex (Nicorette Gum) 2 mg PRN Q2HRS PRN BC SMOKING CESSATION 02/11/21 12:00 02/17/21 18:24 Olanzapine (ZyPREXA ZYDIS) 5 mg PRN BID PRN PO PSYCHOSIS 02/11/21 12:00 02/13/21 20:07 DC 02/13/21 18:10 Potassium Chloride (Klor-Con) 20 meq DAILY PO 02/12/21 09:00 02/23/21 08:12 Folic Acid (Folic Acid) 1 mg DAILY PO 02/12/21 09:00 02/23/21 08:12 Thiamine HCl (Vitamin B-1) 100 mg DAILY PO 02/12/21 09:00 02/23/21 08:13 Non-Formulary Medication ([Folic Acid] ) 1 mg DAILY PO 02/12/21 09:00 02/11/21 12:25 DC Acetaminophen (Tylenol) 650 mg PRN Q6HRS PRN PO MILD PAIN / TEMP > 100.3'F 02/11/21 12:15 02/11/21 12:22 DC Multi-Ingredient Ointment (Analgesic [place]) 1 lico PRN QID PRN TP MUSCLE PAIN 02/11/21 12:15 02/11/21 12:22 DC Al Hydroxide/Mg Hydroxide (Mylanta Plus Xs) 15 ml PRN AFTMEALHC PRN PO DYSPEPSIA 02/11/21 12:15 02/11/21 12:22 DC Magnesium Hydroxide (Milk Of Magnesia) 2,400 mg PRN QHS PRN PO CONSTIPATION 02/11/21 12:15 02/11/21 12:22 DC Lidocaine (Lidoderm) 1 patch PRN DAILY PRN TD MUSCLE PAIN 02/13/21 19:00 02/22/21 18:18 Olanzapine (ZyPREXA ZYDIS) 2.5 mg PRN Q2HR PRN PO PSYCHOSIS 02/13/21 20:15 02/13/21 23:06 Sertraline HCl (Zoloft) 50 mg DAILY PO 02/14/21 09:00 02/21/21 19:55 DC 02/21/21 08:09 Risperidone (RisperDAL) 0.5 mg QHS PO 02/13/21 21:00 02/22/21 20:16 Lorazepam (Ativan) 0.5 mg PRN Q1HR PRN PO ANXIETY / AGITATION 02/13/21 21:45 02/20/21 20:58 DC 02/20/21 16:54 Multivitamins/ Calcium (Thera-M Plus) 1 tab DAILY PO 02/13/21 21:30 02/23/21 08:13 Clonidine HCl (Catapres) 0.1 mg PRN Q1HR PRN PO SBP>180 OR DBP>100, MR X 3 02/13/21 21:30 Magnesium Oxide (Magnesium Oxide) 400 mg DAILY PO 02/14/21 09:00 02/13/21 21:36 DC Magnesium Oxide (Magnesium Oxide) 400 mg DAILY PO 02/13/21 21:45 02/23/21 08:13 Vitamin D (Vitamin D3) 50,000 unit WEEKLY PO 02/15/21 16:30 02/22/21 08:24 Lorazepam (Ativan) 0.5 mg PRN TID PRN PO ANXIETY / AGITATION 02/20/21 21:00 Cyclobenzaprine HCl (Flexeril) 10 mg BID PO 02/21/21 21:00 02/21/21 09:33 DC Cyclobenzaprine HCl (Flexeril) 10 mg BID PO 02/21/21 09:45 02/23/21 08:12 Sertraline HCl (Zoloft) 75 mg DAILY PO 02/22/21 09:00 02/23/21 08:13 I have reviewed the current psychotropics carefully including drug interactions. Risk benefit ratio favors no change other than as noted in my dictated progress note. Diagnosis: Problems: (1) Major depressive disorder, recurrent episode (2) Wernicke encephalopathy (3) Anxiety disorder, unspecified (4) Alcohol dependence (5) Alcohol withdrawal delirium (6) DTs (delirium tremens) IVANNA GUNDERSON MD Feb 23, 2021 10:10
[2021-02-23] MEDS: ACETAMINOPHEN 325 MG TABLET PO PRN (15:26)
[2021-02-23 16:07] VITALS: BP 105/67
[2021-02-23] MEDS: MELATONIN 3 MG TABLET PO PRN (20:15)
[2021-02-23] MEDS: risperiDONE 0.5 MG TABLET. PO SCH (20:15)
--- NOTE | 2021-02-23 22:07 | PDOC ---
Exam Note: Nadeem Note: Please also refer to the separate dictated note~for this date of service dictated separately.~Patient seen individually. Discussed the patient with Nursing staff reviewed the chart.~Reviewed interim history and current functioning. Reviewed vital signs,~Labs/ Radiology~and current medications noted below. Continue current treatment with the changes noted in the dictated addendum note Assessment: Vital Signs/I&O: Vital Signs Date Time Temp Pulse Resp B/P (MAP) Pulse Ox O2 Delivery O2 Flow Rate FiO2 02/23/21 16:07 97.6 76 18 105/67 (80) 96 I & O 02/22/21 02/22/21 02/23/21 15:00 23:00 07:00 Intake Total 960 ml 600 ml Balance 960 ml 600 ml Labs: Laboratory Tests Test 02/23/21 05:49 White Blood Count 6.0 x10^3/uL (4.0-11.0) Red Blood Count 3.50 x10^6/uL (3.50-5.40) Hemoglobin 11.6 g/dL (12.0-15.5) L Hematocrit 34.7 % (36.0-47.0) L Mean Corpuscular Volume 99 fL (79-100) Mean Corpuscular Hemoglobin 33 pg (25-35) Mean Corpuscular Hemoglobin Concent 34 g/dL (31-37) Red Cell Distribution Width 14.7 % (11.5-14.5) H Platelet Count 382 x10^3/uL (140-400) Neutrophils (%) (Auto) 50 % (31-73) Lymphocytes (%) (Auto) 34 % (24-48) Monocytes (%) (Auto) 9 % (0-9) Eosinophils (%) (Auto) 5 % (0-3) H Basophils (%) (Auto) 3 % (0-3) Neutrophils # (Auto) 3.0 x10^3uL (1.8-7.7) Lymphocytes # (Auto) 2.0 x10^3/uL (1.0-4.8) Monocytes # (Auto) 0.5 x10^3/uL (0.0-1.1) Eosinophils # (Auto) 0.3 x10^3/uL (0.0-0.7) Basophils # (Auto) 0.2 x10^3/uL (0.0-0.2) Sodium Level 134 mmol/L (136-145) L Potassium Level 4.2 mmol/L (3.5-5.1) Chloride Level 100 mmol/L (98-107) Carbon Dioxide Level 28 mmol/L (21-32) Anion Gap 6 (6-14) Blood Urea Nitrogen 12 mg/dL (7-20) Creatinine 0.3 mg/dL (0.6-1.0) L Estimated GFR (Cockcroft-Gault) 226.9 BUN/Creatinine Ratio 40 (6-20) H Glucose Level 80 mg/dL (70-99) Calcium Level 8.4 mg/dL (8.5-10.1) L Total Bilirubin 0.2 mg/dL (0.2-1.0) Aspartate Amino Transferase (AST) 17 U/L (15-37) Alanine Aminotransferase (ALT) 25 U/L (14-59) Alkaline Phosphatase 61 U/L (46-116) Total Protein 5.9 g/dL (6.4-8.2) L Albumin 2.9 g/dL (3.4-5.0) L Albumin/Globulin Ratio 1.0 (1.0-1.7) Current Medications: Meds: Laboratory Tests Test 02/23/21 05:49 White Blood Count 6.0 x10^3/uL Red Blood Count 3.50 x10^6/uL Hemoglobin 11.6 g/dL Hematocrit 34.7 % Mean Corpuscular Volume 99 fL Mean Corpuscular Hemoglobin 33 pg Mean Corpuscular Hemoglobin Concent 34 g/dL Red Cell Distribution Width 14.7 % Platelet Count 382 x10^3/uL Neutrophils (%) (Auto) 50 % Lymphocytes (%) (Auto) 34 % Monocytes (%) (Auto) 9 % Eosinophils (%) (Auto) 5 % Basophils (%) (Auto) 3 % Neutrophils # (Auto) 3.0 x10^3uL Lymphocytes # (Auto) 2.0 x10^3/uL Monocytes # (Auto) 0.5 x10^3/uL Eosinophils # (Auto) 0.3 x10^3/uL Basophils # (Auto) 0.2 x10^3/uL Sodium Level 134 mmol/L Potassium Level 4.2 mmol/L Chloride Level 100 mmol/L Carbon Dioxide Level 28 mmol/L Anion Gap 6 Blood Urea Nitrogen 12 mg/dL Creatinine 0.3 mg/dL Estimated GFR (Cockcroft-Gault) 226.9 BUN/Creatinine Ratio 40 Glucose Level 80 mg/dL Calcium Level 8.4 mg/dL Total Bilirubin 0.2 mg/dL Aspartate Amino Transf (AST/SGOT) 17 U/L Alanine Aminotransferase (ALT/SGPT) 25 U/L Alkaline Phosphatase 61 U/L Total Protein 5.9 g/dL Albumin 2.9 g/dL Albumin/Globulin Ratio 1.0 Current Medications Medications (Trade) Dose Ordered Sig/Hunter Route PRN Reason Start Time Stop Time Status Last Admin Dose Admin Multi-Ingredient Ointment (Analgesic [place]) 1 lico PRN QID PRN TP MUSCLE PAIN 02/11/21 06:45 Al Hydroxide/Mg Hydroxide (Mylanta Plus Xs) 15 ml PRN AFTMEALHC PRN PO DYSPEPSIA 02/11/21 06:45 Magnesium Hydroxide (Milk Of Magnesia) 2,400 mg PRN QHS PRN PO CONSTIPATION 02/11/21 06:45 Acetaminophen (Tylenol) 650 mg PRN Q6HRS PRN PO MILD PAIN / TEMP > 100.3'F 02/11/21 12:00 02/23/21 15:26 Enoxaparin Sodium (Lovenox 40mg Syringe) 40 mg DAILY SQ 02/12/21 09:00 02/13/21 17:54 DC Lorazepam (Ativan) 1 mg PRN Q4HRS PRN PO ANXIETY / AGITATION 02/11/21 12:00 02/13/21 21:35 DC 02/13/21 16:15 Melatonin (Melatonin) 3 mg PRN QHS PRN PO INSOMNIA 02/11/21 12:00 02/23/21 20:15 Nicotine (Nicoderm Cq 21mg Patch) 1 patch DAILY TD 02/12/21 09:00 02/23/21 08:14 Nicotine Polacrilex (Nicorette Gum) 2 mg PRN Q2HRS PRN BC SMOKING CESSATION 02/11/21 12:00 02/17/21 18:24 Olanzapine (ZyPREXA ZYDIS) 5 mg PRN BID PRN PO PSYCHOSIS 02/11/21 12:00 02/13/21 20:07 DC 02/13/21 18:10 Potassium Chloride (Klor-Con) 20 meq DAILY PO 02/12/21 09:00 02/23/21 08:12 Folic Acid (Folic Acid) 1 mg DAILY PO 02/12/21 09:00 02/23/21 08:12 Thiamine HCl (Vitamin B-1) 100 mg DAILY PO 02/12/21 09:00 02/23/21 08:13 Non-Formulary Medication ([Folic Acid] ) 1 mg DAILY PO 02/12/21 09:00 02/11/21 12:25 DC Acetaminophen (Tylenol) 650 mg PRN Q6HRS PRN PO MILD PAIN / TEMP > 100.3'F 02/11/21 12:15 02/11/21 12:22 DC Multi-Ingredient Ointment (Analgesic [place]) 1 lico PRN QID PRN TP MUSCLE PAIN 02/11/21 12:15 02/11/21 12:22 DC Al Hydroxide/Mg Hydroxide (Mylanta Plus Xs) 15 ml PRN AFTMEALHC PRN PO DYSPEPSIA 02/11/21 12:15 02/11/21 12:22 DC Magnesium Hydroxide (Milk Of Magnesia) 2,400 mg PRN QHS PRN PO CONSTIPATION 02/11/21 12:15 02/11/21 12:22 DC Lidocaine (Lidoderm) 1 patch PRN DAILY PRN TD MUSCLE PAIN 02/13/21 19:00 02/22/21 18:18 Olanzapine (ZyPREXA ZYDIS) 2.5 mg PRN Q2HR PRN PO PSYCHOSIS 02/13/21 20:15 02/13/21 23:06 Sertraline HCl (Zoloft) 50 mg DAILY PO 02/14/21 09:00 02/21/21 19:55 DC 02/21/21 08:09 Risperidone (RisperDAL) 0.5 mg QHS PO 02/13/21 21:00 02/23/21 20:15 Lorazepam (Ativan) 0.5 mg PRN Q1HR PRN PO ANXIETY / AGITATION 02/13/21 21:45 02/20/21 20:58 DC 02/20/21 16:54 Multivitamins/ Calcium (Thera-M Plus) 1 tab DAILY PO 02/13/21 21:30 02/23/21 08:13 Clonidine HCl (Catapres) 0.1 mg PRN Q1HR PRN PO SBP>180 OR DBP>100, MR X 3 02/13/21 21:30 Magnesium Oxide (Magnesium Oxide) 400 mg DAILY PO 02/14/21 09:00 02/13/21 21:36 DC Magnesium Oxide (Magnesium Oxide) 400 mg DAILY PO 02/13/21 21:45 02/23/21 08:13 Vitamin D (Vitamin D3) 50,000 unit WEEKLY PO 02/15/21 16:30 02/22/21 08:24 Lorazepam (Ativan) 0.5 mg PRN TID PRN PO ANXIETY / AGITATION 02/20/21 21:00 Cyclobenzaprine HCl (Flexeril) 10 mg BID PO 02/21/21 21:00 02/21/21 09:33 DC Cyclobenzaprine HCl (Flexeril) 10 mg BID PO 02/21/21 09:45 02/23/21 20:15 Sertraline HCl (Zoloft) 75 mg DAILY PO 02/22/21 09:00 02/23/21 08:13 I have reviewed the current psychotropics carefully including drug interactions. Risk benefit ratio favors no change other than as noted in my dictated progress note. Diagnosis: Problems: (1) Major depressive disorder, recurrent episode (2) Wernicke encephalopathy (3) Anxiety disorder, unspecified (4) Alcohol dependence (5) Alcohol withdrawal delirium (6) DTs (delirium tremens) IVANNA GUNDERSON MD Feb 23, 2021 22:06
[2021-02-24 05:59] VITALS: BP 92/60
[2021-02-24] MEDS: NICOTINE 21MG PATCH. TD SCH (08:22)
[2021-02-24] MEDS: THIAMINE 100 MG TABLET. PO SCH (08:23)
[2021-02-24] MEDS: CYCLOBENZAPRINE 10 MG TABLET. PO SCH ×2 (08:23→21:01)
[2021-02-24] MEDS: FOLIC ACID 1 MG TABLET PO SCH (08:23)
[2021-02-24] MEDS: POTASSIUM CHLORIDE 20 MEQ TABLET.ER. PO SCH (08:23)
[2021-02-24] MEDS: MULTIVITAMIN with MINERAL TABLET. PO SCH (08:23)
[2021-02-24] MEDS: SERTRALINE 25 MG TABLET. PO SCH (08:23)
[2021-02-24] MEDS: MAGNESIUM OXIDE 400 MG TABLET PO SCH (08:23)
--- NOTE | 2021-02-24 08:27 | PDOC ---
Exam Note: Nadeem Note: This note is a late entry for 02/22/2021 covers elements not covered in my initial note. Subjective: The patient was seen individually in the evening of 02/22/2021 with Simi SHERMAN, discussed and reviewed the chart. The patient slept 8-1/4 hours previous night. She remains somewhat anxious, but otherwise appropriate. We discussed treatment on Naltrexone. For now she would like to avoid it. Review of Systems: No CV, , pulmonary, eye, ENT system symptoms on review. Mental Status Exam: The patient is reasonably oriented. She is very verbal, interactive, fixated that she will never use alcohol again. We addressed ways to abstain and find other activities and hobbies she can get involve with. Speech coherent. Abstraction fair. Computation impaired. Language function intact. Attention span short. Mood and affect somewhat depressed and anxious. No suicidal or homicidal ideation, somewhat distractible. Laboratory Data: Reviewed. Impression: Major depressive disorder recurrent. Alcohol abuse/dependence/withdrawal. Probable early delirium tremens. Anxiety disorder unspecified. History of Wernickes encephalopathy. Plan: No change from initial note. Assessment: Vital Signs/I&O: Vital Signs Date Time Temp Pulse Resp B/P (MAP) Pulse Ox O2 Delivery O2 Flow Rate FiO2 02/24/21 05:59 97.3 78 16 92/60 (71) 98 I & O 02/23/21 02/23/21 02/24/21 15:00 23:00 07:00 Intake Total 840 ml 720 ml Balance 840 ml 720 ml Current Medications: Meds: Current Medications Medications (Trade) Dose Ordered Sig/Hunter Route PRN Reason Start Time Stop Time Status Last Admin Dose Admin Multi-Ingredient Ointment (Analgesic [place]) 1 lico PRN QID PRN TP MUSCLE PAIN 02/11/21 06:45 Al Hydroxide/Mg Hydroxide (Mylanta Plus Xs) 15 ml PRN AFTMEALHC PRN PO DYSPEPSIA 02/11/21 06:45 Magnesium Hydroxide (Milk Of Magnesia) 2,400 mg PRN QHS PRN PO CONSTIPATION 02/11/21 06:45 Acetaminophen (Tylenol) 650 mg PRN Q6HRS PRN PO MILD PAIN / TEMP > 100.3'F 02/11/21 12:00 02/23/21 15:26 Enoxaparin Sodium (Lovenox 40mg Syringe) 40 mg DAILY SQ 02/12/21 09:00 02/13/21 17:54 DC Lorazepam (Ativan) 1 mg PRN Q4HRS PRN PO ANXIETY / AGITATION 02/11/21 12:00 02/13/21 21:35 DC 02/13/21 16:15 Melatonin (Melatonin) 3 mg PRN QHS PRN PO INSOMNIA 02/11/21 12:00 02/23/21 20:15 Nicotine (Nicoderm Cq 21mg Patch) 1 patch DAILY TD 02/12/21 09:00 02/23/21 08:14 Nicotine Polacrilex (Nicorette Gum) 2 mg PRN Q2HRS PRN BC SMOKING CESSATION 02/11/21 12:00 02/17/21 18:24 Olanzapine (ZyPREXA ZYDIS) 5 mg PRN BID PRN PO PSYCHOSIS 02/11/21 12:00 02/13/21 20:07 DC 02/13/21 18:10 Potassium Chloride (Klor-Con) 20 meq DAILY PO 02/12/21 09:00 02/23/21 08:12 Folic Acid (Folic Acid) 1 mg DAILY PO 02/12/21 09:00 02/23/21 08:12 Thiamine HCl (Vitamin B-1) 100 mg DAILY PO 02/12/21 09:00 02/23/21 08:13 Non-Formulary Medication ([Folic Acid] ) 1 mg DAILY PO 02/12/21 09:00 02/11/21 12:25 DC Acetaminophen (Tylenol) 650 mg PRN Q6HRS PRN PO MILD PAIN / TEMP > 100.3'F 02/11/21 12:15 02/11/21 12:22 DC Multi-Ingredient Ointment (Analgesic [place]) 1 lico PRN QID PRN TP MUSCLE PAIN 02/11/21 12:15 02/11/21 12:22 DC Al Hydroxide/Mg Hydroxide (Mylanta Plus Xs) 15 ml PRN AFTMEALHC PRN PO DYSPEPSIA 02/11/21 12:15 02/11/21 12:22 DC Magnesium Hydroxide (Milk Of Magnesia) 2,400 mg PRN QHS PRN PO CONSTIPATION 02/11/21 12:15 02/11/21 12:22 DC Lidocaine (Lidoderm) 1 patch PRN DAILY PRN TD MUSCLE PAIN 02/13/21 19:00 02/22/21 18:18 Olanzapine (ZyPREXA ZYDIS) 2.5 mg PRN Q2HR PRN PO PSYCHOSIS 02/13/21 20:15 02/13/21 23:06 Sertraline HCl (Zoloft) 50 mg DAILY PO 02/14/21 09:00 02/21/21 19:55 DC 02/21/21 08:09 Risperidone (RisperDAL) 0.5 mg QHS PO 02/13/21 21:00 02/23/21 20:15 Lorazepam (Ativan) 0.5 mg PRN Q1HR PRN PO ANXIETY / AGITATION 02/13/21 21:45 02/20/21 20:58 DC 02/20/21 16:54 Multivitamins/ Calcium (Thera-M Plus) 1 tab DAILY PO 02/13/21 21:30 02/23/21 08:13 Clonidine HCl (Catapres) 0.1 mg PRN Q1HR PRN PO SBP>180 OR DBP>100, MR X 3 02/13/21 21:30 Magnesium Oxide (Magnesium Oxide) 400 mg DAILY PO 02/14/21 09:00 02/13/21 21:36 DC Magnesium Oxide (Magnesium Oxide) 400 mg DAILY PO 02/13/21 21:45 02/23/21 08:13 Vitamin D (Vitamin D3) 50,000 unit WEEKLY PO 02/15/21 16:30 02/22/21 08:24 Lorazepam (Ativan) 0.5 mg PRN TID PRN PO ANXIETY / AGITATION 02/20/21 21:00 Cyclobenzaprine HCl (Flexeril) 10 mg BID PO 02/21/21 21:00 02/21/21 09:33 DC Cyclobenzaprine HCl (Flexeril) 10 mg BID PO 02/21/21 09:45 02/23/21 20:15 Sertraline HCl (Zoloft) 75 mg DAILY PO 02/22/21 09:00 02/23/21 08:13 I have reviewed the current psychotropics carefully including drug interactions. Risk benefit ratio favors no change other than as noted in my dictated progress note. Diagnosis: Problems: (1) Major depressive disorder, recurrent episode (2) Wernicke encephalopathy (3) Anxiety disorder, unspecified (4) Alcohol dependence (5) Alcohol withdrawal delirium (6) DTs (delirium tremens) IVANNA GUNDERSON MD Feb 24, 2021 08:27
--- NOTE | 2021-02-24 08:42 | PDOC ---
Exam Note: Nadeem Note: This note is a late entry for 02/23/2021 covers elements not covered in my initial note. Subjective: The patient was seen individually in the evening of 02/23/2021 with Simi SHERMAN, discussed and reviewed the chart. The patient slept 5 hours previous night. She has been hyperverbal at times, somewhat anxious, needy. She remains obsessive about discharge. Review of Systems: No CV, , pulmonary, eye, ENT system symptoms on review. S he does complain of some anxiety. Mental Status Exam: The patient is reasonably oriented. Speech coherent. Abstraction fair. Computation impaired. Language function intact. Attention span short. Mood and affect somewhat depressed and anxious. No suicidal or homicidal ideation. Laboratory Data: Reviewed. Impression: Major depressive disorder recurrent. Alcohol abuse/de pendence/withdrawal. Probable early delirium tremens. Anxiety disorder unspecified. History of Wernickes encephalopathy. Plan: No change from initial note. Assessment: Vital Signs/I&O: Vital Signs Date Time Temp Pulse Resp B/P (MAP) Pulse Ox O2 Delivery O2 Flow Rate FiO2 02/24/21 05:59 97.3 78 16 92/60 (71) 98 I & O 02/23/21 02/23/21 02/24/21 15:00 23:00 07:00 Intake Total 840 ml 720 ml Balance 840 ml 720 ml Current Medications: Meds: Current Medications Medications (Trade) Dose Ordered Sig/Hunter Route PRN Reason Start Time Stop Time Status Last Admin Dose Admin Multi-Ingredient Ointment (Analgesic [place]) 1 lico PRN QID PRN TP MUSCLE PAIN 02/11/21 06:45 Al Hydroxide/Mg Hydroxide (Mylanta Plus Xs) 15 ml PRN AFTMEALHC PRN PO DYSPEPSIA 02/11/21 06:45 Magnesium Hydroxide (Milk Of Magnesia) 2,400 mg PRN QHS PRN PO CONSTIPATION 02/11/21 06:45 Acetaminophen (Tylenol) 650 mg PRN Q6HRS PRN PO MILD PAIN / TEMP > 100.3'F 02/11/21 12:00 02/23/21 15:26 Enoxaparin Sodium (Lovenox 40mg Syringe) 40 mg DAILY SQ 02/12/21 09:00 02/13/21 17:54 DC Lorazepam (Ativan) 1 mg PRN Q4HRS PRN PO ANXIETY / AGITATION 02/11/21 12:00 02/13/21 21:35 DC 02/13/21 16:15 Melatonin (Melatonin) 3 mg PRN QHS PRN PO INSOMNIA 02/11/21 12:00 02/23/21 20:15 Nicotine (Nicoderm Cq 21mg Patch) 1 patch DAILY TD 02/12/21 09:00 02/24/21 08:22 Nicotine Polacrilex (Nicorette Gum) 2 mg PRN Q2HRS PRN BC SMOKING CESSATION 02/11/21 12:00 02/17/21 18:24 Olanzapine (ZyPREXA ZYDIS) 5 mg PRN BID PRN PO PSYCHOSIS 02/11/21 12:00 02/13/21 20:07 DC 02/13/21 18:10 Potassium Chloride (Klor-Con) 20 meq DAILY PO 02/12/21 09:00 02/24/21 08:23 Folic Acid (Folic Acid) 1 mg DAILY PO 02/12/21 09:00 02/24/21 08:23 Thiamine HCl (Vitamin B-1) 100 mg DAILY PO 02/12/21 09:00 02/24/21 08:23 Non-Formulary Medication ([Folic Acid] ) 1 mg DAILY PO 02/12/21 09:00 02/11/21 12:25 DC Acetaminophen (Tylenol) 650 mg PRN Q6HRS PRN PO MILD PAIN / TEMP > 100.3'F 02/11/21 12:15 02/11/21 12:22 DC Multi-Ingredient Ointment (Analgesic [place]) 1 lico PRN QID PRN TP MUSCLE PAIN 02/11/21 12:15 02/11/21 12:22 DC Al Hydroxide/Mg Hydroxide (Mylanta Plus Xs) 15 ml PRN AFTMEALHC PRN PO DYSPEPSIA 02/11/21 12:15 02/11/21 12:22 DC Magnesium Hydroxide (Milk Of Magnesia) 2,400 mg PRN QHS PRN PO CONSTIPATION 02/11/21 12:15 02/11/21 12:22 DC Lidocaine (Lidoderm) 1 patch PRN DAILY PRN TD MUSCLE PAIN 02/13/21 19:00 02/22/21 18:18 Olanzapine (ZyPREXA ZYDIS) 2.5 mg PRN Q2HR PRN PO PSYCHOSIS 02/13/21 20:15 02/13/21 23:06 Sertraline HCl (Zoloft) 50 mg DAILY PO 02/14/21 09:00 02/21/21 19:55 DC 02/21/21 08:09 Risperidone (RisperDAL) 0.5 mg QHS PO 02/13/21 21:00 02/23/21 20:15 Lorazepam (Ativan) 0.5 mg PRN Q1HR PRN PO ANXIETY / AGITATION 02/13/21 21:45 02/20/21 20:58 DC 02/20/21 16:54 Multivitamins/ Calcium (Thera-M Plus) 1 tab DAILY PO 02/13/21 21:30 02/24/21 08:23 Clonidine HCl (Catapres) 0.1 mg PRN Q1HR PRN PO SBP>180 OR DBP>100, MR X 3 02/13/21 21:30 Magnesium Oxide (Magnesium Oxide) 400 mg DAILY PO 02/14/21 09:00 02/13/21 21:36 DC Magnesium Oxide (Magnesium Oxide) 400 mg DAILY PO 02/13/21 21:45 02/24/21 08:23 Vitamin D (Vitamin D3) 50,000 unit WEEKLY PO 02/15/21 16:30 02/22/21 08:24 Lorazepam (Ativan) 0.5 mg PRN TID PRN PO ANXIETY / AGITATION 02/20/21 21:00 Cyclobenzaprine HCl (Flexeril) 10 mg BID PO 02/21/21 21:00 02/21/21 09:33 DC Cyclobenzaprine HCl (Flexeril) 10 mg BID PO 02/21/21 09:45 02/24/21 08:23 Sertraline HCl (Zoloft) 75 mg DAILY PO 02/22/21 09:00 02/24/21 08:23 I have reviewed the current psychotropics carefully including drug interactions. Risk benefit ratio favors no change other than as noted in my dictated progress note. Diagnosis: Problems: (1) Major depressive disorder, recurrent episode (2) Wernicke encephalopathy (3) Anxiety disorder, unspecified (4) Alcohol dependence (5) Alcohol withdrawal delirium (6) DTs (delirium tremens) IVANNA GUNDERSON MD Feb 24, 2021 08:42
[2021-02-24] MEDS ORDERED: HYDROCORTISONE 1% LOTION BOTTLE. TP PRN (12:00)
[2021-02-24 15:50] VITALS: BP 116/77
[2021-02-24] MEDS: risperiDONE 0.5 MG TABLET. PO SCH (21:01)
--- NOTE | 2021-02-24 22:13 | PDOC ---
Exam Note: Nadeem Note: Please also refer to the separate dictated note~for this date of service dictated separately.~Patient seen individually. Discussed the patient with Nursing staff reviewed the chart.~Reviewed interim history and current functioning. Reviewed vital signs,~Labs/ Radiology~and current medications noted below. Continue current treatment with the changes noted in the dictated addendum note Assessment: Vital Signs/I&O: Vital Signs Date Time Temp Pulse Resp B/P (MAP) Pulse Ox O2 Delivery O2 Flow Rate FiO2 02/24/21 15:50 97.1 85 20 116/77 (90) 99 I & O 02/23/21 02/23/21 02/24/21 15:00 23:00 07:00 Intake Total 840 ml 720 ml Balance 840 ml 720 ml Current Medications: Meds: Current Medications Medications (Trade) Dose Ordered Sig/Hunter Route PRN Reason Start Time Stop Time Status Last Admin Dose Admin Multi-Ingredient Ointment (Analgesic [place]) 1 lico PRN QID PRN TP MUSCLE PAIN 02/11/21 06:45 Al Hydroxide/Mg Hydroxide (Mylanta Plus Xs) 15 ml PRN AFTMEALHC PRN PO DYSPEPSIA 02/11/21 06:45 Magnesium Hydroxide (Milk Of Magnesia) 2,400 mg PRN QHS PRN PO CONSTIPATION 02/11/21 06:45 Acetaminophen (Tylenol) 650 mg PRN Q6HRS PRN PO MILD PAIN / TEMP > 100.3'F 02/11/21 12:00 02/23/21 15:26 Enoxaparin Sodium (Lovenox 40mg Syringe) 40 mg DAILY SQ 02/12/21 09:00 02/13/21 17:54 DC Lorazepam (Ativan) 1 mg PRN Q4HRS PRN PO ANXIETY / AGITATION 02/11/21 12:00 02/13/21 21:35 DC 02/13/21 16:15 Melatonin (Melatonin) 3 mg PRN QHS PRN PO INSOMNIA 02/11/21 12:00 02/23/21 20:15 Nicotine (Nicoderm Cq 21mg Patch) 1 patch DAILY TD 02/12/21 09:00 02/24/21 08:22 Nicotine Polacrilex (Nicorette Gum) 2 mg PRN Q2HRS PRN BC SMOKING CESSATION 02/11/21 12:00 02/17/21 18:24 Olanzapine (ZyPREXA ZYDIS) 5 mg PRN BID PRN PO PSYCHOSIS 02/11/21 12:00 02/13/21 20:07 DC 02/13/21 18:10 Potassium Chloride (Klor-Con) 20 meq DAILY PO 02/12/21 09:00 02/24/21 08:23 Folic Acid (Folic Acid) 1 mg DAILY PO 02/12/21 09:00 02/24/21 08:23 Thiamine HCl (Vitamin B-1) 100 mg DAILY PO 02/12/21 09:00 02/24/21 08:23 Non-Formulary Medication ([Folic Acid] ) 1 mg DAILY PO 02/12/21 09:00 02/11/21 12:25 DC Acetaminophen (Tylenol) 650 mg PRN Q6HRS PRN PO MILD PAIN / TEMP > 100.3'F 02/11/21 12:15 02/11/21 12:22 DC Multi-Ingredient Ointment (Analgesic [place]) 1 lico PRN QID PRN TP MUSCLE PAIN 02/11/21 12:15 02/11/21 12:22 DC Al Hydroxide/Mg Hydroxide (Mylanta Plus Xs) 15 ml PRN AFTMEALHC PRN PO DYSPEPSIA 02/11/21 12:15 02/11/21 12:22 DC Magnesium Hydroxide (Milk Of Magnesia) 2,400 mg PRN QHS PRN PO CONSTIPATION 02/11/21 12:15 02/11/21 12:22 DC Lidocaine (Lidoderm) 1 patch PRN DAILY PRN TD MUSCLE PAIN 02/13/21 19:00 02/22/21 18:18 Olanzapine (ZyPREXA ZYDIS) 2.5 mg PRN Q2HR PRN PO PSYCHOSIS 02/13/21 20:15 02/13/21 23:06 Sertraline HCl (Zoloft) 50 mg DAILY PO 02/14/21 09:00 02/21/21 19:55 DC 02/21/21 08:09 Risperidone (RisperDAL) 0.5 mg QHS PO 02/13/21 21:00 02/24/21 21:01 Lorazepam (Ativan) 0.5 mg PRN Q1HR PRN PO ANXIETY / AGITATION 02/13/21 21:45 02/20/21 20:58 DC 02/20/21 16:54 Multivitamins/ Calcium (Thera-M Plus) 1 tab DAILY PO 02/13/21 21:30 02/24/21 08:23 Clonidine HCl (Catapres) 0.1 mg PRN Q1HR PRN PO SBP>180 OR DBP>100, MR X 3 02/13/21 21:30 Magnesium Oxide (Magnesium Oxide) 400 mg DAILY PO 02/14/21 09:00 02/13/21 21:36 DC Magnesium Oxide (Magnesium Oxide) 400 mg DAILY PO 02/13/21 21:45 02/24/21 08:23 Vitamin D (Vitamin D3) 50,000 unit WEEKLY PO 02/15/21 16:30 02/22/21 08:24 Lorazepam (Ativan) 0.5 mg PRN TID PRN PO ANXIETY / AGITATION 02/20/21 21:00 Cyclobenzaprine HCl (Flexeril) 10 mg BID PO 02/21/21 21:00 02/21/21 09:33 DC Cyclobenzaprine HCl (Flexeril) 10 mg BID PO 02/21/21 09:45 02/24/21 21:01 Sertraline HCl (Zoloft) 75 mg DAILY PO 02/22/21 09:00 02/24/21 08:23 Hydrocortisone (Cortizone-10) 1 lico PRN TID PRN TP ITCHING 02/24/21 12:00 I have reviewed the current psychotropics carefully including drug interactions. Risk benefit ratio favors no change other than as noted in my dictated progress note. Diagnosis: Problems: (1) Major depressive disorder, recurrent episode (2) Wernicke encephalopathy (3) Anxiety disorder, unspecified (4) Alcohol dependence (5) Alcohol withdrawal (6) DTs (delirium tremens) IVANNA GUNDERSON MD Feb 24, 2021 22:13
[2021-02-25 06:03] VITALS: BP 125/69
[2021-02-25] MEDS: CYCLOBENZAPRINE 10 MG TABLET. PO SCH ×2 (08:07→19:42)
[2021-02-25] MEDS: POTASSIUM CHLORIDE 20 MEQ TABLET.ER. PO SCH (08:07)
[2021-02-25] MEDS: MULTIVITAMIN with MINERAL TABLET. PO SCH (08:07)
[2021-02-25] MEDS: NICOTINE 21MG PATCH. TD SCH (08:07)
[2021-02-25] MEDS: THIAMINE 100 MG TABLET. PO SCH (08:07)
[2021-02-25] MEDS: SERTRALINE 25 MG TABLET. PO SCH (08:08)
[2021-02-25] MEDS: FOLIC ACID 1 MG TABLET PO SCH (08:08)
[2021-02-25] MEDS: MAGNESIUM OXIDE 400 MG TABLET PO SCH (08:08)
--- NOTE | 2021-02-25 08:27 | PDOC ---
Exam Note: Nadeem Note: This note is a late entry for 02/24/2021 covers elements not covered in my initial note. Subjective: The patient was seen individually in the evening of 02/24/2021 with Asia SHERMAN, discussed and reviewed the chart. The patient slept 7 hours previous night. Overall she has been fairly cooperative on the unit. As I met with her at length in the evening she talked about having made a firm decision on not using alcohol again. We processed this and ways to maintain sobriety. Review of Systems: No CV, , pulmonary, eye, ENT system symptoms on review. Mental Status Exam: The patient is reasonably oriented. Speech coherent. Abstraction fair. Computation impaired. Language function intact. Attention span short. Mood and affect somewhat anxious but improved. No suicidal or homicidal ideation. Laboratory Data: Reviewed. Impression: Major depressive disorder recurrent. Alcohol abuse/dependence/withdrawal. Anxiety disorder unspecified. History of Wernickes encephalopathy. Plan: No change from initial note. Assessment: Vital Signs/I&O: Vital Signs Date Time Temp Pulse Resp B/P (MAP) Pulse Ox O2 Delivery O2 Flow Rate FiO2 02/25/21 06:03 97.8 77 16 125/69 (87) 98 I & O 02/24/21 02/24/21 02/25/21 15:00 23:00 07:00 Intake Total 960 ml 820 ml Balance 960 ml 820 ml Current Medications: Meds: Current Medications Medications (Trade) Dose Ordered Sig/Hunter Route PRN Reason Start Time Stop Time Status Last Admin Dose Admin Multi-Ingredient Ointment (Analgesic [place]) 1 lico PRN QID PRN TP MUSCLE PAIN 02/11/21 06:45 Al Hydroxide/Mg Hydroxide (Mylanta Plus Xs) 15 ml PRN AFTMEALHC PRN PO DYSPEPSIA 02/11/21 06:45 Magnesium Hydroxide (Milk Of Magnesia) 2,400 mg PRN QHS PRN PO CONSTIPATION 02/11/21 06:45 Acetaminophen (Tylenol) 650 mg PRN Q6HRS PRN PO MILD PAIN / TEMP > 100.3'F 02/11/21 12:00 02/23/21 15:26 Enoxaparin Sodium (Lovenox 40mg Syringe) 40 mg DAILY SQ 02/12/21 09:00 02/13/21 17:54 DC Lorazepam (Ativan) 1 mg PRN Q4HRS PRN PO ANXIETY / AGITATION 02/11/21 12:00 02/13/21 21:35 DC 02/13/21 16:15 Melatonin (Melatonin) 3 mg PRN QHS PRN PO INSOMNIA 02/11/21 12:00 02/23/21 20:15 Nicotine (Nicoderm Cq 21mg Patch) 1 patch DAILY TD 02/12/21 09:00 02/25/21 08:07 Nicotine Polacrilex (Nicorette Gum) 2 mg PRN Q2HRS PRN BC SMOKING CESSATION 02/11/21 12:00 02/17/21 18:24 Olanzapine (ZyPREXA ZYDIS) 5 mg PRN BID PRN PO PSYCHOSIS 02/11/21 12:00 02/13/21 20:07 DC 02/13/21 18:10 Potassium Chloride (Klor-Con) 20 meq DAILY PO 02/12/21 09:00 02/25/21 08:07 Folic Acid (Folic Acid) 1 mg DAILY PO 02/12/21 09:00 02/25/21 08:08 Thiamine HCl (Vitamin B-1) 100 mg DAILY PO 02/12/21 09:00 02/25/21 08:07 Non-Formulary Medication ([Folic Acid] ) 1 mg DAILY PO 02/12/21 09:00 02/11/21 12:25 DC Acetaminophen (Tylenol) 650 mg PRN Q6HRS PRN PO MILD PAIN / TEMP > 100.3'F 02/11/21 12:15 02/11/21 12:22 DC Multi-Ingredient Ointment (Analgesic [place]) 1 lico PRN QID PRN TP MUSCLE PAIN 02/11/21 12:15 02/11/21 12:22 DC Al Hydroxide/Mg Hydroxide (Mylanta Plus Xs) 15 ml PRN AFTMEALHC PRN PO DYSPEPSIA 02/11/21 12:15 02/11/21 12:22 DC Magnesium Hydroxide (Milk Of Magnesia) 2,400 mg PRN QHS PRN PO CONSTIPATION 02/11/21 12:15 02/11/21 12:22 DC Lidocaine (Lidoderm) 1 patch PRN DAILY PRN TD MUSCLE PAIN 02/13/21 19:00 02/22/21 18:18 Olanzapine (ZyPREXA ZYDIS) 2.5 mg PRN Q2HR PRN PO PSYCHOSIS 02/13/21 20:15 02/13/21 23:06 Sertraline HCl (Zoloft) 50 mg DAILY PO 02/14/21 09:00 02/21/21 19:55 DC 02/21/21 08:09 Risperidone (RisperDAL) 0.5 mg QHS PO 02/13/21 21:00 02/24/21 21:01 Lorazepam (Ativan) 0.5 mg PRN Q1HR PRN PO ANXIETY / AGITATION 02/13/21 21:45 02/20/21 20:58 DC 02/20/21 16:54 Multivitamins/ Calcium (Thera-M Plus) 1 tab DAILY PO 02/13/21 21:30 02/25/21 08:07 Clonidine HCl (Catapres) 0.1 mg PRN Q1HR PRN PO SBP>180 OR DBP>100, MR X 3 02/13/21 21:30 Magnesium Oxide (Magnesium Oxide) 400 mg DAILY PO 02/14/21 09:00 02/13/21 21:36 DC Magnesium Oxide (Magnesium Oxide) 400 mg DAILY PO 02/13/21 21:45 02/25/21 08:08 Vitamin D (Vitamin D3) 50,000 unit WEEKLY PO 02/15/21 16:30 02/22/21 08:24 Lorazepam (Ativan) 0.5 mg PRN TID PRN PO ANXIETY / AGITATION 02/20/21 21:00 Cyclobenzaprine HCl (Flexeril) 10 mg BID PO 02/21/21 21:00 02/21/21 09:33 DC Cyclobenzaprine HCl (Flexeril) 10 mg BID PO 02/21/21 09:45 02/25/21 08:07 Sertraline HCl (Zoloft) 75 mg DAILY PO 02/22/21 09:00 02/25/21 08:08 Hydrocortisone (Cortizone-10) 1 lico PRN TID PRN TP ITCHING 02/24/21 12:00 I have reviewed the current psychotropics carefully including drug interactions. Risk benefit ratio favors no change other than as noted in my dictated progress note. Diagnosis: Problems: (1) Major depressive disorder, recurrent episode (2) Wernicke encephalopathy (3) Anxiety disorder, unspecified (4) Alcohol dependence (5) Alcohol withdrawal delirium (6) DTs (delirium tremens) IVANNA GUNDERSON MD Feb 25, 2021 08:27
[2021-02-25] MEDS: ACETAMINOPHEN 325 MG TABLET PO PRN (09:35)
[2021-02-25 16:09] VITALS: BP 99/67
[2021-02-25] MEDS: MELATONIN 3 MG TABLET PO PRN (19:42)
[2021-02-25] MEDS: risperiDONE 0.5 MG TABLET. PO SCH (19:42)
[2021-02-26 06:59] VITALS: BP 90/50
[2021-02-26] MEDS: POTASSIUM CHLORIDE 20 MEQ TABLET.ER. PO SCH (08:39)
[2021-02-26] MEDS: CYCLOBENZAPRINE 10 MG TABLET. PO SCH ×2 (08:39→20:50)
[2021-02-26] MEDS: MULTIVITAMIN with MINERAL TABLET. PO SCH (08:39)
[2021-02-26] MEDS: SERTRALINE 25 MG TABLET. PO SCH (08:39)
[2021-02-26] MEDS: NICOTINE 21MG PATCH. TD SCH (08:39)
[2021-02-26] MEDS: MAGNESIUM OXIDE 400 MG TABLET PO SCH (08:40)
[2021-02-26] MEDS: THIAMINE 100 MG TABLET. PO SCH (08:40)
[2021-02-26] MEDS: FOLIC ACID 1 MG TABLET PO SCH (08:40)
--- NOTE | 2021-02-26 11:25 | TX PLAN ---
Interdisciplinary Tx Plan Admission Information Feb 11, 2021 at 06:29 Legal Status (on Admission): Voluntary DPOA/Guardian Name: Harshil Tesfaye Contact Other Contact Verified Code Status: Full Code Allergies: Coded Allergies: No Known Drug Allergies (Unverified , 02/10/21) Diagnoses Primary Diagnosis: Alcohol Dependence Werneke's Encephalopathy Reasons for Admission: Alcohol Abuse, Hallucinations, Confusion/Disoriented, Poor impulse control, Other Problem in Patient's Words: She has a drinking problem and can no longer care for herself. Additional Admission Comments: According to the intake, pt is restless, fighting with staff in the ED, hallucinating, altered mental status, was find wandering the streets naked, crawing into the neighbors car, labile mood, having tangential speech, cognitively impaired. Problems Active Problems: restless anxious confused non-compliant Inactive Problems: N/A Pt Strengths/Limitations Ability for [place]: Poor Cognitive Functioning/Ability: Fair Communication Skills/Ability: Fair Financial Resources: Poor Insight/Judgement: Poor Intellectual Ability: Fair Physical Health: Poor Social Skills: Fair Stability in Family: Good Stability in School/Work: Poor Verbal Skills: Fair Discharge Criteria Discharge Criteria: No need for close observ., Adequate arrangements @DC, Improved behavior, Withdrawal Sx absent, Improved mood/thought Preliminary Discharge Plan Preliminary DC Plan: Placement Needed Special Precautions Fall Risk: Low Initial D/C Plan Pt is not able to live by herself; will need placement at the time of discharge. Identified Discharge Needs: Referrals to a higher level of care Currently Utilized Resources Currently Utilized Resources/P: Primary Care Physicians Identified Problems/Hx/Goals Objectives/Short-Term Goals Short Term Goals: Dec. Aggression, Dec. Hallucination/Delus, Dec. Outbursts, Medication Stabilization, Promote Coping Skill Short Term Goals in Patient's: N/A Interventions/Frequency Staff Interventions/Frequency&: Psychiatrist to assess pt at least 3x per week for medication management. Social Work to assess pt at least 2x per week to identify barriers and discharge and finalize discharge plans. Nursing to assess medication effects, behavior modification and complete 15 minute checks daily. Encourage participation in group activities (if applicable) or 1:1 engagement based off activity dept goals. History Vocational History: Pt had multiple jobs that did not last long. 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 She has been on disability most of her life. 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 Pt is eating 100% ol meals and sleeping on average 7.25 hours per night. Pt is reported to have some general confusion re: medications and why she needs them and no recollection of being on the admission hallway for 10 days. Pt has attended a few groups this week and is very social. Pt family is concerned that pt is not understanding her consequences of her actions and sees it as "everyone does stupid things". Dorothy reports that pt pushes it off on seeing her parents on occasion when this has been pt life since she was a teenager. NILES and the psychiatrist discussed the fact that placement is her greatest recommendation as this will not just continue but pt has Wernicke's Encephalopathy which worsens over time. Dorothy reports the family to be fearful and just tired of having to care for pt and fear that she will due to her impulses and the drinking. NILES will send out referrals and keep Dorothy updated. SHANTANU SPANN Feb 26, 2021 11:25
[2021-02-26 15:46] VITALS: BP 111/79
[2021-02-26] MEDS: risperiDONE 0.5 MG TABLET. PO SCH (20:51)
--- NOTE | 2021-02-26 21:43 | PDOC ---
Exam Note: Nadeem Note: Please also refer to the separate dictated note~for this date of service dictated separately.~Patient seen individually. Discussed the patient with Nursing staff reviewed the chart.~Reviewed interim history and current functioning. Reviewed vital signs,~Labs/ Radiology~and current medications noted below. Continue current treatment with the changes noted in the dictated addendum note Assessment: Vital Signs/I&O: Vital Signs Date Time Temp Pulse Resp B/P (MAP) Pulse Ox O2 Delivery O2 Flow Rate FiO2 02/26/21 15:46 97.2 78 20 111/79 (90) 99 I & O 02/25/21 02/25/21 02/26/21 15:00 23:00 07:00 Intake Total 1020 ml 480 ml Balance 1020 ml 480 ml Current Medications: Meds: Current Medications Medications (Trade) Dose Ordered Sig/Hunter Route PRN Reason Start Time Stop Time Status Last Admin Dose Admin Multi-Ingredient Ointment (Analgesic [place]) 1 lico PRN QID PRN TP MUSCLE PAIN 02/11/21 06:45 Al Hydroxide/Mg Hydroxide (Mylanta Plus Xs) 15 ml PRN AFTMEALHC PRN PO DYSPEPSIA 02/11/21 06:45 Magnesium Hydroxide (Milk Of Magnesia) 2,400 mg PRN QHS PRN PO CONSTIPATION 02/11/21 06:45 Acetaminophen (Tylenol) 650 mg PRN Q6HRS PRN PO MILD PAIN / TEMP > 100.3'F 02/11/21 12:00 02/25/21 09:35 Enoxaparin Sodium (Lovenox 40mg Syringe) 40 mg DAILY SQ 02/12/21 09:00 02/13/21 17:54 DC Lorazepam (Ativan) 1 mg PRN Q4HRS PRN PO ANXIETY / AGITATION 02/11/21 12:00 02/13/21 21:35 DC 02/13/21 16:15 Melatonin (Melatonin) 3 mg PRN QHS PRN PO INSOMNIA 02/11/21 12:00 02/25/21 19:42 Nicotine (Nicoderm Cq 21mg Patch) 1 patch DAILY TD 02/12/21 09:00 02/26/21 08:39 Nicotine Polacrilex (Nicorette Gum) 2 mg PRN Q2HRS PRN BC SMOKING CESSATION 02/11/21 12:00 02/17/21 18:24 Olanzapine (ZyPREXA ZYDIS) 5 mg PRN BID PRN PO PSYCHOSIS 02/11/21 12:00 02/13/21 20:07 DC 02/13/21 18:10 Potassium Chloride (Klor-Con) 20 meq DAILY PO 02/12/21 09:00 02/26/21 08:39 Folic Acid (Folic Acid) 1 mg DAILY PO 02/12/21 09:00 02/26/21 08:40 Thiamine HCl (Vitamin B-1) 100 mg DAILY PO 02/12/21 09:00 02/26/21 08:40 Non-Formulary Medication ([Folic Acid] ) 1 mg DAILY PO 02/12/21 09:00 02/11/21 12:25 DC Acetaminophen (Tylenol) 650 mg PRN Q6HRS PRN PO MILD PAIN / TEMP > 100.3'F 02/11/21 12:15 02/11/21 12:22 DC Multi-Ingredient Ointment (Analgesic [place]) 1 lico PRN QID PRN TP MUSCLE PAIN 02/11/21 12:15 02/11/21 12:22 DC Al Hydroxide/Mg Hydroxide (Mylanta Plus Xs) 15 ml PRN AFTMEALHC PRN PO DYSPEPSIA 02/11/21 12:15 02/11/21 12:22 DC Magnesium Hydroxide (Milk Of Magnesia) 2,400 mg PRN QHS PRN PO CONSTIPATION 02/11/21 12:15 02/11/21 12:22 DC Lidocaine (Lidoderm) 1 patch PRN DAILY PRN TD MUSCLE PAIN 02/13/21 19:00 02/22/21 18:18 Olanzapine (ZyPREXA ZYDIS) 2.5 mg PRN Q2HR PRN PO PSYCHOSIS 02/13/21 20:15 02/13/21 23:06 Sertraline HCl (Zoloft) 50 mg DAILY PO 02/14/21 09:00 02/21/21 19:55 DC 02/21/21 08:09 Risperidone (RisperDAL) 0.5 mg QHS PO 02/13/21 21:00 02/26/21 20:51 Lorazepam (Ativan) 0.5 mg PRN Q1HR PRN PO ANXIETY / AGITATION 02/13/21 21:45 02/20/21 20:58 DC 02/20/21 16:54 Multivitamins/ Calcium (Thera-M Plus) 1 tab DAILY PO 02/13/21 21:30 02/26/21 08:39 Clonidine HCl (Catapres) 0.1 mg PRN Q1HR PRN PO SBP>180 OR DBP>100, MR X 3 02/13/21 21:30 Magnesium Oxide (Magnesium Oxide) 400 mg DAILY PO 02/14/21 09:00 02/13/21 21:36 DC Magnesium Oxide (Magnesium Oxide) 400 mg DAILY PO 02/13/21 21:45 02/26/21 08:40 Vitamin D (Vitamin D3) 50,000 unit WEEKLY PO 02/15/21 16:30 02/22/21 08:24 Lorazepam (Ativan) 0.5 mg PRN TID PRN PO ANXIETY / AGITATION 02/20/21 21:00 Cyclobenzaprine HCl (Flexeril) 10 mg BID PO 02/21/21 21:00 02/21/21 09:33 DC Cyclobenzaprine HCl (Flexeril) 10 mg BID PO 02/21/21 09:45 02/26/21 20:50 Sertraline HCl (Zoloft) 75 mg DAILY PO 02/22/21 09:00 02/26/21 08:39 Hydrocortisone (Cortizone-10) 1 lico PRN TID PRN TP ITCHING 02/24/21 12:00 I have reviewed the current psychotropics carefully including drug interactions. Risk benefit ratio favors no change other than as noted in my dictated progress note. Diagnosis: Problems: (1) Major depressive disorder, recurrent episode (2) Wernicke encephalopathy (3) Anxiety disorder, unspecified (4) Alcohol dependence (5) Alcohol withdrawal delirium (6) DTs (delirium tremens) IVANNA GUNDERSON MD Feb 26, 2021 21:43
[2021-02-27 06:04] VITALS: BP 107/61
[2021-02-27] MEDS: MULTIVITAMIN with MINERAL TABLET. PO SCH (08:08)
[2021-02-27] MEDS: FOLIC ACID 1 MG TABLET PO SCH (08:08)
[2021-02-27] MEDS: NICOTINE 21MG PATCH. TD SCH (08:08)
[2021-02-27] MEDS: THIAMINE 100 MG TABLET. PO SCH (08:08)
[2021-02-27] MEDS: POTASSIUM CHLORIDE 20 MEQ TABLET.ER. PO SCH (08:08)
[2021-02-27] MEDS: SERTRALINE 25 MG TABLET. PO SCH (08:09)
[2021-02-27] MEDS: MAGNESIUM OXIDE 400 MG TABLET PO SCH (08:09)
[2021-02-27] MEDS: CYCLOBENZAPRINE 10 MG TABLET. PO SCH ×2 (08:09→20:33)
[2021-02-27] MEDS: ACETAMINOPHEN 325 MG TABLET PO PRN ×2 (14:09→20:36)
[2021-02-27 15:46] VITALS: BP 114/71
[2021-02-27] MEDS: MELATONIN 3 MG TABLET PO PRN (20:33)
[2021-02-27] MEDS: risperiDONE 0.5 MG TABLET. PO SCH (20:33)
--- NOTE | 2021-02-27 21:57 | PDOC ---
Exam Note: Nadeem Note: Please also refer to the separate dictated note~for this date of service dictated separately.~Patient seen individually. Discussed the patient with Nursing staff reviewed the chart.~Reviewed interim history and current functioning. Reviewed vital signs,~Labs/ Radiology~and current medications noted below. Continue current treatment with the changes noted in the dictated addendum note Assessment: Vital Signs/I&O: Vital Signs Date Time Temp Pulse Resp B/P (MAP) Pulse Ox O2 Delivery O2 Flow Rate FiO2 02/27/21 15:46 98.0 86 20 114/71 (85) 100 I & O 02/26/21 02/26/21 02/27/21 15:00 23:00 07:00 Intake Total 630 ml 960 ml Balance 630 ml 960 ml Current Medications: Meds: Current Medications Medications (Trade) Dose Ordered Sig/Hunter Route PRN Reason Start Time Stop Time Status Last Admin Dose Admin Multi-Ingredient Ointment (Analgesic [place]) 1 lico PRN QID PRN TP MUSCLE PAIN 02/11/21 06:45 Al Hydroxide/Mg Hydroxide (Mylanta Plus Xs) 15 ml PRN AFTMEALHC PRN PO DYSPEPSIA 02/11/21 06:45 Magnesium Hydroxide (Milk Of Magnesia) 2,400 mg PRN QHS PRN PO CONSTIPATION 02/11/21 06:45 Acetaminophen (Tylenol) 650 mg PRN Q6HRS PRN PO MILD PAIN / TEMP > 100.3'F 02/11/21 12:00 02/27/21 20:36 Enoxaparin Sodium (Lovenox 40mg Syringe) 40 mg DAILY SQ 02/12/21 09:00 02/13/21 17:54 DC Lorazepam (Ativan) 1 mg PRN Q4HRS PRN PO ANXIETY / AGITATION 02/11/21 12:00 02/13/21 21:35 DC 02/13/21 16:15 Melatonin (Melatonin) 3 mg PRN QHS PRN PO INSOMNIA 02/11/21 12:00 02/27/21 20:33 Nicotine (Nicoderm Cq 21mg Patch) 1 patch DAILY TD 02/12/21 09:00 02/27/21 08:08 Nicotine Polacrilex (Nicorette Gum) 2 mg PRN Q2HRS PRN BC SMOKING CESSATION 02/11/21 12:00 02/17/21 18:24 Olanzapine (ZyPREXA ZYDIS) 5 mg PRN BID PRN PO PSYCHOSIS 02/11/21 12:00 02/13/21 20:07 DC 02/13/21 18:10 Potassium Chloride (Klor-Con) 20 meq DAILY PO 02/12/21 09:00 02/27/21 08:08 Folic Acid (Folic Acid) 1 mg DAILY PO 02/12/21 09:00 02/27/21 08:08 Thiamine HCl (Vitamin B-1) 100 mg DAILY PO 02/12/21 09:00 02/27/21 08:08 Non-Formulary Medication ([Folic Acid] ) 1 mg DAILY PO 02/12/21 09:00 02/11/21 12:25 DC Acetaminophen (Tylenol) 650 mg PRN Q6HRS PRN PO MILD PAIN / TEMP > 100.3'F 02/11/21 12:15 02/11/21 12:22 DC Multi-Ingredient Ointment (Analgesic [place]) 1 lico PRN QID PRN TP MUSCLE PAIN 02/11/21 12:15 02/11/21 12:22 DC Al Hydroxide/Mg Hydroxide (Mylanta Plus Xs) 15 ml PRN AFTMEALHC PRN PO DYSPEPSIA 02/11/21 12:15 02/11/21 12:22 DC Magnesium Hydroxide (Milk Of Magnesia) 2,400 mg PRN QHS PRN PO CONSTIPATION 02/11/21 12:15 02/11/21 12:22 DC Lidocaine (Lidoderm) 1 patch PRN DAILY PRN TD MUSCLE PAIN 02/13/21 19:00 02/22/21 18:18 Olanzapine (ZyPREXA ZYDIS) 2.5 mg PRN Q2HR PRN PO PSYCHOSIS 02/13/21 20:15 02/13/21 23:06 Sertraline HCl (Zoloft) 50 mg DAILY PO 02/14/21 09:00 02/21/21 19:55 DC 02/21/21 08:09 Risperidone (RisperDAL) 0.5 mg QHS PO 02/13/21 21:00 02/27/21 20:33 Lorazepam (Ativan) 0.5 mg PRN Q1HR PRN PO ANXIETY / AGITATION 02/13/21 21:45 02/20/21 20:58 DC 02/20/21 16:54 Multivitamins/ Calcium (Thera-M Plus) 1 tab DAILY PO 02/13/21 21:30 02/27/21 08:08 Clonidine HCl (Catapres) 0.1 mg PRN Q1HR PRN PO SBP>180 OR DBP>100, MR X 3 02/13/21 21:30 Magnesium Oxide (Magnesium Oxide) 400 mg DAILY PO 02/14/21 09:00 02/13/21 21:36 DC Magnesium Oxide (Magnesium Oxide) 400 mg DAILY PO 02/13/21 21:45 02/27/21 08:09 Vitamin D (Vitamin D3) 50,000 unit WEEKLY PO 02/15/21 16:30 02/22/21 08:24 Lorazepam (Ativan) 0.5 mg PRN TID PRN PO ANXIETY / AGITATION 02/20/21 21:00 Cyclobenzaprine HCl (Flexeril) 10 mg BID PO 02/21/21 21:00 02/21/21 09:33 DC Cyclobenzaprine HCl (Flexeril) 10 mg BID PO 02/21/21 09:45 02/27/21 20:33 Sertraline HCl (Zoloft) 75 mg DAILY PO 02/22/21 09:00 02/27/21 08:09 Hydrocortisone (Cortizone-10) 1 lico PRN TID PRN TP ITCHING 02/24/21 12:00 I have reviewed the current psychotropics carefully including drug interactions. Risk benefit ratio favors no change other than as noted in my dictated progress note. Diagnosis: Problems: (1) Major depressive disorder, recurrent episode (2) Wernicke encephalopathy (3) Anxiety disorder, unspecified (4) Alcohol dependence (5) Alcohol withdrawal delirium (6) DTs (delirium tremens) IVANNA GUNDERSON MD Feb 27, 2021 21:57
[2021-02-28 05:52] VITALS: BP 124/75
[2021-02-28] MEDS: FOLIC ACID 1 MG TABLET PO SCH (08:24)
[2021-02-28] MEDS: SERTRALINE 25 MG TABLET. PO SCH (08:24)
[2021-02-28] MEDS: POTASSIUM CHLORIDE 20 MEQ TABLET.ER. PO SCH (08:24)
[2021-02-28] MEDS: MULTIVITAMIN with MINERAL TABLET. PO SCH (08:24)
[2021-02-28] MEDS: THIAMINE 100 MG TABLET. PO SCH (08:24)
[2021-02-28] MEDS: MAGNESIUM OXIDE 400 MG TABLET PO SCH (08:24)
[2021-02-28] MEDS: CYCLOBENZAPRINE 10 MG TABLET. PO SCH ×2 (08:25→19:53)
[2021-02-28] MEDS: NICOTINE 21MG PATCH. TD SCH (08:25)
[2021-02-28 15:32] VITALS: BP 130/84
[2021-02-28] MEDS: MELATONIN 3 MG TABLET PO PRN (19:52)
[2021-02-28] MEDS: risperiDONE 0.5 MG TABLET. PO SCH (19:52)
[2021-02-28] MEDS: MIRTAZAPINE 7.5 MG TABLET. PO SCH (21:22)
--- NOTE | 2021-02-28 21:59 | PDOC ---
Exam Note: Nadeem Note: Please also refer to the separate dictated note~for this date of service dictated separately.~Patient seen individually. Discussed the patient with Nursing staff reviewed the chart.~Reviewed interim history and current functioning. Reviewed vital signs,~Labs/ Radiology~and current medications noted below. Continue current treatment with the changes noted in the dictated addendum note Assessment: Vital Signs/I&O: Vital Signs Date Time Temp Pulse Resp B/P (MAP) Pulse Ox O2 Delivery O2 Flow Rate FiO2 02/28/21 15:32 97.6 92 130/84 (99) 98 Room Air 02/28/21 05:52 20 I & O 02/27/21 02/27/21 02/28/21 15:00 23:00 07:00 Intake Total 860 ml 1040 ml Balance 860 ml 1040 ml Current Medications: Meds: Current Medications Medications (Trade) Dose Ordered Sig/Hunter Route PRN Reason Start Time Stop Time Status Last Admin Dose Admin Multi-Ingredient Ointment (Analgesic [place]) 1 lico PRN QID PRN TP MUSCLE PAIN 02/11/21 06:45 Al Hydroxide/Mg Hydroxide (Mylanta Plus Xs) 15 ml PRN AFTMEALHC PRN PO DYSPEPSIA 02/11/21 06:45 Magnesium Hydroxide (Milk Of Magnesia) 2,400 mg PRN QHS PRN PO CONSTIPATION 02/11/21 06:45 Acetaminophen (Tylenol) 650 mg PRN Q6HRS PRN PO MILD PAIN / TEMP > 100.3'F 02/11/21 12:00 02/27/21 20:36 Enoxaparin Sodium (Lovenox 40mg Syringe) 40 mg DAILY SQ 02/12/21 09:00 02/13/21 17:54 DC Lorazepam (Ativan) 1 mg PRN Q4HRS PRN PO ANXIETY / AGITATION 02/11/21 12:00 02/13/21 21:35 DC 02/13/21 16:15 Melatonin (Melatonin) 3 mg PRN QHS PRN PO INSOMNIA 02/11/21 12:00 02/28/21 19:52 Nicotine (Nicoderm Cq 21mg Patch) 1 patch DAILY TD 02/12/21 09:00 02/28/21 08:25 Nicotine Polacrilex (Nicorette Gum) 2 mg PRN Q2HRS PRN BC SMOKING CESSATION 02/11/21 12:00 02/17/21 18:24 Olanzapine (ZyPREXA ZYDIS) 5 mg PRN BID PRN PO PSYCHOSIS 02/11/21 12:00 02/13/21 20:07 DC 02/13/21 18:10 Potassium Chloride (Klor-Con) 20 meq DAILY PO 02/12/21 09:00 02/28/21 08:24 Folic Acid (Folic Acid) 1 mg DAILY PO 02/12/21 09:00 02/28/21 08:24 Thiamine HCl (Vitamin B-1) 100 mg DAILY PO 02/12/21 09:00 02/28/21 08:24 Non-Formulary Medication ([Folic Acid] ) 1 mg DAILY PO 02/12/21 09:00 02/11/21 12:25 DC Acetaminophen (Tylenol) 650 mg PRN Q6HRS PRN PO MILD PAIN / TEMP > 100.3'F 02/11/21 12:15 02/11/21 12:22 DC Multi-Ingredient Ointment (Analgesic [place]) 1 lico PRN QID PRN TP MUSCLE PAIN 02/11/21 12:15 02/11/21 12:22 DC Al Hydroxide/Mg Hydroxide (Mylanta Plus Xs) 15 ml PRN AFTMEALHC PRN PO DYSPEPSIA 02/11/21 12:15 02/11/21 12:22 DC Magnesium Hydroxide (Milk Of Magnesia) 2,400 mg PRN QHS PRN PO CONSTIPATION 02/11/21 12:15 02/11/21 12:22 DC Lidocaine (Lidoderm) 1 patch PRN DAILY PRN TD MUSCLE PAIN 02/13/21 19:00 02/22/21 18:18 Olanzapine (ZyPREXA ZYDIS) 2.5 mg PRN Q2HR PRN PO PSYCHOSIS 02/13/21 20:15 02/13/21 23:06 Sertraline HCl (Zoloft) 50 mg DAILY PO 02/14/21 09:00 02/21/21 19:55 DC 02/21/21 08:09 Risperidone (RisperDAL) 0.5 mg QHS PO 02/13/21 21:00 02/28/21 19:52 Lorazepam (Ativan) 0.5 mg PRN Q1HR PRN PO ANXIETY / AGITATION 02/13/21 21:45 02/20/21 20:58 DC 02/20/21 16:54 Multivitamins/ Calcium (Thera-M Plus) 1 tab DAILY PO 02/13/21 21:30 02/28/21 08:24 Clonidine HCl (Catapres) 0.1 mg PRN Q1HR PRN PO SBP>180 OR DBP>100, MR X 3 02/13/21 21:30 Magnesium Oxide (Magnesium Oxide) 400 mg DAILY PO 02/14/21 09:00 02/13/21 21:36 DC Magnesium Oxide (Magnesium Oxide) 400 mg DAILY PO 02/13/21 21:45 02/28/21 08:24 Vitamin D (Vitamin D3) 50,000 unit WEEKLY PO 02/15/21 16:30 02/22/21 08:24 Lorazepam (Ativan) 0.5 mg PRN TID PRN PO ANXIETY / AGITATION 02/20/21 21:00 Cyclobenzaprine HCl (Flexeril) 10 mg BID PO 02/21/21 21:00 02/21/21 09:33 DC Cyclobenzaprine HCl (Flexeril) 10 mg BID PO 02/21/21 09:45 02/28/21 19:53 Sertraline HCl (Zoloft) 75 mg DAILY PO 02/22/21 09:00 02/28/21 08:24 Hydrocortisone (Cortizone-10) 1 lico PRN TID PRN TP ITCHING 02/24/21 12:00 Mirtazapine (Remeron) 7.5 mg QHS PO 02/28/21 21:30 02/28/21 21:22 Current Medications Medications (Trade) Dose Ordered Sig/Hunter Route PRN Reason Start Time Stop Time Status Last Admin Dose Admin Mirtazapine (Remeron) 7.5 mg QHS PO 02/28/21 21:30 02/28/21 21:22 I have reviewed the current psychotropics carefully including drug interactions. Risk benefit ratio favors no change other than as noted in my dictated progress note. Diagnosis: Problems: (1) Major depressive disorder, recurrent episode (2) Wernicke encephalopathy (3) Anxiety disorder, unspecified (4) Alcohol dependence (5) DTs (delirium tremens) IVANNA GUNDERSON MD Feb 28, 2021 21:59
[2021-03-01 06:03] VITALS: BP 96/59
[2021-03-01] MEDS: SERTRALINE 25 MG TABLET. PO SCH (08:18)
[2021-03-01] MEDS: NICOTINE 21MG PATCH. TD SCH (08:18)
[2021-03-01] MEDS: CHOLECALCIFEROL (VITAMIN D3) 50,000 UNIT CAPSULE PO SCH (08:18)
[2021-03-01] MEDS: CYCLOBENZAPRINE 10 MG TABLET. PO SCH ×2 (08:18→20:42)
[2021-03-01] MEDS: MAGNESIUM OXIDE 400 MG TABLET PO SCH (08:19)
[2021-03-01] MEDS: MULTIVITAMIN with MINERAL TABLET. PO SCH (08:19)
[2021-03-01] MEDS: THIAMINE 100 MG TABLET. PO SCH (08:19)
[2021-03-01] MEDS: POTASSIUM CHLORIDE 20 MEQ TABLET.ER. PO SCH (08:19)
[2021-03-01] MEDS: FOLIC ACID 1 MG TABLET PO SCH (08:22)
[2021-03-01] MEDS: ACETAMINOPHEN 325 MG TABLET PO PRN ×2 (10:26→20:51)
[2021-03-01 16:23] VITALS: BP 98/61
[2021-03-01] MEDS: risperiDONE 0.5 MG TABLET. PO SCH (20:42)
[2021-03-01] MEDS: MIRTAZAPINE 7.5 MG TABLET. PO SCH (20:42)
--- NOTE | 2021-03-01 22:06 | PDOC ---
Exam Note: Nadeem Note: Please also refer to the separate dictated note~for this date of service dictated separately.~Patient seen individually. Discussed the patient with Nursing staff reviewed the chart.~Reviewed interim history and current functioning. Reviewed vital signs,~Labs/ Radiology~and current medications noted below. Continue current treatment with the changes noted in the dictated addendum note Assessment: Vital Signs/I&O: Vital Signs Date Time Temp Pulse Resp B/P (MAP) Pulse Ox O2 Delivery O2 Flow Rate FiO2 03/01/21 16:23 97.9 82 16 98/61 (73) 99 02/28/21 15:32 Room Air I & O 02/28/21 02/28/21 03/01/21 15:00 23:00 07:00 Intake Total 720 ml 480 ml Balance 720 ml 480 ml Current Medications: Meds: Current Medications Medications (Trade) Dose Ordered Sig/Hunter Route PRN Reason Start Time Stop Time Status Last Admin Dose Admin Multi-Ingredient Ointment (Analgesic [place]) 1 lico PRN QID PRN TP MUSCLE PAIN 02/11/21 06:45 Al Hydroxide/Mg Hydroxide (Mylanta Plus Xs) 15 ml PRN AFTMEALHC PRN PO DYSPEPSIA 02/11/21 06:45 Magnesium Hydroxide (Milk Of Magnesia) 2,400 mg PRN QHS PRN PO CONSTIPATION 02/11/21 06:45 Acetaminophen (Tylenol) 650 mg PRN Q6HRS PRN PO MILD PAIN / TEMP > 100.3'F 02/11/21 12:00 03/01/21 20:51 Enoxaparin Sodium (Lovenox 40mg Syringe) 40 mg DAILY SQ 02/12/21 09:00 02/13/21 17:54 DC Lorazepam (Ativan) 1 mg PRN Q4HRS PRN PO ANXIETY / AGITATION 02/11/21 12:00 02/13/21 21:35 DC 02/13/21 16:15 Melatonin (Melatonin) 3 mg PRN QHS PRN PO INSOMNIA 02/11/21 12:00 02/28/21 19:52 Nicotine (Nicoderm Cq 21mg Patch) 1 patch DAILY TD 02/12/21 09:00 03/01/21 08:18 Nicotine Polacrilex (Nicorette Gum) 2 mg PRN Q2HRS PRN BC SMOKING CESSATION 02/11/21 12:00 02/17/21 18:24 Olanzapine (ZyPREXA ZYDIS) 5 mg PRN BID PRN PO PSYCHOSIS 02/11/21 12:00 02/13/21 20:07 DC 02/13/21 18:10 Potassium Chloride (Klor-Con) 20 meq DAILY PO 02/12/21 09:00 03/01/21 08:19 Folic Acid (Folic Acid) 1 mg DAILY PO 02/12/21 09:00 03/01/21 08:22 Thiamine HCl (Vitamin B-1) 100 mg DAILY PO 02/12/21 09:00 03/01/21 08:19 Non-Formulary Medication ([Folic Acid] ) 1 mg DAILY PO 02/12/21 09:00 02/11/21 12:25 DC Acetaminophen (Tylenol) 650 mg PRN Q6HRS PRN PO MILD PAIN / TEMP > 100.3'F 02/11/21 12:15 02/11/21 12:22 DC Multi-Ingredient Ointment (Analgesic [place]) 1 lico PRN QID PRN TP MUSCLE PAIN 02/11/21 12:15 02/11/21 12:22 DC Al Hydroxide/Mg Hydroxide (Mylanta Plus Xs) 15 ml PRN AFTMEALHC PRN PO DYSPEPSIA 02/11/21 12:15 02/11/21 12:22 DC Magnesium Hydroxide (Milk Of Magnesia) 2,400 mg PRN QHS PRN PO CONSTIPATION 02/11/21 12:15 02/11/21 12:22 DC Lidocaine (Lidoderm) 1 patch PRN DAILY PRN TD MUSCLE PAIN 02/13/21 19:00 02/22/21 18:18 Olanzapine (ZyPREXA ZYDIS) 2.5 mg PRN Q2HR PRN PO PSYCHOSIS 02/13/21 20:15 02/13/21 23:06 Sertraline HCl (Zoloft) 50 mg DAILY PO 02/14/21 09:00 02/21/21 19:55 DC 02/21/21 08:09 Risperidone (RisperDAL) 0.5 mg QHS PO 02/13/21 21:00 03/01/21 20:42 Lorazepam (Ativan) 0.5 mg PRN Q1HR PRN PO ANXIETY / AGITATION 02/13/21 21:45 02/20/21 20:58 DC 02/20/21 16:54 Multivitamins/ Calcium (Thera-M Plus) 1 tab DAILY PO 02/13/21 21:30 03/01/21 08:19 Clonidine HCl (Catapres) 0.1 mg PRN Q1HR PRN PO SBP>180 OR DBP>100, MR X 3 02/13/21 21:30 Magnesium Oxide (Magnesium Oxide) 400 mg DAILY PO 02/14/21 09:00 02/13/21 21:36 DC Magnesium Oxide (Magnesium Oxide) 400 mg DAILY PO 02/13/21 21:45 03/01/21 08:19 Vitamin D (Vitamin D3) 50,000 unit WEEKLY PO 02/15/21 16:30 03/01/21 08:18 Lorazepam (Ativan) 0.5 mg PRN TID PRN PO ANXIETY / AGITATION 02/20/21 21:00 Cyclobenzaprine HCl (Flexeril) 10 mg BID PO 02/21/21 21:00 02/21/21 09:33 DC Cyclobenzaprine HCl (Flexeril) 10 mg BID PO 02/21/21 09:45 03/01/21 20:42 Sertraline HCl (Zoloft) 75 mg DAILY PO 02/22/21 09:00 03/01/21 08:18 Hydrocortisone (Cortizone-10) 1 lico PRN TID PRN TP ITCHING 02/24/21 12:00 Mirtazapine (Remeron) 7.5 mg QHS PO 02/28/21 21:30 03/01/21 20:42 I have reviewed the current psychotropics carefully including drug interactions. Risk benefit ratio favors no change other than as noted in my dictated progress note. Diagnosis: Problems: (1) Major depressive disorder, recurrent episode (2) Wernicke encephalopathy (3) Anxiety disorder, unspecified (4) Alcohol dependence (5) DTs (delirium tremens) (6) Person under investigation for COVID-19 (7) Alcohol withdrawal IVANNA GUNDERSON MD Mar 01, 2021 22:06
[2021-03-02 06:21] VITALS: BP 126/75
[2021-03-02] MEDS: MAGNESIUM OXIDE 400 MG TABLET PO SCH (09:00)
--- NOTE | 2021-03-02 09:14 | PDOC ---
Exam Note: Nadeem Note: This note is a late entry for 02/26/2021 covers elements not covered in my initial note. Subjective: The patient was reviewed at treatment team meeting on telehealth rounds in the morning of 02/26/2021 because of the COVID-19 pandemic and my own ill health and restrictions to be on the unit consequent to this with Cindy Santana, Keli Ortiz (social service coordinator), Lissette, activity therapy and Neville SHERMAN, discussed and reviewed the chart. We reviewed the patients progress, history, diagnoses, treatment and side-effects of medications. The patient slept 7-1/4 hours previous night, average sleep 7-1/2 hours. Appetite is 100%. She has attended 2 groups in the past one week. Patients [id number] Dorothy also attended the lengthy treatment team meeting. Dorothy expresses a lot of concerns about the patient being over confident that she will be able to abstain from alcohol post discharge. Dorothy is the power of consumer attorney and felt the p atient was at significant risk of relapse of alcohol if she is to return home. We discussed placement options and Cindy Santana will coordinate this. Dorothy expressed concerns about the patients binge drinking, running naked in the streets when she was intoxicated. Also discussed on telehealth rounds in the evening with Guillermo SHERMAN. She has been anxious but redirectable. We discussed Naltrexone versus Antabuse but it looks like she may go to a placement and since it be a restricted environment, perhaps we will not need to do this. Review of Systems: No CV, , pulmonary, eye, ENT system symptoms on review. Mental Status Exam: The patient is reasonably oriented. I had a lengthy discussion with her about abstaining from alcohol. She does seem somewhat overconfident about having no problem at all in the future. Speech coherent. Abstraction fair. Computation impaired. Language function intact. Attention span short. Mood and affect somewhat anxious. No suicidal or homicidal ideation. Laboratory Data: Reviewed. Impression: Major depressive disorder recurrent. Alcohol abuse/dependence/withdrawal. Anxiety disorder unspecified. History of Wernickes encephalopathy. Plan: Continue psychotropics mentioned in my initial note. Assessment: Vital Signs/I&O: Vital Signs Date Time Temp Pulse Resp B/P (MAP) Pulse Ox O2 Delivery O2 Flow Rate FiO2 03/02/21 06:21 97.3 81 18 126/75 (92) 98 02/28/21 15:32 Room Air I & O 03/01/21 03/01/21 03/02/21 15:00 23:00 07:00 Intake Total 720 ml 480 ml Balance 720 ml 480 ml Current Medications: Meds: Current Medications Medications (Trade) Dose Ordered Sig/Hunter Route PRN Reason Start Time Stop Time Status Last Admin Dose Admin Multi-Ingredient Ointment (Analgesic [place]) 1 lico PRN QID PRN TP MUSCLE PAIN 02/11/21 06:45 Al Hydroxide/Mg Hydroxide (Mylanta Plus Xs) 15 ml PRN AFTMEALHC PRN PO DYSPEPSIA 02/11/21 06:45 Magnesium Hydroxide (Milk Of Magnesia) 2,400 mg PRN QHS PRN PO CONSTIPATION 02/11/21 06:45 Acetaminophen (Tylenol) 650 mg PRN Q6HRS PRN PO MILD PAIN / TEMP > 100.3'F 02/11/21 12:00 03/01/21 20:51 Enoxaparin Sodium (Lovenox 40mg Syringe) 40 mg DAILY SQ 02/12/21 09:00 02/13/21 17:54 DC Lorazepam (Ativan) 1 mg PRN Q4HRS PRN PO ANXIETY / AGITATION 02/11/21 12:00 02/13/21 21:35 DC 02/13/21 16:15 Melatonin (Melatonin) 3 mg PRN QHS PRN PO INSOMNIA 02/11/21 12:00 02/28/21 19:52 Nicotine (Nicoderm Cq 21mg Patch) 1 patch DAILY TD 02/12/21 09:00 03/01/21 08:18 Nicotine Polacrilex (Nicorette Gum) 2 mg PRN Q2HRS PRN BC SMOKING CESSATION 02/11/21 12:00 02/17/21 18:24 Olanzapine (ZyPREXA ZYDIS) 5 mg PRN BID PRN PO PSYCHOSIS 02/11/21 12:00 02/13/21 20:07 DC 02/13/21 18:10 Potassium Chloride (Klor-Con) 20 meq DAILY PO 02/12/21 09:00 03/01/21 08:19 Folic Acid (Folic Acid) 1 mg DAILY PO 02/12/21 09:00 03/01/21 08:22 Thiamine HCl (Vitamin B-1) 100 mg DAILY PO 02/12/21 09:00 03/01/21 08:19 Non-Formulary Medication ([Folic Acid] ) 1 mg DAILY PO 02/12/21 09:00 02/11/21 12:25 DC Acetaminophen (Tylenol) 650 mg PRN Q6HRS PRN PO MILD PAIN / TEMP > 100.3'F 02/11/21 12:15 02/11/21 12:22 DC Multi-Ingredient Ointment (Analgesic [place]) 1 lico PRN QID PRN TP MUSCLE PAIN 02/11/21 12:15 02/11/21 12:22 DC Al Hydroxide/Mg Hydroxide (Mylanta Plus Xs) 15 ml PRN AFTMEALHC PRN PO DYSPEPSIA 02/11/21 12:15 02/11/21 12:22 DC Magnesium Hydroxide (Milk Of Magnesia) 2,400 mg PRN QHS PRN PO CONSTIPATION 02/11/21 12:15 02/11/21 12:22 DC Lidocaine (Lidoderm) 1 patch PRN DAILY PRN TD MUSCLE PAIN 02/13/21 19:00 02/22/21 18:18 Olanzapine (ZyPREXA ZYDIS) 2.5 mg PRN Q2HR PRN PO PSYCHOSIS 02/13/21 20:15 02/13/21 23:06 Sertraline HCl (Zoloft) 50 mg DAILY PO 02/14/21 09:00 02/21/21 19:55 DC 02/21/21 08:09 Risperidone (RisperDAL) 0.5 mg QHS PO 02/13/21 21:00 03/01/21 20:42 Lorazepam (Ativan) 0.5 mg PRN Q1HR PRN PO ANXIETY / AGITATION 02/13/21 21:45 02/20/21 20:58 DC 02/20/21 16:54 Multivitamins/ Calcium (Thera-M Plus) 1 tab DAILY PO 02/13/21 21:30 03/01/21 08:19 Clonidine HCl (Catapres) 0.1 mg PRN Q1HR PRN PO SBP>180 OR DBP>100, MR X 3 02/13/21 21:30 Magnesium Oxide (Magnesium Oxide) 400 mg DAILY PO 02/14/21 09:00 02/13/21 21:36 DC Magnesium Oxide (Magnesium Oxide) 400 mg DAILY PO 02/13/21 21:45 03/01/21 08:19 Vitamin D (Vitamin D3) 50,000 unit WEEKLY PO 02/15/21 16:30 03/01/21 08:18 Lorazepam (Ativan) 0.5 mg PRN TID PRN PO ANXIETY / AGITATION 02/20/21 21:00 Cyclobenzaprine HCl (Flexeril) 10 mg BID PO 02/21/21 21:00 02/21/21 09:33 DC Cyclobenzaprine HCl (Flexeril) 10 mg BID PO 02/21/21 09:45 03/01/21 20:42 Sertraline HCl (Zoloft) 75 mg DAILY PO 02/22/21 09:00 03/01/21 08:18 Hydrocortisone (Cortizone-10) 1 lico PRN TID PRN TP ITCHING 02/24/21 12:00 Mirtazapine (Remeron) 7.5 mg QHS PO 02/28/21 21:30 03/01/21 20:42 I have reviewed the current psychotropics carefully including drug interactions. Risk benefit ratio favors no change other than as noted in my dictated progress note. Diagnosis: Problems: (1) Major depressive disorder, recurrent episode (2) Wernicke encephalopathy (3) Anxiety disorder, unspecified (4) Alcohol dependence (5) Alcohol withdrawal delirium IVANNA GUNDERSON MD Mar 02, 2021 09:14
[2021-03-02] MEDS: NICOTINE 21MG PATCH. TD SCH (09:28)
[2021-03-02] MEDS: MULTIVITAMIN with MINERAL TABLET. PO SCH (09:29)
[2021-03-02] MEDS: POTASSIUM CHLORIDE 20 MEQ TABLET.ER. PO SCH (09:29)
[2021-03-02] MEDS: CYCLOBENZAPRINE 10 MG TABLET. PO SCH ×2 (09:29→20:34)
[2021-03-02] MEDS: THIAMINE 100 MG TABLET. PO SCH (09:29)
[2021-03-02] MEDS: SERTRALINE 25 MG TABLET. PO SCH (09:29)
[2021-03-02] MEDS: FOLIC ACID 1 MG TABLET PO SCH (09:29)
--- NOTE | 2021-03-02 11:06 | PDOC ---
Exam Note: Nadeem Note: This note is a late entry for 02/27/2021 covers elements not covered in my initial note. Subjective: The patient was seen individually in the evening of 02/27/2021 with Keisha SHERMAN, discussed and reviewed the chart. The patient slept 7-1/4 hours previous night, average sleep 7-1/4 hours. She remains somewhat over-confident about being able to abstain from alcohol post discharge. We addressed this and also talked about AA if she goes home or if she is in a facility perhaps Psychology services will be helpful for her alcohol, mood and anxiety symptoms. She is otherwise cooperative. Review of Systems: No CV, , pulmonary, eye, ENT system symptoms on review. Mental Status Exam: The patient is reasonably oriented. Speech coherent. Abstraction fair. Computation impaired. Language function intact. Attention s benitez short. Mood and affect somewhat anxious. No suicidal or homicidal ideation. Laboratory Data: Reviewed. Impression: Major depressive disorder recurrent. Alcohol abuse/dependence/withdrawal. Anxiety disorder unspecified. History of Wernickes encephalopathy. Plan: Continue psychotropics mentioned in my initial note. Assessment: Vital Signs/I&O: Vital Signs Date Time Temp Pulse Resp B/P (MAP) Pulse Ox O2 Delivery O2 Flow Rate FiO2 03/02/21 06:21 97.3 81 18 126/75 (92) 98 02/28/21 15:32 Room Air I & O 03/01/21 03/01/21 03/02/21 15:00 23:00 07:00 Intake Total 720 ml 480 ml Balance 720 ml 480 ml Current Medications: Meds: Current Medications Medications (Trade) Dose Ordered Sig/Hunter Route PRN Reason Start Time Stop Time Status Last Admin Dose Admin Multi-Ingredient Ointment (Analgesic [place]) 1 lico PRN QID PRN TP MUSCLE PAIN 02/11/21 06:45 Al Hydroxide/Mg Hydroxide (Mylanta Plus Xs) 15 ml PRN AFTMEALHC PRN PO DYSPEPSIA 02/11/21 06:45 Magnesium Hydroxide (Milk Of Magnesia) 2,400 mg PRN QHS PRN PO CONSTIPATION 02/11/21 06:45 Acetaminophen (Tylenol) 650 mg PRN Q6HRS PRN PO MILD PAIN / TEMP > 100.3'F 02/11/21 12:00 03/01/21 20:51 Enoxaparin Sodium (Lovenox 40mg Syringe) 40 mg DAILY SQ 02/12/21 09:00 02/13/21 17:54 DC Lorazepam (Ativan) 1 mg PRN Q4HRS PRN PO ANXIETY / AGITATION 02/11/21 12:00 02/13/21 21:35 DC 02/13/21 16:15 Melatonin (Melatonin) 3 mg PRN QHS PRN PO INSOMNIA 02/11/21 12:00 02/28/21 19:52 Nicotine (Nicoderm Cq 21mg Patch) 1 patch DAILY TD 02/12/21 09:00 03/02/21 09:28 Nicotine Polacrilex (Nicorette Gum) 2 mg PRN Q2HRS PRN BC SMOKING CESSATION 02/11/21 12:00 02/17/21 18:24 Olanzapine (ZyPREXA ZYDIS) 5 mg PRN BID PRN PO PSYCHOSIS 02/11/21 12:00 02/13/21 20:07 DC 02/13/21 18:10 Potassium Chloride (Klor-Con) 20 meq DAILY PO 02/12/21 09:00 03/02/21 09:29 Folic Acid (Folic Acid) 1 mg DAILY PO 02/12/21 09:00 03/02/21 09:29 Thiamine HCl (Vitamin B-1) 100 mg DAILY PO 02/12/21 09:00 03/02/21 09:29 Non-Formulary Medication ([Folic Acid] ) 1 mg DAILY PO 02/12/21 09:00 02/11/21 12:25 DC Acetaminophen (Tylenol) 650 mg PRN Q6HRS PRN PO MILD PAIN / TEMP > 100.3'F 02/11/21 12:15 02/11/21 12:22 DC Multi-Ingredient Ointment (Analgesic [place]) 1 lico PRN QID PRN TP MUSCLE PAIN 02/11/21 12:15 02/11/21 12:22 DC Al Hydroxide/Mg Hydroxide (Mylanta Plus Xs) 15 ml PRN AFTMEALHC PRN PO DYSPEPSIA 02/11/21 12:15 02/11/21 12:22 DC Magnesium Hydroxide (Milk Of Magnesia) 2,400 mg PRN QHS PRN PO CONSTIPATION 02/11/21 12:15 02/11/21 12:22 DC Lidocaine (Lidoderm) 1 patch PRN DAILY PRN TD MUSCLE PAIN 02/13/21 19:00 02/22/21 18:18 Olanzapine (ZyPREXA ZYDIS) 2.5 mg PRN Q2HR PRN PO PSYCHOSIS 02/13/21 20:15 02/13/21 23:06 Sertraline HCl (Zoloft) 50 mg DAILY PO 02/14/21 09:00 02/21/21 19:55 DC 02/21/21 08:09 Risperidone (RisperDAL) 0.5 mg QHS PO 02/13/21 21:00 03/01/21 20:42 Lorazepam (Ativan) 0.5 mg PRN Q1HR PRN PO ANXIETY / AGITATION 02/13/21 21:45 02/20/21 20:58 DC 02/20/21 16:54 Multivitamins/ Calcium (Thera-M Plus) 1 tab DAILY PO 02/13/21 21:30 03/02/21 09:29 Clonidine HCl (Catapres) 0.1 mg PRN Q1HR PRN PO SBP>180 OR DBP>100, MR X 3 02/13/21 21:30 Magnesium Oxide (Magnesium Oxide) 400 mg DAILY PO 02/14/21 09:00 02/13/21 21:36 DC Magnesium Oxide (Magnesium Oxide) 400 mg DAILY PO 02/13/21 21:45 03/02/21 09:00 Vitamin D (Vitamin D3) 50,000 unit WEEKLY PO 02/15/21 16:30 03/01/21 08:18 Lorazepam (Ativan) 0.5 mg PRN TID PRN PO ANXIETY / AGITATION 02/20/21 21:00 Cyclobenzaprine HCl (Flexeril) 10 mg BID PO 02/21/21 21:00 02/21/21 09:33 DC Cyclobenzaprine HCl (Flexeril) 10 mg BID PO 02/21/21 09:45 03/02/21 09:29 Sertraline HCl (Zoloft) 75 mg DAILY PO 02/22/21 09:00 03/02/21 09:29 Hydrocortisone (Cortizone-10) 1 lico PRN TID PRN TP ITCHING 02/24/21 12:00 Mirtazapine (Remeron) 7.5 mg QHS PO 02/28/21 21:30 03/01/21 20:42 I have reviewed the current psychotropics carefully including drug interactions. Risk benefit ratio favors no change other than as noted in my dictated progress note. Diagnosis: Problems: (1) Major depressive disorder, recurrent episode (2) Wernicke encephalopathy (3) Anxiety disorder, unspecified (4) Alcohol dependence (5) Alcohol withdrawal (6) Alcohol withdrawal delirium IVANNA GUNDERSON MD Mar 02, 2021 11:06
--- NOTE | 2021-03-02 11:30 | PDOC ---
Exam Note: Nadeem Note: This note is a late entry for 02/28/2021 covers elements not covered in my initial note. Subjective: The patient was seen individually in the evening of 02/28/2021 with Keisha SHERMAN, discussed and reviewed the chart. The patient slept 7 hours previous night. She is compliant with medications. She is quite anxious about the other patient she had as her roommate. Her room has been changed to assist with this and we will add Remeron 7.5 mg h.s. for insomnia. We again addressed at length her alcohol abuse and ways to abstain perhaps she may need placement and at this point she is not fully comprehending this. We will have social service staff address this with her. Review of Systems: No CV, , pulmonary, eye, ENT system symptoms on review. Mental Status Exam: The patient is reasonably oriented. Speech coherent. Abstraction fair. Computation impaired. Language function intact. Attention span short. Mood and affect somewhat anxious. No suicidal or homicidal ideation. Laboratory Data: Reviewed. Impression: Major depressive disorder recurrent. Alcohol abuse/dependence/withdrawal. Anxiety disorder unspecified. History of Wernickes encephalopathy. Plan: Continue psychotropics mentioned in my initial note. Assessment: Vital Signs/I&O: Vital Signs Date Time Temp Pulse Resp B/P (MAP) Pulse Ox O2 Delivery O2 Flow Rate FiO2 03/02/21 06:21 97.3 81 18 126/75 (92) 98 02/28/21 15:32 Room Air I & O 03/01/21 03/01/21 03/02/21 15:00 23:00 07:00 Intake Total 720 ml 480 ml Balance 720 ml 480 ml Current Medications: Meds: Current Medications Medications (Trade) Dose Ordered Sig/Hunter Route PRN Reason Start Time Stop Time Status Last Admin Dose Admin Multi-Ingredient Ointment (Analgesic [place]) 1 lico PRN QID PRN TP MUSCLE PAIN 02/11/21 06:45 Al Hydroxide/Mg Hydroxide (Mylanta Plus Xs) 15 ml PRN AFTMEALHC PRN PO DYSPEPSIA 02/11/21 06:45 Magnesium Hydroxide (Milk Of Magnesia) 2,400 mg PRN QHS PRN PO CONSTIPATION 02/11/21 06:45 Acetaminophen (Tylenol) 650 mg PRN Q6HRS PRN PO MILD PAIN / TEMP > 100.3'F 02/11/21 12:00 03/01/21 20:51 Enoxaparin Sodium (Lovenox 40mg Syringe) 40 mg DAILY SQ 02/12/21 09:00 02/13/21 17:54 DC Lorazepam (Ativan) 1 mg PRN Q4HRS PRN PO ANXIETY / AGITATION 02/11/21 12:00 02/13/21 21:35 DC 02/13/21 16:15 Melatonin (Melatonin) 3 mg PRN QHS PRN PO INSOMNIA 02/11/21 12:00 02/28/21 19:52 Nicotine (Nicoderm Cq 21mg Patch) 1 patch DAILY TD 02/12/21 09:00 03/02/21 09:28 Nicotine Polacrilex (Nicorette Gum) 2 mg PRN Q2HRS PRN BC SMOKING CESSATION 02/11/21 12:00 02/17/21 18:24 Olanzapine (ZyPREXA ZYDIS) 5 mg PRN BID PRN PO PSYCHOSIS 02/11/21 12:00 02/13/21 20:07 DC 02/13/21 18:10 Potassium Chloride (Klor-Con) 20 meq DAILY PO 02/12/21 09:00 03/02/21 09:29 Folic Acid (Folic Acid) 1 mg DAILY PO 02/12/21 09:00 03/02/21 09:29 Thiamine HCl (Vitamin B-1) 100 mg DAILY PO 02/12/21 09:00 03/02/21 09:29 Non-Formulary Medication ([Folic Acid] ) 1 mg DAILY PO 02/12/21 09:00 02/11/21 12:25 DC Acetaminophen (Tylenol) 650 mg PRN Q6HRS PRN PO MILD PAIN / TEMP > 100.3'F 02/11/21 12:15 02/11/21 12:22 DC Multi-Ingredient Ointment (Analgesic [place]) 1 lico PRN QID PRN TP MUSCLE PAIN 02/11/21 12:15 02/11/21 12:22 DC Al Hydroxide/Mg Hydroxide (Mylanta Plus Xs) 15 ml PRN AFTMEALHC PRN PO DYSPEPSIA 02/11/21 12:15 02/11/21 12:22 DC Magnesium Hydroxide (Milk Of Magnesia) 2,400 mg PRN QHS PRN PO CONSTIPATION 02/11/21 12:15 02/11/21 12:22 DC Lidocaine (Lidoderm) 1 patch PRN DAILY PRN TD MUSCLE PAIN 02/13/21 19:00 02/22/21 18:18 Olanzapine (ZyPREXA ZYDIS) 2.5 mg PRN Q2HR PRN PO PSYCHOSIS 02/13/21 20:15 02/13/21 23:06 Sertraline HCl (Zoloft) 50 mg DAILY PO 02/14/21 09:00 02/21/21 19:55 DC 02/21/21 08:09 Risperidone (RisperDAL) 0.5 mg QHS PO 02/13/21 21:00 03/01/21 20:42 Lorazepam (Ativan) 0.5 mg PRN Q1HR PRN PO ANXIETY / AGITATION 02/13/21 21:45 02/20/21 20:58 DC 02/20/21 16:54 Multivitamins/ Calcium (Thera-M Plus) 1 tab DAILY PO 02/13/21 21:30 03/02/21 09:29 Clonidine HCl (Catapres) 0.1 mg PRN Q1HR PRN PO SBP>180 OR DBP>100, MR X 3 02/13/21 21:30 Magnesium Oxide (Magnesium Oxide) 400 mg DAILY PO 02/14/21 09:00 02/13/21 21:36 DC Magnesium Oxide (Magnesium Oxide) 400 mg DAILY PO 02/13/21 21:45 03/02/21 09:00 Vitamin D (Vitamin D3) 50,000 unit WEEKLY PO 02/15/21 16:30 03/01/21 08:18 Lorazepam (Ativan) 0.5 mg PRN TID PRN PO ANXIETY / AGITATION 02/20/21 21:00 Cyclobenzaprine HCl (Flexeril) 10 mg BID PO 02/21/21 21:00 02/21/21 09:33 DC Cyclobenzaprine HCl (Flexeril) 10 mg BID PO 02/21/21 09:45 03/02/21 09:29 Sertraline HCl (Zoloft) 75 mg DAILY PO 02/22/21 09:00 03/02/21 09:29 Hydrocortisone (Cortizone-10) 1 lico PRN TID PRN TP ITCHING 02/24/21 12:00 Mirtazapine (Remeron) 7.5 mg QHS PO 02/28/21 21:30 03/01/21 20:42 I have reviewed the current psychotropics carefully including drug interactions. Risk benefit ratio favors no change other than as noted in my dictated progress note. Diagnosis: Problems: (1) Major depressive disorder, recurrent episode (2) Wernicke encephalopathy (3) Anxiety disorder, unspecified (4) Alcohol dependence (5) Alcohol withdrawal (6) Alcohol withdrawal delirium IVANNA GUNDERSON MD Mar 02, 2021 11:30
--- NOTE | 2021-03-02 11:46 | PDOC ---
Exam Note: Nadeem Note: This note is a late entry for 03/01/2021 covers elements not covered in my initial note. Subjective: The patient was seen individually in the evening of 03/01/2021 with Guillermo SHERMAN, discussed and reviewed the chart. The patient slept 6-1/2 hours previous night. She does complain of earache. We will defer medical management to Dr. Vidales. Review of Systems: She complains of earache. No CV, , pulmonary, eye system symptoms on review. Mental Status Exam: The patient is reasonably oriented. Speech coherent. Abstraction fair. Computation impaired. Language function intact. Mood and affect imrpoved. No suicidal or homicidal ideation. We discussed about abstaining from alcohol. Laboratory Data: Reviewed. Impression: Major depressive disorder recurrent. Alcohol abuse/dependence/withdrawal. Anxiety disorder unspecified. History of Wernickes encephalopathy. Plan: Continue psychotropics mentioned in my initial note. Assessment: Vital Signs/I&O: Vital Signs Date Time Temp Pulse Resp B/P (MAP) Pulse Ox O2 Delivery O2 Flow Rate FiO2 03/02/21 06:21 97.3 81 18 126/75 (92) 98 02/28/21 15:32 Room Air I & O 03/01/21 03/01/21 03/02/21 15:00 23:00 07:00 Intake Total 720 ml 480 ml Balance 720 ml 480 ml Current Medications: Meds: Current Medications Medications (Trade) Dose Ordered Sig/Hunter Route PRN Reason Start Time Stop Time Status Last Admin Dose Admin Multi-Ingredient Ointment (Analgesic [place]) 1 lico PRN QID PRN TP MUSCLE PAIN 02/11/21 06:45 Al Hydroxide/Mg Hydroxide (Mylanta Plus Xs) 15 ml PRN AFTMEALHC PRN PO DYSPEPSIA 02/11/21 06:45 Magnesium Hydroxide (Milk Of Magnesia) 2,400 mg PRN QHS PRN PO CONSTIPATION 02/11/21 06:45 Acetaminophen (Tylenol) 650 mg PRN Q6HRS PRN PO MILD PAIN / TEMP > 100.3'F 02/11/21 12:00 03/01/21 20:51 Enoxaparin Sodium (Lovenox 40mg Syringe) 40 mg DAILY SQ 02/12/21 09:00 02/13/21 17:54 DC Lorazepam (Ativan) 1 mg PRN Q4HRS PRN PO ANXIETY / AGITATION 02/11/21 12:00 02/13/21 21:35 DC 02/13/21 16:15 Melatonin (Melatonin) 3 mg PRN QHS PRN PO INSOMNIA 02/11/21 12:00 02/28/21 19:52 Nicotine (Nicoderm Cq 21mg Patch) 1 patch DAILY TD 02/12/21 09:00 03/02/21 09:28 Nicotine Polacrilex (Nicorette Gum) 2 mg PRN Q2HRS PRN BC SMOKING CESSATION 02/11/21 12:00 02/17/21 18:24 Olanzapine (ZyPREXA ZYDIS) 5 mg PRN BID PRN PO PSYCHOSIS 02/11/21 12:00 02/13/21 20:07 DC 02/13/21 18:10 Potassium Chloride (Klor-Con) 20 meq DAILY PO 02/12/21 09:00 03/02/21 09:29 Folic Acid (Folic Acid) 1 mg DAILY PO 02/12/21 09:00 03/02/21 09:29 Thiamine HCl (Vitamin B-1) 100 mg DAILY PO 02/12/21 09:00 03/02/21 09:29 Non-Formulary Medication ([Folic Acid] ) 1 mg DAILY PO 02/12/21 09:00 02/11/21 12:25 DC Acetaminophen (Tylenol) 650 mg PRN Q6HRS PRN PO MILD PAIN / TEMP > 100.3'F 02/11/21 12:15 02/11/21 12:22 DC Multi-Ingredient Ointment (Analgesic [place]) 1 lico PRN QID PRN TP MUSCLE PAIN 02/11/21 12:15 02/11/21 12:22 DC Al Hydroxide/Mg Hydroxide (Mylanta Plus Xs) 15 ml PRN AFTMEALHC PRN PO DYSPEPSIA 02/11/21 12:15 02/11/21 12:22 DC Magnesium Hydroxide (Milk Of Magnesia) 2,400 mg PRN QHS PRN PO CONSTIPATION 02/11/21 12:15 02/11/21 12:22 DC Lidocaine (Lidoderm) 1 patch PRN DAILY PRN TD MUSCLE PAIN 02/13/21 19:00 02/22/21 18:18 Olanzapine (ZyPREXA ZYDIS) 2.5 mg PRN Q2HR PRN PO PSYCHOSIS 02/13/21 20:15 02/13/21 23:06 Sertraline HCl (Zoloft) 50 mg DAILY PO 02/14/21 09:00 02/21/21 19:55 DC 02/21/21 08:09 Risperidone (RisperDAL) 0.5 mg QHS PO 02/13/21 21:00 03/01/21 20:42 Lorazepam (Ativan) 0.5 mg PRN Q1HR PRN PO ANXIETY / AGITATION 02/13/21 21:45 02/20/21 20:58 DC 02/20/21 16:54 Multivitamins/ Calcium (Thera-M Plus) 1 tab DAILY PO 02/13/21 21:30 03/02/21 09:29 Clonidine HCl (Catapres) 0.1 mg PRN Q1HR PRN PO SBP>180 OR DBP>100, MR X 3 02/13/21 21:30 Magnesium Oxide (Magnesium Oxide) 400 mg DAILY PO 02/14/21 09:00 02/13/21 21:36 DC Magnesium Oxide (Magnesium Oxide) 400 mg DAILY PO 02/13/21 21:45 03/02/21 09:00 Vitamin D (Vitamin D3) 50,000 unit WEEKLY PO 02/15/21 16:30 03/01/21 08:18 Lorazepam (Ativan) 0.5 mg PRN TID PRN PO ANXIETY / AGITATION 02/20/21 21:00 Cyclobenzaprine HCl (Flexeril) 10 mg BID PO 02/21/21 21:00 02/21/21 09:33 DC Cyclobenzaprine HCl (Flexeril) 10 mg BID PO 02/21/21 09:45 03/02/21 09:29 Sertraline HCl (Zoloft) 75 mg DAILY PO 02/22/21 09:00 03/02/21 09:29 Hydrocortisone (Cortizone-10) 1 lico PRN TID PRN TP ITCHING 02/24/21 12:00 Mirtazapine (Remeron) 7.5 mg QHS PO 02/28/21 21:30 03/01/21 20:42 I have reviewed the current psychotropics carefully including drug interactions. Risk benefit ratio favors no change other than as noted in my dictated progress note. Diagnosis: Problems: (1) Major depressive disorder, recurrent episode (2) Wernicke encephalopathy (3) Anxiety disorder, unspecified (4) Alcohol dependence (5) Alcohol withdrawal (6) Alcohol withdrawal delirium IVANNA GUNDERSON MD Mar 02, 2021 11:46
[2021-03-02 15:44] VITALS: BP 104/68
[2021-03-02] MEDS: risperiDONE 0.5 MG TABLET. PO SCH (20:34)
[2021-03-02] MEDS: ACETAMINOPHEN 325 MG TABLET PO PRN (20:34)
[2021-03-02] MEDS: MIRTAZAPINE 7.5 MG TABLET. PO SCH (20:34)
[2021-03-02] MEDS: METHYL SALICYLATE/MENTHOL TOPICAL OINTMENT 57GM TUBE. TP PRN (20:49)
--- NOTE | 2021-03-02 21:54 | PDOC ---
Exam Note: Nadeem Note: Please also refer to the separate dictated note~for this date of service dictated separately.~Patient seen individually. Discussed the patient with Nursing staff reviewed the chart.~Reviewed interim history and current functioning. Reviewed vital signs,~Labs/ Radiology~and current medications noted below. Continue current treatment with the changes noted in the dictated addendum note Assessment: Vital Signs/I&O: Vital Signs Date Time Temp Pulse Resp B/P (MAP) Pulse Ox O2 Delivery O2 Flow Rate FiO2 03/02/21 15:44 98.1 101 20 104/68 (80) 99 Room Air I & O 03/01/21 03/01/21 03/02/21 15:00 23:00 07:00 Intake Total 720 ml 480 ml Balance 720 ml 480 ml Current Medications: Meds: Current Medications Medications (Trade) Dose Ordered Sig/Hunter Route PRN Reason Start Time Stop Time Status Last Admin Dose Admin Multi-Ingredient Ointment (Analgesic [place]) 1 lico PRN QID PRN TP MUSCLE PAIN 02/11/21 06:45 03/02/21 20:49 Al Hydroxide/Mg Hydroxide (Mylanta Plus Xs) 15 ml PRN AFTMEALHC PRN PO DYSPEPSIA 02/11/21 06:45 Magnesium Hydroxide (Milk Of Magnesia) 2,400 mg PRN QHS PRN PO CONSTIPATION 02/11/21 06:45 Acetaminophen (Tylenol) 650 mg PRN Q6HRS PRN PO MILD PAIN / TEMP > 100.3'F 02/11/21 12:00 03/02/21 20:34 Enoxaparin Sodium (Lovenox 40mg Syringe) 40 mg DAILY SQ 02/12/21 09:00 02/13/21 17:54 DC Lorazepam (Ativan) 1 mg PRN Q4HRS PRN PO ANXIETY / AGITATION 02/11/21 12:00 02/13/21 21:35 DC 02/13/21 16:15 Melatonin (Melatonin) 3 mg PRN QHS PRN PO INSOMNIA 02/11/21 12:00 02/28/21 19:52 Nicotine (Nicoderm Cq 21mg Patch) 1 patch DAILY TD 02/12/21 09:00 03/02/21 09:28 Nicotine Polacrilex (Nicorette Gum) 2 mg PRN Q2HRS PRN BC SMOKING CESSATION 02/11/21 12:00 02/17/21 18:24 Olanzapine (ZyPREXA ZYDIS) 5 mg PRN BID PRN PO PSYCHOSIS 02/11/21 12:00 02/13/21 20:07 DC 02/13/21 18:10 Potassium Chloride (Klor-Con) 20 meq DAILY PO 02/12/21 09:00 03/02/21 09:29 Folic Acid (Folic Acid) 1 mg DAILY PO 02/12/21 09:00 03/02/21 09:29 Thiamine HCl (Vitamin B-1) 100 mg DAILY PO 02/12/21 09:00 03/02/21 09:29 Non-Formulary Medication ([Folic Acid] ) 1 mg DAILY PO 02/12/21 09:00 02/11/21 12:25 DC Acetaminophen (Tylenol) 650 mg PRN Q6HRS PRN PO MILD PAIN / TEMP > 100.3'F 02/11/21 12:15 02/11/21 12:22 DC Multi-Ingredient Ointment (Analgesic [place]) 1 lico PRN QID PRN TP MUSCLE PAIN 02/11/21 12:15 02/11/21 12:22 DC Al Hydroxide/Mg Hydroxide (Mylanta Plus Xs) 15 ml PRN AFTMEALHC PRN PO DYSPEPSIA 02/11/21 12:15 02/11/21 12:22 DC Magnesium Hydroxide (Milk Of Magnesia) 2,400 mg PRN QHS PRN PO CONSTIPATION 02/11/21 12:15 02/11/21 12:22 DC Lidocaine (Lidoderm) 1 patch PRN DAILY PRN TD MUSCLE PAIN 02/13/21 19:00 02/22/21 18:18 Olanzapine (ZyPREXA ZYDIS) 2.5 mg PRN Q2HR PRN PO PSYCHOSIS 02/13/21 20:15 02/13/21 23:06 Sertraline HCl (Zoloft) 50 mg DAILY PO 02/14/21 09:00 02/21/21 19:55 DC 02/21/21 08:09 Risperidone (RisperDAL) 0.5 mg QHS PO 02/13/21 21:00 03/02/21 20:34 Lorazepam (Ativan) 0.5 mg PRN Q1HR PRN PO ANXIETY / AGITATION 02/13/21 21:45 02/20/21 20:58 DC 02/20/21 16:54 Multivitamins/ Calcium (Thera-M Plus) 1 tab DAILY PO 02/13/21 21:30 03/02/21 09:29 Clonidine HCl (Catapres) 0.1 mg PRN Q1HR PRN PO SBP>180 OR DBP>100, MR X 3 02/13/21 21:30 Magnesium Oxide (Magnesium Oxide) 400 mg DAILY PO 02/14/21 09:00 02/13/21 21:36 DC Magnesium Oxide (Magnesium Oxide) 400 mg DAILY PO 02/13/21 21:45 03/02/21 09:00 Vitamin D (Vitamin D3) 50,000 unit WEEKLY PO 02/15/21 16:30 03/01/21 08:18 Lorazepam (Ativan) 0.5 mg PRN TID PRN PO ANXIETY / AGITATION 02/20/21 21:00 Cyclobenzaprine HCl (Flexeril) 10 mg BID PO 02/21/21 21:00 02/21/21 09:33 DC Cyclobenzaprine HCl (Flexeril) 10 mg BID PO 02/21/21 09:45 03/02/21 20:34 Sertraline HCl (Zoloft) 75 mg DAILY PO 02/22/21 09:00 03/02/21 09:29 Hydrocortisone (Cortizone-10) 1 lico PRN TID PRN TP ITCHING 02/24/21 12:00 Mirtazapine (Remeron) 7.5 mg QHS PO 02/28/21 21:30 03/02/21 20:34 I have reviewed the current psychotropics carefully including drug interactions. Risk benefit ratio favors no change other than as noted in my dictated progress note. Diagnosis: Problems: (1) Major depressive disorder, recurrent episode (2) Wernicke encephalopathy (3) Anxiety disorder, unspecified (4) Alcohol dependence (5) Alcohol withdrawal IVANNA GUNDERSON MD Mar 02, 2021 21:54
[2021-03-03 06:07] VITALS: BP 108/72
[2021-03-03] MEDS: MAGNESIUM OXIDE 400 MG TABLET PO SCH (09:00)
[2021-03-03] MEDS: POTASSIUM CHLORIDE 20 MEQ TABLET.ER. PO SCH (09:02)
[2021-03-03] MEDS: FOLIC ACID 1 MG TABLET PO SCH (09:02)
[2021-03-03] MEDS: CYCLOBENZAPRINE 10 MG TABLET. PO SCH ×2 (09:02→20:25)
[2021-03-03] MEDS: THIAMINE 100 MG TABLET. PO SCH (09:02)
[2021-03-03] MEDS: MULTIVITAMIN with MINERAL TABLET. PO SCH (09:02)
[2021-03-03] MEDS: SERTRALINE 25 MG TABLET. PO SCH (09:02)
[2021-03-03] MEDS: NICOTINE 21MG PATCH. TD SCH (09:03)
[2021-03-03] MEDS: METHYL SALICYLATE/MENTHOL TOPICAL OINTMENT 57GM TUBE. TP PRN ×2 (09:20→20:33)
[2021-03-03] MEDS: ACETAMINOPHEN 325 MG TABLET PO PRN ×2 (09:20→20:33)
[2021-03-03 10:47] LABS: BASO # 0.1 x10^3/uL (0.0-0.2); BASO % 1 % (0-3); EOS # 0.6 x10^3/uL (0.0-0.7); EOS % 9 % (0-3); HEMATOCRIT 34.8 % (36.0-47.0); LYMPH # 1.7 x10^3/uL (1.0-4.8); LYMPH % 24 % (24-48); MEAN CORPUSCULAR HEMOGLOBIN 34 pg (25-35); MEAN CORPUSCULAR HGB CONC 34 g/dL (31-37); MEAN CORPUSCULAR VOLUME 99 fL (79-100); MONO # 0.7 x10^3/uL (0.0-1.1); MONO % 10 % (0-9); NEUT # 3.8 x10^3uL (1.8-7.7); NEUT % 55 % (31-73); PLATELET COUNT 288 x10^3/uL (140-400); RED BLOOD COUNT 3.53 x10^6/uL (3.50-5.40); RED CELL DISTRIBUTION WIDTH 14.3 % (11.5-14.5); WHITE BLOOD COUNT 6.9 x10^3/uL (4.0-11.0)
[2021-03-03 11:13] LABS: ALBUMIN 3.2 g/dL (3.4-5.0); CALCIUM 8.7 mg/dL (8.5-10.1); CREATININE 0.4 mg/dL (0.6-1.0); GFR 162.8; POTASSIUM 4.1 mmol/L (3.5-5.1); TOTAL BILIRUBIN 0.2 mg/dL (0.2-1.0); TOTAL PROTEIN 6.3 g/dL (6.4-8.2)
[2021-03-03 16:11] VITALS: BP 118/71
[2021-03-03] MEDS: risperiDONE 0.5 MG TABLET. PO SCH (20:25)
[2021-03-03] MEDS: MIRTAZAPINE 7.5 MG TABLET. PO SCH (20:25)
--- NOTE | 2021-03-03 22:39 | PDOC ---
Exam Note: Nadeem Note: Please also refer to the separate dictated note~for this date of service dictated separately.~Patient seen individually. Discussed the patient with Nursing staff reviewed the chart.~Reviewed interim history and current functioning. Reviewed vital signs,~Labs/ Radiology~and current medications noted below. Continue current treatment with the changes noted in the dictated addendum note Assessment: Vital Signs/I&O: Vital Signs Date Time Temp Pulse Resp B/P (MAP) Pulse Ox O2 Delivery O2 Flow Rate FiO2 03/03/21 16:11 97.6 79 18 118/71 (87) 97 Room Air I & O 03/02/21 03/02/21 03/03/21 15:00 23:00 07:00 Intake Total 900 ml 720 ml Balance 900 ml 720 ml Labs: Laboratory Tests Test 03/03/21 10:28 White Blood Count 6.9 x10^3/uL (4.0-11.0) Red Blood Count 3.53 x10^6/uL (3.50-5.40) Hemoglobin 12.0 g/dL (12.0-15.5) Hematocrit 34.8 % (36.0-47.0) L Mean Corpuscular Volume 99 fL (79-100) Mean Corpuscular Hemoglobin 34 pg (25-35) Mean Corpuscular Hemoglobin Concent 34 g/dL (31-37) Red Cell Distribution Width 14.3 % (11.5-14.5) Platelet Count 288 x10^3/uL (140-400) Neutrophils (%) (Auto) 55 % (31-73) Lymphocytes (%) (Auto) 24 % (24-48) Monocytes (%) (Auto) 10 % (0-9) H Eosinophils (%) (Auto) 9 % (0-3) H Basophils (%) (Auto) 1 % (0-3) Neutrophils # (Auto) 3.8 x10^3uL (1.8-7.7) Lymphocytes # (Auto) 1.7 x10^3/uL (1.0-4.8) Monocytes # (Auto) 0.7 x10^3/uL (0.0-1.1) Eosinophils # (Auto) 0.6 x10^3/uL (0.0-0.7) Basophils # (Auto) 0.1 x10^3/uL (0.0-0.2) Sodium Level 132 mmol/L (136-145) L Potassium Level 4.1 mmol/L (3.5-5.1) Chloride Level 96 mmol/L (98-107) L Carbon Dioxide Level 29 mmol/L (21-32) Anion Gap 7 (6-14) Blood Urea Nitrogen 15 mg/dL (7-20) Creatinine 0.4 mg/dL (0.6-1.0) L Estimated GFR (Cockcroft-Gault) 162.8 BUN/Creatinine Ratio 38 (6-20) H Glucose Level 57 mg/dL (70-99) L Calcium Level 8.7 mg/dL (8.5-10.1) Total Bilirubin 0.2 mg/dL (0.2-1.0) Aspartate Amino Transferase (AST) 16 U/L (15-37) Alanine Aminotransferase (ALT) 25 U/L (14-59) Alkaline Phosphatase 74 U/L (46-116) Total Protein 6.3 g/dL (6.4-8.2) L Albumin 3.2 g/dL (3.4-5.0) L Albumin/Globulin Ratio 1.0 (1.0-1.7) Current Medications: Meds: Laboratory Tests Test 03/03/21 10:28 White Blood Count 6.9 x10^3/uL Red Blood Count 3.53 x10^6/uL Hemoglobin 12.0 g/dL Hematocrit 34.8 % Mean Corpuscular Volume 99 fL Mean Corpuscular Hemoglobin 34 pg Mean Corpuscular Hemoglobin Concent 34 g/dL Red Cell Distribution Width 14.3 % Platelet Count 288 x10^3/uL Neutrophils (%) (Auto) 55 % Lymphocytes (%) (Auto) 24 % Monocytes (%) (Auto) 10 % Eosinophils (%) (Auto) 9 % Basophils (%) (Auto) 1 % Neutrophils # (Auto) 3.8 x10^3uL Lymphocytes # (Auto) 1.7 x10^3/uL Monocytes # (Auto) 0.7 x10^3/uL Eosinophils # (Auto) 0.6 x10^3/uL Basophils # (Auto) 0.1 x10^3/uL Sodium Level 132 mmol/L Potassium Level 4.1 mmol/L Chloride Level 96 mmol/L Carbon Dioxide Level 29 mmol/L Anion Gap 7 Blood Urea Nitrogen 15 mg/dL Creatinine 0.4 mg/dL Estimated GFR (Cockcroft-Gault) 162.8 BUN/Creatinine Ratio 38 Glucose Level 57 mg/dL Calcium Level 8.7 mg/dL Total Bilirubin 0.2 mg/dL Aspartate Amino Transf (AST/SGOT) 16 U/L Alanine Aminotransferase (ALT/SGPT) 25 U/L Alkaline Phosphatase 74 U/L Total Protein 6.3 g/dL Albumin 3.2 g/dL Albumin/Globulin Ratio 1.0 Current Medications Medications (Trade) Dose Ordered Sig/Hunter Route PRN Reason Start Time Stop Time Status Last Admin Dose Admin Multi-Ingredient Ointment (Analgesic [place]) 1 lico PRN QID PRN TP MUSCLE PAIN 02/11/21 06:45 03/03/21 20:33 Al Hydroxide/Mg Hydroxide (Mylanta Plus Xs) 15 ml PRN AFTMEALHC PRN PO DYSPEPSIA 02/11/21 06:45 Magnesium Hydroxide (Milk Of Magnesia) 2,400 mg PRN QHS PRN PO CONSTIPATION 02/11/21 06:45 Acetaminophen (Tylenol) 650 mg PRN Q6HRS PRN PO MILD PAIN / TEMP > 100.3'F 02/11/21 12:00 03/03/21 20:33 Enoxaparin Sodium (Lovenox 40mg Syringe) 40 mg DAILY SQ 02/12/21 09:00 02/13/21 17:54 DC Lorazepam (Ativan) 1 mg PRN Q4HRS PRN PO ANXIETY / AGITATION 02/11/21 12:00 02/13/21 21:35 DC 02/13/21 16:15 Melatonin (Melatonin) 3 mg PRN QHS PRN PO INSOMNIA 02/11/21 12:00 02/28/21 19:52 Nicotine (Nicoderm Cq 21mg Patch) 1 patch DAILY TD 02/12/21 09:00 03/03/21 09:03 Nicotine Polacrilex (Nicorette Gum) 2 mg PRN Q2HRS PRN BC SMOKING CESSATION 02/11/21 12:00 02/17/21 18:24 Olanzapine (ZyPREXA ZYDIS) 5 mg PRN BID PRN PO PSYCHOSIS 02/11/21 12:00 02/13/21 20:07 DC 02/13/21 18:10 Potassium Chloride (Klor-Con) 20 meq DAILY PO 02/12/21 09:00 03/03/21 09:02 Folic Acid (Folic Acid) 1 mg DAILY PO 02/12/21 09:00 03/03/21 09:02 Thiamine HCl (Vitamin B-1) 100 mg DAILY PO 02/12/21 09:00 03/03/21 09:02 Non-Formulary Medication ([Folic Acid] ) 1 mg DAILY PO 02/12/21 09:00 02/11/21 12:25 DC Acetaminophen (Tylenol) 650 mg PRN Q6HRS PRN PO MILD PAIN / TEMP > 100.3'F 02/11/21 12:15 02/11/21 12:22 DC Multi-Ingredient Ointment (Analgesic [place]) 1 lico PRN QID PRN TP MUSCLE PAIN 02/11/21 12:15 02/11/21 12:22 DC Al Hydroxide/Mg Hydroxide (Mylanta Plus Xs) 15 ml PRN AFTMEALHC PRN PO DYSPEPSIA 02/11/21 12:15 02/11/21 12:22 DC Magnesium Hydroxide (Milk Of Magnesia) 2,400 mg PRN QHS PRN PO CONSTIPATION 02/11/21 12:15 02/11/21 12:22 DC Lidocaine (Lidoderm) 1 patch PRN DAILY PRN TD MUSCLE PAIN 02/13/21 19:00 02/22/21 18:18 Olanzapine (ZyPREXA ZYDIS) 2.5 mg PRN Q2HR PRN PO PSYCHOSIS 02/13/21 20:15 02/13/21 23:06 Sertraline HCl (Zoloft) 50 mg DAILY PO 02/14/21 09:00 02/21/21 19:55 DC 02/21/21 08:09 Risperidone (RisperDAL) 0.5 mg QHS PO 02/13/21 21:00 03/03/21 20:25 Lorazepam (Ativan) 0.5 mg PRN Q1HR PRN PO ANXIETY / AGITATION 02/13/21 21:45 02/20/21 20:58 DC 02/20/21 16:54 Multivitamins/ Calcium (Thera-M Plus) 1 tab DAILY PO 02/13/21 21:30 03/03/21 09:02 Clonidine HCl (Catapres) 0.1 mg PRN Q1HR PRN PO SBP>180 OR DBP>100, MR X 3 02/13/21 21:30 Magnesium Oxide (Magnesium Oxide) 400 mg DAILY PO 02/14/21 09:00 02/13/21 21:36 DC Magnesium Oxide (Magnesium Oxide) 400 mg DAILY PO 02/13/21 21:45 03/03/21 09:00 Vitamin D (Vitamin D3) 50,000 unit WEEKLY PO 02/15/21 16:30 03/01/21 08:18 Lorazepam (Ativan) 0.5 mg PRN TID PRN PO ANXIETY / AGITATION 02/20/21 21:00 Cyclobenzaprine HCl (Flexeril) 10 mg BID PO 02/21/21 21:00 02/21/21 09:33 DC Cyclobenzaprine HCl (Flexeril) 10 mg BID PO 02/21/21 09:45 03/03/21 20:25 Sertraline HCl (Zoloft) 75 mg DAILY PO 02/22/21 09:00 03/03/21 09:02 Hydrocortisone (Cortizone-10) 1 lico PRN TID PRN TP ITCHING 02/24/21 12:00 Mirtazapine (Remeron) 7.5 mg QHS PO 02/28/21 21:30 03/03/21 20:25 I have reviewed the current psychotropics carefully including drug interactions. Risk benefit ratio favors no change other than as noted in my dictated progress note. Diagnosis: Problems: (1) Major depressive disorder, recurrent episode (2) Wernicke encephalopathy (3) Anxiety disorder, unspecified (4) Alcohol dependence (5) Alcohol withdrawal delirium IVANNA GUNDERSON MD Mar 03, 2021 22:39
[2021-03-04 06:08] VITALS: BP 119/72
[2021-03-04] MEDS: POTASSIUM CHLORIDE 20 MEQ TABLET.ER. PO SCH (07:59)
[2021-03-04] MEDS: MULTIVITAMIN with MINERAL TABLET. PO SCH (07:59)
[2021-03-04] MEDS: FOLIC ACID 1 MG TABLET PO SCH (07:59)
[2021-03-04] MEDS: MAGNESIUM OXIDE 400 MG TABLET PO SCH (07:59)
[2021-03-04] MEDS: CYCLOBENZAPRINE 10 MG TABLET. PO SCH ×2 (07:59→20:00)
[2021-03-04] MEDS: THIAMINE 100 MG TABLET. PO SCH (07:59)
[2021-03-04] MEDS: SERTRALINE 25 MG TABLET. PO SCH (07:59)
[2021-03-04] MEDS: NICOTINE 21MG PATCH. TD SCH (08:00)
[2021-03-04 16:35] VITALS: BP 98/66
[2021-03-04] MEDS: risperiDONE 0.5 MG TABLET. PO SCH (19:59)
[2021-03-04] MEDS: MIRTAZAPINE 7.5 MG TABLET. PO SCH (20:00)
--- NOTE | 2021-03-04 22:34 | PDOC ---
Exam Note: Nadeem Note: This note is a late entry for 03/02/2021 covers elements not covered in my initial note. Subjective: The patient was seen individually in the evening of 03/02/2021 with Guillermo SHERMAN, discussed and reviewed the chart. The patient slept 6-1/2 hours previous night. She is quite independent in her functioning and appropriate, compliant with medications. We had lengthy discussion about abstaining from alcohol and she is quite clear. Review of Systems: No CV, , pulmonary, eye system symptoms on review. Mental Status Exam: The patient is reasonably oriented. Speech coherent. Abstraction fair. Computation impaired. Language function intact. Mood and affect improved. No suicidal or homicidal ideation. Laboratory Data: Reviewed. Impression: Major depressive disorder recurrent. Alcohol abuse/dependence/withdrawal. Anxiety disorder unspecified. History of Wernickes encephalopathy. Plan: Continue psychotropics mentioned in my initial note. Assessment: Vital Signs/I&O: Vital Signs Date Time Temp Pulse Resp B/P (MAP) Pulse Ox O2 Delivery O2 Flow Rate FiO2 03/04/21 16:35 98.5 78 16 98/66 (77) 96 03/04/21 06:08 Room Air I & O 03/03/21 03/03/21 03/04/21 15:00 23:00 07:00 Intake Total 1080 ml 480 ml Balance 1080 ml 480 ml Labs: Laboratory Tests Test 03/04/21 06:00 SARS-CoV-2 (PCR) Negative (NEGATIVE) Current Medications: Meds: Laboratory Tests Test 03/04/21 06:00 Coronavirus (COVID-19)(PCR) Negative Current Medications Medications (Trade) Dose Ordered Sig/Hunter Route PRN Reason Start Time Stop Time Status Last Admin Dose Admin Multi-Ingredient Ointment (Analgesic [place]) 1 lico PRN QID PRN TP MUSCLE PAIN 02/11/21 06:45 03/03/21 20:33 Al Hydroxide/Mg Hydroxide (Mylanta Plus Xs) 15 ml PRN AFTMEALHC PRN PO DYSPEPSIA 02/11/21 06:45 Magnesium Hydroxide (Milk Of Magnesia) 2,400 mg PRN QHS PRN PO CONSTIPATION 02/11/21 06:45 Acetaminophen (Tylenol) 650 mg PRN Q6HRS PRN PO MILD PAIN / TEMP > 100.3'F 02/11/21 12:00 03/03/21 20:33 Enoxaparin Sodium (Lovenox 40mg Syringe) 40 mg DAILY SQ 02/12/21 09:00 02/13/21 17:54 DC Lorazepam (Ativan) 1 mg PRN Q4HRS PRN PO ANXIETY / AGITATION 02/11/21 12:00 02/13/21 21:35 DC 02/13/21 16:15 Melatonin (Melatonin) 3 mg PRN QHS PRN PO INSOMNIA 02/11/21 12:00 02/28/21 19:52 Nicotine (Nicoderm Cq 21mg Patch) 1 patch DAILY TD 02/12/21 09:00 03/04/21 08:00 Nicotine Polacrilex (Nicorette Gum) 2 mg PRN Q2HRS PRN BC SMOKING CESSATION 02/11/21 12:00 02/17/21 18:24 Olanzapine (ZyPREXA ZYDIS) 5 mg PRN BID PRN PO PSYCHOSIS 02/11/21 12:00 02/13/21 20:07 DC 02/13/21 18:10 Potassium Chloride (Klor-Con) 20 meq DAILY PO 02/12/21 09:00 03/04/21 07:59 Folic Acid (Folic Acid) 1 mg DAILY PO 02/12/21 09:00 03/04/21 07:59 Thiamine HCl (Vitamin B-1) 100 mg DAILY PO 02/12/21 09:00 03/04/21 07:59 Non-Formulary Medication ([Folic Acid] ) 1 mg DAILY PO 02/12/21 09:00 02/11/21 12:25 DC Acetaminophen (Tylenol) 650 mg PRN Q6HRS PRN PO MILD PAIN / TEMP > 100.3'F 02/11/21 12:15 02/11/21 12:22 DC Multi-Ingredient Ointment (Analgesic [place]) 1 lico PRN QID PRN TP MUSCLE PAIN 02/11/21 12:15 02/11/21 12:22 DC Al Hydroxide/Mg Hydroxide (Mylanta Plus Xs) 15 ml PRN AFTMEALHC PRN PO DYSPEPSIA 02/11/21 12:15 02/11/21 12:22 DC Magnesium Hydroxide (Milk Of Magnesia) 2,400 mg PRN QHS PRN PO CONSTIPATION 02/11/21 12:15 02/11/21 12:22 DC Lidocaine (Lidoderm) 1 patch PRN DAILY PRN TD MUSCLE PAIN 02/13/21 19:00 02/22/21 18:18 Olanzapine (ZyPREXA ZYDIS) 2.5 mg PRN Q2HR PRN PO PSYCHOSIS 02/13/21 20:15 02/13/21 23:06 Sertraline HCl (Zoloft) 50 mg DAILY PO 02/14/21 09:00 02/21/21 19:55 DC 02/21/21 08:09 Risperidone (RisperDAL) 0.5 mg QHS PO 02/13/21 21:00 03/04/21 19:59 Lorazepam (Ativan) 0.5 mg PRN Q1HR PRN PO ANXIETY / AGITATION 02/13/21 21:45 02/20/21 20:58 DC 02/20/21 16:54 Multivitamins/ Calcium (Thera-M Plus) 1 tab DAILY PO 02/13/21 21:30 03/04/21 07:59 Clonidine HCl (Catapres) 0.1 mg PRN Q1HR PRN PO SBP>180 OR DBP>100, MR X 3 02/13/21 21:30 Magnesium Oxide (Magnesium Oxide) 400 mg DAILY PO 02/14/21 09:00 02/13/21 21:36 DC Magnesium Oxide (Magnesium Oxide) 400 mg DAILY PO 02/13/21 21:45 03/04/21 07:59 Vitamin D (Vitamin D3) 50,000 unit WEEKLY PO 02/15/21 16:30 03/01/21 08:18 Lorazepam (Ativan) 0.5 mg PRN TID PRN PO ANXIETY / AGITATION 02/20/21 21:00 Cyclobenzaprine HCl (Flexeril) 10 mg BID PO 02/21/21 21:00 02/21/21 09:33 DC Cyclobenzaprine HCl (Flexeril) 10 mg BID PO 02/21/21 09:45 03/04/21 20:00 Sertraline HCl (Zoloft) 75 mg DAILY PO 02/22/21 09:00 03/04/21 07:59 Hydrocortisone (Cortizone-10) 1 lico PRN TID PRN TP ITCHING 02/24/21 12:00 Mirtazapine (Remeron) 7.5 mg QHS PO 02/28/21 21:30 03/04/21 20:00 I have reviewed the current psychotropics carefully including drug interactions. Risk benefit ratio favors no change other than as noted in my dictated progress note. Diagnosis: Problems: (1) Major depressive disorder, recurrent episode (2) Wernicke encephalopathy (3) Anxiety disorder, unspecified (4) Alcohol dependence (5) Alcohol withdrawal (6) DTs (delirium tremens) IVANNA GUNDERSON MD Mar 04, 2021 22:34
--- NOTE | 2021-03-04 22:35 | PDOC ---
Exam Note: Nadeem Note: Please also refer to the separate dictated note~for this date of service dictated separately.~Patient seen individually. Discussed the patient with Nursing staff reviewed the chart.~Reviewed interim history and current functioning. Reviewed vital signs,~Labs/ Radiology~and current medications noted below. Continue current treatment with the changes noted in the dictated addendum note Assessment: Vital Signs/I&O: Vital Signs Date Time Temp Pulse Resp B/P (MAP) Pulse Ox O2 Delivery O2 Flow Rate FiO2 03/04/21 16:35 98.5 78 16 98/66 (77) 96 03/04/21 06:08 Room Air I & O 03/03/21 03/03/21 03/04/21 15:00 23:00 07:00 Intake Total 1080 ml 480 ml Balance 1080 ml 480 ml Labs: Laboratory Tests Test 03/04/21 06:00 SARS-CoV-2 (PCR) Negative (NEGATIVE) Current Medications: I have reviewed the current psychotropics carefully including drug interactions. Risk benefit ratio favors no change other than as noted in my dictated progress note. Diagnosis: Problems: (1) Major depressive disorder, recurrent episode (2) Wernicke encephalopathy (3) Anxiety disorder, unspecified (4) Alcohol dependence (5) Alcohol withdrawal delirium (6) DTs (delirium tremens) IVANNA GUNDERSON MD Mar 04, 2021 22:35
[2021-03-05 06:26] VITALS: BP 104/70
--- NOTE | 2021-03-05 06:50 | PDOC ---
Exam Note: Nadeem Note: This note is a late entry for 03/03/2021 covers elements not covered in my initial note. Subjective: The patient was seen individually in the evening of 03/03/2021 with Guillermo SHERMAN, discussed and reviewed the chart. The patient slept 6-1/2 hours previous night. She has been pleasant, wants to return home but family is looking at placement. She may have some difficulty accepting this. We discussed her alcohol usage, ways to abstain from this. Review of Systems: No CV, , pulmonary, eye system symptoms on review. Mental Status Exam: The patient is reasonably oriented. Speech coherent. Abstraction fair. Computation impaired. Language function intact. Mood and affect improved. No suicidal or homicidal ideation. Laboratory Data: Reviewed. Impression: Major depressive disorder recurrent. Alcohol abuse/ dependence/withdrawal. Anxiety disorder unspecified. History of Wernickes encephalopathy. Plan: Continue psychotropics mentioned in my initial note. Assessment: Vital Signs/I&O: Vital Signs Date Time Temp Pulse Resp B/P (MAP) Pulse Ox O2 Delivery O2 Flow Rate FiO2 03/05/21 06:26 97.7 67 18 104/70 (81) 97 Room Air I & O 03/04/21 03/04/21 03/05/21 15:00 23:00 07:00 Intake Total 1340 ml 1010 ml Balance 1340 ml 1010 ml Current Medications: Meds: Current Medications Medications (Trade) Dose Ordered Sig/Hunter Route PRN Reason Start Time Stop Time Status Last Admin Dose Admin Multi-Ingredient Ointment (Analgesic [place]) 1 lico PRN QID PRN TP MUSCLE PAIN 02/11/21 06:45 03/03/21 20:33 Al Hydroxide/Mg Hydroxide (Mylanta Plus Xs) 15 ml PRN AFTMEALHC PRN PO DYSPEPSIA 02/11/21 06:45 Magnesium Hydroxide (Milk Of Magnesia) 2,400 mg PRN QHS PRN PO CONSTIPATION 02/11/21 06:45 Acetaminophen (Tylenol) 650 mg PRN Q6HRS PRN PO MILD PAIN / TEMP > 100.3'F 02/11/21 12:00 03/03/21 20:33 Enoxaparin Sodium (Lovenox 40mg Syringe) 40 mg DAILY SQ 02/12/21 09:00 02/13/21 17:54 DC Lorazepam (Ativan) 1 mg PRN Q4HRS PRN PO ANXIETY / AGITATION 02/11/21 12:00 02/13/21 21:35 DC 02/13/21 16:15 Melatonin (Melatonin) 3 mg PRN QHS PRN PO INSOMNIA 02/11/21 12:00 02/28/21 19:52 Nicotine (Nicoderm Cq 21mg Patch) 1 patch DAILY TD 02/12/21 09:00 03/04/21 08:00 Nicotine Polacrilex (Nicorette Gum) 2 mg PRN Q2HRS PRN BC SMOKING CESSATION 02/11/21 12:00 02/17/21 18:24 Olanzapine (ZyPREXA ZYDIS) 5 mg PRN BID PRN PO PSYCHOSIS 02/11/21 12:00 02/13/21 20:07 DC 02/13/21 18:10 Potassium Chloride (Klor-Con) 20 meq DAILY PO 02/12/21 09:00 03/04/21 07:59 Folic Acid (Folic Acid) 1 mg DAILY PO 02/12/21 09:00 03/04/21 07:59 Thiamine HCl (Vitamin B-1) 100 mg DAILY PO 02/12/21 09:00 03/04/21 07:59 Non-Formulary Medication ([Folic Acid] ) 1 mg DAILY PO 02/12/21 09:00 02/11/21 12:25 DC Acetaminophen (Tylenol) 650 mg PRN Q6HRS PRN PO MILD PAIN / TEMP > 100.3'F 02/11/21 12:15 02/11/21 12:22 DC Multi-Ingredient Ointment (Analgesic [place]) 1 lico PRN QID PRN TP MUSCLE PAIN 02/11/21 12:15 02/11/21 12:22 DC Al Hydroxide/Mg Hydroxide (Mylanta Plus Xs) 15 ml PRN AFTMEALHC PRN PO DYSPEPSIA 02/11/21 12:15 02/11/21 12:22 DC Magnesium Hydroxide (Milk Of Magnesia) 2,400 mg PRN QHS PRN PO CONSTIPATION 02/11/21 12:15 02/11/21 12:22 DC Lidocaine (Lidoderm) 1 patch PRN DAILY PRN TD MUSCLE PAIN 02/13/21 19:00 02/22/21 18:18 Olanzapine (ZyPREXA ZYDIS) 2.5 mg PRN Q2HR PRN PO PSYCHOSIS 02/13/21 20:15 02/13/21 23:06 Sertraline HCl (Zoloft) 50 mg DAILY PO 02/14/21 09:00 02/21/21 19:55 DC 02/21/21 08:09 Risperidone (RisperDAL) 0.5 mg QHS PO 02/13/21 21:00 03/04/21 19:59 Lorazepam (Ativan) 0.5 mg PRN Q1HR PRN PO ANXIETY / AGITATION 02/13/21 21:45 02/20/21 20:58 DC 02/20/21 16:54 Multivitamins/ Calcium (Thera-M Plus) 1 tab DAILY PO 02/13/21 21:30 03/04/21 07:59 Clonidine HCl (Catapres) 0.1 mg PRN Q1HR PRN PO SBP>180 OR DBP>100, MR X 3 02/13/21 21:30 Magnesium Oxide (Magnesium Oxide) 400 mg DAILY PO 02/14/21 09:00 02/13/21 21:36 DC Magnesium Oxide (Magnesium Oxide) 400 mg DAILY PO 02/13/21 21:45 03/04/21 07:59 Vitamin D (Vitamin D3) 50,000 unit WEEKLY PO 02/15/21 16:30 03/01/21 08:18 Lorazepam (Ativan) 0.5 mg PRN TID PRN PO ANXIETY / AGITATION 02/20/21 21:00 Cyclobenzaprine HCl (Flexeril) 10 mg BID PO 02/21/21 21:00 02/21/21 09:33 DC Cyclobenzaprine HCl (Flexeril) 10 mg BID PO 02/21/21 09:45 03/04/21 20:00 Sertraline HCl (Zoloft) 75 mg DAILY PO 02/22/21 09:00 03/04/21 07:59 Hydrocortisone (Cortizone-10) 1 lico PRN TID PRN TP ITCHING 02/24/21 12:00 Mirtazapine (Remeron) 7.5 mg QHS PO 02/28/21 21:30 03/04/21 20:00 I have reviewed the current psychotropics carefully including drug interactions. Risk benefit ratio favors no change other than as noted in my dictated progress note. Diagnosis: Problems: (1) Major depressive disorder, recurrent episode (2) Wernicke encephalopathy (3) Anxiety disorder, unspecified (4) Alcohol dependence (5) Alcohol withdrawal (6) Alcohol withdrawal delirium IVANNA GUNDERSON MD Mar 05, 2021 06:50
[2021-03-05] MEDS: MULTIVITAMIN with MINERAL TABLET. PO SCH (08:28)
[2021-03-05] MEDS: CYCLOBENZAPRINE 10 MG TABLET. PO SCH ×2 (08:28→20:18)
[2021-03-05] MEDS: FOLIC ACID 1 MG TABLET PO SCH (08:28)
[2021-03-05] MEDS: NICOTINE 21MG PATCH. TD SCH (08:28)
[2021-03-05] MEDS: MAGNESIUM OXIDE 400 MG TABLET PO SCH (08:28)
[2021-03-05] MEDS: THIAMINE 100 MG TABLET. PO SCH (08:28)
[2021-03-05] MEDS: POTASSIUM CHLORIDE 20 MEQ TABLET.ER. PO SCH (08:29)
[2021-03-05] MEDS: SERTRALINE 25 MG TABLET. PO SCH (08:29)
--- NOTE | 2021-03-05 12:51 | TX PLAN ---
Interdisciplinary Tx Plan Admission Information Feb 11, 2021 at 06:29 Legal Status (on Admission): Voluntary DPOA/Guardian Name: Harshil Tesfaye Contact Other Contact Verified Code Status: Full Code Allergies: Coded Allergies: No Known Drug Allergies (Unverified , 02/10/21) Diagnoses Primary Diagnosis: Alcohol Dependence Werneke's Encephalopathy Reasons for Admission: Alcohol Abuse, Hallucinations, Confusion/Disoriented, Poor impulse control, Other Problem in Patient's Words: She has a drinking problem and can no longer care for herself. Additional Admission Comments: According to the intake, pt is restless, fighting with staff in the ED, hallucinating, altered mental status, was find wandering the streets naked, crawing into the neighbors car, labile mood, having tangential speech, cognitively impaired. Problems Active Problems: restless anxious confused non-compliant Inactive Problems: N/A Pt Strengths/Limitations Ability for [place]: Poor Cognitive Functioning/Ability: Fair Communication Skills/Ability: Fair Financial Resources: Poor Insight/Judgement: Poor Intellectual Ability: Fair Physical Health: Poor Social Skills: Fair Stability in Family: Good Stability in School/Work: Poor Verbal Skills: Fair Discharge Criteria Discharge Criteria: No need for close observ., Adequate arrangements @DC, Improved behavior, Withdrawal Sx absent, Improved mood/thought Preliminary Discharge Plan Preliminary DC Plan: Placement Needed Special Precautions Fall Risk: Low Initial D/C Plan Pt is not able to live by herself; will need placement at the time of discharge. Identified Discharge Needs: Referrals to a higher level of care Currently Utilized Resources Currently Utilized Resources/P: Primary Care Physicians Identified Problems/Hx/Goals Objectives/Short-Term Goals Short Term Goals: Dec. Aggression, Dec. Hallucination/Delus, Dec. Outbursts, Medication Stabilization, Promote Coping Skill Short Term Goals in Patient's: N/A Interventions/Frequency Staff Interventions/Frequency&: Psychiatrist to assess pt at least 3x per week for medication management. Social Work to assess pt at least 2x per week to identify barriers and discharge and finalize discharge plans. Nursing to assess medication effects, behavior modification and complete 15 minute checks daily. Encourage participation in group activities (if applicable) or 1:1 engagement based off activity dept goals. History Vocational History: Pt had multiple jobs that did not last long. 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 She has been on disability most of her life. Education: Pt graduated high school (12th grade) Community Follow-up Primary Care Physician Treatment Plan Explained Patient/Clinical Technician had this treatment plan explained to him/her as indicated by the signature below and has been given the opportunity to ask questions and make suggestions: Date: Patient/Clinical Technician Signature: Status Update Update Pt is eating roughly 100% of meals and sleeping on average 7 hours per night. Pt is calm, cooperative with all assessment and compliant with medications whole. Pt is social with her peers; but does appear to have some anxiety. Pt expresses extreme readiness to leave; whereas the family is requesting placement for pt due to her alcohol use and inability to maintain on her own. SW will continue to work with pt and her family on final discharge arrangements. SHANTANU SPANN Mar 05, 2021 12:51
[2021-03-05] MEDS: ACETAMINOPHEN 325 MG TABLET PO PRN ×2 (14:10→20:31)
[2021-03-05 16:37] VITALS: BP 110/71
[2021-03-05] MEDS: risperiDONE 0.5 MG TABLET. PO SCH (20:18)
[2021-03-05] MEDS: MIRTAZAPINE 7.5 MG TABLET. PO SCH (20:18)
[2021-03-05] MEDS: MELATONIN 3 MG TABLET PO PRN (20:31)
--- NOTE | 2021-03-05 22:10 | PDOC ---
Exam Note: Nadeem Note: Please also refer to the separate dictated note~for this date of service dictated separately.~Patient seen individually. Discussed the patient with Nursing staff reviewed the chart.~Reviewed interim history and current functioning. Reviewed vital signs,~Labs/ Radiology~and current medications noted below. Continue current treatment with the changes noted in the dictated addendum note Assessment: Vital Signs/I&O: Vital Signs Date Time Temp Pulse Resp B/P (MAP) Pulse Ox O2 Delivery O2 Flow Rate FiO2 03/05/21 16:37 97.8 80 18 110/71 (84) 99 03/05/21 06:26 Room Air I & O 03/04/21 03/04/21 03/05/21 15:00 23:00 07:00 Intake Total 1340 ml 1010 ml Balance 1340 ml 1010 ml Current Medications: Meds: Current Medications Medications (Trade) Dose Ordered Sig/Hunter Route PRN Reason Start Time Stop Time Status Last Admin Dose Admin Multi-Ingredient Ointment (Analgesic [place]) 1 lico PRN QID PRN TP MUSCLE PAIN 02/11/21 06:45 03/03/21 20:33 Al Hydroxide/Mg Hydroxide (Mylanta Plus Xs) 15 ml PRN AFTMEALHC PRN PO DYSPEPSIA 02/11/21 06:45 Magnesium Hydroxide (Milk Of Magnesia) 2,400 mg PRN QHS PRN PO CONSTIPATION 02/11/21 06:45 Acetaminophen (Tylenol) 650 mg PRN Q6HRS PRN PO MILD PAIN / TEMP > 100.3'F 02/11/21 12:00 03/05/21 20:31 Enoxaparin Sodium (Lovenox 40mg Syringe) 40 mg DAILY SQ 02/12/21 09:00 02/13/21 17:54 DC Lorazepam (Ativan) 1 mg PRN Q4HRS PRN PO ANXIETY / AGITATION 02/11/21 12:00 02/13/21 21:35 DC 02/13/21 16:15 Melatonin (Melatonin) 3 mg PRN QHS PRN PO INSOMNIA 02/11/21 12:00 03/05/21 20:31 Nicotine (Nicoderm Cq 21mg Patch) 1 patch DAILY TD 02/12/21 09:00 03/05/21 08:28 Nicotine Polacrilex (Nicorette Gum) 2 mg PRN Q2HRS PRN BC SMOKING CESSATION 02/11/21 12:00 02/17/21 18:24 Olanzapine (ZyPREXA ZYDIS) 5 mg PRN BID PRN PO PSYCHOSIS 02/11/21 12:00 02/13/21 20:07 DC 02/13/21 18:10 Potassium Chloride (Klor-Con) 20 meq DAILY PO 02/12/21 09:00 03/05/21 08:29 Folic Acid (Folic Acid) 1 mg DAILY PO 02/12/21 09:00 03/05/21 08:28 Thiamine HCl (Vitamin B-1) 100 mg DAILY PO 02/12/21 09:00 03/05/21 08:28 Non-Formulary Medication ([Folic Acid] ) 1 mg DAILY PO 02/12/21 09:00 02/11/21 12:25 DC Acetaminophen (Tylenol) 650 mg PRN Q6HRS PRN PO MILD PAIN / TEMP > 100.3'F 02/11/21 12:15 02/11/21 12:22 DC Multi-Ingredient Ointment (Analgesic [place]) 1 lico PRN QID PRN TP MUSCLE PAIN 02/11/21 12:15 02/11/21 12:22 DC Al Hydroxide/Mg Hydroxide (Mylanta Plus Xs) 15 ml PRN AFTMEALHC PRN PO DYSPEPSIA 02/11/21 12:15 02/11/21 12:22 DC Magnesium Hydroxide (Milk Of Magnesia) 2,400 mg PRN QHS PRN PO CONSTIPATION 02/11/21 12:15 02/11/21 12:22 DC Lidocaine (Lidoderm) 1 patch PRN DAILY PRN TD MUSCLE PAIN 02/13/21 19:00 02/22/21 18:18 Olanzapine (ZyPREXA ZYDIS) 2.5 mg PRN Q2HR PRN PO PSYCHOSIS 02/13/21 20:15 02/13/21 23:06 Sertraline HCl (Zoloft) 50 mg DAILY PO 02/14/21 09:00 02/21/21 19:55 DC 02/21/21 08:09 Risperidone (RisperDAL) 0.5 mg QHS PO 02/13/21 21:00 03/05/21 20:18 Lorazepam (Ativan) 0.5 mg PRN Q1HR PRN PO ANXIETY / AGITATION 02/13/21 21:45 02/20/21 20:58 DC 02/20/21 16:54 Multivitamins/ Calcium (Thera-M Plus) 1 tab DAILY PO 02/13/21 21:30 03/05/21 08:28 Clonidine HCl (Catapres) 0.1 mg PRN Q1HR PRN PO SBP>180 OR DBP>100, MR X 3 02/13/21 21:30 Magnesium Oxide (Magnesium Oxide) 400 mg DAILY PO 02/14/21 09:00 02/13/21 21:36 DC Magnesium Oxide (Magnesium Oxide) 400 mg DAILY PO 02/13/21 21:45 03/05/21 08:28 Vitamin D (Vitamin D3) 50,000 unit WEEKLY PO 02/15/21 16:30 03/01/21 08:18 Lorazepam (Ativan) 0.5 mg PRN TID PRN PO ANXIETY / AGITATION 02/20/21 21:00 Cyclobenzaprine HCl (Flexeril) 10 mg BID PO 02/21/21 21:00 02/21/21 09:33 DC Cyclobenzaprine HCl (Flexeril) 10 mg BID PO 02/21/21 09:45 03/05/21 20:18 Sertraline HCl (Zoloft) 75 mg DAILY PO 02/22/21 09:00 03/05/21 08:29 Hydrocortisone (Cortizone-10) 1 lico PRN TID PRN TP ITCHING 02/24/21 12:00 Mirtazapine (Remeron) 7.5 mg QHS PO 02/28/21 21:30 03/05/21 20:18 I have reviewed the current psychotropics carefully including drug interactions. Risk benefit ratio favors no change other than as noted in my dictated progress note. Diagnosis: Problems: (1) Major depressive disorder, recurrent episode (2) Wernicke encephalopathy (3) Anxiety disorder, unspecified (4) Alcohol dependence (5) Alcohol withdrawal (6) Alcohol withdrawal delirium IVANNA GUNDERSON MD Mar 05, 2021 22:10
[2021-03-06 06:14] VITALS: BP 128/78
--- NOTE | 2021-03-06 06:22 | PDOC ---
Exam Note: Nadeem Note: This note is a late entry for 03/04/2021 covers elements not covered in my initial note. Subjective: The patient was seen individually in the evening of 03/04/2021 with Estella SHERMAN, discussed and reviewed the chart. The patient slept 7-3/4 hours previous night. She has been pleasant, cooperative. She was talking about abstaining from alcohol post discharge. Family would like her in a placement but she is not quite open to this. Review of Systems: No CV, , pulmonary, eye system symptoms on review. Mental Status Exam: The patient is reasonably oriented. Speech coherent. Abstraction fair. Computation impaired. Language function intact. Mood and affect improved. No suicidal or homicidal ideation. Laboratory Data: Reviewed. Impression: Major depressive disorder recurrent. Alcohol abuse/dependence/wit hdrawal. Anxiety disorder unspecified. History of Wernickes encephalopathy. Plan: Continue psychotropics mentioned in my initial note. Assessment: Vital Signs/I&O: Vital Signs Date Time Temp Pulse Resp B/P (MAP) Pulse Ox O2 Delivery O2 Flow Rate FiO2 03/06/21 06:14 97.7 89 18 128/78 (95) 97 03/05/21 06:26 Room Air I & O 03/05/21 03/05/21 03/06/21 15:00 23:00 07:00 Intake Total 840 ml 600 ml Balance 840 ml 600 ml Current Medications: Meds: Current Medications Medications (Trade) Dose Ordered Sig/Hunter Route PRN Reason Start Time Stop Time Status Last Admin Dose Admin Multi-Ingredient Ointment (Analgesic [place]) 1 lico PRN QID PRN TP MUSCLE PAIN 02/11/21 06:45 03/03/21 20:33 Al Hydroxide/Mg Hydroxide (Mylanta Plus Xs) 15 ml PRN AFTMEALHC PRN PO DYSPEPSIA 02/11/21 06:45 Magnesium Hydroxide (Milk Of Magnesia) 2,400 mg PRN QHS PRN PO CONSTIPATION 02/11/21 06:45 Acetaminophen (Tylenol) 650 mg PRN Q6HRS PRN PO MILD PAIN / TEMP > 100.3'F 02/11/21 12:00 03/05/21 20:31 Enoxaparin Sodium (Lovenox 40mg Syringe) 40 mg DAILY SQ 02/12/21 09:00 02/13/21 17:54 DC Lorazepam (Ativan) 1 mg PRN Q4HRS PRN PO ANXIETY / AGITATION 02/11/21 12:00 02/13/21 21:35 DC 02/13/21 16:15 Melatonin (Melatonin) 3 mg PRN QHS PRN PO INSOMNIA 02/11/21 12:00 03/05/21 20:31 Nicotine (Nicoderm Cq 21mg Patch) 1 patch DAILY TD 02/12/21 09:00 03/05/21 08:28 Nicotine Polacrilex (Nicorette Gum) 2 mg PRN Q2HRS PRN BC SMOKING CESSATION 02/11/21 12:00 02/17/21 18:24 Olanzapine (ZyPREXA ZYDIS) 5 mg PRN BID PRN PO PSYCHOSIS 02/11/21 12:00 02/13/21 20:07 DC 02/13/21 18:10 Potassium Chloride (Klor-Con) 20 meq DAILY PO 02/12/21 09:00 03/05/21 08:29 Folic Acid (Folic Acid) 1 mg DAILY PO 02/12/21 09:00 03/05/21 08:28 Thiamine HCl (Vitamin B-1) 100 mg DAILY PO 02/12/21 09:00 03/05/21 08:28 Non-Formulary Medication ([Folic Acid] ) 1 mg DAILY PO 02/12/21 09:00 02/11/21 12:25 DC Acetaminophen (Tylenol) 650 mg PRN Q6HRS PRN PO MILD PAIN / TEMP > 100.3'F 02/11/21 12:15 02/11/21 12:22 DC Multi-Ingredient Ointment (Analgesic [place]) 1 lico PRN QID PRN TP MUSCLE PAIN 02/11/21 12:15 02/11/21 12:22 DC Al Hydroxide/Mg Hydroxide (Mylanta Plus Xs) 15 ml PRN AFTMEALHC PRN PO DYSPEPSIA 02/11/21 12:15 02/11/21 12:22 DC Magnesium Hydroxide (Milk Of Magnesia) 2,400 mg PRN QHS PRN PO CONSTIPATION 02/11/21 12:15 02/11/21 12:22 DC Lidocaine (Lidoderm) 1 patch PRN DAILY PRN TD MUSCLE PAIN 02/13/21 19:00 02/22/21 18:18 Olanzapine (ZyPREXA ZYDIS) 2.5 mg PRN Q2HR PRN PO PSYCHOSIS 02/13/21 20:15 02/13/21 23:06 Sertraline HCl (Zoloft) 50 mg DAILY PO 02/14/21 09:00 02/21/21 19:55 DC 02/21/21 08:09 Risperidone (RisperDAL) 0.5 mg QHS PO 02/13/21 21:00 03/05/21 20:18 Lorazepam (Ativan) 0.5 mg PRN Q1HR PRN PO ANXIETY / AGITATION 02/13/21 21:45 02/20/21 20:58 DC 02/20/21 16:54 Multivitamins/ Calcium (Thera-M Plus) 1 tab DAILY PO 02/13/21 21:30 03/05/21 08:28 Clonidine HCl (Catapres) 0.1 mg PRN Q1HR PRN PO SBP>180 OR DBP>100, MR X 3 02/13/21 21:30 Magnesium Oxide (Magnesium Oxide) 400 mg DAILY PO 02/14/21 09:00 02/13/21 21:36 DC Magnesium Oxide (Magnesium Oxide) 400 mg DAILY PO 02/13/21 21:45 03/05/21 08:28 Vitamin D (Vitamin D3) 50,000 unit WEEKLY PO 02/15/21 16:30 03/01/21 08:18 Lorazepam (Ativan) 0.5 mg PRN TID PRN PO ANXIETY / AGITATION 02/20/21 21:00 Cyclobenzaprine HCl (Flexeril) 10 mg BID PO 02/21/21 21:00 02/21/21 09:33 DC Cyclobenzaprine HCl (Flexeril) 10 mg BID PO 02/21/21 09:45 03/05/21 20:18 Sertraline HCl (Zoloft) 75 mg DAILY PO 02/22/21 09:00 03/05/21 08:29 Hydrocortisone (Cortizone-10) 1 lico PRN TID PRN TP ITCHING 02/24/21 12:00 Mirtazapine (Remeron) 7.5 mg QHS PO 02/28/21 21:30 03/05/21 20:18 I have reviewed the current psychotropics carefully including drug interactions. Risk benefit ratio favors no change other than as noted in my dictated progress note. Diagnosis: Problems: (1) Major depressive disorder, recurrent episode (2) Wernicke encephalopathy (3) Anxiety disorder, unspecified (4) Alcohol dependence (5) Alcohol withdrawal (6) Alcohol withdrawal delirium IVANNA GUNDERSON MD Mar 06, 2021 06:22
--- NOTE | 2021-03-06 06:39 | PDOC ---
Exam Note: Nadeem Note: This note is a late entry for 03/05/2021 covers elements not covered in my initial note. Subjective: The patient was reviewed at treatment team meeting individually in the morning on 03/05/2021 with Keli Ortiz (rn social services), Lissette, activity therapy and Allan SHERMAN, discussed and reviewed the chart. The patient slept 7-3/4 hours previous night. Family still wants a place where the patient is not willing for this and she signs for herself. Social service staff will facilitate most appropriate placement or follow up if she returns home. Review of Systems: No CV, , pulmonary, eye system symptoms on review. Mental Status Exam: The patient is reasonably oriented. Speech coherent. Abstraction fair. Computation impaired. Language function intact. Mood and affect improved. No suicidal or homicidal ideation. Laboratory Data: Reviewed. Impression: Major depressive disorder recurrent. Alcohol abuse/dependence/withdrawal. Anxiety disorder unspecified. History of Wernickes encephalopathy. Plan: Continue psychotropics mentioned in my initial note. Assessment: Vital Signs/I&O: Vital Signs Date Time Temp Pulse Resp B/P (MAP) Pulse Ox O2 Delivery O2 Flow Rate FiO2 03/06/21 06:14 97.7 89 18 128/78 (95) 97 03/05/21 06:26 Room Air I & O 03/05/21 03/05/21 03/06/21 15:00 23:00 07:00 Intake Total 840 ml 600 ml Balance 840 ml 600 ml Current Medications: Meds: Current Medications Medications (Trade) Dose Ordered Sig/Hunter Route PRN Reason Start Time Stop Time Status Last Admin Dose Admin Multi-Ingredient Ointment (Analgesic [place]) 1 lico PRN QID PRN TP MUSCLE PAIN 02/11/21 06:45 03/03/21 20:33 Al Hydroxide/Mg Hydroxide (Mylanta Plus Xs) 15 ml PRN AFTMEALHC PRN PO DYSPEPSIA 02/11/21 06:45 Magnesium Hydroxide (Milk Of Magnesia) 2,400 mg PRN QHS PRN PO CONSTIPATION 02/11/21 06:45 Acetaminophen (Tylenol) 650 mg PRN Q6HRS PRN PO MILD PAIN / TEMP > 100.3'F 02/11/21 12:00 03/05/21 20:31 Enoxaparin Sodium (Lovenox 40mg Syringe) 40 mg DAILY SQ 02/12/21 09:00 02/13/21 17:54 DC Lorazepam (Ativan) 1 mg PRN Q4HRS PRN PO ANXIETY / AGITATION 02/11/21 12:00 02/13/21 21:35 DC 02/13/21 16:15 Melatonin (Melatonin) 3 mg PRN QHS PRN PO INSOMNIA 02/11/21 12:00 03/05/21 20:31 Nicotine (Nicoderm Cq 21mg Patch) 1 patch DAILY TD 02/12/21 09:00 03/05/21 08:28 Nicotine Polacrilex (Nicorette Gum) 2 mg PRN Q2HRS PRN BC SMOKING CESSATION 02/11/21 12:00 02/17/21 18:24 Olanzapine (ZyPREXA ZYDIS) 5 mg PRN BID PRN PO PSYCHOSIS 02/11/21 12:00 02/13/21 20:07 DC 02/13/21 18:10 Potassium Chloride (Klor-Con) 20 meq DAILY PO 02/12/21 09:00 03/05/21 08:29 Folic Acid (Folic Acid) 1 mg DAILY PO 02/12/21 09:00 03/05/21 08:28 Thiamine HCl (Vitamin B-1) 100 mg DAILY PO 02/12/21 09:00 03/05/21 08:28 Non-Formulary Medication ([Folic Acid] ) 1 mg DAILY PO 02/12/21 09:00 02/11/21 12:25 DC Acetaminophen (Tylenol) 650 mg PRN Q6HRS PRN PO MILD PAIN / TEMP > 100.3'F 02/11/21 12:15 02/11/21 12:22 DC Multi-Ingredient Ointment (Analgesic [place]) 1 lico PRN QID PRN TP MUSCLE PAIN 02/11/21 12:15 02/11/21 12:22 DC Al Hydroxide/Mg Hydroxide (Mylanta Plus Xs) 15 ml PRN AFTMEALHC PRN PO DYSPEPSIA 02/11/21 12:15 02/11/21 12:22 DC Magnesium Hydroxide (Milk Of Magnesia) 2,400 mg PRN QHS PRN PO CONSTIPATION 02/11/21 12:15 02/11/21 12:22 DC Lidocaine (Lidoderm) 1 patch PRN DAILY PRN TD MUSCLE PAIN 02/13/21 19:00 02/22/21 18:18 Olanzapine (ZyPREXA ZYDIS) 2.5 mg PRN Q2HR PRN PO PSYCHOSIS 02/13/21 20:15 02/13/21 23:06 Sertraline HCl (Zoloft) 50 mg DAILY PO 02/14/21 09:00 02/21/21 19:55 DC 02/21/21 08:09 Risperidone (RisperDAL) 0.5 mg QHS PO 02/13/21 21:00 03/05/21 20:18 Lorazepam (Ativan) 0.5 mg PRN Q1HR PRN PO ANXIETY / AGITATION 02/13/21 21:45 02/20/21 20:58 DC 02/20/21 16:54 Multivitamins/ Calcium (Thera-M Plus) 1 tab DAILY PO 02/13/21 21:30 03/05/21 08:28 Clonidine HCl (Catapres) 0.1 mg PRN Q1HR PRN PO SBP>180 OR DBP>100, MR X 3 02/13/21 21:30 Magnesium Oxide (Magnesium Oxide) 400 mg DAILY PO 02/14/21 09:00 02/13/21 21:36 DC Magnesium Oxide (Magnesium Oxide) 400 mg DAILY PO 02/13/21 21:45 03/05/21 08:28 Vitamin D (Vitamin D3) 50,000 unit WEEKLY PO 02/15/21 16:30 03/01/21 08:18 Lorazepam (Ativan) 0.5 mg PRN TID PRN PO ANXIETY / AGITATION 02/20/21 21:00 Cyclobenzaprine HCl (Flexeril) 10 mg BID PO 02/21/21 21:00 02/21/21 09:33 DC Cyclobenzaprine HCl (Flexeril) 10 mg BID PO 02/21/21 09:45 03/05/21 20:18 Sertraline HCl (Zoloft) 75 mg DAILY PO 02/22/21 09:00 03/05/21 08:29 Hydrocortisone (Cortizone-10) 1 lico PRN TID PRN TP ITCHING 02/24/21 12:00 Mirtazapine (Remeron) 7.5 mg QHS PO 02/28/21 21:30 03/05/21 20:18 I have reviewed the current psychotropics carefully including drug interactions. Risk benefit ratio favors no change other than as noted in my dictated progress note. Diagnosis: Problems: (1) Major depressive disorder, recurrent episode (2) Wernicke encephalopathy (3) Anxiety disorder, unspecified (4) Alcohol dependence (5) Alcohol withdrawal delirium (6) DTs (delirium tremens) IVANNA GUNDERSON MD Mar 06, 2021 06:39
[2021-03-06] MEDS: POTASSIUM CHLORIDE 20 MEQ TABLET.ER. PO SCH (09:11)
[2021-03-06] MEDS: FOLIC ACID 1 MG TABLET PO SCH (09:11)
[2021-03-06] MEDS: CYCLOBENZAPRINE 10 MG TABLET. PO SCH ×2 (09:11→20:10)
[2021-03-06] MEDS: THIAMINE 100 MG TABLET. PO SCH (09:12)
[2021-03-06] MEDS: MAGNESIUM OXIDE 400 MG TABLET PO SCH (09:12)
[2021-03-06] MEDS: NICOTINE 21MG PATCH. TD SCH (09:12)
[2021-03-06] MEDS: SERTRALINE 25 MG TABLET. PO SCH (09:12)
[2021-03-06] MEDS: MULTIVITAMIN with MINERAL TABLET. PO SCH (09:12)
[2021-03-06 16:01] VITALS: BP 133/82
[2021-03-06] MEDS: ACETAMINOPHEN 325 MG TABLET PO PRN (17:33)
[2021-03-06] MEDS: MIRTAZAPINE 7.5 MG TABLET. PO SCH (20:09)
[2021-03-06] MEDS: risperiDONE 0.5 MG TABLET. PO SCH (20:10)
--- NOTE | 2021-03-06 21:56 | PDOC ---
Exam Note: Nadeem Note: Please also refer to the separate dictated note~for this date of service dictated separately.~Patient seen individually. Discussed the patient with Nursing staff reviewed the chart.~Reviewed interim history and current functioning. Reviewed vital signs,~Labs/ Radiology~and current medications noted below. Continue current treatment with the changes noted in the dictated addendum note Assessment: Vital Signs/I&O: Vital Signs Date Time Temp Pulse Resp B/P (MAP) Pulse Ox O2 Delivery O2 Flow Rate FiO2 03/06/21 16:01 97.8 85 18 133/82 (99) 97 03/05/21 06:26 Room Air I & O 03/05/21 03/05/21 03/06/21 15:00 23:00 07:00 Intake Total 840 ml 600 ml Balance 840 ml 600 ml Current Medications: Meds: Current Medications Medications (Trade) Dose Ordered Sig/Hunter Route PRN Reason Start Time Stop Time Status Last Admin Dose Admin Multi-Ingredient Ointment (Analgesic [place]) 1 lico PRN QID PRN TP MUSCLE PAIN 02/11/21 06:45 03/03/21 20:33 Al Hydroxide/Mg Hydroxide (Mylanta Plus Xs) 15 ml PRN AFTMEALHC PRN PO DYSPEPSIA 02/11/21 06:45 Magnesium Hydroxide (Milk Of Magnesia) 2,400 mg PRN QHS PRN PO CONSTIPATION 02/11/21 06:45 Acetaminophen (Tylenol) 650 mg PRN Q6HRS PRN PO MILD PAIN / TEMP > 100.3'F 02/11/21 12:00 03/06/21 17:33 Enoxaparin Sodium (Lovenox 40mg Syringe) 40 mg DAILY SQ 02/12/21 09:00 02/13/21 17:54 DC Lorazepam (Ativan) 1 mg PRN Q4HRS PRN PO ANXIETY / AGITATION 02/11/21 12:00 02/13/21 21:35 DC 02/13/21 16:15 Melatonin (Melatonin) 3 mg PRN QHS PRN PO INSOMNIA 02/11/21 12:00 03/05/21 20:31 Nicotine (Nicoderm Cq 21mg Patch) 1 patch DAILY TD 02/12/21 09:00 03/06/21 09:12 Nicotine Polacrilex (Nicorette Gum) 2 mg PRN Q2HRS PRN BC SMOKING CESSATION 02/11/21 12:00 02/17/21 18:24 Olanzapine (ZyPREXA ZYDIS) 5 mg PRN BID PRN PO PSYCHOSIS 02/11/21 12:00 02/13/21 20:07 DC 02/13/21 18:10 Potassium Chloride (Klor-Con) 20 meq DAILY PO 02/12/21 09:00 03/06/21 09:11 Folic Acid (Folic Acid) 1 mg DAILY PO 02/12/21 09:00 03/06/21 09:11 Thiamine HCl (Vitamin B-1) 100 mg DAILY PO 02/12/21 09:00 03/06/21 09:12 Non-Formulary Medication ([Folic Acid] ) 1 mg DAILY PO 02/12/21 09:00 02/11/21 12:25 DC Acetaminophen (Tylenol) 650 mg PRN Q6HRS PRN PO MILD PAIN / TEMP > 100.3'F 02/11/21 12:15 02/11/21 12:22 DC Multi-Ingredient Ointment (Analgesic [place]) 1 lico PRN QID PRN TP MUSCLE PAIN 02/11/21 12:15 02/11/21 12:22 DC Al Hydroxide/Mg Hydroxide (Mylanta Plus Xs) 15 ml PRN AFTMEALHC PRN PO DYSPEPSIA 02/11/21 12:15 02/11/21 12:22 DC Magnesium Hydroxide (Milk Of Magnesia) 2,400 mg PRN QHS PRN PO CONSTIPATION 02/11/21 12:15 02/11/21 12:22 DC Lidocaine (Lidoderm) 1 patch PRN DAILY PRN TD NECK PAIN 02/13/21 19:00 02/22/21 18:18 Olanzapine (ZyPREXA ZYDIS) 2.5 mg PRN Q2HR PRN PO PSYCHOSIS 02/13/21 20:15 02/13/21 23:06 Sertraline HCl (Zoloft) 50 mg DAILY PO 02/14/21 09:00 02/21/21 19:55 DC 02/21/21 08:09 Risperidone (RisperDAL) 0.5 mg QHS PO 02/13/21 21:00 03/06/21 20:10 Lorazepam (Ativan) 0.5 mg PRN Q1HR PRN PO ANXIETY / AGITATION 02/13/21 21:45 02/20/21 20:58 DC 02/20/21 16:54 Multivitamins/ Calcium (Thera-M Plus) 1 tab DAILY PO 02/13/21 21:30 03/06/21 09:12 Clonidine HCl (Catapres) 0.1 mg PRN Q1HR PRN PO SBP>180 OR DBP>100, MR X 3 02/13/21 21:30 Magnesium Oxide (Magnesium Oxide) 400 mg DAILY PO 02/14/21 09:00 02/13/21 21:36 DC Magnesium Oxide (Magnesium Oxide) 400 mg DAILY PO 02/13/21 21:45 03/06/21 09:12 Vitamin D (Vitamin D3) 50,000 unit WEEKLY PO 02/15/21 16:30 03/01/21 08:18 Lorazepam (Ativan) 0.5 mg PRN TID PRN PO ANXIETY / AGITATION 02/20/21 21:00 Cyclobenzaprine HCl (Flexeril) 10 mg BID PO 02/21/21 21:00 02/21/21 09:33 DC Cyclobenzaprine HCl (Flexeril) 10 mg BID PO 02/21/21 09:45 03/06/21 20:10 Sertraline HCl (Zoloft) 75 mg DAILY PO 02/22/21 09:00 03/06/21 09:12 Hydrocortisone (Cortizone-10) 1 lico PRN TID PRN TP ITCHING 02/24/21 12:00 Mirtazapine (Remeron) 7.5 mg QHS PO 02/28/21 21:30 03/06/21 20:09 I have reviewed the current psychotropics carefully including drug interactions. Risk benefit ratio favors no change other than as noted in my dictated progress note. Diagnosis: Problems: (1) Major depressive disorder, recurrent episode (2) Wernicke encephalopathy (3) Anxiety disorder, unspecified (4) Alcohol dependence (5) Alcohol withdrawal delirium (6) DTs (delirium tremens) IVANNA GUNDERSON MD Mar 06, 2021 21:56
[2021-03-07 06:09] VITALS: BP 104/65
[2021-03-07] MEDS: MAGNESIUM OXIDE 400 MG TABLET PO SCH (08:21)
[2021-03-07] MEDS: MULTIVITAMIN with MINERAL TABLET. PO SCH (08:21)
[2021-03-07] MEDS: CYCLOBENZAPRINE 10 MG TABLET. PO SCH ×2 (08:21→20:01)
[2021-03-07] MEDS: POTASSIUM CHLORIDE 20 MEQ TABLET.ER. PO SCH (08:21)
[2021-03-07] MEDS: FOLIC ACID 1 MG TABLET PO SCH (08:21)
[2021-03-07] MEDS: THIAMINE 100 MG TABLET. PO SCH (08:21)
[2021-03-07] MEDS: SERTRALINE 25 MG TABLET. PO SCH (08:22)
[2021-03-07] MEDS: NICOTINE 21MG PATCH. TD SCH (08:23)
[2021-03-07 15:59] VITALS: BP 112/72
[2021-03-07] MEDS: ACETAMINOPHEN 325 MG TABLET PO PRN (16:33)
[2021-03-07] MEDS: MIRTAZAPINE 7.5 MG TABLET. PO SCH (20:00)
[2021-03-07] MEDS: risperiDONE 0.5 MG TABLET. PO SCH (20:00)
[2021-03-08 06:25] VITALS: BP 110/77
[2021-03-08] MEDS: SERTRALINE 25 MG TABLET. PO SCH (08:33)
[2021-03-08] MEDS: MAGNESIUM OXIDE 400 MG TABLET PO SCH (08:33)
[2021-03-08] MEDS: THIAMINE 100 MG TABLET. PO SCH (08:33)
[2021-03-08] MEDS: FOLIC ACID 1 MG TABLET PO SCH (08:33)
[2021-03-08] MEDS: CHOLECALCIFEROL (VITAMIN D3) 50,000 UNIT CAPSULE PO SCH (08:33)
[2021-03-08] MEDS: CYCLOBENZAPRINE 10 MG TABLET. PO SCH ×2 (08:33→19:57)
[2021-03-08] MEDS: POTASSIUM CHLORIDE 20 MEQ TABLET.ER. PO SCH (08:33)
[2021-03-08] MEDS: MULTIVITAMIN with MINERAL TABLET. PO SCH (08:33)
[2021-03-08] MEDS: NICOTINE 21MG PATCH. TD SCH (08:34)
[2021-03-08] MEDS: ACETAMINOPHEN 325 MG TABLET PO PRN (08:56)
--- NOTE | 2021-03-08 11:56 | PDOC ---
Exam Note: Nadeem Note: This note is a late entry for 03/06/2021 covers elements not covered in my initial note. Subjective: patient was seen individually in the evening of 03/06/2021 with Alex SHERMAN, discussed and reviewed the chart. The patient slept 6 hours previous night. Overall she is doing reasonably well. She seems to show insight into her alcohol abuse and states she intends to stop it. Family is concerned about recurrent alcohol abuse, looking for placement which the patient is refusing. Review of Systems: Positive for neck pain and headaches. No CV, , pulmonary, eye system symptoms on review. Mental Status Exam: The patient is reasonably oriented. We discussed her alcohol abuse ways and needs to abstain from it and she was verbal and interactive about this but given her past history all of this would have to be taken with some caution. Speech coherent. Abstraction fair. Computation impaired. Language function intact. Mood and affect improved. No suicidal or homicidal ideation. Laboratory Data: Reviewed. Impression: Major depressive disorder recurrent. Alcohol abuse/dependence/withdrawal. Anxiety disorder unspecified. History of Wernickes encephalopathy. Plan: Continue psychotropics mentioned in my initial note. Please be noted Dr. Payton will cover for me from 03/07 through 03/18/2021. Assessment: Vital Signs/I&O: Vital Signs Date Time Temp Pulse Resp B/P (MAP) Pulse Ox O2 Delivery O2 Flow Rate FiO2 03/08/21 06:25 97.8 90 18 110/77 (88) 99 03/05/21 06:26 Room Air I & O 03/07/21 03/07/21 03/08/21 15:00 23:00 07:00 Intake Total 720 ml 720 ml Balance 720 ml 720 ml Current Medications: Meds: Current Medications Medications (Trade) Dose Ordered Sig/Hunter Route PRN Reason Start Time Stop Time Status Last Admin Dose Admin Multi-Ingredient Ointment (Analgesic [place]) 1 lico PRN QID PRN TP MUSCLE PAIN 02/11/21 06:45 03/03/21 20:33 Al Hydroxide/Mg Hydroxide (Mylanta Plus Xs) 15 ml PRN AFTMEALHC PRN PO DYSPEPSIA 02/11/21 06:45 Magnesium Hydroxide (Milk Of Magnesia) 2,400 mg PRN QHS PRN PO CONSTIPATION 02/11/21 06:45 Acetaminophen (Tylenol) 650 mg PRN Q6HRS PRN PO MILD PAIN / TEMP > 100.3'F 02/11/21 12:00 03/08/21 08:56 Enoxaparin Sodium (Lovenox 40mg Syringe) 40 mg DAILY SQ 02/12/21 09:00 02/13/21 17:54 DC Lorazepam (Ativan) 1 mg PRN Q4HRS PRN PO ANXIETY / AGITATION 02/11/21 12:00 02/13/21 21:35 DC 02/13/21 16:15 Melatonin (Melatonin) 3 mg PRN QHS PRN PO INSOMNIA 02/11/21 12:00 03/05/21 20:31 Nicotine (Nicoderm Cq 21mg Patch) 1 patch DAILY TD 02/12/21 09:00 03/08/21 08:34 Nicotine Polacrilex (Nicorette Gum) 2 mg PRN Q2HRS PRN BC SMOKING CESSATION 02/11/21 12:00 02/17/21 18:24 Olanzapine (ZyPREXA ZYDIS) 5 mg PRN BID PRN PO PSYCHOSIS 02/11/21 12:00 02/13/21 20:07 DC 02/13/21 18:10 Potassium Chloride (Klor-Con) 20 meq DAILY PO 02/12/21 09:00 03/08/21 08:33 Folic Acid (Folic Acid) 1 mg DAILY PO 02/12/21 09:00 03/08/21 08:33 Thiamine HCl (Vitamin B-1) 100 mg DAILY PO 02/12/21 09:00 03/08/21 08:33 Non-Formulary Medication ([Folic Acid] ) 1 mg DAILY PO 02/12/21 09:00 02/11/21 12:25 DC Acetaminophen (Tylenol) 650 mg PRN Q6HRS PRN PO MILD PAIN / TEMP > 100.3'F 02/11/21 12:15 02/11/21 12:22 DC Multi-Ingredient Ointment (Analgesic [place]) 1 lico PRN QID PRN TP MUSCLE PAIN 02/11/21 12:15 02/11/21 12:22 DC Al Hydroxide/Mg Hydroxide (Mylanta Plus Xs) 15 ml PRN AFTMEALHC PRN PO DYSPEPSIA 02/11/21 12:15 02/11/21 12:22 DC Magnesium Hydroxide (Milk Of Magnesia) 2,400 mg PRN QHS PRN PO CONSTIPATION 02/11/21 12:15 02/11/21 12:22 DC Lidocaine (Lidoderm) 1 patch PRN DAILY PRN TD NECK PAIN 02/13/21 19:00 02/22/21 18:18 Olanzapine (ZyPREXA ZYDIS) 2.5 mg PRN Q2HR PRN PO PSYCHOSIS 02/13/21 20:15 02/13/21 23:06 Sertraline HCl (Zoloft) 50 mg DAILY PO 02/14/21 09:00 02/21/21 19:55 DC 02/21/21 08:09 Risperidone (RisperDAL) 0.5 mg QHS PO 02/13/21 21:00 03/07/21 20:00 Lorazepam (Ativan) 0.5 mg PRN Q1HR PRN PO ANXIETY / AGITATION 02/13/21 21:45 02/20/21 20:58 DC 02/20/21 16:54 Multivitamins/ Calcium (Thera-M Plus) 1 tab DAILY PO 02/13/21 21:30 03/08/21 08:33 Clonidine HCl (Catapres) 0.1 mg PRN Q1HR PRN PO SBP>180 OR DBP>100, MR X 3 02/13/21 21:30 Magnesium Oxide (Magnesium Oxide) 400 mg DAILY PO 02/14/21 09:00 02/13/21 21:36 DC Magnesium Oxide (Magnesium Oxide) 400 mg DAILY PO 02/13/21 21:45 03/08/21 08:33 Vitamin D (Vitamin D3) 50,000 unit WEEKLY PO 02/15/21 16:30 03/08/21 08:33 Lorazepam (Ativan) 0.5 mg PRN TID PRN PO ANXIETY / AGITATION 02/20/21 21:00 Cyclobenzaprine HCl (Flexeril) 10 mg BID PO 02/21/21 21:00 02/21/21 09:33 DC Cyclobenzaprine HCl (Flexeril) 10 mg BID PO 02/21/21 09:45 03/08/21 08:33 Sertraline HCl (Zoloft) 75 mg DAILY PO 02/22/21 09:00 03/08/21 08:33 Hydrocortisone (Cortizone-10) 1 lico PRN TID PRN TP ITCHING 02/24/21 12:00 Mirtazapine (Remeron) 7.5 mg QHS PO 02/28/21 21:30 03/07/21 20:00 I have reviewed the current psychotropics carefully including drug interactions. Risk benefit ratio favors no change other than as noted in my dictated progress note. Diagnosis: Problems: (1) Major depressive disorder, recurrent episode (2) Wernicke encephalopathy (3) Anxiety disorder, unspecified (4) Alcohol dependence (5) Alcohol withdrawal delirium (6) DTs (delirium tremens) IVANNA GUNDERSON MD Mar 08, 2021 11:56
[2021-03-08 15:43] VITALS: BP 106/69
--- NOTE | 2021-03-08 16:19 | PN ---
DATE: 03/07/2021 SUBJECTIVE: The patient was seen today, met with the staff, chart reviewed. This is also a late entry for the 03/07/2021. The patient's behavior has improved according to the staff. She is pleasant, cooperative, and interacting with the staff and other residents. She continues to show some disorganization of her thinking. OBSERVATION: VITAL SIGNS: Temperature 97.4, blood pressure 104/65, pulse 79, respirations 16, O2 sat 98%. GENERAL: Slept about 8 hours last night. The patient's appetite is improved. The patient did not have any falls. CURRENT MEDICATIONS: The patient's medications reviewed. Currently on mirtazapine 7.5 mg at night, Zoloft 75 mg daily, Risperdal 0.5 mg at night, olanzapine 2.5 mg q.2h. p.r.n. The patient is also on melatonin 3 mg at night p.r.n. The patient is not having any side effects to the medications. LABORATORY DATA: The patient's lab reviewed, within normal range. ASSESSMENT: Major depressive disorder, recurrent, history of alcohol dependence and history of Wernicke's encephalopathy, anxiety disorder unspecified. PLAN: To continue with the current treatment plan. Length of stay is 7-[address]: Cesar TID: [id number]
[2021-03-08] MEDS: MIRTAZAPINE 7.5 MG TABLET. PO SCH (19:57)
[2021-03-08] MEDS: risperiDONE 0.5 MG TABLET. PO SCH (19:57)
--- NOTE | 2021-03-08 23:28 | PN ---
DATE: 03/08/2021 SUBJECTIVE: The patient was seen today, met with the staff. Chart was reviewed and also covering for Dr. Carreon. Staff reports no major behavior problems, mostly cooperative, periods of confusion. Also, disorganized thinking. The patient is medication compliant. OBSERVATION: VITAL SIGNS: Temperature 97.8, blood pressure 110/77, pulse 98, respirations 18, O2 sat 99%. GENERAL: Slept about 8 hours last night. Her appetite improved. The patient is not presenting with any physical complaints. The patient tends to isolate herself. She tends to become argumentative at times and also she has difficulty with interpersonal relationships. CURRENT MEDICATIONS: The patient's current medications include mirtazapine 7.5 mg at night, Zoloft 75 mg daily, Risperdal 0.5 mg at night, olanzapine 2.5 mg q. 2 hours p.r.n. The patient is also on melatonin 3 mg at night p.r.n. for sleep. The patient denies of any side effects. The patient did not have any falls. ASSESSMENT: 1. Major depressive disorder, recurrent. 2. History of alcohol dependence. 3. Anxiety disorder, unspecified. PLAN: To continue with the treatment. The patient is stating that she is going to work out a discharge plan and wanting to leave in the next couple of days and she will be meeting with the social worker palliative care. JOSE CARLOS ESPINO: Cesar TID: [id number]
[2021-03-09 06:14] VITALS: BP 111/72
[2021-03-09] MEDS: FOLIC ACID 1 MG TABLET PO SCH (08:07)
[2021-03-09] MEDS: POTASSIUM CHLORIDE 20 MEQ TABLET.ER. PO SCH (08:07)
[2021-03-09] MEDS: MAGNESIUM OXIDE 400 MG TABLET PO SCH (08:07)
[2021-03-09] MEDS: CYCLOBENZAPRINE 10 MG TABLET. PO SCH ×2 (08:07→19:49)
[2021-03-09] MEDS: MULTIVITAMIN with MINERAL TABLET. PO SCH (08:07)
[2021-03-09] MEDS: THIAMINE 100 MG TABLET. PO SCH (08:07)
[2021-03-09] MEDS: SERTRALINE 25 MG TABLET. PO SCH (08:08)
[2021-03-09] MEDS: NICOTINE 21MG PATCH. TD SCH (08:08)
[2021-03-09 15:52] VITALS: BP 107/70
[2021-03-09] MEDS: risperiDONE 0.5 MG TABLET. PO SCH (19:49)
[2021-03-09] MEDS: MIRTAZAPINE 7.5 MG TABLET. PO SCH (19:49)
[2021-03-09] MEDS: MELATONIN 3 MG TABLET PO PRN (19:51)
[2021-03-10 05:35] VITALS: BP 106/59
[2021-03-10 06:17] LABS: BASO # 0.1 x10^3/uL (0.0-0.2); BASO % 1 % (0-3); EOS # 0.6 x10^3/uL (0.0-0.7); EOS % 9 % (0-3); HEMATOCRIT 35.1 % (36.0-47.0); HEMOGLOBIN 12.1 g/dL (12.0-15.5); LYMPH # 1.7 x10^3/uL (1.0-4.8); LYMPH % 27 % (24-48); MEAN CORPUSCULAR HEMOGLOBIN 34 pg (25-35); MEAN CORPUSCULAR HGB CONC 34 g/dL (31-37); MEAN CORPUSCULAR VOLUME 98 fL (79-100); MONO # 0.6 x10^3/uL (0.0-1.1); MONO % 10 % (0-9); NEUT # 3.3 x10^3uL (1.8-7.7); NEUT % 52 % (31-73); PLATELET COUNT 262 x10^3/uL (140-400); RED BLOOD COUNT 3.59 x10^6/uL (3.50-5.40); RED CELL DISTRIBUTION WIDTH 14.2 % (11.5-14.5); WHITE BLOOD COUNT 6.3 x10^3/uL (4.0-11.0)
[2021-03-10 06:31] LABS: ALBUMIN 3.1 g/dL (3.4-5.0); CALCIUM 8.7 mg/dL (8.5-10.1); CREATININE 0.3 mg/dL (0.6-1.0); GFR 226.9; POTASSIUM 4.3 mmol/L (3.5-5.1); TOTAL BILIRUBIN 0.2 mg/dL (0.2-1.0); TOTAL PROTEIN 6.2 g/dL (6.4-8.2)
[2021-03-10] MEDS: NICOTINE 21MG PATCH. TD SCH (09:32)
[2021-03-10] MEDS: MULTIVITAMIN with MINERAL TABLET. PO SCH (09:33)
[2021-03-10] MEDS: THIAMINE 100 MG TABLET. PO SCH (09:33)
[2021-03-10] MEDS: CYCLOBENZAPRINE 10 MG TABLET. PO SCH ×2 (09:33→20:09)
[2021-03-10] MEDS: MAGNESIUM OXIDE 400 MG TABLET PO SCH (09:33)
[2021-03-10] MEDS: POTASSIUM CHLORIDE 20 MEQ TABLET.ER. PO SCH (09:33)
[2021-03-10] MEDS: SERTRALINE 25 MG TABLET. PO SCH (09:33)
[2021-03-10] MEDS: FOLIC ACID 1 MG TABLET PO SCH (09:33)
[2021-03-10] MEDS: ACETAMINOPHEN 325 MG TABLET PO PRN (14:26)
[2021-03-10 15:58] VITALS: BP 112/71
[2021-03-10] MEDS: risperiDONE 0.5 MG TABLET. PO SCH (20:09)
[2021-03-10] MEDS: MIRTAZAPINE 7.5 MG TABLET. PO SCH (20:10)
[2021-03-10] MEDS: MELATONIN 3 MG TABLET PO PRN (20:17)
--- NOTE | 2021-03-11 01:06 | PN ---
DATE: 03/09/2021 This is the late entry for the service date 03/09/2021. SUBJECTIVE: The patient was seen today, met with the staff, chart reviewed and also covering for Dr. Carreon. Staff reports no major behavior problems. She is pleasant, cooperative, and able to relate to staff and residents. The patient continues to have problems with her thinking, mostly disorganized and also concrete thinking. OBSERVATION: VITAL SIGNS: Temperature 96.1, blood pressure 111/72, pulse 76, respirations 18, O2 sat 97%. GENERAL: Slept about 7 hours last night. The patient's appetite fair. CURRENT MEDICATIONS: Include mirtazapine 7.5 mg at night, Zoloft 75 mg daily, Risperdal 0.5 mg at night and olanzapine 2.5 mg q. 2 hours p.r.n. The patient is also receiving melatonin 3 mg at night p.r.n. for sleep. The patient denies of any side effects to the medications. LABORATORY DATA: The patient's lab reviewed. ASSESSMENT: 1. Major depressive disorder, recurrent. 2. History of alcohol dependence and history of Wernicke's encephalopathy. 3. Anxiety disorder, unspecified. PLAN: To continue with the treatment. LENGTH OF STAY: 7 days and she is waiting for placement. MILLER DR: Cesar TID: [id number]
--- NOTE | 2021-03-11 03:26 | PN ---
DATE: 03/10/2021 SUBJECTIVE: The patient was seen today, met with the staff. Chart reviewed and also covering for Dr. Carreon. Staff reports no major behavioral problems. She is oriented to surroundings and she is compliant with the medications. OBSERVATION: VITAL SIGNS: Temperature 97.6, blood pressure 106/59, pulse 76, respirations 18, O2 sat 98%. GENERAL: Slept about 7 hours last night. The patient's appetite improved. CURRENT MEDICATIONS: The patient's current medications include mirtazapine 7.5 mg at night, Zoloft 75 mg daily, Risperdal 0.5 mg at night, olanzapine 2.5 mg q.2 hours p.r.n. and melatonin 3 mg at night p.r.n. for sleep. The patient denies of any side effects to medications. Staff reports no falls. LABORATORY DATA: The patient's lab reviewed. ASSESSMENT: 1. Major depressive disorder, recurrent. 2. History of alcohol dependence. 3. Anxiety disorder, unspecified. PLAN: To continue with the current treatment plan. Patient is awaiting for placement. LENGTH OF STAY: 7 to [address]: Cesar TID: [id number]
[2021-03-11 05:46] VITALS: BP 97/60
[2021-03-11] MEDS: MAGNESIUM OXIDE 400 MG TABLET PO SCH (08:47)
[2021-03-11] MEDS: CYCLOBENZAPRINE 10 MG TABLET. PO SCH ×2 (08:47→21:07)
[2021-03-11] MEDS: MULTIVITAMIN with MINERAL TABLET. PO SCH (08:47)
[2021-03-11] MEDS: POTASSIUM CHLORIDE 20 MEQ TABLET.ER. PO SCH (08:47)
[2021-03-11] MEDS: NICOTINE 21MG PATCH. TD SCH (08:47)
[2021-03-11] MEDS: THIAMINE 100 MG TABLET. PO SCH (08:47)
[2021-03-11] MEDS: FOLIC ACID 1 MG TABLET PO SCH (08:47)
[2021-03-11] MEDS: SERTRALINE 25 MG TABLET. PO SCH (08:47)
[2021-03-11] MEDS ORDERED: FLU VACC QUAD 21-22 (6MOS+) PF 0.5 ML SYRINGE. VAX IM ONE (09:00)
[2021-03-11 15:34] VITALS: BP 103/69
[2021-03-11] MEDS: risperiDONE 0.5 MG TABLET. PO SCH (21:07)
[2021-03-11] MEDS: MIRTAZAPINE 7.5 MG TABLET. PO SCH (21:07)
[2021-03-11] MEDS: MELATONIN 3 MG TABLET PO PRN (21:09)
[2021-03-11] MEDS: LORazepam 0.5 MG TABLET PO PRN (21:09)
--- NOTE | 2021-03-12 01:09 | PN ---
DATE: 03/11/2021 SUBJECTIVE: The patient was seen today, met with the staff, chart reviewed. Also, covering for Dr. Carreon. Staff reports no major behavior problems except she has been tearful, tends to isolate herself, and staff reports no major behavior problems and no falls. OBSERVATION: VITAL SIGNS: Temperature 97.9, blood pressure 97/60, pulse 71, respirations 16, O2 sat 98%. GENERAL: Slept about 7 hours last night. The patient's appetite is fair. CURRENT MEDICATIONS: Include mirtazapine 7.5 mg at night, Zoloft 75 mg daily, lorazepam 0.5 mg 3 times a day p.r.n., Risperdal 0.5 mg at night, melatonin 3 mg at night for sleep. LABORATORY DATA: The patient's lab reviewed. DIAGNOSES: 1. Major depressive disorder, recurrent. 2. History of alcohol dependence. 3. Anxiety disorder, unspecified. PLAN: To continue with the treatment. The patient is also awaiting for placement. The patient continues to lack insight into her problems. LENGTH OF STAY: 7-[address]: Cesar TID: [id number]
[2021-03-12 06:27] VITALS: BP 94/60
[2021-03-12] MEDS: CYCLOBENZAPRINE 10 MG TABLET. PO SCH ×2 (08:49→20:21)
[2021-03-12] MEDS: MAGNESIUM OXIDE 400 MG TABLET PO SCH (08:49)
[2021-03-12] MEDS: FOLIC ACID 1 MG TABLET PO SCH (08:49)
[2021-03-12] MEDS: MULTIVITAMIN with MINERAL TABLET. PO SCH (08:50)
[2021-03-12] MEDS: SERTRALINE 25 MG TABLET. PO SCH (08:50)
[2021-03-12] MEDS: THIAMINE 100 MG TABLET. PO SCH (08:50)
[2021-03-12] MEDS: POTASSIUM CHLORIDE 20 MEQ TABLET.ER. PO SCH (08:50)
[2021-03-12] MEDS: NICOTINE 21MG PATCH. TD SCH (08:57)
[2021-03-12] MEDS: LORazepam 0.5 MG TABLET PO PRN (09:21)
[2021-03-12 15:53] VITALS: BP 90/56
[2021-03-12 20:00] VITALS: BP 104/66
[2021-03-12] MEDS: MIRTAZAPINE 7.5 MG TABLET. PO SCH (20:21)
[2021-03-12] MEDS: risperiDONE 0.5 MG TABLET. PO SCH (20:21)
[2021-03-12] MEDS: MELATONIN 3 MG TABLET PO PRN (20:21)
--- NOTE | 2021-03-13 02:03 | PN ---
DATE: 03/12/2021 SUBJECTIVE: The patient was seen today, met with the staff. Chart was reviewed and also covering for Dr. Carreon. Staff reports no major behavior problems except for increased anxiety, constantly asking for discharge. Overall, she is cooperative with the staff and medication compliant. OBSERVATION: VITAL SIGNS: Temperature 97.4, blood pressure 90/56, pulse 99, respirations 20, O2 sat 97%. GENERAL: The patient is sleeping fairly well. The patient's appetite improved. LABORATORY DATA: The patient's lab reviewed. CURRENT MEDICATIONS: The patient's current medications include mirtazapine 7.5 mg at night, Zoloft 75 mg daily, lorazepam 0.5 mg t.i.d. p.r.n. and Risperdal 0.5 mg at night and melatonin 3 mg at night for sleep. DIAGNOSES: 1. Major depressive disorder, recurrent. 2. History of alcohol dependence. 3. Anxiety disorder, unspecified. PLAN: To continue with treatment. The patient is awaiting for placement. LENGTH OF STAY: Seven days. JOSE CARLOS DR: Cesar TID: [id number]
[2021-03-13] MEDS: NICOTINE 21MG PATCH. TD SCH (08:10)
[2021-03-13] MEDS: SERTRALINE 25 MG TABLET. PO SCH (08:11)
[2021-03-13] MEDS: POTASSIUM CHLORIDE 20 MEQ TABLET.ER. PO SCH (08:11)
[2021-03-13] MEDS: CYCLOBENZAPRINE 10 MG TABLET. PO SCH ×2 (08:11→21:13)
[2021-03-13] MEDS: FOLIC ACID 1 MG TABLET PO SCH (08:11)
[2021-03-13] MEDS: MULTIVITAMIN with MINERAL TABLET. PO SCH (08:11)
[2021-03-13] MEDS: THIAMINE 100 MG TABLET. PO SCH (08:11)
[2021-03-13] MEDS: MAGNESIUM OXIDE 400 MG TABLET PO SCH (08:11)
[2021-03-13 16:09] VITALS: BP 105/67
[2021-03-13] MEDS: MIRTAZAPINE 7.5 MG TABLET. PO SCH (21:13)
[2021-03-13] MEDS: MELATONIN 3 MG TABLET PO PRN (21:13)
[2021-03-13] MEDS: risperiDONE 0.5 MG TABLET. PO SCH (21:13)
--- NOTE | 2021-03-14 02:08 | PN ---
DATE: 03/13/2021 SUBJECTIVE: The patient was seen today, met with the staff, chart reviewed. The patient continues to have problems, mostly feeling restless, wanting to be discharged. Staff reports no major behavior problems today and she is compliant with the medications. OBSERVATION: VITAL SIGNS: Temperature 97.5, blood pressure 104/66, pulse 78, respirations 18, O2 sat 97%. GENERAL: Slept about 7 hours last night. The patient's appetite normal. CURRENT MEDICATIONS: The patient's current medications include mirtazapine 7.5 mg at night, Zoloft 75 mg daily, lorazepam 0.5 mg 3 times a day p.r.n. and Risperdal 0.5 mg at night. She is also on melatonin 3 mg at night for sleep. The patient is not having any side effects. ASSESSMENT: 1. Major depressive disorder, recurrent. 2. History of alcohol dependence. 3. Anxiety disorder, unspecified. PLAN: To continue with treatment. LENGTH OF STAY: Seven days. JOSE CARLOS DR: Cesar TID: [id number]
[2021-03-14 06:27] VITALS: BP 100/66
[2021-03-14] MEDS: NICOTINE 21MG PATCH. TD SCH (08:24)
[2021-03-14] MEDS: MAGNESIUM OXIDE 400 MG TABLET PO SCH (08:25)
[2021-03-14] MEDS: FOLIC ACID 1 MG TABLET PO SCH (08:25)
[2021-03-14] MEDS: POTASSIUM CHLORIDE 20 MEQ TABLET.ER. PO SCH (08:25)
[2021-03-14] MEDS: SERTRALINE 25 MG TABLET. PO SCH (08:25)
[2021-03-14] MEDS: THIAMINE 100 MG TABLET. PO SCH (08:25)
[2021-03-14] MEDS: CYCLOBENZAPRINE 10 MG TABLET. PO SCH ×2 (08:25→20:07)
[2021-03-14] MEDS: MULTIVITAMIN with MINERAL TABLET. PO SCH (08:25)
[2021-03-14] MEDS: LIDOCAINE (700MG/PATCH) PATCH. TD PRN (10:25)
[2021-03-14 15:41] VITALS: BP 119/66
[2021-03-14] MEDS: AMOXICILLIN/K CLAV 875/125MG TABLET. PO SCH (17:28)
[2021-03-14] MEDS ORDERED: AMOXICILLIN/K CLAV 875/125MG TABLET. PO SCH (17:30)
[2021-03-14] MEDS: risperiDONE 0.5 MG TABLET. PO SCH (20:08)
[2021-03-14] MEDS: MIRTAZAPINE 7.5 MG TABLET. PO SCH (20:08)
[2021-03-14] MEDS: LACTOBACILLUS RHAMNOSUS GG 1 CAPSULE. PO SCH (20:08)
[2021-03-14] MEDS: MELATONIN 3 MG TABLET PO PRN (20:09)
--- NOTE | 2021-03-15 01:36 | PN ---
DATE: 03/14/2021 SUBJECTIVE: The patient was seen today, met with the staff, chart reviewed, and also covering for Dr. Carreon. Staff reports no major behavioral problems. She is cooperative with the staff and medication compliant. She is less anxious and tense and fairly high functioning, interact with the staff, coherent, still asking for discharge on a daily basis. OBSERVATION: VITAL SIGNS: Temperature 97.6, blood pressure 119/66, pulse 92, respirations 16, O2 sat 98%. GENERAL: The patient's appetite is improved. CURRENT MEDICATIONS: The patient's current medications include mirtazapine 7.5 mg at night, Zoloft 75 mg daily, lorazepam 0.5 mg t.i.d. p.r.n. She is also on melatonin 3 mg at night for sleep and Risperdal 0.5 mg at night. The patient is not exhibiting any side effects to medications. ASSESSMENT: 1. Major depressive disorder, recurrent. 2. History of alcohol dependence. 3. Anxiety disorder, unspecified. PLAN: To continue with the treatment. LENGTH OF STAY: [address]: Cesar TID: [id number]
[2021-03-15 06:05] VITALS: BP 120/72
[2021-03-15] MEDS: LIDOCAINE (700MG/PATCH) PATCH. TD PRN (09:15)
[2021-03-15] MEDS: POTASSIUM CHLORIDE 20 MEQ TABLET.ER. PO SCH (09:16)
[2021-03-15] MEDS: CYCLOBENZAPRINE 10 MG TABLET. PO SCH ×2 (09:16→20:12)
[2021-03-15] MEDS: THIAMINE 100 MG TABLET. PO SCH (09:16)
[2021-03-15] MEDS: MAGNESIUM OXIDE 400 MG TABLET PO SCH (09:16)
[2021-03-15] MEDS: AMOXICILLIN/K CLAV 875/125MG TABLET. PO SCH ×2 (09:16→17:20)
[2021-03-15] MEDS: SERTRALINE 25 MG TABLET. PO SCH (09:16)
[2021-03-15] MEDS: NICOTINE 21MG PATCH. TD SCH (09:16)
[2021-03-15] MEDS: FOLIC ACID 1 MG TABLET PO SCH (09:16)
[2021-03-15] MEDS: MULTIVITAMIN with MINERAL TABLET. PO SCH (09:16)
[2021-03-15] MEDS: LACTOBACILLUS RHAMNOSUS GG 1 CAPSULE. PO SCH ×2 (09:16→20:12)
[2021-03-15] MEDS: CHOLECALCIFEROL (VITAMIN D3) 50,000 UNIT CAPSULE PO SCH (09:16)
[2021-03-15 15:37] VITALS: BP 105/69
[2021-03-15] MEDS: risperiDONE 0.5 MG TABLET. PO SCH (20:11)
[2021-03-15] MEDS: MELATONIN 3 MG TABLET PO PRN (20:11)
[2021-03-15] MEDS: MIRTAZAPINE 7.5 MG TABLET. PO SCH (20:12)
--- NOTE | 2021-03-15 23:52 | PN ---
SUBJECTIVE: The patient was seen today, met with the staff, chart reviewed. Staff reports no major behavior problems, withdrawn, oriented to time, place and person, not having any episodes of confusion. OBSERVATION: VITAL SIGNS: Temperature 96.6, blood pressure 120/72, pulse 73, respirations 16, O2 sat 98%. Slept about 7 hours last night. The patient's appetite normal. CURRENT MEDICATIONS: Include mirtazapine 7.5 mg at night, Zoloft 75 mg daily, lorazepam 0.5 mg t.i.d. p.r.n. She is also on melatonin 3 mg at night, Risperdal 0.5 mg at night, not exhibiting any side effects. ASSESSMENT: 1. Major depression, recurrent. 2. History of alcohol dependence. 3. Anxiety disorder, unspecified. PLAN: To continue with the treatment. LENGTH OF STAY: 7 days. TAQUERIA/SARAH DR: Cesar TID: [id number]
[2021-03-16 05:54] VITALS: BP 102/67
[2021-03-16] MEDS: LIDOCAINE (700MG/PATCH) PATCH. TD PRN (07:40)
[2021-03-16] MEDS: MAGNESIUM OXIDE 400 MG TABLET PO SCH (07:40)
[2021-03-16] MEDS: NICOTINE 21MG PATCH. TD SCH (07:40)
[2021-03-16] MEDS: LACTOBACILLUS RHAMNOSUS GG 1 CAPSULE. PO SCH ×2 (07:40→20:06)
[2021-03-16] MEDS: MULTIVITAMIN with MINERAL TABLET. PO SCH (07:40)
[2021-03-16] MEDS: THIAMINE 100 MG TABLET. PO SCH (07:40)
[2021-03-16] MEDS: AMOXICILLIN/K CLAV 875/125MG TABLET. PO SCH ×2 (07:41→17:36)
[2021-03-16] MEDS: CYCLOBENZAPRINE 10 MG TABLET. PO SCH ×2 (07:41→20:06)
[2021-03-16] MEDS: POTASSIUM CHLORIDE 20 MEQ TABLET.ER. PO SCH (07:41)
[2021-03-16] MEDS: SERTRALINE 25 MG TABLET. PO SCH (07:41)
[2021-03-16] MEDS: FOLIC ACID 1 MG TABLET PO SCH (07:41)
[2021-03-16] MEDS: ACETAMINOPHEN 325 MG TABLET PO PRN ×2 (09:23→20:17)
[2021-03-16 16:15] VITALS: BP 115/72
[2021-03-16] MEDS: risperiDONE 0.5 MG TABLET. PO SCH (20:06)
[2021-03-16] MEDS: MIRTAZAPINE 7.5 MG TABLET. PO SCH (20:06)
--- NOTE | 2021-03-17 02:14 | PN ---
DATE: 03/16/2021 SUBJECTIVE: The patient was seen today, met with the staff, chart reviewed. Staff reports the patient is cooperative with the staff and medication compliant, interacting with other residents. OBSERVATION: VITAL SIGNS: Temperature 97.1, blood pressure 102/67, pulse 88, respirations 20, O2 sat 98%. GENERAL: Slept about 6 hours last night. The patient's appetite is improved. LABORATORY DATA: The patient's lab reviewed. CURRENT MEDICATIONS: The patient's current medications include mirtazapine 7.5 mg at night, Zoloft 75 mg daily and lorazepam 0.5 mg t.i.d. p.r.n. She is also on melatonin 3 mg at night and Risperdal 0.5 mg at night and not experiencing any side effects. ASSESSMENT: 1. Major depression, recurrent. 2. History of alcohol dependence. 3. Anxiety disorder, unspecified. PLAN: To continue with the treatment. LENGTH OF STAY: 5 to [address]: Cesar TID: [id number] [facility]
[2021-03-17 06:21] VITALS: BP 149/88
[2021-03-17] MEDS: NICOTINE 21MG PATCH. TD SCH (07:56)
[2021-03-17] MEDS: MAGNESIUM OXIDE 400 MG TABLET PO SCH (07:57)
[2021-03-17] MEDS: THIAMINE 100 MG TABLET. PO SCH (07:57)
[2021-03-17] MEDS: AMOXICILLIN/K CLAV 875/125MG TABLET. PO SCH ×2 (07:57→17:35)
[2021-03-17] MEDS: POTASSIUM CHLORIDE 20 MEQ TABLET.ER. PO SCH (07:57)
[2021-03-17] MEDS: MULTIVITAMIN with MINERAL TABLET. PO SCH (07:57)
[2021-03-17] MEDS: FOLIC ACID 1 MG TABLET PO SCH (07:58)
[2021-03-17] MEDS: SERTRALINE 25 MG TABLET. PO SCH (07:58)
[2021-03-17] MEDS: LACTOBACILLUS RHAMNOSUS GG 1 CAPSULE. PO SCH ×2 (07:58→20:03)
[2021-03-17] MEDS: CYCLOBENZAPRINE 10 MG TABLET. PO SCH ×2 (07:58→20:03)
[2021-03-17] MEDS: LIDOCAINE (700MG/PATCH) PATCH. TD PRN (14:46)
[2021-03-17] MEDS: ACETAMINOPHEN 325 MG TABLET PO PRN (14:47)
[2021-03-17 16:11] VITALS: BP 120/70
[2021-03-17] MEDS: risperiDONE 0.5 MG TABLET. PO SCH (20:03)
[2021-03-17] MEDS: MIRTAZAPINE 7.5 MG TABLET. PO SCH (20:03)
--- NOTE | 2021-03-18 02:40 | PN ---
DATE: 03/17/2021 SUBJECTIVE: The patient was seen today, met with the staff, chart reviewed. Staff reports no major behavioral problems. She is frequently asking to be discharged. The patient apparently not showing much insight to her problems. The patient is minimizing her problems with addiction to alcohol and also having mild cognitive deficits, most likely secondary to alcoholism. The patient's son is the guardian and he wants her to go to the alf. OBSERVATION: VITAL SIGNS: Temperature 97.8, blood pressure 149/88, pulse 85, respirations 16, O2 sat 99%. Slept about 7 hours last night. The patient's appetite improved. CURRENT MEDICATIONS: Mirtazapine 7.5 mg at night, Zoloft 75 mg daily and lorazepam 0.5 mg t.i.d. p.r.n. She is also on melatonin 3 mg at night and Risperdal 0.5 mg at night. The patient is not exhibiting any side effects to medications. ASSESSMENT: 1. Major depression, recurrent. 2. Anxiety disorder, unspecified. 3. History of alcohol dependence. PLAN: To continue with treatment. LENGTH OF STAY: 5-7 days. Awaiting for placement. EDIE DR: Cesar TID: [id number]
[2021-03-18 06:37] VITALS: BP 121/74
[2021-03-18] MEDS: AMOXICILLIN/K CLAV 875/125MG TABLET. PO SCH ×2 (08:10→17:10)
[2021-03-18] MEDS: LACTOBACILLUS RHAMNOSUS GG 1 CAPSULE. PO SCH ×2 (08:10→20:00)
[2021-03-18] MEDS: CYCLOBENZAPRINE 10 MG TABLET. PO SCH ×2 (08:10→20:00)
[2021-03-18] MEDS: FOLIC ACID 1 MG TABLET PO SCH (08:10)
[2021-03-18] MEDS: POTASSIUM CHLORIDE 20 MEQ TABLET.ER. PO SCH (08:11)
[2021-03-18] MEDS: MULTIVITAMIN with MINERAL TABLET. PO SCH (08:11)
[2021-03-18] MEDS: MAGNESIUM OXIDE 400 MG TABLET PO SCH (08:11)
[2021-03-18] MEDS: SERTRALINE 25 MG TABLET. PO SCH (08:12)
[2021-03-18] MEDS: THIAMINE 100 MG TABLET. PO SCH (08:12)
[2021-03-18] MEDS: NICOTINE 21MG PATCH. TD SCH (08:15)
[2021-03-18] MEDS: ACETAMINOPHEN 325 MG TABLET PO PRN (12:48)
[2021-03-18 15:41] VITALS: BP 109/71
[2021-03-18] MEDS: risperiDONE 0.5 MG TABLET. PO SCH (20:00)
[2021-03-18] MEDS: MIRTAZAPINE 7.5 MG TABLET. PO SCH (20:00)
--- NOTE | 2021-03-19 03:29 | PN ---
DATE: 03/18/2021 SUBJECTIVE: The patient was seen today, met with the staff, chart reviewed. The patient's behavior, remains the same, no change. The patient is oriented to surroundings, not exhibiting any confusion. The patient also realistic with the goals. She is constantly wanting to go home. Apparently, her brother who is her guardian wants her to be in a residential setting because that she may relapse start drinking again. OBSERVATION: VITAL SIGNS: Temperature 97.1, blood pressure 121/74, pulse 73, respirations 16, O2 sat 98%. GENERAL: Slept about 7 hours last night. The patient's appetite is fair. CURRENT MEDICATIONS: The patient's current medications include mirtazapine 7.5 mg at night, Zoloft 75 mg daily and lorazepam 0.5 mg 3 times a day as needed. The patient is also on melatonin 3 mg at night and Risperdal 0.5 mg at night. The patient denies of having any side effects. LABORATORY DATA: Reviewed. ASSESSMENT: 1. Major depression, recurrent. 2. Anxiety disorder, unspecified. 3. History of alcohol dependence. PLAN: To continue with treatment. LENGTH OF STAY: Three to five days, waiting for placement. DANI DR: Cesar TID: [id number]
[2021-03-19] MEDS: ACETAMINOPHEN 325 MG TABLET PO PRN (06:15)
[2021-03-19 06:38] VITALS: BP 113/78
[2021-03-19] MEDS: THIAMINE 100 MG TABLET. PO SCH (08:02)
[2021-03-19] MEDS: NICOTINE 21MG PATCH. TD SCH (08:02)
[2021-03-19] MEDS: LACTOBACILLUS RHAMNOSUS GG 1 CAPSULE. PO SCH ×2 (08:02→20:56)
[2021-03-19] MEDS: AMOXICILLIN/K CLAV 875/125MG TABLET. PO SCH ×2 (08:03→17:11)
[2021-03-19] MEDS: SERTRALINE 25 MG TABLET. PO SCH (08:03)
[2021-03-19] MEDS: MULTIVITAMIN with MINERAL TABLET. PO SCH (08:04)
[2021-03-19] MEDS: CYCLOBENZAPRINE 10 MG TABLET. PO SCH ×2 (08:04→20:56)
[2021-03-19] MEDS: MAGNESIUM OXIDE 400 MG TABLET PO SCH (08:04)
[2021-03-19] MEDS: FOLIC ACID 1 MG TABLET PO SCH (08:05)
[2021-03-19] MEDS: POTASSIUM CHLORIDE 20 MEQ TABLET.ER. PO SCH (08:05)
--- NOTE | 2021-03-19 14:10 | TX PLAN ---
Interdisciplinary Tx Plan Admission Information Feb 11, 2021 at 06:29 Legal Status (on Admission): Voluntary DPOA/Guardian Name: Harshil Tesfaye Contact Other Contact Verified Code Status: Full Code Allergies: Coded Allergies: No Known Drug Allergies (Unverified , 02/10/21) Diagnoses Primary Diagnosis: Alcohol Dependence Werneke's Encephalopathy Reasons for Admission: Alcohol Abuse, Hallucinations, Confusion/Disoriented, Poor impulse control, Other Problem in Patient's Words: She has a drinking problem and can no longer care for herself. Additional Admission Comments: According to the intake, pt is restless, fighting with staff in the ED, hallucinating, altered mental status, was find wandering the streets naked, crawing into the neighbors car, labile mood, having tangential speech, cognitively impaired. Problems Active Problems: restless anxious confused non-compliant Inactive Problems: N/A Pt Strengths/Limitations Ability for [place]: Poor Cognitive Functioning/Ability: Fair Communication Skills/Ability: Fair Financial Resources: Poor Insight/Judgement: Poor Intellectual Ability: Fair Physical Health: Poor Social Skills: Fair Stability in Family: Good Stability in School/Work: Poor Verbal Skills: Fair Discharge Criteria Discharge Criteria: No need for close observ., Adequate arrangements @DC, Improved behavior, Withdrawal Sx absent, Improved mood/thought Preliminary Discharge Plan Preliminary DC Plan: Placement Needed Special Precautions Fall Risk: Low Initial D/C Plan Pt is not able to live by herself; will need placement at the time of discharge. Identified Discharge Needs: Referrals to a higher level of care Currently Utilized Resources Currently Utilized Resources/P: Primary Care Physicians Identified Problems/Hx/Goals Objectives/Short-Term Goals Short Term Goals: Dec. Aggression, Dec. Hallucination/Delus, Dec. Outbursts, Medication Stabilization, Promote Coping Skill Short Term Goals in Patient's: N/A Interventions/Frequency Staff Interventions/Frequency&: Psychiatrist to assess pt at least 3x per week for medication management. Social Work to assess pt at least 2x per week to identify barriers and discharge and finalize discharge plans. Nursing to assess medication effects, behavior modification and complete 15 minute checks daily. Encourage participation in group activities (if applicable) or 1:1 engagement based off activity dept goals. History Vocational History: Pt had multiple jobs that did not last long. 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 She has been on disability most of her life. Education: Pt graduated high school (12th grade) Community Follow-up Primary Care Physician Treatment Plan Explained Patient/Passenger Service Representative had this treatment plan explained to him/her as indicated by the signature below and has been given the opportunity to ask questions and make suggestions: Date: Patient/Passenger Service Representative Signature: Status Update Update Pt is eating 100% of meals and sleeping on average 6.6 hours per night. Pt continues to be cooperative with staff and compliant with all medications. Pt is not happy about potentially going to placement and is insistent on discharging back home. Pt is alert and oriented x 4; however, in times of doing a mini-mental status, pt cognitively declines which causes concern for discharge home. Pt has attended three groups this last week with full participation. SW will be in contact with pt family to discuss options for placement as all facilities have denied pt admission due to concerns for pt diagnosis and potential liability status with pt being A/O x 4. SHANTANU SPANN Mar 19, 2021 14:10
[2021-03-19 16:03] VITALS: BP 123/72
[2021-03-19] MEDS: MIRTAZAPINE 7.5 MG TABLET. PO SCH (20:56)
[2021-03-19] MEDS: risperiDONE 0.5 MG TABLET. PO SCH (20:56)
--- NOTE | 2021-03-19 22:16 | PDOC ---
Exam Note: Nadeem Note: Please also refer to the separate dictated note~for this date of service dictated separately.~Patient seen individually. Discussed the patient with Nursing staff reviewed the chart.~Reviewed interim history and current functioning. Reviewed vital signs,~Labs/ Radiology~and current medications noted below. Continue current treatment with the changes noted in the dictated addendum note Assessment: Vital Signs/I&O: Vital Signs Date Time Temp Pulse Resp B/P (MAP) Pulse Ox O2 Delivery O2 Flow Rate FiO2 03/19/21 16:03 97.1 78 20 123/72 (89) 98 03/18/21 15:41 Room Air I & O 03/18/21 03/18/21 03/19/21 15:00 23:00 07:00 Intake Total 1100 ml 680 ml 360 ml Balance 1100 ml 680 ml 360 ml Current Medications: Meds: Current Medications Medications (Trade) Dose Ordered Sig/Hunter Route PRN Reason Start Time Stop Time Status Last Admin Dose Admin Multi-Ingredient Ointment (Analgesic [place]) 1 lico PRN QID PRN TP MUSCLE PAIN 02/11/21 06:45 03/03/21 20:33 Al Hydroxide/Mg Hydroxide (Mylanta Plus Xs) 15 ml PRN AFTMEALHC PRN PO DYSPEPSIA 02/11/21 06:45 Magnesium Hydroxide (Milk Of Magnesia) 2,400 mg PRN QHS PRN PO CONSTIPATION 02/11/21 06:45 Acetaminophen (Tylenol) 650 mg PRN Q6HRS PRN PO MILD PAIN / TEMP > 100.3'F 02/11/21 12:00 03/19/21 06:15 Enoxaparin Sodium (Lovenox 40mg Syringe) 40 mg DAILY SQ 02/12/21 09:00 02/13/21 17:54 DC Lorazepam (Ativan) 1 mg PRN Q4HRS PRN PO ANXIETY / AGITATION 02/11/21 12:00 02/13/21 21:35 DC 02/13/21 16:15 Melatonin (Melatonin) 3 mg PRN QHS PRN PO INSOMNIA 02/11/21 12:00 03/15/21 20:11 Nicotine (Nicoderm Cq 21mg Patch) 1 patch DAILY TD 02/12/21 09:00 03/19/21 08:02 Nicotine Polacrilex (Nicorette Gum) 2 mg PRN Q2HRS PRN BC SMOKING CESSATION 02/11/21 12:00 02/17/21 18:24 Olanzapine (ZyPREXA ZYDIS) 5 mg PRN BID PRN PO PSYCHOSIS 02/11/21 12:00 02/13/21 20:07 DC 02/13/21 18:10 Potassium Chloride (Klor-Con) 20 meq DAILY PO 02/12/21 09:00 03/19/21 08:05 Folic Acid (Folic Acid) 1 mg DAILY PO 02/12/21 09:00 03/19/21 08:05 Thiamine HCl (Vitamin B-1) 100 mg DAILY PO 02/12/21 09:00 03/19/21 08:02 Non-Formulary Medication ([Folic Acid] ) 1 mg DAILY PO 02/12/21 09:00 02/11/21 12:25 DC Acetaminophen (Tylenol) 650 mg PRN Q6HRS PRN PO MILD PAIN / TEMP > 100.3'F 02/11/21 12:15 02/11/21 12:22 DC Multi-Ingredient Ointment (Analgesic [place]) 1 lico PRN QID PRN TP MUSCLE PAIN 02/11/21 12:15 02/11/21 12:22 DC Al Hydroxide/Mg Hydroxide (Mylanta Plus Xs) 15 ml PRN AFTMEALHC PRN PO DYSPEPSIA 02/11/21 12:15 02/11/21 12:22 DC Magnesium Hydroxide (Milk Of Magnesia) 2,400 mg PRN QHS PRN PO CONSTIPATION 02/11/21 12:15 02/11/21 12:22 DC Lidocaine (Lidoderm) 1 patch PRN DAILY PRN TD NECK PAIN 02/13/21 19:00 03/17/21 14:46 Olanzapine (ZyPREXA ZYDIS) 2.5 mg PRN Q2HR PRN PO PSYCHOSIS 02/13/21 20:15 02/13/21 23:06 Sertraline HCl (Zoloft) 50 mg DAILY PO 02/14/21 09:00 02/21/21 19:55 DC 02/21/21 08:09 Risperidone (RisperDAL) 0.5 mg QHS PO 02/13/21 21:00 03/19/21 20:56 Lorazepam (Ativan) 0.5 mg PRN Q1HR PRN PO ANXIETY / AGITATION 02/13/21 21:45 02/20/21 20:58 DC 02/20/21 16:54 Multivitamins/ Calcium (Thera-M Plus) 1 tab DAILY PO 02/13/21 21:30 03/19/21 08:04 Clonidine HCl (Catapres) 0.1 mg PRN Q1HR PRN PO SBP>180 OR DBP>100, MR X 3 02/13/21 21:30 Magnesium Oxide (Magnesium Oxide) 400 mg DAILY PO 02/14/21 09:00 02/13/21 21:36 DC Magnesium Oxide (Magnesium Oxide) 400 mg DAILY PO 02/13/21 21:45 03/19/21 08:04 Vitamin D (Vitamin D3) 50,000 unit WEEKLY PO 02/15/21 16:30 03/15/21 09:16 Lorazepam (Ativan) 0.5 mg PRN TID PRN PO ANXIETY / AGITATION 02/20/21 21:00 03/12/21 09:21 Cyclobenzaprine HCl (Flexeril) 10 mg BID PO 02/21/21 21:00 02/21/21 09:33 DC Cyclobenzaprine HCl (Flexeril) 10 mg BID PO 02/21/21 09:45 03/19/21 20:56 Sertraline HCl (Zoloft) 75 mg DAILY PO 02/22/21 09:00 03/19/21 08:03 Hydrocortisone (Cortizone-10) 1 lico PRN TID PRN TP ITCHING 02/24/21 12:00 Mirtazapine (Remeron) 7.5 mg QHS PO 02/28/21 21:30 03/19/21 20:56 Influenza Virus Vaccine Quadrival (Flulaval Quad [id number] Syringe) 0.5 ml ONCE ONCE VAX IM 03/11/21 09:00 03/11/21 09:01 DC 03/11/21 11:30 Amoxicillin/ Clavulanate Potassium (Augmentin 875/ 125mg) 1 tab BID PO 03/14/21 17:30 03/14/21 17:23 DC Amoxicillin/ Clavulanate Potassium (Augmentin 875/ 125mg) 1 tab BID PO 03/14/21 18:00 03/15/21 10:44 DC 03/15/21 09:16 Lactobacillus Rhamnosus (Culturelle) 1 cap BID PO 03/14/21 21:00 03/19/21 20:56 Amoxicillin/ Clavulanate Potassium (Augmentin 875/ 125mg) 1 tab BIDWMEALS PO 03/15/21 17:00 03/23/21 18:00 03/19/21 17:11 I have reviewed the current psychotropics carefully including drug interactions. Risk benefit ratio favors no change other than as noted in my dictated progress note. Diagnosis: Problems: (1) Major depressive disorder, recurrent episode (2) Anxiety disorder, unspecified (3) Alcohol dependence (4) Alcohol withdrawal (5) Alcohol withdrawal delirium IVANNA GUNDERSON MD Mar 19, 2021 22:16
[2021-03-20 06:20] VITALS: BP 93/58
[2021-03-20] MEDS: THIAMINE 100 MG TABLET. PO SCH (08:40)
[2021-03-20] MEDS: POTASSIUM CHLORIDE 20 MEQ TABLET.ER. PO SCH (08:40)
[2021-03-20] MEDS: FOLIC ACID 1 MG TABLET PO SCH (08:40)
[2021-03-20] MEDS: AMOXICILLIN/K CLAV 875/125MG TABLET. PO SCH ×2 (08:40→16:24)
[2021-03-20] MEDS: MULTIVITAMIN with MINERAL TABLET. PO SCH (08:41)
[2021-03-20] MEDS: NICOTINE 21MG PATCH. TD SCH (08:41)
[2021-03-20] MEDS: SERTRALINE 25 MG TABLET. PO SCH (08:41)
[2021-03-20] MEDS: CYCLOBENZAPRINE 10 MG TABLET. PO SCH ×2 (08:41→21:01)
[2021-03-20] MEDS: LACTOBACILLUS RHAMNOSUS GG 1 CAPSULE. PO SCH ×2 (08:41→21:01)
[2021-03-20] MEDS: MAGNESIUM OXIDE 400 MG TABLET PO SCH (08:41)
[2021-03-20 16:04] VITALS: BP 119/78
[2021-03-20] MEDS: risperiDONE 0.5 MG TABLET. PO SCH (21:01)
[2021-03-20] MEDS: MIRTAZAPINE 7.5 MG TABLET. PO SCH (21:01)
--- NOTE | 2021-03-20 22:05 | PDOC ---
Exam Note: Nadeem Note: Please also refer to the separate dictated note~for this date of service dictated separately.~Patient seen individually. Discussed the patient with Nursing staff reviewed the chart.~Reviewed interim history and current functioning. Reviewed vital signs,~Labs/ Radiology~and current medications noted below. Continue current treatment with the changes noted in the dictated addendum note Assessment: Vital Signs/I&O: Vital Signs Date Time Temp Pulse Resp B/P (MAP) Pulse Ox O2 Delivery O2 Flow Rate FiO2 03/20/21 16:04 98.1 92 16 119/78 (92) 97 03/18/21 15:41 Room Air I & O 03/19/21 03/19/21 03/20/21 15:00 23:00 07:00 Intake Total 720 ml 480 ml Balance 720 ml 480 ml Current Medications: Meds: Current Medications Medications (Trade) Dose Ordered Sig/Hunter Route PRN Reason Start Time Stop Time Status Last Admin Dose Admin Multi-Ingredient Ointment (Analgesic [place]) 1 lico PRN QID PRN TP MUSCLE PAIN 02/11/21 06:45 03/03/21 20:33 Al Hydroxide/Mg Hydroxide (Mylanta Plus Xs) 15 ml PRN AFTMEALHC PRN PO DYSPEPSIA 02/11/21 06:45 Magnesium Hydroxide (Milk Of Magnesia) 2,400 mg PRN QHS PRN PO CONSTIPATION 02/11/21 06:45 Acetaminophen (Tylenol) 650 mg PRN Q6HRS PRN PO MILD PAIN / TEMP > 100.3'F 02/11/21 12:00 03/19/21 06:15 Enoxaparin Sodium (Lovenox 40mg Syringe) 40 mg DAILY SQ 02/12/21 09:00 02/13/21 17:54 DC Lorazepam (Ativan) 1 mg PRN Q4HRS PRN PO ANXIETY / AGITATION 02/11/21 12:00 02/13/21 21:35 DC 02/13/21 16:15 Melatonin (Melatonin) 3 mg PRN QHS PRN PO INSOMNIA 02/11/21 12:00 03/15/21 20:11 Nicotine (Nicoderm Cq 21mg Patch) 1 patch DAILY TD 02/12/21 09:00 03/20/21 08:41 Nicotine Polacrilex (Nicorette Gum) 2 mg PRN Q2HRS PRN BC SMOKING CESSATION 02/11/21 12:00 02/17/21 18:24 Olanzapine (ZyPREXA ZYDIS) 5 mg PRN BID PRN PO PSYCHOSIS 02/11/21 12:00 02/13/21 20:07 DC 02/13/21 18:10 Potassium Chloride (Klor-Con) 20 meq DAILY PO 02/12/21 09:00 03/20/21 08:40 Folic Acid (Folic Acid) 1 mg DAILY PO 02/12/21 09:00 03/20/21 08:40 Thiamine HCl (Vitamin B-1) 100 mg DAILY PO 02/12/21 09:00 03/20/21 08:40 Non-Formulary Medication ([Folic Acid] ) 1 mg DAILY PO 02/12/21 09:00 02/11/21 12:25 DC Acetaminophen (Tylenol) 650 mg PRN Q6HRS PRN PO MILD PAIN / TEMP > 100.3'F 02/11/21 12:15 02/11/21 12:22 DC Multi-Ingredient Ointment (Analgesic [place]) 1 lico PRN QID PRN TP MUSCLE PAIN 02/11/21 12:15 02/11/21 12:22 DC Al Hydroxide/Mg Hydroxide (Mylanta Plus Xs) 15 ml PRN AFTMEALHC PRN PO DYSPEPSIA 02/11/21 12:15 02/11/21 12:22 DC Magnesium Hydroxide (Milk Of Magnesia) 2,400 mg PRN QHS PRN PO CONSTIPATION 02/11/21 12:15 02/11/21 12:22 DC Lidocaine (Lidoderm) 1 patch PRN DAILY PRN TD NECK PAIN 02/13/21 19:00 03/17/21 14:46 Olanzapine (ZyPREXA ZYDIS) 2.5 mg PRN Q2HR PRN PO PSYCHOSIS 02/13/21 20:15 02/13/21 23:06 Sertraline HCl (Zoloft) 50 mg DAILY PO 02/14/21 09:00 02/21/21 19:55 DC 02/21/21 08:09 Risperidone (RisperDAL) 0.5 mg QHS PO 02/13/21 21:00 03/20/21 21:01 Lorazepam (Ativan) 0.5 mg PRN Q1HR PRN PO ANXIETY / AGITATION 02/13/21 21:45 02/20/21 20:58 DC 02/20/21 16:54 Multivitamins/ Calcium (Thera-M Plus) 1 tab DAILY PO 02/13/21 21:30 03/20/21 08:41 Clonidine HCl (Catapres) 0.1 mg PRN Q1HR PRN PO SBP>180 OR DBP>100, MR X 3 02/13/21 21:30 Magnesium Oxide (Magnesium Oxide) 400 mg DAILY PO 02/14/21 09:00 02/13/21 21:36 DC Magnesium Oxide (Magnesium Oxide) 400 mg DAILY PO 02/13/21 21:45 03/20/21 08:41 Vitamin D (Vitamin D3) 50,000 unit WEEKLY PO 02/15/21 16:30 03/15/21 09:16 Lorazepam (Ativan) 0.5 mg PRN TID PRN PO ANXIETY / AGITATION 02/20/21 21:00 03/12/21 09:21 Cyclobenzaprine HCl (Flexeril) 10 mg BID PO 02/21/21 21:00 02/21/21 09:33 DC Cyclobenzaprine HCl (Flexeril) 10 mg BID PO 02/21/21 09:45 03/20/21 21:01 Sertraline HCl (Zoloft) 75 mg DAILY PO 02/22/21 09:00 03/20/21 08:41 Hydrocortisone (Cortizone-10) 1 lico PRN TID PRN TP ITCHING 02/24/21 12:00 Mirtazapine (Remeron) 7.5 mg QHS PO 02/28/21 21:30 03/20/21 21:01 Influenza Virus Vaccine Quadrival (Flulaval Quad 9130-1588 Syringe) 0.5 ml ONCE ONCE VAX IM 03/11/21 09:00 03/11/21 09:01 DC 03/11/21 11:30 Amoxicillin/ Clavulanate Potassium (Augmentin 875/ 125mg) 1 tab BID PO 03/14/21 17:30 03/14/21 17:23 DC Amoxicillin/ Clavulanate Potassium (Augmentin 875/ 125mg) 1 tab BID PO 03/14/21 18:00 03/15/21 10:44 DC 03/15/21 09:16 Lactobacillus Rhamnosus (Culturelle) 1 cap BID PO 03/14/21 21:00 03/20/21 21:01 Amoxicillin/ Clavulanate Potassium (Augmentin 875/ 125mg) 1 tab BIDWMEALS PO 03/15/21 17:00 03/23/21 18:00 03/20/21 16:24 I have reviewed the current psychotropics carefully including drug interactions. Risk benefit ratio favors no change other than as noted in my dictated progress note. Diagnosis: Problems: (1) Major depressive disorder, recurrent episode (2) Anxiety disorder, unspecified (3) Alcohol dependence (4) Alcohol withdrawal (5) Alcohol withdrawal delirium IVANNA GUNDERSON MD Mar 20, 2021 22:05
[2021-03-21 06:01] VITALS: BP 103/67
[2021-03-21] MEDS: NICOTINE 21MG PATCH. TD SCH (08:34)
[2021-03-21] MEDS: FOLIC ACID 1 MG TABLET PO SCH (08:34)
[2021-03-21] MEDS: SERTRALINE 25 MG TABLET. PO SCH (08:34)
[2021-03-21] MEDS: LACTOBACILLUS RHAMNOSUS GG 1 CAPSULE. PO SCH ×2 (08:34→20:57)
[2021-03-21] MEDS: MULTIVITAMIN with MINERAL TABLET. PO SCH (08:34)
[2021-03-21] MEDS: MAGNESIUM OXIDE 400 MG TABLET PO SCH (08:34)
[2021-03-21] MEDS: POTASSIUM CHLORIDE 20 MEQ TABLET.ER. PO SCH (08:34)
[2021-03-21] MEDS: AMOXICILLIN/K CLAV 875/125MG TABLET. PO SCH ×2 (08:34→17:25)
[2021-03-21] MEDS: CYCLOBENZAPRINE 10 MG TABLET. PO SCH ×2 (08:34→20:57)
[2021-03-21] MEDS: THIAMINE 100 MG TABLET. PO SCH (08:34)
[2021-03-21 15:48] VITALS: BP 111/72
[2021-03-21] MEDS: risperiDONE 0.5 MG TABLET. PO SCH (20:57)
[2021-03-21] MEDS: MIRTAZAPINE 7.5 MG TABLET. PO SCH (20:57)
[2021-03-21] MEDS: CARBAMIDE PEROXIDE 6.5% OTIC SOLUTION 15ML BOTTLE. AU SCH (20:58)
--- NOTE | 2021-03-21 22:07 | PDOC ---
Exam Note: Nadeem Note: Please also refer to the separate dictated note~for this date of service dictated separately.~Patient seen individually. Discussed the patient with Nursing staff reviewed the chart.~Reviewed interim history and current functioning. Reviewed vital signs,~Labs/ Radiology~and current medications noted below. Continue current treatment with the changes noted in the dictated addendum note Assessment: Vital Signs/I&O: Vital Signs Date Time Temp Pulse Resp B/P (MAP) Pulse Ox O2 Delivery O2 Flow Rate FiO2 03/21/21 15:48 98.0 104 111/72 (85) 96 Room Air 03/21/21 06:01 16 I & O 03/20/21 03/20/21 03/21/21 14:59 22:59 06:59 Intake Total 720 ml 240 ml 240 ml Balance 720 ml 240 ml 240 ml Current Medications: Meds: Current Medications Medications (Trade) Dose Ordered Sig/Hunter Route PRN Reason Start Time Stop Time Status Last Admin Dose Admin Multi-Ingredient Ointment (Analgesic [place]) 1 lico PRN QID PRN TP MUSCLE PAIN 02/11/21 06:45 03/03/21 20:33 Al Hydroxide/Mg Hydroxide (Mylanta Plus Xs) 15 ml PRN AFTMEALHC PRN PO DYSPEPSIA 02/11/21 06:45 Magnesium Hydroxide (Milk Of Magnesia) 2,400 mg PRN QHS PRN PO CONSTIPATION 02/11/21 06:45 Acetaminophen (Tylenol) 650 mg PRN Q6HRS PRN PO MILD PAIN / TEMP > 100.3'F 02/11/21 12:00 03/19/21 06:15 Enoxaparin Sodium (Lovenox 40mg Syringe) 40 mg DAILY SQ 02/12/21 09:00 02/13/21 17:54 DC Lorazepam (Ativan) 1 mg PRN Q4HRS PRN PO ANXIETY / AGITATION 02/11/21 12:00 02/13/21 21:35 DC 02/13/21 16:15 Melatonin (Melatonin) 3 mg PRN QHS PRN PO INSOMNIA 02/11/21 12:00 03/15/21 20:11 Nicotine (Nicoderm Cq 21mg Patch) 1 patch DAILY TD 02/12/21 09:00 03/21/21 08:34 Nicotine Polacrilex (Nicorette Gum) 2 mg PRN Q2HRS PRN BC SMOKING CESSATION 02/11/21 12:00 02/17/21 18:24 Olanzapine (ZyPREXA ZYDIS) 5 mg PRN BID PRN PO PSYCHOSIS 02/11/21 12:00 02/13/21 20:07 DC 02/13/21 18:10 Potassium Chloride (Klor-Con) 20 meq DAILY PO 02/12/21 09:00 03/21/21 08:34 Folic Acid (Folic Acid) 1 mg DAILY PO 02/12/21 09:00 03/21/21 08:34 Thiamine HCl (Vitamin B-1) 100 mg DAILY PO 02/12/21 09:00 03/21/21 08:34 Non-Formulary Medication ([Folic Acid] ) 1 mg DAILY PO 02/12/21 09:00 02/11/21 12:25 DC Acetaminophen (Tylenol) 650 mg PRN Q6HRS PRN PO MILD PAIN / TEMP > 100.3'F 02/11/21 12:15 02/11/21 12:22 DC Multi-Ingredient Ointment (Analgesic [place]) 1 lico PRN QID PRN TP MUSCLE PAIN 02/11/21 12:15 02/11/21 12:22 DC Al Hydroxide/Mg Hydroxide (Mylanta Plus Xs) 15 ml PRN AFTMEALHC PRN PO DYSPEPSIA 02/11/21 12:15 02/11/21 12:22 DC Magnesium Hydroxide (Milk Of Magnesia) 2,400 mg PRN QHS PRN PO CONSTIPATION 02/11/21 12:15 02/11/21 12:22 DC Lidocaine (Lidoderm) 1 patch PRN DAILY PRN TD NECK PAIN 02/13/21 19:00 03/17/21 14:46 Olanzapine (ZyPREXA ZYDIS) 2.5 mg PRN Q2HR PRN PO PSYCHOSIS 02/13/21 20:15 02/13/21 23:06 Sertraline HCl (Zoloft) 50 mg DAILY PO 02/14/21 09:00 02/21/21 19:55 DC 02/21/21 08:09 Risperidone (RisperDAL) 0.5 mg QHS PO 02/13/21 21:00 03/21/21 20:57 Lorazepam (Ativan) 0.5 mg PRN Q1HR PRN PO ANXIETY / AGITATION 02/13/21 21:45 02/20/21 20:58 DC 02/20/21 16:54 Multivitamins/ Calcium (Thera-M Plus) 1 tab DAILY PO 02/13/21 21:30 03/21/21 08:34 Clonidine HCl (Catapres) 0.1 mg PRN Q1HR PRN PO SBP>180 OR DBP>100, MR X 3 02/13/21 21:30 Magnesium Oxide (Magnesium Oxide) 400 mg DAILY PO 02/14/21 09:00 02/13/21 21:36 DC Magnesium Oxide (Magnesium Oxide) 400 mg DAILY PO 02/13/21 21:45 03/21/21 08:34 Vitamin D (Vitamin D3) 50,000 unit WEEKLY PO 02/15/21 16:30 03/15/21 09:16 Lorazepam (Ativan) 0.5 mg PRN TID PRN PO ANXIETY / AGITATION 02/20/21 21:00 03/12/21 09:21 Cyclobenzaprine HCl (Flexeril) 10 mg BID PO 02/21/21 21:00 02/21/21 09:33 DC Cyclobenzaprine HCl (Flexeril) 10 mg BID PO 02/21/21 09:45 03/21/21 20:57 Sertraline HCl (Zoloft) 75 mg DAILY PO 02/22/21 09:00 03/21/21 08:34 Hydrocortisone (Cortizone-10) 1 lico PRN TID PRN TP ITCHING 02/24/21 12:00 Mirtazapine (Remeron) 7.5 mg QHS PO 02/28/21 21:30 03/21/21 20:57 Influenza Virus Vaccine Quadrival (Flulaval Quad [id number] Syringe) 0.5 ml ONCE ONCE VAX IM 03/11/21 09:00 03/11/21 09:01 DC 03/11/21 11:30 Amoxicillin/ Clavulanate Potassium (Augmentin 875/ 125mg) 1 tab BID PO 03/14/21 17:30 03/14/21 17:23 DC Amoxicillin/ Clavulanate Potassium (Augmentin 875/ 125mg) 1 tab BID PO 03/14/21 18:00 03/15/21 10:44 DC 03/15/21 09:16 Lactobacillus Rhamnosus (Culturelle) 1 cap BID PO 03/14/21 21:00 03/21/21 20:57 Amoxicillin/ Clavulanate Potassium (Augmentin 875/ 125mg) 1 tab BIDWMEALS PO 03/15/21 17:00 03/23/21 18:00 03/21/21 17:25 Carbamide Peroxide (Debrox) 5 drop BID AU 03/21/21 21:00 03/21/21 20:58 Current Medications Medications (Trade) Dose Ordered Sig/Hunter Route PRN Reason Start Time Stop Time Status Last Admin Dose Admin Carbamide Peroxide (Debrox) 5 drop BID AU 03/21/21 21:00 03/21/21 20:58 I have reviewed the current psychotropics carefully including drug interactions. Risk benefit ratio favors no change other than as noted in my dictated progress note. Diagnosis: Problems: (1) Major depressive disorder, recurrent episode (2) Wernicke encephalopathy (3) Anxiety disorder, unspecified (4) Alcohol dependence (5) Alcohol withdrawal (6) Alcohol withdrawal delirium IVANNA GUNDERSON MD Mar 21, 2021 22:07
[2021-03-22 06:19] VITALS: BP 115/74
[2021-03-22] MEDS: NICOTINE 21MG PATCH. TD SCH (08:28)
[2021-03-22] MEDS: SERTRALINE 25 MG TABLET. PO SCH (08:28)
[2021-03-22] MEDS: LACTOBACILLUS RHAMNOSUS GG 1 CAPSULE. PO SCH ×2 (08:29→20:01)
[2021-03-22] MEDS: CHOLECALCIFEROL (VITAMIN D3) 50,000 UNIT CAPSULE PO SCH (08:29)
[2021-03-22] MEDS: AMOXICILLIN/K CLAV 875/125MG TABLET. PO SCH ×2 (08:29→17:00)
[2021-03-22] MEDS: MULTIVITAMIN with MINERAL TABLET. PO SCH (08:29)
[2021-03-22] MEDS: FOLIC ACID 1 MG TABLET PO SCH (08:29)
[2021-03-22] MEDS: MAGNESIUM OXIDE 400 MG TABLET PO SCH (08:29)
[2021-03-22] MEDS: CYCLOBENZAPRINE 10 MG TABLET. PO SCH ×2 (08:29→20:01)
[2021-03-22] MEDS: THIAMINE 100 MG TABLET. PO SCH (08:29)
[2021-03-22] MEDS: POTASSIUM CHLORIDE 20 MEQ TABLET.ER. PO SCH (08:29)
[2021-03-22] MEDS: CARBAMIDE PEROXIDE 6.5% OTIC SOLUTION 15ML BOTTLE. AU SCH ×2 (08:30→20:01)
--- NOTE | 2021-03-22 09:07 | PDOC ---
Exam Note: Nadeem Note: This note is a late entry for 03/19/2021 covers elements not covered in my initial note. Subjective: This is my first visit with the patient since 03/07/[address] Payton covered for me during my vacation. Reviewed information with Dr. Payton, reviewed current and past records, reviewed interim history and circumstances prompting this referral for inpatient psychiatric stabilization. The patient was reviewed at treatment team meeting individually in the morning on 03/19/2021 with Cindy Santana, Keli Ortiz (social science instructor), Lissette, activity therapy and Jennifer SHERMAN, discussed and reviewed the chart. The patient slept 6 hours previous night. Overall she is doing better. On the surface she is more oriented and cognitively intact when she truly is. Per Genoveva, the patient was unable to comprehend simple Maths problem that if she went to a store with $100, brought something for $5 and other things for $2, what about money would be left. She was unable to do this even after I repeated this with her in the evening. She has attended 3 groups in the past week. She is insistent on going back home though the family would like for her to be in a placement but she is her own signatory thus complicating options. Review of Systems: No CV, , pulmonary, eye, ENT system symptoms on review. Mental Status Exam: The patient is reasonably oriented. Speech coherent. Abstraction fair. Computation impaired. Language function intact. Mood and affect somewhat anxious, labile but improved. Laboratory Data: Reviewed. Impression: Major depressive disorder recurrent. Alcohol abuse/dependence/withdrawal. Anxiety disorder unspecified. History of Wernickes encephalopathy. Plan: Continue psychotropics mentioned in my initial note. Continue to address placement options with her. Adjust further as clinically indicated. Assessment: Vital Signs/I&O: Vital Signs Date Time Temp Pulse Resp B/P (MAP) Pulse Ox O2 Delivery O2 Flow Rate FiO2 03/22/21 06:19 97.2 73 16 115/74 (88) 97 03/21/21 15:48 Room Air I & O 03/21/21 03/21/21 03/22/21 15:00 23:00 07:00 Intake Total 1140 ml 1140 ml Balance 1140 ml 1140 ml Current Medications: Meds: Current Medications Medications (Trade) Dose Ordered Sig/Hunter Route PRN Reason Start Time Stop Time Status Last Admin Dose Admin Multi-Ingredient Ointment (Analgesic [place]) 1 lico PRN QID PRN TP MUSCLE PAIN 02/11/21 06:45 03/03/21 20:33 Al Hydroxide/Mg Hydroxide (Mylanta Plus Xs) 15 ml PRN AFTMEALHC PRN PO DYSPEPSIA 02/11/21 06:45 Magnesium Hydroxide (Milk Of Magnesia) 2,400 mg PRN QHS PRN PO CONSTIPATION 02/11/21 06:45 Acetaminophen (Tylenol) 650 mg PRN Q6HRS PRN PO MILD PAIN / TEMP > 100.3'F 02/11/21 12:00 03/19/21 06:15 Enoxaparin Sodium (Lovenox 40mg Syringe) 40 mg DAILY SQ 02/12/21 09:00 02/13/21 17:54 DC Lorazepam (Ativan) 1 mg PRN Q4HRS PRN PO ANXIETY / AGITATION 02/11/21 12:00 02/13/21 21:35 DC 02/13/21 16:15 Melatonin (Melatonin) 3 mg PRN QHS PRN PO INSOMNIA 02/11/21 12:00 03/15/21 20:11 Nicotine (Nicoderm Cq 21mg Patch) 1 patch DAILY TD 02/12/21 09:00 03/22/21 08:28 Nicotine Polacrilex (Nicorette Gum) 2 mg PRN Q2HRS PRN BC SMOKING CESSATION 02/11/21 12:00 02/17/21 18:24 Olanzapine (ZyPREXA ZYDIS) 5 mg PRN BID PRN PO PSYCHOSIS 02/11/21 12:00 02/13/21 20:07 DC 02/13/21 18:10 Potassium Chloride (Klor-Con) 20 meq DAILY PO 02/12/21 09:00 03/22/21 08:29 Folic Acid (Folic Acid) 1 mg DAILY PO 02/12/21 09:00 03/22/21 08:29 Thiamine HCl (Vitamin B-1) 100 mg DAILY PO 02/12/21 09:00 03/22/21 08:29 Non-Formulary Medication ([Folic Acid] ) 1 mg DAILY PO 02/12/21 09:00 02/11/21 12:25 DC Acetaminophen (Tylenol) 650 mg PRN Q6HRS PRN PO MILD PAIN / TEMP > 100.3'F 02/11/21 12:15 02/11/21 12:22 DC Multi-Ingredient Ointment (Analgesic Lily) 1 lico PRN QID PRN TP MUSCLE PAIN 02/11/21 12:15 02/11/21 12:22 DC Al Hydroxide/Mg Hydroxide (Mylanta Plus Xs) 15 ml PRN AFTMEALHC PRN PO DYSPEPSIA 02/11/21 12:15 02/11/21 12:22 DC Magnesium Hydroxide (Milk Of Magnesia) 2,400 mg PRN QHS PRN PO CONSTIPATION 02/11/21 12:15 02/11/21 12:22 DC Lidocaine (Lidoderm) 1 patch PRN DAILY PRN TD NECK PAIN 02/13/21 19:00 03/17/21 14:46 Olanzapine (ZyPREXA ZYDIS) 2.5 mg PRN Q2HR PRN PO PSYCHOSIS 02/13/21 20:15 02/13/21 23:06 Sertraline HCl (Zoloft) 50 mg DAILY PO 02/14/21 09:00 02/21/21 19:55 DC 02/21/21 08:09 Risperidone (RisperDAL) 0.5 mg QHS PO 02/13/21 21:00 03/21/21 20:57 Lorazepam (Ativan) 0.5 mg PRN Q1HR PRN PO ANXIETY / AGITATION 02/13/21 21:45 02/20/21 20:58 DC 02/20/21 16:54 Multivitamins/ Calcium (Thera-M Plus) 1 tab DAILY PO 02/13/21 21:30 03/22/21 08:29 Clonidine HCl (Catapres) 0.1 mg PRN Q1HR PRN PO SBP>180 OR DBP>100, MR X 3 02/13/21 21:30 Magnesium Oxide (Magnesium Oxide) 400 mg DAILY PO 02/14/21 09:00 02/13/21 21:36 DC Magnesium Oxide (Magnesium Oxide) 400 mg DAILY PO 02/13/21 21:45 03/22/21 08:29 Vitamin D (Vitamin D3) 50,000 unit WEEKLY PO 02/15/21 16:30 03/22/21 08:29 Lorazepam (Ativan) 0.5 mg PRN TID PRN PO ANXIETY / AGITATION 02/20/21 21:00 03/12/21 09:21 Cyclobenzaprine HCl (Flexeril) 10 mg BID PO 02/21/21 21:00 02/21/21 09:33 DC Cyclobenzaprine HCl (Flexeril) 10 mg BID PO 02/21/21 09:45 03/22/21 08:29 Sertraline HCl (Zoloft) 75 mg DAILY PO 02/22/21 09:00 03/22/21 08:28 Hydrocortisone (Cortizone-10) 1 lico PRN TID PRN TP ITCHING 02/24/21 12:00 Mirtazapine (Remeron) 7.5 mg QHS PO 02/28/21 21:30 03/21/21 20:57 Influenza Virus Vaccine Quadrival (Flulaval Quad [id number] Syringe) 0.5 ml ONCE ONCE VAX IM 03/11/21 09:00 03/11/21 09:01 DC 03/11/21 11:30 Amoxicillin/ Clavulanate Potassium (Augmentin 875/ 125mg) 1 tab BID PO 03/14/21 17:30 03/14/21 17:23 DC Amoxicillin/ Clavulanate Potassium (Augmentin 875/ 125mg) 1 tab BID PO 03/14/21 18:00 03/15/21 10:44 DC 03/15/21 09:16 Lactobacillus Rhamnosus (Culturelle) 1 cap BID PO 03/14/21 21:00 03/22/21 08:29 Amoxicillin/ Clavulanate Potassium (Augmentin 875/ 125mg) 1 tab BIDWMEALS PO 03/15/21 17:00 03/23/21 18:00 03/22/21 08:29 Carbamide Peroxide (Debrox) 5 drop BID AU 03/21/21 21:00 03/22/21 08:30 Current Medications Medications (Trade) Dose Ordered Sig/Hunter Route PRN Reason Start Time Stop Time Status Last Admin Dose Admin Carbamide Peroxide (Debrox) 5 drop BID AU 03/21/21 21:00 03/22/21 08:30 I have reviewed the current psychotropics carefully including drug interactions. Risk benefit ratio favors no change other than as noted in my dictated progress note. Diagnosis: Problems: (1) Major depressive disorder, recurrent episode (2) Wernicke encephalopathy (3) Anxiety disorder, unspecified (4) Alcohol dependence (5) Alcohol withdrawal (6) Alcohol withdrawal delirium IVANNA GUNDERSON MD Mar 22, 2021 09:07
--- NOTE | 2021-03-22 09:32 | PDOC ---
Exam Note: Nadeem Note: This note is a late entry for 03/20/2021 covers elements not covered in my initial note. Subjective: The patient was seen individually in the evening of 03/20/2021 with Cinthya SHERMAN, discussed and reviewed the chart. The patient slept 5-3/4 hours previous night. She remains appropriate on the unit but on close questioning she has difficulty calculating even simple household problems which I presented to her. She does state she will not use alcohol again. Review of Systems: No CV, , pulmonary, eye, ENT system symptoms on review. Mental Status Exam: The patient is reasonably oriented. Speech coherent. Abstraction fair. Computation impaired. Language function intact. Attention s benitez short. Mood and affect withdrawn. Laboratory Data: Reviewed. Impression: Major depressive disorder recurrent. Alcohol abuse/dependence/withdrawal. Anxiety disorder unspecified. History of Wernickes encephalopathy. Plan: Continue psychotropics mentioned in my initial note. Assessment: Vital Signs/I&O: Vital Signs Date Time Temp Pulse Resp B/P (MAP) Pulse Ox O2 Delivery O2 Flow Rate FiO2 03/22/21 06:19 97.2 73 16 115/74 (88) 97 03/21/21 15:48 Room Air I & O 03/21/21 03/21/21 03/22/21 14:59 22:59 06:59 Intake Total 1140 ml 1140 ml Balance 1140 ml 1140 ml Current Medications: Meds: Current Medications Medications (Trade) Dose Ordered Sig/Hunter Route PRN Reason Start Time Stop Time Status Last Admin Dose Admin Multi-Ingredient Ointment (Analgesic [place]) 1 lico PRN QID PRN TP MUSCLE PAIN 02/11/21 06:45 03/03/21 20:33 Al Hydroxide/Mg Hydroxide (Mylanta Plus Xs) 15 ml PRN AFTMEALHC PRN PO DYSPEPSIA 02/11/21 06:45 Magnesium Hydroxide (Milk Of Magnesia) 2,400 mg PRN QHS PRN PO CONSTIPATION 02/11/21 06:45 Acetaminophen (Tylenol) 650 mg PRN Q6HRS PRN PO MILD PAIN / TEMP > 100.3'F 02/11/21 12:00 03/19/21 06:15 Enoxaparin Sodium (Lovenox 40mg Syringe) 40 mg DAILY SQ 02/12/21 09:00 02/13/21 17:54 DC Lorazepam (Ativan) 1 mg PRN Q4HRS PRN PO ANXIETY / AGITATION 02/11/21 12:00 02/13/21 21:35 DC 02/13/21 16:15 Melatonin (Melatonin) 3 mg PRN QHS PRN PO INSOMNIA 02/11/21 12:00 03/15/21 20:11 Nicotine (Nicoderm Cq 21mg Patch) 1 patch DAILY TD 02/12/21 09:00 03/22/21 08:28 Nicotine Polacrilex (Nicorette Gum) 2 mg PRN Q2HRS PRN BC SMOKING CESSATION 02/11/21 12:00 02/17/21 18:24 Olanzapine (ZyPREXA ZYDIS) 5 mg PRN BID PRN PO PSYCHOSIS 02/11/21 12:00 02/13/21 20:07 DC 02/13/21 18:10 Potassium Chloride (Klor-Con) 20 meq DAILY PO 02/12/21 09:00 03/22/21 08:29 Folic Acid (Folic Acid) 1 mg DAILY PO 02/12/21 09:00 03/22/21 08:29 Thiamine HCl (Vitamin B-1) 100 mg DAILY PO 02/12/21 09:00 03/22/21 08:29 Non-Formulary Medication ([Folic Acid] ) 1 mg DAILY PO 02/12/21 09:00 02/11/21 12:25 DC Acetaminophen (Tylenol) 650 mg PRN Q6HRS PRN PO MILD PAIN / TEMP > 100.3'F 02/11/21 12:15 02/11/21 12:22 DC Multi-Ingredient Ointment (Analgesic [place]) 1 lico PRN QID PRN TP MUSCLE PAIN 02/11/21 12:15 02/11/21 12:22 DC Al Hydroxide/Mg Hydroxide (Mylanta Plus Xs) 15 ml PRN AFTMEALHC PRN PO DYSPEPSIA 02/11/21 12:15 02/11/21 12:22 DC Magnesium Hydroxide (Milk Of Magnesia) 2,400 mg PRN QHS PRN PO CONSTIPATION 02/11/21 12:15 02/11/21 12:22 DC Lidocaine (Lidoderm) 1 patch PRN DAILY PRN TD NECK PAIN 02/13/21 19:00 03/17/21 14:46 Olanzapine (ZyPREXA ZYDIS) 2.5 mg PRN Q2HR PRN PO PSYCHOSIS 02/13/21 20:15 02/13/21 23:06 Sertraline HCl (Zoloft) 50 mg DAILY PO 02/14/21 09:00 02/21/21 19:55 DC 02/21/21 08:09 Risperidone (RisperDAL) 0.5 mg QHS PO 02/13/21 21:00 03/21/21 20:57 Lorazepam (Ativan) 0.5 mg PRN Q1HR PRN PO ANXIETY / AGITATION 02/13/21 21:45 02/20/21 20:58 DC 02/20/21 16:54 Multivitamins/ Calcium (Thera-M Plus) 1 tab DAILY PO 02/13/21 21:30 03/22/21 08:29 Clonidine HCl (Catapres) 0.1 mg PRN Q1HR PRN PO SBP>180 OR DBP>100, MR X 3 02/13/21 21:30 Magnesium Oxide (Magnesium Oxide) 400 mg DAILY PO 02/14/21 09:00 02/13/21 21:36 DC Magnesium Oxide (Magnesium Oxide) 400 mg DAILY PO 02/13/21 21:45 03/22/21 08:29 Vitamin D (Vitamin D3) 50,000 unit WEEKLY PO 02/15/21 16:30 03/22/21 08:29 Lorazepam (Ativan) 0.5 mg PRN TID PRN PO ANXIETY / AGITATION 02/20/21 21:00 03/12/21 09:21 Cyclobenzaprine HCl (Flexeril) 10 mg BID PO 02/21/21 21:00 02/21/21 09:33 DC Cyclobenzaprine HCl (Flexeril) 10 mg BID PO 02/21/21 09:45 03/22/21 08:29 Sertraline HCl (Zoloft) 75 mg DAILY PO 02/22/21 09:00 03/22/21 08:28 Hydrocortisone (Cortizone-10) 1 lico PRN TID PRN TP ITCHING 02/24/21 12:00 Mirtazapine (Remeron) 7.5 mg QHS PO 02/28/21 21:30 03/21/21 20:57 Influenza Virus Vaccine Quadrival (Flulaval Quad Syringe) 0.5 ml ONCE ONCE VAX IM 03/11/21 09:00 03/11/21 09:01 DC 03/11/21 11:30 Amoxicillin/ Clavulanate Potassium (Augmentin 875/ 125mg) 1 tab BID PO 03/14/21 17:30 03/14/21 17:23 DC Amoxicillin/ Clavulanate Potassium (Augmentin 875/ 125mg) 1 tab BID PO 03/14/21 18:00 03/15/21 10:44 DC 03/15/21 09:16 Lactobacillus Rhamnosus (Culturelle) 1 cap BID PO 03/14/21 21:00 03/22/21 08:29 Amoxicillin/ Clavulanate Potassium (Augmentin 875/ 125mg) 1 tab BIDWMEALS PO 03/15/21 17:00 03/23/21 18:00 03/22/21 08:29 Carbamide Peroxide (Debrox) 5 drop BID AU 03/21/21 21:00 03/22/21 08:30 Current Medications Medications (Trade) Dose Ordered Sig/Hunter Route PRN Reason Start Time Stop Time Status Last Admin Dose Admin Carbamide Peroxide (Debrox) 5 drop BID AU 03/21/21 21:00 03/22/21 08:30 I have reviewed the current psychotropics carefully including drug interactions. Risk benefit ratio favors no change other than as noted in my dictated progress note. Diagnosis: Problems: (1) Major depressive disorder, recurrent episode (2) Wernicke encephalopathy (3) Anxiety disorder, unspecified (4) Alcohol dependence (5) Alcohol withdrawal (6) Alcohol withdrawal delirium IVANNA GUNDERSON MD Mar 22, 2021 09:32
[2021-03-22 16:12] VITALS: BP 108/70
[2021-03-22 17:34] LABS: BASO # 0.1 x10^3/uL (0.0-0.2); BASO % 1 % (0-3); EOS # 0.5 x10^3/uL (0.0-0.7); EOS % 6 % (0-3); HEMOGLOBIN 11.7 g/dL (12.0-15.5); LYMPH # 2.4 x10^3/uL (1.0-4.8); LYMPH % 28 % (24-48); MEAN CORPUSCULAR HEMOGLOBIN 34 pg (25-35); MEAN CORPUSCULAR HGB CONC 34 g/dL (31-37); MEAN CORPUSCULAR VOLUME 99 fL (79-100); MONO # 0.8 x10^3/uL (0.0-1.1); MONO % 9 % (0-9); NEUT # 4.9 x10^3uL (1.8-7.7); NEUT % 56 % (31-73); PLATELET COUNT 381 x10^3/uL (140-400); RED BLOOD COUNT 3.42 x10^6/uL (3.50-5.40); RED CELL DISTRIBUTION WIDTH 13.7 % (11.5-14.5); WHITE BLOOD COUNT 8.7 x10^3/uL (4.0-11.0)
[2021-03-22 17:48] LABS: ALBUMIN 3.5 g/dL (3.4-5.0); CREATININE 0.3 mg/dL (0.6-1.0); GFR 226.9; TOTAL BILIRUBIN 0.1 mg/dL (0.2-1.0)
[2021-03-22] MEDS: MIRTAZAPINE 7.5 MG TABLET. PO SCH (20:01)
[2021-03-22] MEDS: risperiDONE 0.5 MG TABLET. PO SCH (20:01)
--- NOTE | 2021-03-22 21:56 | PDOC ---
Exam Note: Nadeem Note: Please also refer to the separate dictated note~for this date of service dictated separately.~Patient seen individually. Discussed the patient with Nursing staff reviewed the chart.~Reviewed interim history and current functioning. Reviewed vital signs,~Labs/ Radiology~and current medications noted below. Continue current treatment with the changes noted in the dictated addendum note Assessment: Vital Signs/I&O: Vital Signs Date Time Temp Pulse Resp B/P (MAP) Pulse Ox O2 Delivery O2 Flow Rate FiO2 03/22/21 16:12 98.8 93 18 108/70 (83) 95 03/21/21 15:48 Room Air I & O 03/21/21 03/21/21 03/22/21 15:00 23:00 07:00 Intake Total 1140 ml 1140 ml Balance 1140 ml 1140 ml Labs: Laboratory Tests Test 03/22/21 17:10 White Blood Count 8.7 x10^3/uL (4.0-11.0) Red Blood Count 3.42 x10^6/uL (3.50-5.40) L Hemoglobin 11.7 g/dL (12.0-15.5) L Hematocrit 34.0 % (36.0-47.0) L Mean Corpuscular Volume 99 fL (79-100) Mean Corpuscular Hemoglobin 34 pg (25-35) Mean Corpuscular Hemoglobin Concent 34 g/dL (31-37) Red Cell Distribution Width 13.7 % (11.5-14.5) Platelet Count 381 x10^3/uL (140-400) Neutrophils (%) (Auto) 56 % (31-73) Lymphocytes (%) (Auto) 28 % (24-48) Monocytes (%) (Auto) 9 % (0-9) Eosinophils (%) (Auto) 6 % (0-3) H Basophils (%) (Auto) 1 % (0-3) Neutrophils # (Auto) 4.9 x10^3uL (1.8-7.7) Lymphocytes # (Auto) 2.4 x10^3/uL (1.0-4.8) Monocytes # (Auto) 0.8 x10^3/uL (0.0-1.1) Eosinophils # (Auto) 0.5 x10^3/uL (0.0-0.7) Basophils # (Auto) 0.1 x10^3/uL (0.0-0.2) Sodium Level 133 mmol/L (136-145) L Potassium Level 4.0 mmol/L (3.5-5.1) Chloride Level 97 mmol/L (98-107) L Carbon Dioxide Level 25 mmol/L (21-32) Anion Gap 11 (6-14) Blood Urea Nitrogen 20 mg/dL (7-20) Creatinine 0.3 mg/dL (0.6-1.0) L Estimated GFR (Cockcroft-Gault) 226.9 BUN/Creatinine Ratio 67 (6-20) H Glucose Level 108 mg/dL (70-99) H Calcium Level 9.0 mg/dL (8.5-10.1) Total Bilirubin 0.1 mg/dL (0.2-1.0) L Aspartate Amino Transferase (AST) 14 U/L (15-37) L Alanine Aminotransferase (ALT) 21 U/L (14-59) Alkaline Phosphatase 67 U/L (46-116) Total Protein 7.0 g/dL (6.4-8.2) Albumin 3.5 g/dL (3.4-5.0) Albumin/Globulin Ratio 1.0 (1.0-1.7) Current Medications: Meds: Laboratory Tests Test 03/22/21 17:10 White Blood Count 8.7 x10^3/uL Red Blood Count 3.42 x10^6/uL Hemoglobin 11.7 g/dL Hematocrit 34.0 % Mean Corpuscular Volume 99 fL Mean Corpuscular Hemoglobin 34 pg Mean Corpuscular Hemoglobin Concent 34 g/dL Red Cell Distribution Width 13.7 % Platelet Count 381 x10^3/uL Neutrophils (%) (Auto) 56 % Lymphocytes (%) (Auto) 28 % Monocytes (%) (Auto) 9 % Eosinophils (%) (Auto) 6 % Basophils (%) (Auto) 1 % Neutrophils # (Auto) 4.9 x10^3uL Lymphocytes # (Auto) 2.4 x10^3/uL Monocytes # (Auto) 0.8 x10^3/uL Eosinophils # (Auto) 0.5 x10^3/uL Basophils # (Auto) 0.1 x10^3/uL Sodium Level 133 mmol/L Potassium Level 4.0 mmol/L Chloride Level 97 mmol/L Carbon Dioxide Level 25 mmol/L Anion Gap 11 Blood Urea Nitrogen 20 mg/dL Creatinine 0.3 mg/dL Estimated GFR (Cockcroft-Gault) 226.9 BUN/Creatinine Ratio 67 Glucose Level 108 mg/dL Calcium Level 9.0 mg/dL Total Bilirubin 0.1 mg/dL Aspartate Amino Transf (AST/SGOT) 14 U/L Alanine Aminotransferase (ALT/SGPT) 21 U/L Alkaline Phosphatase 67 U/L Total Protein 7.0 g/dL Albumin 3.5 g/dL Albumin/Globulin Ratio 1.0 Current Medications Medications (Trade) Dose Ordered Sig/Hunter Route PRN Reason Start Time Stop Time Status Last Admin Dose Admin Multi-Ingredient Ointment (Analgesic [place]) 1 lico PRN QID PRN TP MUSCLE PAIN 02/11/21 06:45 03/03/21 20:33 Al Hydroxide/Mg Hydroxide (Mylanta Plus Xs) 15 ml PRN AFTMEALHC PRN PO DYSPEPSIA 02/11/21 06:45 Magnesium Hydroxide (Milk Of Magnesia) 2,400 mg PRN QHS PRN PO CONSTIPATION 02/11/21 06:45 Acetaminophen (Tylenol) 650 mg PRN Q6HRS PRN PO MILD PAIN / TEMP > 100.3'F 02/11/21 12:00 03/19/21 06:15 Enoxaparin Sodium (Lovenox 40mg Syringe) 40 mg DAILY SQ 02/12/21 09:00 02/13/21 17:54 DC Lorazepam (Ativan) 1 mg PRN Q4HRS PRN PO ANXIETY / AGITATION 02/11/21 12:00 02/13/21 21:35 DC 02/13/21 16:15 Melatonin (Melatonin) 3 mg PRN QHS PRN PO INSOMNIA 02/11/21 12:00 03/15/21 20:11 Nicotine (Nicoderm Cq 21mg Patch) 1 patch DAILY TD 02/12/21 09:00 03/22/21 08:28 Nicotine Polacrilex (Nicorette Gum) 2 mg PRN Q2HRS PRN BC SMOKING CESSATION 02/11/21 12:00 02/17/21 18:24 Olanzapine (ZyPREXA ZYDIS) 5 mg PRN BID PRN PO PSYCHOSIS 02/11/21 12:00 02/13/21 20:07 DC 02/13/21 18:10 Potassium Chloride (Klor-Con) 20 meq DAILY PO 02/12/21 09:00 03/22/21 08:29 Folic Acid (Folic Acid) 1 mg DAILY PO 02/12/21 09:00 03/22/21 08:29 Thiamine HCl (Vitamin B-1) 100 mg DAILY PO 02/12/21 09:00 03/22/21 08:29 Non-Formulary Medication ([Folic Acid] ) 1 mg DAILY PO 02/12/21 09:00 02/11/21 12:25 DC Acetaminophen (Tylenol) 650 mg PRN Q6HRS PRN PO MILD PAIN / TEMP > 100.3'F 02/11/21 12:15 02/11/21 12:22 DC Multi-Ingredient Ointment (Analgesic [place]) 1 lico PRN QID PRN TP MUSCLE PAIN 02/11/21 12:15 02/11/21 12:22 DC Al Hydroxide/Mg Hydroxide (Mylanta Plus Xs) 15 ml PRN AFTMEALHC PRN PO DYSPEPSIA 02/11/21 12:15 02/11/21 12:22 DC Magnesium Hydroxide (Milk Of Magnesia) 2,400 mg PRN QHS PRN PO CONSTIPATION 02/11/21 12:15 02/11/21 12:22 DC Lidocaine (Lidoderm) 1 patch PRN DAILY PRN TD NECK PAIN 02/13/21 19:00 03/17/21 14:46 Olanzapine (ZyPREXA ZYDIS) 2.5 mg PRN Q2HR PRN PO PSYCHOSIS 02/13/21 20:15 02/13/21 23:06 Sertraline HCl (Zoloft) 50 mg DAILY PO 02/14/21 09:00 02/21/21 19:55 DC 02/21/21 08:09 Risperidone (RisperDAL) 0.5 mg QHS PO 02/13/21 21:00 03/22/21 20:01 Lorazepam (Ativan) 0.5 mg PRN Q1HR PRN PO ANXIETY / AGITATION 02/13/21 21:45 02/20/21 20:58 DC 02/20/21 16:54 Multivitamins/ Calcium (Thera-M Plus) 1 tab DAILY PO 02/13/21 21:30 03/22/21 08:29 Clonidine HCl (Catapres) 0.1 mg PRN Q1HR PRN PO SBP>180 OR DBP>100, MR X 3 02/13/21 21:30 Magnesium Oxide (Magnesium Oxide) 400 mg DAILY PO 02/14/21 09:00 02/13/21 21:36 DC Magnesium Oxide (Magnesium Oxide) 400 mg DAILY PO 02/13/21 21:45 03/22/21 08:29 Vitamin D (Vitamin D3) 50,000 unit WEEKLY PO 02/15/21 16:30 03/22/21 08:29 Lorazepam (Ativan) 0.5 mg PRN TID PRN PO ANXIETY / AGITATION 02/20/21 21:00 03/12/21 09:21 Cyclobenzaprine HCl (Flexeril) 10 mg BID PO 02/21/21 21:00 02/21/21 09:33 DC Cyclobenzaprine HCl (Flexeril) 10 mg BID PO 02/21/21 09:45 03/22/21 20:01 Sertraline HCl (Zoloft) 75 mg DAILY PO 02/22/21 09:00 03/22/21 08:28 Hydrocortisone (Cortizone-10) 1 lico PRN TID PRN TP ITCHING 02/24/21 12:00 Mirtazapine (Remeron) 7.5 mg QHS PO 02/28/21 21:30 03/22/21 20:01 Influenza Virus Vaccine Quadrival (Flulaval Quad [id number] Syringe) 0.5 ml ONCE ONCE VAX IM 03/11/21 09:00 03/11/21 09:01 DC 03/11/21 11:30 Amoxicillin/ Clavulanate Potassium (Augmentin 875/ 125mg) 1 tab BID PO 03/14/21 17:30 03/14/21 17:23 DC Amoxicillin/ Clavulanate Potassium (Augmentin 875/ 125mg) 1 tab BID PO 03/14/21 18:00 03/15/21 10:44 DC 03/15/21 09:16 Lactobacillus Rhamnosus (Culturelle) 1 cap BID PO 03/14/21 21:00 03/22/21 20:01 Amoxicillin/ Clavulanate Potassium (Augmentin 875/ 125mg) 1 tab BIDWMEALS PO 03/15/21 17:00 03/23/21 18:00 03/22/21 17:00 Carbamide Peroxide (Debrox) 5 drop BID AU 03/21/21 21:00 03/22/21 20:01 I have reviewed the current psychotropics carefully including drug interactions. Risk benefit ratio favors no change other than as noted in my dictated progress note. Diagnosis: Problems: (1) Major depressive disorder, recurrent episode (2) Wernicke encephalopathy (3) Anxiety disorder, unspecified (4) Alcohol dependence (5) Alcohol withdrawal (6) Alcohol withdrawal delirium IVANNA GUNDERSON MD Mar 22, 2021 21:56
[2021-03-23 05:33] VITALS: BP 118/71
[2021-03-23] MEDS: FOLIC ACID 1 MG TABLET PO SCH (08:12)
[2021-03-23] MEDS: THIAMINE 100 MG TABLET. PO SCH (08:12)
[2021-03-23] MEDS: CYCLOBENZAPRINE 10 MG TABLET. PO SCH ×2 (08:12→21:10)
[2021-03-23] MEDS: AMOXICILLIN/K CLAV 875/125MG TABLET. PO SCH ×2 (08:12→17:27)
[2021-03-23] MEDS: SERTRALINE 25 MG TABLET. PO SCH (08:13)
[2021-03-23] MEDS: POTASSIUM CHLORIDE 20 MEQ TABLET.ER. PO SCH (08:13)
[2021-03-23] MEDS: MAGNESIUM OXIDE 400 MG TABLET PO SCH (08:13)
[2021-03-23] MEDS: LACTOBACILLUS RHAMNOSUS GG 1 CAPSULE. PO SCH ×2 (08:13→21:10)
[2021-03-23] MEDS: MULTIVITAMIN with MINERAL TABLET. PO SCH (08:13)
[2021-03-23] MEDS: NICOTINE 21MG PATCH. TD SCH (08:16)
[2021-03-23] MEDS: CARBAMIDE PEROXIDE 6.5% OTIC SOLUTION 15ML BOTTLE. AU SCH ×2 (08:51→21:10)
--- NOTE | 2021-03-23 09:13 | PDOC ---
Exam Note: Nadeem Note: This note is a late entry for 03/21/2021 covers elements not covered in my initial note. Subjective: The patient was seen individually in the evening of 03/21/2021 with Agata SHERMAN, discussed and reviewed the chart. The patient slept 6-1/2 hours previous night. Overall the patient has been fairly cooperative on the unit. She does have some short-term memory deficits, difficulty with computation which she minimizes. She is still insistent on living alone at home and discussed pros and cons of this. Nevertheless she signs for herself and would ultimately have to make this decision herself and consultation with her family who certainly want a higher level of care. Addressed this with her. Review of Systems: No CV, , pulmonary, eye, ENT system symptoms on review. Mental Status Exam: The patient is reasonably oriented. She was very verbal, somewhat anxious, very confident she will never use alcohol again. She has difficulty with serial 7s, not able to do even one step as I again questioned her on this. Speech coherent. Abstraction fair. Computation impaired. Language function intact. Attention span short. Mood and affect withdrawn. No suicidal or homicidal ideation. Laboratory Data: Reviewed. Impression: Major depressive disorder recurrent. Alcohol abuse/dependence/withdrawal. Anxiety disorder unspecified. History of Wernickes encephalopathy. Plan: Continue psychotropics mentioned in my initial note. Transition to a lower level of care as soon as this is arranged by social service staff. Assessment: Vital Signs/I&O: Vital Signs Date Time Temp Pulse Resp B/P (MAP) Pulse Ox O2 Delivery O2 Flow Rate FiO2 03/23/21 05:33 97.1 81 16 118/71 (87) 96 03/21/21 15:48 Room Air I & O 03/22/21 03/22/21 03/23/21 15:00 23:00 07:00 Intake Total 600 ml 840 ml Balance 600 ml 840 ml Labs: Laboratory Tests Test 03/22/21 17:10 White Blood Count 8.7 x10^3/uL (4.0-11.0) Red Blood Count 3.42 x10^6/uL (3.50-5.40) L Hemoglobin 11.7 g/dL (12.0-15.5) L Hematocrit 34.0 % (36.0-47.0) L Mean Corpuscular Volume 99 fL (79-100) Mean Corpuscular Hemoglobin 34 pg (25-35) Mean Corpuscular Hemoglobin Concent 34 g/dL (31-37) Red Cell Distribution Width 13.7 % (11.5-14.5) Platelet Count 381 x10^3/uL (140-400) Neutrophils (%) (Auto) 56 % (31-73) Lymphocytes (%) (Auto) 28 % (24-48) Monocytes (%) (Auto) 9 % (0-9) Eosinophils (%) (Auto) 6 % (0-3) H Basophils (%) (Auto) 1 % (0-3) Neutrophils # (Auto) 4.9 x10^3uL (1.8-7.7) Lymphocytes # (Auto) 2.4 x10^3/uL (1.0-4.8) Monocytes # (Auto) 0.8 x10^3/uL (0.0-1.1) Eosinophils # (Auto) 0.5 x10^3/uL (0.0-0.7) Basophils # (Auto) 0.1 x10^3/uL (0.0-0.2) Sodium Level 133 mmol/L (136-145) L Potassium Level 4.0 mmol/L (3.5-5.1) Chloride Level 97 mmol/L (98-107) L Carbon Dioxide Level 25 mmol/L (21-32) Anion Gap 11 (6-14) Blood Urea Nitrogen 20 mg/dL (7-20) Creatinine 0.3 mg/dL (0.6-1.0) L Estimated GFR (Cockcroft-Gault) 226.9 BUN/Creatinine Ratio 67 (6-20) H Glucose Level 108 mg/dL (70-99) H Calcium Level 9.0 mg/dL (8.5-10.1) Total Bilirubin 0.1 mg/dL (0.2-1.0) L Aspartate Amino Transferase (AST) 14 U/L (15-37) L Alanine Aminotransferase (ALT) 21 U/L (14-59) Alkaline Phosphatase 67 U/L (46-116) Total Protein 7.0 g/dL (6.4-8.2) Albumin 3.5 g/dL (3.4-5.0) Albumin/Globulin Ratio 1.0 (1.0-1.7) Current Medications: Meds: Laboratory Tests Test 03/22/21 17:10 White Blood Count 8.7 x10^3/uL Red Blood Count 3.42 x10^6/uL Hemoglobin 11.7 g/dL Hematocrit 34.0 % Mean Corpuscular Volume 99 fL Mean Corpuscular Hemoglobin 34 pg Mean Corpuscular Hemoglobin Concent 34 g/dL Red Cell Distribution Width 13.7 % Platelet Count 381 x10^3/uL Neutrophils (%) (Auto) 56 % Lymphocytes (%) (Auto) 28 % Monocytes (%) (Auto) 9 % Eosinophils (%) (Auto) 6 % Basophils (%) (Auto) 1 % Neutrophils # (Auto) 4.9 x10^3uL Lymphocytes # (Auto) 2.4 x10^3/uL Monocytes # (Auto) 0.8 x10^3/uL Eosinophils # (Auto) 0.5 x10^3/uL Basophils # (Auto) 0.1 x10^3/uL Sodium Level 133 mmol/L Potassium Level 4.0 mmol/L Chloride Level 97 mmol/L Carbon Dioxide Level 25 mmol/L Anion Gap 11 Blood Urea Nitrogen 20 mg/dL Creatinine 0.3 mg/dL Estimated GFR (Cockcroft-Gault) 226.9 BUN/Creatinine Ratio 67 Glucose Level 108 mg/dL Calcium Level 9.0 mg/dL Total Bilirubin 0.1 mg/dL Aspartate Amino Transf (AST/SGOT) 14 U/L Alanine Aminotransferase (ALT/SGPT) 21 U/L Alkaline Phosphatase 67 U/L Total Protein 7.0 g/dL Albumin 3.5 g/dL Albumin/Globulin Ratio 1.0 Current Medications Medications (Trade) Dose Ordered Sig/Hunter Route PRN Reason Start Time Stop Time Status Last Admin Dose Admin Multi-Ingredient Ointment (Analgesic [place]) 1 lico PRN QID PRN TP MUSCLE PAIN 02/11/21 06:45 03/03/21 20:33 Al Hydroxide/Mg Hydroxide (Mylanta Plus Xs) 15 ml PRN AFTMEALHC PRN PO DYSPEPSIA 02/11/21 06:45 Magnesium Hydroxide (Milk Of Magnesia) 2,400 mg PRN QHS PRN PO CONSTIPATION 02/11/21 06:45 Acetaminophen (Tylenol) 650 mg PRN Q6HRS PRN PO MILD PAIN / TEMP > 100.3'F 02/11/21 12:00 03/19/21 06:15 Enoxaparin Sodium (Lovenox 40mg Syringe) 40 mg DAILY SQ 02/12/21 09:00 02/13/21 17:54 DC Lorazepam (Ativan) 1 mg PRN Q4HRS PRN PO ANXIETY / AGITATION 02/11/21 12:00 02/13/21 21:35 DC 02/13/21 16:15 Melatonin (Melatonin) 3 mg PRN QHS PRN PO INSOMNIA 02/11/21 12:00 03/15/21 20:11 Nicotine (Nicoderm Cq 21mg Patch) 1 patch DAILY TD 02/12/21 09:00 03/23/21 08:16 Nicotine Polacrilex (Nicorette Gum) 2 mg PRN Q2HRS PRN BC SMOKING CESSATION 02/11/21 12:00 02/17/21 18:24 Olanzapine (ZyPREXA ZYDIS) 5 mg PRN BID PRN PO PSYCHOSIS 02/11/21 12:00 02/13/21 20:07 DC 02/13/21 18:10 Potassium Chloride (Klor-Con) 20 meq DAILY PO 02/12/21 09:00 03/23/21 08:13 Folic Acid (Folic Acid) 1 mg DAILY PO 02/12/21 09:00 03/23/21 08:12 Thiamine HCl (Vitamin B-1) 100 mg DAILY PO 02/12/21 09:00 03/23/21 08:12 Non-Formulary Medication ([Folic Acid] ) 1 mg DAILY PO 02/12/21 09:00 02/11/21 12:25 DC Acetaminophen (Tylenol) 650 mg PRN Q6HRS PRN PO MILD PAIN / TEMP > 100.3'F 02/11/21 12:15 02/11/21 12:22 DC Multi-Ingredient Ointment (Analgesic [place]) 1 lico PRN QID PRN TP MUSCLE PAIN 02/11/21 12:15 02/11/21 12:22 DC Al Hydroxide/Mg Hydroxide (Mylanta Plus Xs) 15 ml PRN AFTMEALHC PRN PO DYSPEPSIA 02/11/21 12:15 02/11/21 12:22 DC Magnesium Hydroxide (Milk Of Magnesia) 2,400 mg PRN QHS PRN PO CONSTIPATION 02/11/21 12:15 02/11/21 12:22 DC Lidocaine (Lidoderm) 1 patch PRN DAILY PRN TD NECK PAIN 02/13/21 19:00 03/17/21 14:46 Olanzapine (ZyPREXA ZYDIS) 2.5 mg PRN Q2HR PRN PO PSYCHOSIS 02/13/21 20:15 02/13/21 23:06 Sertraline HCl (Zoloft) 50 mg DAILY PO 02/14/21 09:00 02/21/21 19:55 DC 02/21/21 08:09 Risperidone (RisperDAL) 0.5 mg QHS PO 02/13/21 21:00 03/22/21 20:01 Lorazepam (Ativan) 0.5 mg PRN Q1HR PRN PO ANXIETY / AGITATION 02/13/21 21:45 02/20/21 20:58 DC 02/20/21 16:54 Multivitamins/ Calcium (Thera-M Plus) 1 tab DAILY PO 02/13/21 21:30 03/23/21 08:13 Clonidine HCl (Catapres) 0.1 mg PRN Q1HR PRN PO SBP>180 OR DBP>100, MR X 3 02/13/21 21:30 Magnesium Oxide (Magnesium Oxide) 400 mg DAILY PO 02/14/21 09:00 02/13/21 21:36 DC Magnesium Oxide (Magnesium Oxide) 400 mg DAILY PO 02/13/21 21:45 03/23/21 08:13 Vitamin D (Vitamin D3) 50,000 unit WEEKLY PO 02/15/21 16:30 03/22/21 08:29 Lorazepam (Ativan) 0.5 mg PRN TID PRN PO ANXIETY / AGITATION 02/20/21 21:00 03/12/21 09:21 Cyclobenzaprine HCl (Flexeril) 10 mg BID PO 02/21/21 21:00 02/21/21 09:33 DC Cyclobenzaprine HCl (Flexeril) 10 mg BID PO 02/21/21 09:45 03/23/21 08:12 Sertraline HCl (Zoloft) 75 mg DAILY PO 02/22/21 09:00 03/23/21 08:13 Hydrocortisone (Cortizone-10) 1 lico PRN TID PRN TP ITCHING 02/24/21 12:00 Mirtazapine (Remeron) 7.5 mg QHS PO 02/28/21 21:30 03/22/21 20:01 Influenza Virus Vaccine Quadrival (Flulaval Quad Syringe) 0.5 ml ONCE ONCE VAX IM 03/11/21 09:00 03/11/21 09:01 DC 03/11/21 11:30 Amoxicillin/ Clavulanate Potassium (Augmentin 875/ 125mg) 1 tab BID PO 03/14/21 17:30 03/14/21 17:23 DC Amoxicillin/ Clavulanate Potassium (Augmentin 875/ 125mg) 1 tab BID PO 03/14/21 18:00 03/15/21 10:44 DC 03/15/21 09:16 Lactobacillus Rhamnosus (Culturelle) 1 cap BID PO 03/14/21 21:00 03/23/21 08:13 Amoxicillin/ Clavulanate Potassium (Augmentin 875/ 125mg) 1 tab BIDWMEALS PO 03/15/21 17:00 03/23/21 18:00 03/23/21 08:12 Carbamide Peroxide (Debrox) 5 drop BID AU 03/21/21 21:00 03/23/21 08:51 I have reviewed the current psychotropics carefully including drug interactions. Risk benefit ratio favors no change other than as noted in my dictated progress note. Diagnosis: Problems: (1) Major depressive disorder, recurrent episode (2) Wernicke encephalopathy (3) Anxiety disorder, unspecified (4) Alcohol dependence (5) Alcohol withdrawal (6) Alcohol withdrawal delirium IVANNA GUNDERSON MD Mar 23, 2021 09:13
[2021-03-23 15:41] VITALS: BP 101/65
[2021-03-23] MEDS: MIRTAZAPINE 7.5 MG TABLET. PO SCH (21:10)
[2021-03-23] MEDS: risperiDONE 0.5 MG TABLET. PO SCH (21:10)
--- NOTE | 2021-03-23 21:51 | PDOC ---
Exam Note: Nadeem Note: Please also refer to the separate dictated note~for this date of service dictated separately.~Patient seen individually. Discussed the patient with Nursing staff reviewed the chart.~Reviewed interim history and current functioning. Reviewed vital signs,~Labs/ Radiology~and current medications noted below. Continue current treatment with the changes noted in the dictated addendum note Assessment: Vital Signs/I&O: Vital Signs Date Time Temp Pulse Resp B/P (MAP) Pulse Ox O2 Delivery O2 Flow Rate FiO2 03/23/21 15:41 98.4 88 18 101/65 (77) 97 Room Air I & O 03/22/21 03/22/21 03/23/21 15:00 23:00 07:00 Intake Total 600 ml 840 ml Balance 600 ml 840 ml Current Medications: Meds: Current Medications Medications (Trade) Dose Ordered Sig/Hunter Route PRN Reason Start Time Stop Time Status Last Admin Dose Admin Multi-Ingredient Ointment (Analgesic [place]) 1 lico PRN QID PRN TP MUSCLE PAIN 02/11/21 06:45 03/03/21 20:33 Al Hydroxide/Mg Hydroxide (Mylanta Plus Xs) 15 ml PRN AFTMEALHC PRN PO DYSPEPSIA 02/11/21 06:45 Magnesium Hydroxide (Milk Of Magnesia) 2,400 mg PRN QHS PRN PO CONSTIPATION 02/11/21 06:45 Acetaminophen (Tylenol) 650 mg PRN Q6HRS PRN PO MILD PAIN / TEMP > 100.3'F 02/11/21 12:00 03/19/21 06:15 Enoxaparin Sodium (Lovenox 40mg Syringe) 40 mg DAILY SQ 02/12/21 09:00 02/13/21 17:54 DC Lorazepam (Ativan) 1 mg PRN Q4HRS PRN PO ANXIETY / AGITATION 02/11/21 12:00 02/13/21 21:35 DC 02/13/21 16:15 Melatonin (Melatonin) 3 mg PRN QHS PRN PO INSOMNIA 02/11/21 12:00 03/15/21 20:11 Nicotine (Nicoderm Cq 21mg Patch) 1 patch DAILY TD 02/12/21 09:00 03/23/21 08:16 Nicotine Polacrilex (Nicorette Gum) 2 mg PRN Q2HRS PRN BC SMOKING CESSATION 02/11/21 12:00 02/17/21 18:24 Olanzapine (ZyPREXA ZYDIS) 5 mg PRN BID PRN PO PSYCHOSIS 02/11/21 12:00 02/13/21 20:07 DC 02/13/21 18:10 Potassium Chloride (Klor-Con) 20 meq DAILY PO 02/12/21 09:00 03/23/21 08:13 Folic Acid (Folic Acid) 1 mg DAILY PO 02/12/21 09:00 03/23/21 08:12 Thiamine HCl (Vitamin B-1) 100 mg DAILY PO 02/12/21 09:00 03/23/21 08:12 Non-Formulary Medication ([Folic Acid] ) 1 mg DAILY PO 02/12/21 09:00 02/11/21 12:25 DC Acetaminophen (Tylenol) 650 mg PRN Q6HRS PRN PO MILD PAIN / TEMP > 100.3'F 02/11/21 12:15 02/11/21 12:22 DC Multi-Ingredient Ointment (Analgesic [place]) 1 lico PRN QID PRN TP MUSCLE PAIN 02/11/21 12:15 02/11/21 12:22 DC Al Hydroxide/Mg Hydroxide (Mylanta Plus Xs) 15 ml PRN AFTMEALHC PRN PO DYSPEPSIA 02/11/21 12:15 02/11/21 12:22 DC Magnesium Hydroxide (Milk Of Magnesia) 2,400 mg PRN QHS PRN PO CONSTIPATION 02/11/21 12:15 02/11/21 12:22 DC Lidocaine (Lidoderm) 1 patch PRN DAILY PRN TD NECK PAIN 02/13/21 19:00 03/17/21 14:46 Olanzapine (ZyPREXA ZYDIS) 2.5 mg PRN Q2HR PRN PO PSYCHOSIS 02/13/21 20:15 02/13/21 23:06 Sertraline HCl (Zoloft) 50 mg DAILY PO 02/14/21 09:00 02/21/21 19:55 DC 02/21/21 08:09 Risperidone (RisperDAL) 0.5 mg QHS PO 02/13/21 21:00 03/23/21 21:10 Lorazepam (Ativan) 0.5 mg PRN Q1HR PRN PO ANXIETY / AGITATION 02/13/21 21:45 02/20/21 20:58 DC 02/20/21 16:54 Multivitamins/ Calcium (Thera-M Plus) 1 tab DAILY PO 02/13/21 21:30 03/23/21 08:13 Clonidine HCl (Catapres) 0.1 mg PRN Q1HR PRN PO SBP>180 OR DBP>100, MR X 3 02/13/21 21:30 Magnesium Oxide (Magnesium Oxide) 400 mg DAILY PO 02/14/21 09:00 02/13/21 21:36 DC Magnesium Oxide (Magnesium Oxide) 400 mg DAILY PO 02/13/21 21:45 03/23/21 08:13 Vitamin D (Vitamin D3) 50,000 unit WEEKLY PO 02/15/21 16:30 03/22/21 08:29 Lorazepam (Ativan) 0.5 mg PRN TID PRN PO ANXIETY / AGITATION 02/20/21 21:00 03/12/21 09:21 Cyclobenzaprine HCl (Flexeril) 10 mg BID PO 02/21/21 21:00 02/21/21 09:33 DC Cyclobenzaprine HCl (Flexeril) 10 mg BID PO 02/21/21 09:45 03/23/21 21:10 Sertraline HCl (Zoloft) 75 mg DAILY PO 02/22/21 09:00 03/23/21 08:13 Hydrocortisone (Cortizone-10) 1 lico PRN TID PRN TP ITCHING 02/24/21 12:00 Mirtazapine (Remeron) 7.5 mg QHS PO 02/28/21 21:30 03/23/21 21:10 Influenza Virus Vaccine Quadrival (Flulaval Quad [id number] Syringe) 0.5 ml ONCE ONCE VAX IM 03/11/21 09:00 03/11/21 09:01 DC 03/11/21 11:30 Amoxicillin/ Clavulanate Potassium (Augmentin 875/ 125mg) 1 tab BID PO 03/14/21 17:30 03/14/21 17:23 DC Amoxicillin/ Clavulanate Potassium (Augmentin 875/ 125mg) 1 tab BID PO 03/14/21 18:00 03/15/21 10:44 DC 03/15/21 09:16 Lactobacillus Rhamnosus (Culturelle) 1 cap BID PO 03/14/21 21:00 03/23/21 21:10 Amoxicillin/ Clavulanate Potassium (Augmentin 875/ 125mg) 1 tab BIDWMEALS PO 03/15/21 17:00 03/23/21 18:00 DC 03/23/21 17:27 Carbamide Peroxide (Debrox) 5 drop BID AU 03/21/21 21:00 03/23/21 21:10 I have reviewed the current psychotropics carefully including drug interactions. Risk benefit ratio favors no change other than as noted in my dictated progress note. Diagnosis: Problems: (1) Major depressive disorder, recurrent episode (2) Wernicke encephalopathy (3) Anxiety disorder, unspecified (4) Alcohol dependence (5) Alcohol withdrawal (6) Alcohol withdrawal delirium IVANNA GUNDERSON MD Mar 23, 2021 21:51
[2021-03-24 06:28] VITALS: BP 117/76
[2021-03-24] MEDS: LACTOBACILLUS RHAMNOSUS GG 1 CAPSULE. PO SCH ×2 (08:39→20:31)
[2021-03-24] MEDS: THIAMINE 100 MG TABLET. PO SCH (08:39)
[2021-03-24] MEDS: FOLIC ACID 1 MG TABLET PO SCH (08:39)
[2021-03-24] MEDS: NICOTINE 21MG PATCH. TD SCH (08:39)
[2021-03-24] MEDS: POTASSIUM CHLORIDE 20 MEQ TABLET.ER. PO SCH (08:39)
[2021-03-24] MEDS: MULTIVITAMIN with MINERAL TABLET. PO SCH (08:39)
[2021-03-24] MEDS: SERTRALINE 25 MG TABLET. PO SCH (08:39)
[2021-03-24] MEDS: CYCLOBENZAPRINE 10 MG TABLET. PO SCH ×2 (08:39→20:31)
[2021-03-24] MEDS: MAGNESIUM OXIDE 400 MG TABLET PO SCH (08:39)
[2021-03-24] MEDS: CARBAMIDE PEROXIDE 6.5% OTIC SOLUTION 15ML BOTTLE. AU SCH (09:00)
--- NOTE | 2021-03-24 09:38 | PDOC ---
Exam Note: Nadeem Note: This note is a late entry for 03/22/2021 covers elements not covered in my initial note. Subjective: The patient was seen individually in the evening of 03/22/2021 with rKisten SHERMAN, discussed and reviewed the chart. The patient slept 6-3/4 hours previous night. Overall the patient is doing better. She has difficulty with her computation as before but seems cognitively more intact on the surface than she truly is. She is on antibiotics for her ear infection. Review of Systems: No CV, , pulmonary, eye system symptoms on review. She does complain of some itching in the ear. Mental Status Exam: The patient is reasonably oriented. Speech coherent. Abstraction fair. Computation impaired. Language function intact. Attention span short. Mood and affect lability is improved. Laboratory Data: Reviewed. Impression: Major depressive disorder recurrent. Alcohol abuse/dependence/withdrawal. Anxiety disorder unspecified. History of Wernickes encephalopathy. Plan: Continue psychotropics mentioned in my initial note. Assessment: Vital Signs/I&O: Vital Signs Date Time Temp Pulse Resp B/P (MAP) Pulse Ox O2 Delivery O2 Flow Rate FiO2 03/24/21 06:28 97.0 73 16 117/76 (90) 97 03/23/21 15:41 Room Air I & O 03/23/21 03/23/21 03/24/21 15:00 23:00 07:00 Intake Total 1320 ml 1080 ml Balance 1320 ml 1080 ml Current Medications: Meds: Current Medications Medications (Trade) Dose Ordered Sig/Hunter Route PRN Reason Start Time Stop Time Status Last Admin Dose Admin Multi-Ingredient Ointment (Analgesic [place]) 1 lico PRN QID PRN TP MUSCLE PAIN 02/11/21 06:45 03/03/21 20:33 Al Hydroxide/Mg Hydroxide (Mylanta Plus Xs) 15 ml PRN AFTMEALHC PRN PO DYSPEPSIA 02/11/21 06:45 Magnesium Hydroxide (Milk Of Magnesia) 2,400 mg PRN QHS PRN PO CONSTIPATION 02/11/21 06:45 Acetaminophen (Tylenol) 650 mg PRN Q6HRS PRN PO MILD PAIN / TEMP > 100.3'F 02/11/21 12:00 03/19/21 06:15 Enoxaparin Sodium (Lovenox 40mg Syringe) 40 mg DAILY SQ 02/12/21 09:00 02/13/21 17:54 DC Lorazepam (Ativan) 1 mg PRN Q4HRS PRN PO ANXIETY / AGITATION 02/11/21 12:00 02/13/21 21:35 DC 02/13/21 16:15 Melatonin (Melatonin) 3 mg PRN QHS PRN PO INSOMNIA 02/11/21 12:00 03/15/21 20:11 Nicotine (Nicoderm Cq 21mg Patch) 1 patch DAILY TD 02/12/21 09:00 03/24/21 08:39 Nicotine Polacrilex (Nicorette Gum) 2 mg PRN Q2HRS PRN BC SMOKING CESSATION 02/11/21 12:00 02/17/21 18:24 Olanzapine (ZyPREXA ZYDIS) 5 mg PRN BID PRN PO PSYCHOSIS 02/11/21 12:00 02/13/21 20:07 DC 02/13/21 18:10 Potassium Chloride (Klor-Con) 20 meq DAILY PO 02/12/21 09:00 03/24/21 08:39 Folic Acid (Folic Acid) 1 mg DAILY PO 02/12/21 09:00 03/24/21 08:39 Thiamine HCl (Vitamin B-1) 100 mg DAILY PO 02/12/21 09:00 03/24/21 08:39 Non-Formulary Medication ([Folic Acid] ) 1 mg DAILY PO 02/12/21 09:00 02/11/21 12:25 DC Acetaminophen (Tylenol) 650 mg PRN Q6HRS PRN PO MILD PAIN / TEMP > 100.3'F 02/11/21 12:15 02/11/21 12:22 DC Multi-Ingredient Ointment (Analgesic [place]) 1 lico PRN QID PRN TP MUSCLE PAIN 02/11/21 12:15 02/11/21 12:22 DC Al Hydroxide/Mg Hydroxide (Mylanta Plus Xs) 15 ml PRN AFTMEALHC PRN PO DYSPEPSIA 02/11/21 12:15 02/11/21 12:22 DC Magnesium Hydroxide (Milk Of Magnesia) 2,400 mg PRN QHS PRN PO CONSTIPATION 02/11/21 12:15 02/11/21 12:22 DC Lidocaine (Lidoderm) 1 patch PRN DAILY PRN TD NECK PAIN 02/13/21 19:00 03/17/21 14:46 Olanzapine (ZyPREXA ZYDIS) 2.5 mg PRN Q2HR PRN PO PSYCHOSIS 02/13/21 20:15 02/13/21 23:06 Sertraline HCl (Zoloft) 50 mg DAILY PO 02/14/21 09:00 02/21/21 19:55 DC 02/21/21 08:09 Risperidone (RisperDAL) 0.5 mg QHS PO 02/13/21 21:00 03/23/21 21:10 Lorazepam (Ativan) 0.5 mg PRN Q1HR PRN PO ANXIETY / AGITATION 02/13/21 21:45 02/20/21 20:58 DC 02/20/21 16:54 Multivitamins/ Calcium (Thera-M Plus) 1 tab DAILY PO 02/13/21 21:30 03/24/21 08:39 Clonidine HCl (Catapres) 0.1 mg PRN Q1HR PRN PO SBP>180 OR DBP>100, MR X 3 02/13/21 21:30 Magnesium Oxide (Magnesium Oxide) 400 mg DAILY PO 02/14/21 09:00 02/13/21 21:36 DC Magnesium Oxide (Magnesium Oxide) 400 mg DAILY PO 02/13/21 21:45 03/24/21 08:39 Vitamin D (Vitamin D3) 50,000 unit WEEKLY PO 02/15/21 16:30 03/22/21 08:29 Lorazepam (Ativan) 0.5 mg PRN TID PRN PO ANXIETY / AGITATION 02/20/21 21:00 03/12/21 09:21 Cyclobenzaprine HCl (Flexeril) 10 mg BID PO 02/21/21 21:00 02/21/21 09:33 DC Cyclobenzaprine HCl (Flexeril) 10 mg BID PO 02/21/21 09:45 03/24/21 08:39 Sertraline HCl (Zoloft) 75 mg DAILY PO 02/22/21 09:00 03/24/21 08:39 Hydrocortisone (Cortizone-10) 1 lico PRN TID PRN TP ITCHING 02/24/21 12:00 Mirtazapine (Remeron) 7.5 mg QHS PO 02/28/21 21:30 10/4/21 21:10 Influenza Virus Vaccine Quadrival (Flulaval Quad Syringe) 0.5 ml ONCE ONCE VAX IM 03/11/21 09:00 03/11/21 09:01 DC 03/11/21 11:30 Amoxicillin/ Clavulanate Potassium (Augmentin 875/ 125mg) 1 tab BID PO 03/14/21 17:30 03/14/21 17:23 DC Amoxicillin/ Clavulanate Potassium (Augmentin 875/ 125mg) 1 tab BID PO 03/14/21 18:00 03/15/21 10:44 DC 03/15/21 09:16 Lactobacillus Rhamnosus (Culturelle) 1 cap BID PO 03/14/21 21:00 03/24/21 08:39 Amoxicillin/ Clavulanate Potassium (Augmentin 875/ 125mg) 1 tab BIDWMEALS PO 03/15/21 17:00 03/23/21 18:00 DC 03/23/21 17:27 Carbamide Peroxide (Debrox) 5 drop BID AU 03/21/21 21:00 03/24/21 09:00 I have reviewed the current psychotropics carefully including drug interactions. Risk benefit ratio favors no change other than as noted in my dictated progress note. Diagnosis: Problems: (1) Major depressive disorder, recurrent episode (2) Wernicke encephalopathy (3) Anxiety disorder, unspecified (4) Alcohol dependence (5) Alcohol withdrawal (6) Alcohol withdrawal delirium IVANNA GUNDERSON MD Mar 24, 2021 09:38
--- NOTE | 2021-03-24 09:59 | PDOC ---
Exam Note: Nadeem Note: This note is a late entry for 03/23/2021 covers elements not covered in my initial note. Subjective: The patient was seen individually in the evening of 03/23/2021 with Kristen SHERMAN, discussed and reviewed the chart. The patient slept 6 hours previous night. Overall the patient is doing reasonably well. She still seem to minimize her alcohol usage and quite insistent on going home. Social service staff will coordinate this with the family. Review of Systems: No CV, , pulmonary, eye system symptoms on review. Mental Status Exam: The patient is reasonably oriented. Speech coherent. Abstraction fair. Computation impaired. Language function intact. Attention span short. Mood and affect lability is improved. Laboratory Data: Reviewed. Impression: Major depressive disorder recurrent. Alcohol abuse/d ependence/withdrawal. Anxiety disorder unspecified. History of Wernickes encephalopathy. Plan: Continue psychotropics mentioned in my initial note. Assessment: Vital Signs/I&O: Vital Signs Date Time Temp Pulse Resp B/P (MAP) Pulse Ox O2 Delivery O2 Flow Rate FiO2 03/24/21 06:28 97.0 73 16 117/76 (90) 97 03/23/21 15:41 Room Air I & O 03/23/21 03/23/21 03/24/21 15:00 23:00 07:00 Intake Total 1320 ml 1080 ml Balance 1320 ml 1080 ml Current Medications: Meds: Current Medications Medications (Trade) Dose Ordered Sig/Hunter Route PRN Reason Start Time Stop Time Status Last Admin Dose Admin Multi-Ingredient Ointment (Analgesic [place]) 1 lico PRN QID PRN TP MUSCLE PAIN 02/11/21 06:45 03/03/21 20:33 Al Hydroxide/Mg Hydroxide (Mylanta Plus Xs) 15 ml PRN AFTMEALHC PRN PO DYSPEPSIA 02/11/21 06:45 Magnesium Hydroxide (Milk Of Magnesia) 2,400 mg PRN QHS PRN PO CONSTIPATION 02/11/21 06:45 Acetaminophen (Tylenol) 650 mg PRN Q6HRS PRN PO MILD PAIN / TEMP > 100.3'F 02/11/21 12:00 03/19/21 06:15 Enoxaparin Sodium (Lovenox 40mg Syringe) 40 mg DAILY SQ 02/12/21 09:00 02/13/21 17:54 DC Lorazepam (Ativan) 1 mg PRN Q4HRS PRN PO ANXIETY / AGITATION 02/11/21 12:00 02/13/21 21:35 DC 02/13/21 16:15 Melatonin (Melatonin) 3 mg PRN QHS PRN PO INSOMNIA 02/11/21 12:00 03/15/21 20:11 Nicotine (Nicoderm Cq 21mg Patch) 1 patch DAILY TD 02/12/21 09:00 03/24/21 08:39 Nicotine Polacrilex (Nicorette Gum) 2 mg PRN Q2HRS PRN BC SMOKING CESSATION 02/11/21 12:00 02/17/21 18:24 Olanzapine (ZyPREXA ZYDIS) 5 mg PRN BID PRN PO PSYCHOSIS 02/11/21 12:00 02/13/21 20:07 DC 02/13/21 18:10 Potassium Chloride (Klor-Con) 20 meq DAILY PO 02/12/21 09:00 03/24/21 08:39 Folic Acid (Folic Acid) 1 mg DAILY PO 02/12/21 09:00 03/24/21 08:39 Thiamine HCl (Vitamin B-1) 100 mg DAILY PO 02/12/21 09:00 03/24/21 08:39 Non-Formulary Medication ([Folic Acid] ) 1 mg DAILY PO 02/12/21 09:00 02/11/21 12:25 DC Acetaminophen (Tylenol) 650 mg PRN Q6HRS PRN PO MILD PAIN / TEMP > 100.3'F 02/11/21 12:15 02/11/21 12:22 DC Multi-Ingredient Ointment (Analgesic [place]) 1 lico PRN QID PRN TP MUSCLE PAIN 02/11/21 12:15 02/11/21 12:22 DC Al Hydroxide/Mg Hydroxide (Mylanta Plus Xs) 15 ml PRN AFTMEALHC PRN PO DYSPEPSIA 02/11/21 12:15 02/11/21 12:22 DC Magnesium Hydroxide (Milk Of Magnesia) 2,400 mg PRN QHS PRN PO CONSTIPATION 02/11/21 12:15 02/11/21 12:22 DC Lidocaine (Lidoderm) 1 patch PRN DAILY PRN TD NECK PAIN 02/13/21 19:00 03/17/21 14:46 Olanzapine (ZyPREXA ZYDIS) 2.5 mg PRN Q2HR PRN PO PSYCHOSIS 02/13/21 20:15 02/13/21 23:06 Sertraline HCl (Zoloft) 50 mg DAILY PO 02/14/21 09:00 02/21/21 19:55 DC 02/21/21 08:09 Risperidone (RisperDAL) 0.5 mg QHS PO 02/13/21 21:00 03/23/21 21:10 Lorazepam (Ativan) 0.5 mg PRN Q1HR PRN PO ANXIETY / AGITATION 02/13/21 21:45 02/20/21 20:58 DC 02/20/21 16:54 Multivitamins/ Calcium (Thera-M Plus) 1 tab DAILY PO 02/13/21 21:30 03/24/21 08:39 Clonidine HCl (Catapres) 0.1 mg PRN Q1HR PRN PO SBP>180 OR DBP>100, MR X 3 02/13/21 21:30 Magnesium Oxide (Magnesium Oxide) 400 mg DAILY PO 02/14/21 09:00 02/13/21 21:36 DC Magnesium Oxide (Magnesium Oxide) 400 mg DAILY PO 02/13/21 21:45 03/24/21 08:39 Vitamin D (Vitamin D3) 50,000 unit WEEKLY PO 02/15/21 16:30 03/22/21 08:29 Lorazepam (Ativan) 0.5 mg PRN TID PRN PO ANXIETY / AGITATION 02/20/21 21:00 03/12/21 09:21 Cyclobenzaprine HCl (Flexeril) 10 mg BID PO 02/21/21 21:00 02/21/21 09:33 DC Cyclobenzaprine HCl (Flexeril) 10 mg BID PO 02/21/21 09:45 03/24/21 08:39 Sertraline HCl (Zoloft) 75 mg DAILY PO 02/22/21 09:00 03/24/21 08:39 Hydrocortisone (Cortizone-10) 1 lico PRN TID PRN TP ITCHING 02/24/21 12:00 Mirtazapine (Remeron) 7.5 mg QHS PO 02/28/21 21:30 03/23/21 21:10 Influenza Virus Vaccine Quadrival (Flulaval Quad [id number] Syringe) 0.5 ml ONCE ONCE VAX IM 03/11/21 09:00 03/11/21 09:01 DC 03/11/21 11:30 Amoxicillin/ Clavulanate Potassium (Augmentin 875/ 125mg) 1 tab BID PO 03/14/21 17:30 03/14/21 17:23 DC Amoxicillin/ Clavulanate Potassium (Augmentin 875/ 125mg) 1 tab BID PO 03/14/21 18:00 03/15/21 10:44 DC 03/15/21 09:16 Lactobacillus Rhamnosus (Culturelle) 1 cap BID PO 03/14/21 21:00 03/24/21 08:39 Amoxicillin/ Clavulanate Potassium (Augmentin 875/ 125mg) 1 tab BIDWMEALS PO 03/15/21 17:00 03/23/21 18:00 DC 03/23/21 17:27 Carbamide Peroxide (Debrox) 5 drop BID AU 03/21/21 21:00 03/24/21 09:00 I have reviewed the current psychotropics carefully including drug interactions. Risk benefit ratio favors no change other than as noted in my dictated progress note. Diagnosis: Problems: (1) Major depressive disorder, recurrent episode (2) Wernicke encephalopathy (3) Anxiety disorder, unspecified (4) Alcohol dependence (5) Alcohol withdrawal (6) Alcohol withdrawal delirium IVANNA GUNDERSON MD Mar 24, 2021 09:59
[2021-03-24 16:33] VITALS: BP 105/70
[2021-03-24] MEDS: risperiDONE 0.5 MG TABLET. PO SCH (20:30)
[2021-03-24] MEDS: MIRTAZAPINE 7.5 MG TABLET. PO SCH (20:30)
--- NOTE | 2021-03-24 22:01 | PDOC ---
Exam Note: Nadeem Note: Please also refer to the separate dictated note~for this date of service dictated separately.~Patient seen individually. Discussed the patient with Nursing staff reviewed the chart.~Reviewed interim history and current functioning. Reviewed vital signs,~Labs/ Radiology~and current medications noted below. Continue current treatment with the changes noted in the dictated addendum note Assessment: Vital Signs/I&O: Vital Signs Date Time Temp Pulse Resp B/P (MAP) Pulse Ox O2 Delivery O2 Flow Rate FiO2 03/24/21 16:33 97.5 90 18 105/70 (82) 96 03/23/21 15:41 Room Air I & O 03/23/21 03/23/21 03/24/21 15:00 23:00 07:00 Intake Total 1320 ml 1080 ml Balance 1320 ml 1080 ml Current Medications: Meds: Current Medications Medications (Trade) Dose Ordered Sig/Hunter Route PRN Reason Start Time Stop Time Status Last Admin Dose Admin Multi-Ingredient Ointment (Analgesic [place]) 1 lico PRN QID PRN TP MUSCLE PAIN 02/11/21 06:45 03/03/21 20:33 Al Hydroxide/Mg Hydroxide (Mylanta Plus Xs) 15 ml PRN AFTMEALHC PRN PO DYSPEPSIA 02/11/21 06:45 Magnesium Hydroxide (Milk Of Magnesia) 2,400 mg PRN QHS PRN PO CONSTIPATION 02/11/21 06:45 Acetaminophen (Tylenol) 650 mg PRN Q6HRS PRN PO MILD PAIN / TEMP > 100.3'F 02/11/21 12:00 03/19/21 06:15 Enoxaparin Sodium (Lovenox 40mg Syringe) 40 mg DAILY SQ 02/12/21 09:00 02/13/21 17:54 DC Lorazepam (Ativan) 1 mg PRN Q4HRS PRN PO ANXIETY / AGITATION 02/11/21 12:00 02/13/21 21:35 DC 02/13/21 16:15 Melatonin (Melatonin) 3 mg PRN QHS PRN PO INSOMNIA 02/11/21 12:00 03/15/21 20:11 Nicotine (Nicoderm Cq 21mg Patch) 1 patch DAILY TD 02/12/21 09:00 03/24/21 08:39 Nicotine Polacrilex (Nicorette Gum) 2 mg PRN Q2HRS PRN BC SMOKING CESSATION 02/11/21 12:00 02/17/21 18:24 Olanzapine (ZyPREXA ZYDIS) 5 mg PRN BID PRN PO PSYCHOSIS 02/11/21 12:00 02/13/21 20:07 DC 02/13/21 18:10 Potassium Chloride (Klor-Con) 20 meq DAILY PO 02/12/21 09:00 03/24/21 08:39 Folic Acid (Folic Acid) 1 mg DAILY PO 02/12/21 09:00 03/24/21 08:39 Thiamine HCl (Vitamin B-1) 100 mg DAILY PO 02/12/21 09:00 03/24/21 08:39 Non-Formulary Medication ([Folic Acid] ) 1 mg DAILY PO 02/12/21 09:00 02/11/21 12:25 DC Acetaminophen (Tylenol) 650 mg PRN Q6HRS PRN PO MILD PAIN / TEMP > 100.3'F 02/11/21 12:15 02/11/21 12:22 DC Multi-Ingredient Ointment (Analgesic [place]) 1 lico PRN QID PRN TP MUSCLE PAIN 02/11/21 12:15 02/11/21 12:22 DC Al Hydroxide/Mg Hydroxide (Mylanta Plus Xs) 15 ml PRN AFTMEALHC PRN PO DYSPEPSIA 02/11/21 12:15 02/11/21 12:22 DC Magnesium Hydroxide (Milk Of Magnesia) 2,400 mg PRN QHS PRN PO CONSTIPATION 02/11/21 12:15 02/11/21 12:22 DC Lidocaine (Lidoderm) 1 patch PRN DAILY PRN TD NECK PAIN 02/13/21 19:00 03/17/21 14:46 Olanzapine (ZyPREXA ZYDIS) 2.5 mg PRN Q2HR PRN PO PSYCHOSIS 02/13/21 20:15 02/13/21 23:06 Sertraline HCl (Zoloft) 50 mg DAILY PO 02/14/21 09:00 02/21/21 19:55 DC 02/21/21 08:09 Risperidone (RisperDAL) 0.5 mg QHS PO 02/13/21 21:00 03/24/21 20:30 Lorazepam (Ativan) 0.5 mg PRN Q1HR PRN PO ANXIETY / AGITATION 02/13/21 21:45 02/20/21 20:58 DC 02/20/21 16:54 Multivitamins/ Calcium (Thera-M Plus) 1 tab DAILY PO 02/13/21 21:30 03/24/21 08:39 Clonidine HCl (Catapres) 0.1 mg PRN Q1HR PRN PO SBP>180 OR DBP>100, MR X 3 02/13/21 21:30 Magnesium Oxide (Magnesium Oxide) 400 mg DAILY PO 02/14/21 09:00 02/13/21 21:36 DC Magnesium Oxide (Magnesium Oxide) 400 mg DAILY PO 02/13/21 21:45 03/24/21 08:39 Vitamin D (Vitamin D3) 50,000 unit WEEKLY PO 02/15/21 16:30 03/22/21 08:29 Lorazepam (Ativan) 0.5 mg PRN TID PRN PO ANXIETY / AGITATION 02/20/21 21:00 03/12/21 09:21 Cyclobenzaprine HCl (Flexeril) 10 mg BID PO 02/21/21 21:00 02/21/21 09:33 DC Cyclobenzaprine HCl (Flexeril) 10 mg BID PO 02/21/21 09:45 03/24/21 20:31 Sertraline HCl (Zoloft) 75 mg DAILY PO 02/22/21 09:00 03/24/21 08:39 Hydrocortisone (Cortizone-10) 1 lico PRN TID PRN TP ITCHING 02/24/21 12:00 Mirtazapine (Remeron) 7.5 mg QHS PO 02/28/21 21:30 03/24/21 20:30 Influenza Virus Vaccine Quadrival (Flulaval Quad [id number] Syringe) 0.5 ml ONCE ONCE VAX IM 03/11/21 09:00 03/11/21 09:01 DC 03/11/21 11:30 Amoxicillin/ Clavulanate Potassium (Augmentin 875/ 125mg) 1 tab BID PO 03/14/21 17:30 03/14/21 17:23 DC Amoxicillin/ Clavulanate Potassium (Augmentin 875/ 125mg) 1 tab BID PO 03/14/21 18:00 03/15/21 10:44 DC 03/15/21 09:16 Lactobacillus Rhamnosus (Culturelle) 1 cap BID PO 03/14/21 21:00 03/24/21 20:31 Amoxicillin/ Clavulanate Potassium (Augmentin 875/ 125mg) 1 tab BIDWMEALS PO 03/15/21 17:00 03/23/21 18:00 DC 03/23/21 17:27 Carbamide Peroxide (Debrox) 5 drop BID AU 03/21/21 21:00 03/24/21 11:16 DC 03/24/21 09:00 I have reviewed the current psychotropics carefully including drug interactions. Risk benefit ratio favors no change other than as noted in my dictated progress note. Diagnosis: Problems: (1) Major depressive disorder, recurrent episode (2) Wernicke encephalopathy (3) Anxiety disorder, unspecified (4) Alcohol dependence (5) Alcohol withdrawal (6) Alcohol withdrawal delirium IVANNA GUNDERSON MD Mar 24, 2021 22:01
[2021-03-25 06:08] VITALS: BP 100/69
[2021-03-25] MEDS: NICOTINE 21MG PATCH. TD SCH (08:59)
[2021-03-25] MEDS: SERTRALINE 25 MG TABLET. PO SCH (09:00)
[2021-03-25] MEDS: FOLIC ACID 1 MG TABLET PO SCH (09:00)
[2021-03-25] MEDS: MULTIVITAMIN with MINERAL TABLET. PO SCH (09:00)
[2021-03-25] MEDS: POTASSIUM CHLORIDE 20 MEQ TABLET.ER. PO SCH (09:01)
[2021-03-25] MEDS: THIAMINE 100 MG TABLET. PO SCH (09:01)
[2021-03-25] MEDS: LACTOBACILLUS RHAMNOSUS GG 1 CAPSULE. PO SCH ×2 (09:01→20:20)
[2021-03-25] MEDS: MAGNESIUM OXIDE 400 MG TABLET PO SCH (09:01)
[2021-03-25] MEDS: CYCLOBENZAPRINE 10 MG TABLET. PO SCH ×2 (09:01→20:20)
[2021-03-25 15:45] VITALS: BP 106/70
[2021-03-25] MEDS: MIRTAZAPINE 7.5 MG TABLET. PO SCH (20:20)
[2021-03-25] MEDS: risperiDONE 0.5 MG TABLET. PO SCH (20:20)
--- NOTE | 2021-03-25 22:04 | PDOC ---
Exam Note: Nadeem Note: Please also refer to the separate dictated note~for this date of service dictated separately.~Patient seen individually. Discussed the patient with Nursing staff reviewed the chart.~Reviewed interim history and current functioning. Reviewed vital signs,~Labs/ Radiology~and current medications noted below. Continue current treatment with the changes noted in the dictated addendum note Assessment: Vital Signs/I&O: Vital Signs Date Time Temp Pulse Resp B/P (MAP) Pulse Ox O2 Delivery O2 Flow Rate FiO2 03/25/21 15:45 98.3 87 18 106/70 (82) 97 Room Air I & O 03/24/21 03/24/21 03/25/21 15:00 23:00 07:00 Intake Total 1020 ml 440 ml Balance 1020 ml 440 ml Labs: Laboratory Tests Test 03/25/21 06:00 SARS-CoV-2 (PCR) Not detected (NOT DETECTD) Current Medications: Meds: Laboratory Tests Test 03/25/21 06:00 Coronavirus (COVID-19)(PCR) Not detected Current Medications Medications (Trade) Dose Ordered Sig/Hunter Route PRN Reason Start Time Stop Time Status Last Admin Dose Admin Multi-Ingredient Ointment (Analgesic [place]) 1 lico PRN QID PRN TP MUSCLE PAIN 02/11/21 06:45 03/03/21 20:33 Al Hydroxide/Mg Hydroxide (Mylanta Plus Xs) 15 ml PRN AFTMEALHC PRN PO DYSPEPSIA 02/11/21 06:45 Magnesium Hydroxide (Milk Of Magnesia) 2,400 mg PRN QHS PRN PO CONSTIPATION 02/11/21 06:45 Acetaminophen (Tylenol) 650 mg PRN Q6HRS PRN PO MILD PAIN / TEMP > 100.3'F 02/11/21 12:00 03/19/21 06:15 Enoxaparin Sodium (Lovenox 40mg Syringe) 40 mg DAILY SQ 02/12/21 09:00 02/13/21 17:54 DC Lorazepam (Ativan) 1 mg PRN Q4HRS PRN PO ANXIETY / AGITATION 02/11/21 12:00 02/13/21 21:35 DC 02/13/21 16:15 Melatonin (Melatonin) 3 mg PRN QHS PRN PO INSOMNIA 02/11/21 12:00 03/15/21 20:11 Nicotine (Nicoderm Cq 21mg Patch) 1 patch DAILY TD 02/12/21 09:00 03/25/21 08:59 Nicotine Polacrilex (Nicorette Gum) 2 mg PRN Q2HRS PRN BC SMOKING CESSATION 02/11/21 12:00 02/17/21 18:24 Olanzapine (ZyPREXA ZYDIS) 5 mg PRN BID PRN PO PSYCHOSIS 02/11/21 12:00 02/13/21 20:07 DC 02/13/21 18:10 Potassium Chloride (Klor-Con) 20 meq DAILY PO 02/12/21 09:00 03/25/21 09:01 Folic Acid (Folic Acid) 1 mg DAILY PO 02/12/21 09:00 03/25/21 09:00 Thiamine HCl (Vitamin B-1) 100 mg DAILY PO 02/12/21 09:00 03/25/21 09:01 Non-Formulary Medication ([Folic Acid] ) 1 mg DAILY PO 02/12/21 09:00 02/11/21 12:25 DC Acetaminophen (Tylenol) 650 mg PRN Q6HRS PRN PO MILD PAIN / TEMP > 100.3'F 02/11/21 12:15 02/11/21 12:22 DC Multi-Ingredient Ointment (Analgesic [place]) 1 lico PRN QID PRN TP MUSCLE PAIN 02/11/21 12:15 02/11/21 12:22 DC Al Hydroxide/Mg Hydroxide (Mylanta Plus Xs) 15 ml PRN AFTMEALHC PRN PO DYSPEPSIA 02/11/21 12:15 02/11/21 12:22 DC Magnesium Hydroxide (Milk Of Magnesia) 2,400 mg PRN QHS PRN PO CONSTIPATION 02/11/21 12:15 02/11/21 12:22 DC Lidocaine (Lidoderm) 1 patch PRN DAILY PRN TD NECK PAIN 02/13/21 19:00 03/17/21 14:46 Olanzapine (ZyPREXA ZYDIS) 2.5 mg PRN Q2HR PRN PO PSYCHOSIS 02/13/21 20:15 02/13/21 23:06 Sertraline HCl (Zoloft) 50 mg DAILY PO 02/14/21 09:00 02/21/21 19:55 DC 02/21/21 08:09 Risperidone (RisperDAL) 0.5 mg QHS PO 02/13/21 21:00 03/25/21 20:20 Lorazepam (Ativan) 0.5 mg PRN Q1HR PRN PO ANXIETY / AGITATION 02/13/21 21:45 02/20/21 20:58 DC 02/20/21 16:54 Multivitamins/ Calcium (Thera-M Plus) 1 tab DAILY PO 02/13/21 21:30 03/25/21 09:00 Clonidine HCl (Catapres) 0.1 mg PRN Q1HR PRN PO SBP>180 OR DBP>100, MR X 3 02/13/21 21:30 Magnesium Oxide (Magnesium Oxide) 400 mg DAILY PO 02/14/21 09:00 02/13/21 21:36 DC Magnesium Oxide (Magnesium Oxide) 400 mg DAILY PO 02/13/21 21:45 03/25/21 09:01 Vitamin D (Vitamin D3) 50,000 unit WEEKLY PO 02/15/21 16:30 03/22/21 08:29 Lorazepam (Ativan) 0.5 mg PRN TID PRN PO ANXIETY / AGITATION 02/20/21 21:00 03/12/21 09:21 Cyclobenzaprine HCl (Flexeril) 10 mg BID PO 02/21/21 21:00 02/21/21 09:33 DC Cyclobenzaprine HCl (Flexeril) 10 mg BID PO 02/21/21 09:45 03/25/21 20:20 Sertraline HCl (Zoloft) 75 mg DAILY PO 02/22/21 09:00 03/25/21 09:00 Hydrocortisone (Cortizone-10) 1 lico PRN TID PRN TP ITCHING 02/24/21 12:00 Mirtazapine (Remeron) 7.5 mg QHS PO 02/28/21 21:30 03/25/21 20:20 Influenza Virus Vaccine Quadrival (Flulaval Quad [id number] Syringe) 0.5 ml ONCE ONCE VAX IM 03/11/21 09:00 03/11/21 09:01 DC 03/11/21 11:30 Amoxicillin/ Clavulanate Potassium (Augmentin 875/ 125mg) 1 tab BID PO 03/14/21 17:30 03/14/21 17:23 DC Amoxicillin/ Clavulanate Potassium (Augmentin 875/ 125mg) 1 tab BID PO 03/14/21 18:00 03/15/21 10:44 DC 03/15/21 09:16 Lactobacillus Rhamnosus (Culturelle) 1 cap BID PO 03/14/21 21:00 03/25/21 20:20 Amoxicillin/ Clavulanate Potassium (Augmentin 875/ 125mg) 1 tab BIDWMEALS PO 03/15/21 17:00 03/23/21 18:00 DC 03/23/21 17:27 Carbamide Peroxide (Debrox) 5 drop BID AU 03/21/21 21:00 03/24/21 11:16 DC 03/24/21 09:00 I have reviewed the current psychotropics carefully including drug interactions. Risk benefit ratio favors no change other than as noted in my dictated progress note. Diagnosis: Problems: (1) Major depressive disorder, recurrent episode (2) Wernicke encephalopathy (3) Anxiety disorder, unspecified (4) Alcohol dependence (5) Alcohol withdrawal (6) Alcohol withdrawal delirium IVANNA GUNDERSON MD Mar 25, 2021 22:04
[2021-03-26 06:30] VITALS: BP 146/86
--- NOTE | 2021-03-26 08:21 | PDOC ---
Exam Note: Nadeem Note: This note is a late entry for 03/24/2021 covers elements not covered in my initial note. Subjective: The patient was seen individually in the evening of 03/24/2021 with Natalia SHERMAN, discussed and reviewed the chart. The patient slept 7 hours previous night. Overall the patient remains withdrawn, difficulty with computation but otherwise appropriate. We had lengthy discussion about reasons to abstain from alcohol. Review of Systems: No CV, , pulmonary, eye system symptoms on review. Mental Status Exam: The patient is reasonably oriented. Speech coherent. Abstraction fair. Computation impaired. Language function intact. Attention span short. Mood and affect lability is improved. Laboratory Data: Reviewed. Impression: Major depressive disorder recurrent. Alcohol abuse/dependence/withdrawal. Anxiety disorder unspecified. History of Wernickes encephalopathy. Plan: Continue psychotropics mentioned in my initial note. Assessment: Vital Signs/I&O: Vital Signs Date Time Temp Pulse Resp B/P (MAP) Pulse Ox O2 Delivery O2 Flow Rate FiO2 03/26/21 06:30 98.0 84 18 146/86 (106) 99 03/25/21 15:45 Room Air I & O 03/25/21 03/25/21 03/26/21 15:00 23:00 07:00 Intake Total 980 ml 840 ml Balance 980 ml 840 ml Current Medications: Meds: Current Medications Medications (Trade) Dose Ordered Sig/Hunter Route PRN Reason Start Time Stop Time Status Last Admin Dose Admin Multi-Ingredient Ointment (Analgesic [place]) 1 lico PRN QID PRN TP MUSCLE PAIN 02/11/21 06:45 03/03/21 20:33 Al Hydroxide/Mg Hydroxide (Mylanta Plus Xs) 15 ml PRN AFTMEALHC PRN PO DYSPEPSIA 02/11/21 06:45 Magnesium Hydroxide (Milk Of Magnesia) 2,400 mg PRN QHS PRN PO CONSTIPATION 02/11/21 06:45 Acetaminophen (Tylenol) 650 mg PRN Q6HRS PRN PO MILD PAIN / TEMP > 100.3'F 02/11/21 12:00 03/19/21 06:15 Enoxaparin Sodium (Lovenox 40mg Syringe) 40 mg DAILY SQ 02/12/21 09:00 02/13/21 17:54 DC Lorazepam (Ativan) 1 mg PRN Q4HRS PRN PO ANXIETY / AGITATION 02/11/21 12:00 02/13/21 21:35 DC 02/13/21 16:15 Melatonin (Melatonin) 3 mg PRN QHS PRN PO INSOMNIA 02/11/21 12:00 03/15/21 20:11 Nicotine (Nicoderm Cq 21mg Patch) 1 patch DAILY TD 02/12/21 09:00 03/25/21 08:59 Nicotine Polacrilex (Nicorette Gum) 2 mg PRN Q2HRS PRN BC SMOKING CESSATION 02/11/21 12:00 02/17/21 18:24 Olanzapine (ZyPREXA ZYDIS) 5 mg PRN BID PRN PO PSYCHOSIS 02/11/21 12:00 02/13/21 20:07 DC 02/13/21 18:10 Potassium Chloride (Klor-Con) 20 meq DAILY PO 02/12/21 09:00 03/25/21 09:01 Folic Acid (Folic Acid) 1 mg DAILY PO 02/12/21 09:00 03/25/21 09:00 Thiamine HCl (Vitamin B-1) 100 mg DAILY PO 02/12/21 09:00 03/25/21 09:01 Non-Formulary Medication ([Folic Acid] ) 1 mg DAILY PO 02/12/21 09:00 02/11/21 12:25 DC Acetaminophen (Tylenol) 650 mg PRN Q6HRS PRN PO MILD PAIN / TEMP > 100.3'F 02/11/21 12:15 02/11/21 12:22 DC Multi-Ingredient Ointment (Analgesic [place]) 1 lico PRN QID PRN TP MUSCLE PAIN 02/11/21 12:15 02/11/21 12:22 DC Al Hydroxide/Mg Hydroxide (Mylanta Plus Xs) 15 ml PRN AFTMEALHC PRN PO DYSPEPSIA 02/11/21 12:15 02/11/21 12:22 DC Magnesium Hydroxide (Milk Of Magnesia) 2,400 mg PRN QHS PRN PO CONSTIPATION 02/11/21 12:15 02/11/21 12:22 DC Lidocaine (Lidoderm) 1 patch PRN DAILY PRN TD NECK PAIN 02/13/21 19:00 03/17/21 14:46 Olanzapine (ZyPREXA ZYDIS) 2.5 mg PRN Q2HR PRN PO PSYCHOSIS 02/13/21 20:15 02/13/21 23:06 Sertraline HCl (Zoloft) 50 mg DAILY PO 02/14/21 09:00 02/21/21 19:55 DC 02/21/21 08:09 Risperidone (RisperDAL) 0.5 mg QHS PO 02/13/21 21:00 03/25/21 20:20 Lorazepam (Ativan) 0.5 mg PRN Q1HR PRN PO ANXIETY / AGITATION 02/13/21 21:45 02/20/21 20:58 DC 02/20/21 16:54 Multivitamins/ Calcium (Thera-M Plus) 1 tab DAILY PO 02/13/21 21:30 03/25/21 09:00 Clonidine HCl (Catapres) 0.1 mg PRN Q1HR PRN PO SBP>180 OR DBP>100, MR X 3 02/13/21 21:30 Magnesium Oxide (Magnesium Oxide) 400 mg DAILY PO 02/14/21 09:00 02/13/21 21:36 DC Magnesium Oxide (Magnesium Oxide) 400 mg DAILY PO 02/13/21 21:45 03/25/21 09:01 Vitamin D (Vitamin D3) 50,000 unit WEEKLY PO 02/15/21 16:30 03/22/21 08:29 Lorazepam (Ativan) 0.5 mg PRN TID PRN PO ANXIETY / AGITATION 02/20/21 21:00 03/12/21 09:21 Cyclobenzaprine HCl (Flexeril) 10 mg BID PO 02/21/21 21:00 02/21/21 09:33 DC Cyclobenzaprine HCl (Flexeril) 10 mg BID PO 02/21/21 09:45 03/25/21 20:20 Sertraline HCl (Zoloft) 75 mg DAILY PO 02/22/21 09:00 03/25/21 09:00 Hydrocortisone (Cortizone-10) 1 lico PRN TID PRN TP ITCHING 02/24/21 12:00 Mirtazapine (Remeron) 7.5 mg QHS PO 02/28/21 21:30 03/25/21 20:20 Influenza Virus Vaccine Quadrival (Flulaval Quad [id number] Syringe) 0.5 ml ONCE ONCE VAX IM 03/11/21 09:00 03/11/21 09:01 DC 03/11/21 11:30 Amoxicillin/ Clavulanate Potassium (Augmentin 875/ 125mg) 1 tab BID PO 03/14/21 17:30 03/14/21 17:23 DC Amoxicillin/ Clavulanate Potassium (Augmentin 875/ 125mg) 1 tab BID PO 03/14/21 18:00 03/15/21 10:44 DC 03/15/21 09:16 Lactobacillus Rhamnosus (Culturelle) 1 cap BID PO 03/14/21 21:00 03/25/21 20:20 Amoxicillin/ Clavulanate Potassium (Augmentin 875/ 125mg) 1 tab BIDWMEALS PO 03/15/21 17:00 03/23/21 18:00 DC 03/23/21 17:27 Carbamide Peroxide (Debrox) 5 drop BID AU 03/21/21 21:00 03/24/21 11:16 DC 03/24/21 09:00 I have reviewed the current psychotropics carefully including drug interactions. Risk benefit ratio favors no change other than as noted in my dictated progress note. Diagnosis: Problems: (1) Major depressive disorder, recurrent episode (2) Wernicke encephalopathy (3) Anxiety disorder, unspecified (4) Alcohol dependence (5) Alcohol withdrawal (6) Alcohol withdrawal delirium IVANNA GUNDERSON MD Mar 26, 2021 08:21
--- NOTE | 2021-03-26 08:46 | PDOC ---
Exam Note: Nadeem Note: This note is a late entry for 03/25/2021 covers elements not covered in my initial note. Subjective: The patient was seen individually in the evening of 03/25/2021 with Alex SHERMAN, discussed and reviewed the chart. The patient slept 6-1/2 hours previous night. The patient remains pleasant, cooperative. She does have problems with computation. Review of Systems: No CV, , pulmonary, eye system symptoms on review. Mental Status Exam: The patient is reasonably oriented. I met with her in the dayroom. She was quite verbal, interactive, anxious, quite adamant on going home rather than placement. Social service staff are coordinating this with the family. Laboratory Data: Reviewed. Impression: Major depressive disorder recurrent. Alcohol abuse/dependence/withdrawal. Anxiety disorder unspecified. History of Wernickes encephalopathy. Plan: Continue psychotropics mentioned in my initial note. Assessment: Vital Signs/I&O: Vital Signs Date Time Temp Pulse Resp B/P (MAP) Pulse Ox O2 Delivery O2 Flow Rate FiO2 03/26/21 06:30 98.0 84 18 146/86 (106) 99 03/25/21 15:45 Room Air I & O 03/25/21 03/25/21 03/26/21 15:00 23:00 07:00 Intake Total 980 ml 840 ml Balance 980 ml 840 ml Current Medications: Meds: Current Medications Medications (Trade) Dose Ordered Sig/Hunter Route PRN Reason Start Time Stop Time Status Last Admin Dose Admin Multi-Ingredient Ointment (Analgesic [place]) 1 lico PRN QID PRN TP MUSCLE PAIN 02/11/21 06:45 03/03/21 20:33 Al Hydroxide/Mg Hydroxide (Mylanta Plus Xs) 15 ml PRN AFTMEALHC PRN PO DYSPEPSIA 02/11/21 06:45 Magnesium Hydroxide (Milk Of Magnesia) 2,400 mg PRN QHS PRN PO CONSTIPATION 02/11/21 06:45 Acetaminophen (Tylenol) 650 mg PRN Q6HRS PRN PO MILD PAIN / TEMP > 100.3'F 02/11/21 12:00 03/19/21 06:15 Enoxaparin Sodium (Lovenox 40mg Syringe) 40 mg DAILY SQ 02/12/21 09:00 02/13/21 17:54 DC Lorazepam (Ativan) 1 mg PRN Q4HRS PRN PO ANXIETY / AGITATION 02/11/21 12:00 02/13/21 21:35 DC 02/13/21 16:15 Melatonin (Melatonin) 3 mg PRN QHS PRN PO INSOMNIA 02/11/21 12:00 03/15/21 20:11 Nicotine (Nicoderm Cq 21mg Patch) 1 patch DAILY TD 02/12/21 09:00 03/25/21 08:59 Nicotine Polacrilex (Nicorette Gum) 2 mg PRN Q2HRS PRN BC SMOKING CESSATION 02/11/21 12:00 02/17/21 18:24 Olanzapine (ZyPREXA ZYDIS) 5 mg PRN BID PRN PO PSYCHOSIS 02/11/21 12:00 02/13/21 20:07 DC 02/13/21 18:10 Potassium Chloride (Klor-Con) 20 meq DAILY PO 02/12/21 09:00 03/25/21 09:01 Folic Acid (Folic Acid) 1 mg DAILY PO 02/12/21 09:00 03/25/21 09:00 Thiamine HCl (Vitamin B-1) 100 mg DAILY PO 02/12/21 09:00 03/25/21 09:01 Non-Formulary Medication ([Folic Acid] ) 1 mg DAILY PO 02/12/21 09:00 02/11/21 12:25 DC Acetaminophen (Tylenol) 650 mg PRN Q6HRS PRN PO MILD PAIN / TEMP > 100.3'F 02/11/21 12:15 02/11/21 12:22 DC Multi-Ingredient Ointment (Analgesic [place]) 1 lico PRN QID PRN TP MUSCLE PAIN 02/11/21 12:15 02/11/21 12:22 DC Al Hydroxide/Mg Hydroxide (Mylanta Plus Xs) 15 ml PRN AFTMEALHC PRN PO DYSPEPSIA 02/11/21 12:15 02/11/21 12:22 DC Magnesium Hydroxide (Milk Of Magnesia) 2,400 mg PRN QHS PRN PO CONSTIPATION 02/11/21 12:15 02/11/21 12:22 DC Lidocaine (Lidoderm) 1 patch PRN DAILY PRN TD NECK PAIN 02/13/21 19:00 03/17/21 14:46 Olanzapine (ZyPREXA ZYDIS) 2.5 mg PRN Q2HR PRN PO PSYCHOSIS 02/13/21 20:15 02/13/21 23:06 Sertraline HCl (Zoloft) 50 mg DAILY PO 02/14/21 09:00 02/21/21 19:55 DC 02/21/21 08:09 Risperidone (RisperDAL) 0.5 mg QHS PO 02/13/21 21:00 03/25/21 20:20 Lorazepam (Ativan) 0.5 mg PRN Q1HR PRN PO ANXIETY / AGITATION 02/13/21 21:45 02/20/21 20:58 DC 02/20/21 16:54 Multivitamins/ Calcium (Thera-M Plus) 1 tab DAILY PO 02/13/21 21:30 03/25/21 09:00 Clonidine HCl (Catapres) 0.1 mg PRN Q1HR PRN PO SBP>180 OR DBP>100, MR X 3 02/13/21 21:30 Magnesium Oxide (Magnesium Oxide) 400 mg DAILY PO 02/14/21 09:00 02/13/21 21:36 DC Magnesium Oxide (Magnesium Oxide) 400 mg DAILY PO 02/13/21 21:45 03/25/21 09:01 Vitamin D (Vitamin D3) 50,000 unit WEEKLY PO 02/15/21 16:30 03/22/21 08:29 Lorazepam (Ativan) 0.5 mg PRN TID PRN PO ANXIETY / AGITATION 02/20/21 21:00 03/12/21 09:21 Cyclobenzaprine HCl (Flexeril) 10 mg BID PO 02/21/21 21:00 02/21/21 09:33 DC Cyclobenzaprine HCl (Flexeril) 10 mg BID PO 02/21/21 09:45 03/25/21 20:20 Sertraline HCl (Zoloft) 75 mg DAILY PO 02/22/21 09:00 03/25/21 09:00 Hydrocortisone (Cortizone-10) 1 lico PRN TID PRN TP ITCHING 02/24/21 12:00 Mirtazapine (Remeron) 7.5 mg QHS PO 02/28/21 21:30 03/25/21 20:20 Influenza Virus Vaccine Quadrival (Flulaval Quad Syringe) 0.5 ml ONCE ONCE VAX IM 03/11/21 09:00 03/11/21 09:01 DC 03/11/21 11:30 Amoxicillin/ Clavulanate Potassium (Augmentin 875/ 125mg) 1 tab BID PO 03/14/21 17:30 03/14/21 17:23 DC Amoxicillin/ Clavulanate Potassium (Augmentin 875/ 125mg) 1 tab BID PO 03/14/21 18:00 03/15/21 10:44 DC 03/15/21 09:16 Lactobacillus Rhamnosus (Culturelle) 1 cap BID PO 03/14/21 21:00 03/25/21 20:20 Amoxicillin/ Clavulanate Potassium (Augmentin 875/ 125mg) 1 tab BIDWMEALS PO 03/15/21 17:00 03/23/21 18:00 DC 03/23/21 17:27 Carbamide Peroxide (Debrox) 5 drop BID AU 03/21/21 21:00 03/24/21 11:16 DC 03/24/21 09:00 I have reviewed the current psychotropics carefully including drug interactions. Risk benefit ratio favors no change other than as noted in my dictated progress note. Diagnosis: Problems: (1) Major depressive disorder, recurrent episode (2) Wernicke encephalopathy (3) Anxiety disorder, unspecified (4) Alcohol dependence (5) Alcohol withdrawal (6) Alcohol withdrawal delirium IVANNA GUNDERSON MD Mar 26, 2021 08:46
[2021-03-26] MEDS: CYCLOBENZAPRINE 10 MG TABLET. PO SCH ×2 (09:03→20:29)
[2021-03-26] MEDS: POTASSIUM CHLORIDE 20 MEQ TABLET.ER. PO SCH (09:03)
[2021-03-26] MEDS: MULTIVITAMIN with MINERAL TABLET. PO SCH (09:03)
[2021-03-26] MEDS: THIAMINE 100 MG TABLET. PO SCH (09:03)
[2021-03-26] MEDS: LACTOBACILLUS RHAMNOSUS GG 1 CAPSULE. PO SCH ×2 (09:03→20:29)
[2021-03-26] MEDS: NICOTINE 21MG PATCH. TD SCH (09:04)
[2021-03-26] MEDS: SERTRALINE 25 MG TABLET. PO SCH (09:04)
[2021-03-26] MEDS: FOLIC ACID 1 MG TABLET PO SCH (09:04)
[2021-03-26] MEDS: MAGNESIUM OXIDE 400 MG TABLET PO SCH (09:04)
--- NOTE | 2021-03-26 15:16 | TX PLAN ---
Interdisciplinary Tx Plan Admission Information Feb 11, 2021 at 06:29 Legal Status (on Admission): Voluntary DPOA/Guardian Name: Harshil Tesfaye Contact Other Contact Verified Code Status: Full Code Allergies: Coded Allergies: No Known Drug Allergies (Unverified , 02/10/21) Diagnoses Primary Diagnosis: Alcohol Dependence Werneke's Encephalopathy Reasons for Admission: Alcohol Abuse, Hallucinations, Confusion/Disoriented, Poor impulse control, Other Problem in Patient's Words: She has a drinking problem and can no longer care for herself. Additional Admission Comments: According to the intake, pt is restless, fighting with staff in the ED, hallucinating, altered mental status, was find wandering the streets naked, crawing into the neighbors car, labile mood, having tangential speech, cognitively impaired. Problems Active Problems: restless anxious confused non-compliant Inactive Problems: N/A Pt Strengths/Limitations Ability for [place]: Poor Cognitive Functioning/Ability: Fair Communication Skills/Ability: Fair Financial Resources: Poor Insight/Judgement: Poor Intellectual Ability: Fair Physical Health: Poor Social Skills: Fair Stability in Family: Good Stability in School/Work: Poor Verbal Skills: Fair Discharge Criteria Discharge Criteria: No need for close observ., Adequate arrangements @DC, Improved behavior, Withdrawal Sx absent, Improved mood/thought Preliminary Discharge Plan Preliminary DC Plan: Placement Needed Special Precautions Fall Risk: Low Initial D/C Plan Pt is not able to live by herself; will need placement at the time of discharge. Identified Discharge Needs: Referrals to a higher level of care Currently Utilized Resources Currently Utilized Resources/P: Primary Care Physicians Identified Problems/Hx/Goals Objectives/Short-Term Goals Short Term Goals: Dec. Aggression, Dec. Hallucination/Delus, Dec. Outbursts, Medication Stabilization, Promote Coping Skill Short Term Goals in Patient's: N/A Interventions/Frequency Staff Interventions/Frequency&: Psychiatrist to assess pt at least 3x per week for medication management. Social Work to assess pt at least 2x per week to identify barriers and discharge and finalize discharge plans. Nursing to assess medication effects, behavior modification and complete 15 minute checks daily. Encourage participation in group activities (if applicable) or 1:1 engagement based off activity dept goals. History Vocational History: Pt had multiple jobs that did not last long. 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 She has been on disability most of her life. Education: Pt graduated high school (12th grade) Community Follow-up Primary Care Physician Treatment Plan Explained Patient/[employer] had this treatment plan explained to him/her as indicated by the signature below and has been given the opportunity to ask questions and make suggestions: Date: Patient/[employer] Manager Signature: Status Update Update Pt is eating roughly 90% of meals and sleeping on average 7 hours per night. Pt is cooperative with staff, medication compliant and is a bit more withdrawn not that her roommate has discharged. Pt has attended 8/10 groups with moderate participation. At times pt needs to be redirected as she can take over conversation. Pt will have to discharge home despite the family concerns. Pt family is working with a channel marketing specialist on guardianship and has hit a few snags. SW will work on finalizing discharge plans in hopes to have pt discharge in the next few days. SHANTANU SPANN Mar 26, 2021 15:16
[2021-03-26 16:57] VITALS: BP 124/78
[2021-03-26] MEDS: risperiDONE 0.5 MG TABLET. PO SCH (20:30)
[2021-03-26] MEDS: MIRTAZAPINE 7.5 MG TABLET. PO SCH (20:32)
--- NOTE | 2021-03-26 22:03 | PDOC ---
Exam Note: Nadeem Note: Please also refer to the separate dictated note~for this date of service dictated separately.~Patient seen individually. Discussed the patient with Nursing staff reviewed the chart.~Reviewed interim history and current functioning. Reviewed vital signs,~Labs/ Radiology~and current medications noted below. Continue current treatment with the changes noted in the dictated addendum note Assessment: Vital Signs/I&O: Vital Signs Date Time Temp Pulse Resp B/P (MAP) Pulse Ox O2 Delivery O2 Flow Rate FiO2 03/26/21 16:57 98.1 92 18 124/78 (93) 98 Room Air I & O 03/25/21 03/25/21 03/26/21 15:00 23:00 07:00 Intake Total 980 ml 840 ml Balance 980 ml 840 ml Current Medications: Meds: Current Medications Medications (Trade) Dose Ordered Sig/Hunter Route PRN Reason Start Time Stop Time Status Last Admin Dose Admin Multi-Ingredient Ointment (Analgesic [place]) 1 lico PRN QID PRN TP MUSCLE PAIN 02/11/21 06:45 03/03/21 20:33 Al Hydroxide/Mg Hydroxide (Mylanta Plus Xs) 15 ml PRN AFTMEALHC PRN PO DYSPEPSIA 02/11/21 06:45 Magnesium Hydroxide (Milk Of Magnesia) 2,400 mg PRN QHS PRN PO CONSTIPATION 02/11/21 06:45 Acetaminophen (Tylenol) 650 mg PRN Q6HRS PRN PO MILD PAIN / TEMP > 100.3'F 02/11/21 12:00 03/19/21 06:15 Enoxaparin Sodium (Lovenox 40mg Syringe) 40 mg DAILY SQ 02/12/21 09:00 02/13/21 17:54 DC Lorazepam (Ativan) 1 mg PRN Q4HRS PRN PO ANXIETY / AGITATION 02/11/21 12:00 02/13/21 21:35 DC 02/13/21 16:15 Melatonin (Melatonin) 3 mg PRN QHS PRN PO INSOMNIA 02/11/21 12:00 03/15/21 20:11 Nicotine (Nicoderm Cq 21mg Patch) 1 patch DAILY TD 02/12/21 09:00 03/26/21 09:04 Nicotine Polacrilex (Nicorette Gum) 2 mg PRN Q2HRS PRN BC SMOKING CESSATION 02/11/21 12:00 02/17/21 18:24 Olanzapine (ZyPREXA ZYDIS) 5 mg PRN BID PRN PO PSYCHOSIS 02/11/21 12:00 02/13/21 20:07 DC 02/13/21 18:10 Potassium Chloride (Klor-Con) 20 meq DAILY PO 02/12/21 09:00 03/26/21 09:03 Folic Acid (Folic Acid) 1 mg DAILY PO 02/12/21 09:00 03/26/21 09:04 Thiamine HCl (Vitamin B-1) 100 mg DAILY PO 02/12/21 09:00 03/26/21 09:03 Non-Formulary Medication ([Folic Acid] ) 1 mg DAILY PO 02/12/21 09:00 02/11/21 12:25 DC Acetaminophen (Tylenol) 650 mg PRN Q6HRS PRN PO MILD PAIN / TEMP > 100.3'F 02/11/21 12:15 02/11/21 12:22 DC Multi-Ingredient Ointment (Analgesic [place]) 1 lico PRN QID PRN TP MUSCLE PAIN 02/11/21 12:15 02/11/21 12:22 DC Al Hydroxide/Mg Hydroxide (Mylanta Plus Xs) 15 ml PRN AFTMEALHC PRN PO DYSPEPSIA 02/11/21 12:15 02/11/21 12:22 DC Magnesium Hydroxide (Milk Of Magnesia) 2,400 mg PRN QHS PRN PO CONSTIPATION 02/11/21 12:15 02/11/21 12:22 DC Lidocaine (Lidoderm) 1 patch PRN DAILY PRN TD NECK PAIN 02/13/21 19:00 03/17/21 14:46 Olanzapine (ZyPREXA ZYDIS) 2.5 mg PRN Q2HR PRN PO PSYCHOSIS 02/13/21 20:15 02/13/21 23:06 Sertraline HCl (Zoloft) 50 mg DAILY PO 02/14/21 09:00 02/21/21 19:55 DC 02/21/21 08:09 Risperidone (RisperDAL) 0.5 mg QHS PO 02/13/21 21:00 03/26/21 20:30 Lorazepam (Ativan) 0.5 mg PRN Q1HR PRN PO ANXIETY / AGITATION 02/13/21 21:45 02/20/21 20:58 DC 02/20/21 16:54 Multivitamins/ Calcium (Thera-M Plus) 1 tab DAILY PO 02/13/21 21:30 03/26/21 09:03 Clonidine HCl (Catapres) 0.1 mg PRN Q1HR PRN PO SBP>180 OR DBP>100, MR X 3 02/13/21 21:30 Magnesium Oxide (Magnesium Oxide) 400 mg DAILY PO 02/14/21 09:00 02/13/21 21:36 DC Magnesium Oxide (Magnesium Oxide) 400 mg DAILY PO 02/13/21 21:45 03/26/21 09:04 Vitamin D (Vitamin D3) 50,000 unit WEEKLY PO 02/15/21 16:30 03/22/21 08:29 Lorazepam (Ativan) 0.5 mg PRN TID PRN PO ANXIETY / AGITATION 02/20/21 21:00 03/12/21 09:21 Cyclobenzaprine HCl (Flexeril) 10 mg BID PO 02/21/21 21:00 02/21/21 09:33 DC Cyclobenzaprine HCl (Flexeril) 10 mg BID PO 02/21/21 09:45 03/26/21 20:29 Sertraline HCl (Zoloft) 75 mg DAILY PO 02/22/21 09:00 03/26/21 09:04 Hydrocortisone (Cortizone-10) 1 lico PRN TID PRN TP ITCHING 02/24/21 12:00 Mirtazapine (Remeron) 7.5 mg QHS PO 02/28/21 21:30 03/26/21 20:32 Influenza Virus Vaccine Quadrival (Flulaval Quad [id number] Syringe) 0.5 ml ONCE ONCE VAX IM 03/11/21 09:00 03/11/21 09:01 DC 03/11/21 11:30 Amoxicillin/ Clavulanate Potassium (Augmentin 875/ 125mg) 1 tab BID PO 03/14/21 17:30 03/14/21 17:23 DC Amoxicillin/ Clavulanate Potassium (Augmentin 875/ 125mg) 1 tab BID PO 03/14/21 18:00 03/15/21 10:44 DC 03/15/21 09:16 Lactobacillus Rhamnosus (Culturelle) 1 cap BID PO 03/14/21 21:00 03/26/21 20:29 Amoxicillin/ Clavulanate Potassium (Augmentin 875/ 125mg) 1 tab BIDWMEALS PO 03/15/21 17:00 03/23/21 18:00 DC 03/23/21 17:27 Carbamide Peroxide (Debrox) 5 drop BID AU 03/21/21 21:00 03/24/21 11:16 DC 03/24/21 09:00 I have reviewed the current psychotropics carefully including drug interactions. Risk benefit ratio favors no change other than as noted in my dictated progress note. Diagnosis: Problems: (1) Major depressive disorder, recurrent episode (2) Wernicke encephalopathy (3) Anxiety disorder, unspecified (4) Alcohol dependence (5) Alcohol withdrawal (6) Alcohol withdrawal delirium IVANNA GUNDERSON MD Mar 26, 2021 22:03
[2021-03-27 06:34] VITALS: BP 143/82
[2021-03-27] MEDS: MULTIVITAMIN with MINERAL TABLET. PO SCH (08:38)
[2021-03-27] MEDS: NICOTINE 21MG PATCH. TD SCH (08:38)
[2021-03-27] MEDS: FOLIC ACID 1 MG TABLET PO SCH (08:39)
[2021-03-27] MEDS: POTASSIUM CHLORIDE 20 MEQ TABLET.ER. PO SCH (08:39)
[2021-03-27] MEDS: LACTOBACILLUS RHAMNOSUS GG 1 CAPSULE. PO SCH ×2 (08:39→20:58)
[2021-03-27] MEDS: THIAMINE 100 MG TABLET. PO SCH (08:39)
[2021-03-27] MEDS: MAGNESIUM OXIDE 400 MG TABLET PO SCH (08:39)
[2021-03-27] MEDS: CYCLOBENZAPRINE 10 MG TABLET. PO SCH ×2 (08:40→20:59)
[2021-03-27] MEDS: SERTRALINE 25 MG TABLET. PO SCH (08:40)
[2021-03-27 16:29] VITALS: BP 122/74
[2021-03-27] MEDS: MIRTAZAPINE 7.5 MG TABLET. PO SCH (20:58)
[2021-03-27] MEDS: risperiDONE 0.5 MG TABLET. PO SCH (20:59)
--- NOTE | 2021-03-27 22:01 | PDOC ---
Exam Note: Nadeem Note: Please also refer to the separate dictated note~for this date of service dictated separately.~Patient seen individually. Discussed the patient with Nursing staff reviewed the chart.~Reviewed interim history and current functioning. Reviewed vital signs,~Labs/ Radiology~and current medications noted below. Continue current treatment with the changes noted in the dictated addendum note Assessment: Vital Signs/I&O: Vital Signs Date Time Temp Pulse Resp B/P (MAP) Pulse Ox O2 Delivery O2 Flow Rate FiO2 03/27/21 16:29 97.8 95 20 122/74 (90) 98 03/26/21 16:57 Room Air I & O 03/26/21 03/26/21 03/27/21 15:00 23:00 07:00 Intake Total 1080 ml 800 ml Balance 1080 ml 800 ml Current Medications: Meds: Current Medications Medications (Trade) Dose Ordered Sig/Hunter Route PRN Reason Start Time Stop Time Status Last Admin Dose Admin Multi-Ingredient Ointment (Analgesic [place]) 1 lico PRN QID PRN TP MUSCLE PAIN 02/11/21 06:45 03/03/21 20:33 Al Hydroxide/Mg Hydroxide (Mylanta Plus Xs) 15 ml PRN AFTMEALHC PRN PO DYSPEPSIA 02/11/21 06:45 Magnesium Hydroxide (Milk Of Magnesia) 2,400 mg PRN QHS PRN PO CONSTIPATION 02/11/21 06:45 Acetaminophen (Tylenol) 650 mg PRN Q6HRS PRN PO MILD PAIN / TEMP > 100.3'F 02/11/21 12:00 03/19/21 06:15 Enoxaparin Sodium (Lovenox 40mg Syringe) 40 mg DAILY SQ 02/12/21 09:00 02/13/21 17:54 DC Lorazepam (Ativan) 1 mg PRN Q4HRS PRN PO ANXIETY / AGITATION 02/11/21 12:00 02/13/21 21:35 DC 02/13/21 16:15 Melatonin (Melatonin) 3 mg PRN QHS PRN PO INSOMNIA 02/11/21 12:00 03/15/21 20:11 Nicotine (Nicoderm Cq 21mg Patch) 1 patch DAILY TD 02/12/21 09:00 03/27/21 08:38 Nicotine Polacrilex (Nicorette Gum) 2 mg PRN Q2HRS PRN BC SMOKING CESSATION 02/11/21 12:00 02/17/21 18:24 Olanzapine (ZyPREXA ZYDIS) 5 mg PRN BID PRN PO PSYCHOSIS 02/11/21 12:00 02/13/21 20:07 DC 02/13/21 18:10 Potassium Chloride (Klor-Con) 20 meq DAILY PO 02/12/21 09:00 03/27/21 08:39 Folic Acid (Folic Acid) 1 mg DAILY PO 02/12/21 09:00 03/27/21 08:39 Thiamine HCl (Vitamin B-1) 100 mg DAILY PO 02/12/21 09:00 03/27/21 08:39 Non-Formulary Medication ([Folic Acid] ) 1 mg DAILY PO 02/12/21 09:00 02/11/21 12:25 DC Acetaminophen (Tylenol) 650 mg PRN Q6HRS PRN PO MILD PAIN / TEMP > 100.3'F 02/11/21 12:15 02/11/21 12:22 DC Multi-Ingredient Ointment (Analgesic [place]) 1 lico PRN QID PRN TP MUSCLE PAIN 02/11/21 12:15 02/11/21 12:22 DC Al Hydroxide/Mg Hydroxide (Mylanta Plus Xs) 15 ml PRN AFTMEALHC PRN PO DYSPEPSIA 02/11/21 12:15 02/11/21 12:22 DC Magnesium Hydroxide (Milk Of Magnesia) 2,400 mg PRN QHS PRN PO CONSTIPATION 02/11/21 12:15 02/11/21 12:22 DC Lidocaine (Lidoderm) 1 patch PRN DAILY PRN TD NECK PAIN 02/13/21 19:00 03/17/21 14:46 Olanzapine (ZyPREXA ZYDIS) 2.5 mg PRN Q2HR PRN PO PSYCHOSIS 02/13/21 20:15 02/13/21 23:06 Sertraline HCl (Zoloft) 50 mg DAILY PO 02/14/21 09:00 02/21/21 19:55 DC 02/21/21 08:09 Risperidone (RisperDAL) 0.5 mg QHS PO 02/13/21 21:00 03/27/21 20:59 Lorazepam (Ativan) 0.5 mg PRN Q1HR PRN PO ANXIETY / AGITATION 02/13/21 21:45 02/20/21 20:58 DC 02/20/21 16:54 Multivitamins/ Calcium (Thera-M Plus) 1 tab DAILY PO 02/13/21 21:30 03/27/21 08:38 Clonidine HCl (Catapres) 0.1 mg PRN Q1HR PRN PO SBP>180 OR DBP>100, MR X 3 02/13/21 21:30 Magnesium Oxide (Magnesium Oxide) 400 mg DAILY PO 02/14/21 09:00 02/13/21 21:36 DC Magnesium Oxide (Magnesium Oxide) 400 mg DAILY PO 02/13/21 21:45 03/27/21 08:39 Vitamin D (Vitamin D3) 50,000 unit WEEKLY PO 02/15/21 16:30 03/22/21 08:29 Lorazepam (Ativan) 0.5 mg PRN TID PRN PO ANXIETY / AGITATION 02/20/21 21:00 03/12/21 09:21 Cyclobenzaprine HCl (Flexeril) 10 mg BID PO 02/21/21 21:00 02/21/21 09:33 DC Cyclobenzaprine HCl (Flexeril) 10 mg BID PO 02/21/21 09:45 03/27/21 20:59 Sertraline HCl (Zoloft) 75 mg DAILY PO 02/22/21 09:00 03/27/21 08:40 Hydrocortisone (Cortizone-10) 1 lico PRN TID PRN TP ITCHING 02/24/21 12:00 Mirtazapine (Remeron) 7.5 mg QHS PO 02/28/21 21:30 03/27/21 20:58 Influenza Virus Vaccine Quadrival (Flulaval Quad [id number] Syringe) 0.5 ml ONCE ONCE VAX IM 03/11/21 09:00 03/11/21 09:01 DC 03/11/21 11:30 Amoxicillin/ Clavulanate Potassium (Augmentin 875/ 125mg) 1 tab BID PO 03/14/21 17:30 03/14/21 17:23 DC Amoxicillin/ Clavulanate Potassium (Augmentin 875/ 125mg) 1 tab BID PO 03/14/21 18:00 03/15/21 10:44 DC 03/15/21 09:16 Lactobacillus Rhamnosus (Culturelle) 1 cap BID PO 03/14/21 21:00 03/27/21 20:58 Amoxicillin/ Clavulanate Potassium (Augmentin 875/ 125mg) 1 tab BIDWMEALS PO 03/15/21 17:00 03/23/21 18:00 DC 03/23/21 17:27 Carbamide Peroxide (Debrox) 5 drop BID AU 03/21/21 21:00 03/24/21 11:16 DC 03/24/21 09:00 I have reviewed the current psychotropics carefully including drug interactions. Risk benefit ratio favors no change other than as noted in my dictated progress note. Diagnosis: Problems: (1) Major depressive disorder, recurrent episode (2) Wernicke encephalopathy (3) Anxiety disorder, unspecified (4) Alcohol dependence (5) Alcohol withdrawal (6) Alcohol withdrawal delirium IVANNA GUNDERSON MD Mar 27, 2021 22:01
[2021-03-28 06:40] VITALS: BP 114/70
[2021-03-28] MEDS: MAGNESIUM OXIDE 400 MG TABLET PO SCH (09:11)
[2021-03-28] MEDS: CYCLOBENZAPRINE 10 MG TABLET. PO SCH ×2 (09:11→21:13)
[2021-03-28] MEDS: MULTIVITAMIN with MINERAL TABLET. PO SCH (09:11)
[2021-03-28] MEDS: THIAMINE 100 MG TABLET. PO SCH (09:11)
[2021-03-28] MEDS: POTASSIUM CHLORIDE 20 MEQ TABLET.ER. PO SCH (09:11)
[2021-03-28] MEDS: LACTOBACILLUS RHAMNOSUS GG 1 CAPSULE. PO SCH ×2 (09:11→21:13)
[2021-03-28] MEDS: FOLIC ACID 1 MG TABLET PO SCH (09:11)
[2021-03-28] MEDS: NICOTINE 21MG PATCH. TD SCH (09:12)
[2021-03-28] MEDS: SERTRALINE 25 MG TABLET. PO SCH (09:12)
[2021-03-28 15:46] VITALS: BP 113/75
[2021-03-28] MEDS: risperiDONE 0.5 MG TABLET. PO SCH (21:13)
[2021-03-28] MEDS: MIRTAZAPINE 7.5 MG TABLET. PO SCH (21:13)
--- NOTE | 2021-03-28 22:01 | PDOC ---
Exam Note: Nadeem Note: Please also refer to the separate dictated note~for this date of service dictated separately.~Patient seen individually. Discussed the patient with Nursing staff reviewed the chart.~Reviewed interim history and current functioning. Reviewed vital signs,~Labs/ Radiology~and current medications noted below. Continue current treatment with the changes noted in the dictated addendum note Assessment: Vital Signs/I&O: Vital Signs Date Time Temp Pulse Resp B/P (MAP) Pulse Ox O2 Delivery O2 Flow Rate FiO2 03/28/21 15:46 98.1 106 20 113/75 (88) 96 03/26/21 16:57 Room Air I & O 03/27/21 03/27/21 03/28/21 15:00 23:00 07:00 Intake Total 1400 ml 480 ml 360 ml Balance 1400 ml 480 ml 360 ml Current Medications: Meds: Current Medications Medications (Trade) Dose Ordered Sig/Hunter Route PRN Reason Start Time Stop Time Status Last Admin Dose Admin Multi-Ingredient Ointment (Analgesic [place]) 1 lico PRN QID PRN TP MUSCLE PAIN 02/11/21 06:45 03/03/21 20:33 Al Hydroxide/Mg Hydroxide (Mylanta Plus Xs) 15 ml PRN AFTMEALHC PRN PO DYSPEPSIA 02/11/21 06:45 Magnesium Hydroxide (Milk Of Magnesia) 2,400 mg PRN QHS PRN PO CONSTIPATION 02/11/21 06:45 Acetaminophen (Tylenol) 650 mg PRN Q6HRS PRN PO MILD PAIN / TEMP > 100.3'F 02/11/21 12:00 03/19/21 06:15 Enoxaparin Sodium (Lovenox 40mg Syringe) 40 mg DAILY SQ 02/12/21 09:00 02/13/21 17:54 DC Lorazepam (Ativan) 1 mg PRN Q4HRS PRN PO ANXIETY / AGITATION 02/11/21 12:00 02/13/21 21:35 DC 02/13/21 16:15 Melatonin (Melatonin) 3 mg PRN QHS PRN PO INSOMNIA 02/11/21 12:00 03/15/21 20:11 Nicotine (Nicoderm Cq 21mg Patch) 1 patch DAILY TD 02/12/21 09:00 03/28/21 18:50 DC 03/28/21 09:12 Nicotine Polacrilex (Nicorette Gum) 2 mg PRN Q2HRS PRN BC SMOKING CESSATION 02/11/21 12:00 02/17/21 18:24 Olanzapine (ZyPREXA ZYDIS) 5 mg PRN BID PRN PO PSYCHOSIS 02/11/21 12:00 02/13/21 20:07 DC 02/13/21 18:10 Potassium Chloride (Klor-Con) 20 meq DAILY PO 02/12/21 09:00 03/28/21 09:11 Folic Acid (Folic Acid) 1 mg DAILY PO 02/12/21 09:00 03/28/21 09:11 Thiamine HCl (Vitamin B-1) 100 mg DAILY PO 02/12/21 09:00 03/28/21 09:11 Non-Formulary Medication ([Folic Acid] ) 1 mg DAILY PO 02/12/21 09:00 02/11/21 12:25 DC Acetaminophen (Tylenol) 650 mg PRN Q6HRS PRN PO MILD PAIN / TEMP > 100.3'F 02/11/21 12:15 02/11/21 12:22 DC Multi-Ingredient Ointment (Analgesic [place]) 1 lico PRN QID PRN TP MUSCLE PAIN 02/11/21 12:15 02/11/21 12:22 DC Al Hydroxide/Mg Hydroxide (Mylanta Plus Xs) 15 ml PRN AFTMEALHC PRN PO DYSPEPSIA 02/11/21 12:15 02/11/21 12:22 DC Magnesium Hydroxide (Milk Of Magnesia) 2,400 mg PRN QHS PRN PO CONSTIPATION 02/11/21 12:15 02/11/21 12:22 DC Lidocaine (Lidoderm) 1 patch PRN DAILY PRN TD NECK PAIN 02/13/21 19:00 03/17/21 14:46 Olanzapine (ZyPREXA ZYDIS) 2.5 mg PRN Q2HR PRN PO PSYCHOSIS 02/13/21 20:15 02/13/21 23:06 Sertraline HCl (Zoloft) 50 mg DAILY PO 02/14/21 09:00 02/21/21 19:55 DC 02/21/21 08:09 Risperidone (RisperDAL) 0.5 mg QHS PO 02/13/21 21:00 03/28/21 21:13 Lorazepam (Ativan) 0.5 mg PRN Q1HR PRN PO ANXIETY / AGITATION 02/13/21 21:45 02/20/21 20:58 DC 02/20/21 16:54 Multivitamins/ Calcium (Thera-M Plus) 1 tab DAILY PO 02/13/21 21:30 03/28/21 09:11 Clonidine HCl (Catapres) 0.1 mg PRN Q1HR PRN PO SBP>180 OR DBP>100, MR X 3 02/13/21 21:30 Magnesium Oxide (Magnesium Oxide) 400 mg DAILY PO 02/14/21 09:00 02/13/21 21:36 DC Magnesium Oxide (Magnesium Oxide) 400 mg DAILY PO 02/13/21 21:45 03/28/21 09:11 Vitamin D (Vitamin D3) 50,000 unit WEEKLY PO 02/15/21 16:30 03/22/21 08:29 Lorazepam (Ativan) 0.5 mg PRN TID PRN PO ANXIETY / AGITATION 02/20/21 21:00 03/12/21 09:21 Cyclobenzaprine HCl (Flexeril) 10 mg BID PO 02/21/21 21:00 02/21/21 09:33 DC Cyclobenzaprine HCl (Flexeril) 10 mg BID PO 02/21/21 09:45 03/28/21 21:13 Sertraline HCl (Zoloft) 75 mg DAILY PO 02/22/21 09:00 03/28/21 09:12 Hydrocortisone (Cortizone-10) 1 lico PRN TID PRN TP ITCHING 02/24/21 12:00 Mirtazapine (Remeron) 7.5 mg QHS PO 02/28/21 21:30 03/28/21 21:13 Influenza Virus Vaccine Quadrival (Flulaval Quad [id number] Syringe) 0.5 ml ONCE ONCE VAX IM 03/11/21 09:00 03/11/21 09:01 DC 03/11/21 11:30 Amoxicillin/ Clavulanate Potassium (Augmentin 875/ 125mg) 1 tab BID PO 03/14/21 17:30 03/14/21 17:23 DC Amoxicillin/ Clavulanate Potassium (Augmentin 875/ 125mg) 1 tab BID PO 03/14/21 18:00 03/15/21 10:44 DC 03/15/21 09:16 Lactobacillus Rhamnosus (Culturelle) 1 cap BID PO 03/14/21 21:00 03/28/21 21:13 Amoxicillin/ Clavulanate Potassium (Augmentin 875/ 125mg) 1 tab BIDWMEALS PO 03/15/21 17:00 03/23/21 18:00 DC 03/23/21 17:27 Carbamide Peroxide (Debrox) 5 drop BID AU 03/21/21 21:00 03/24/21 11:16 DC 03/24/21 09:00 Nicotine (Nicoderm Cq 14mg Patch) 1 patch DAILY TD 03/29/21 09:00 I have reviewed the current psychotropics carefully including drug interactions. Risk benefit ratio favors no change other than as noted in my dictated progress note. Diagnosis: Problems: (1) Major depressive disorder, recurrent episode (2) Wernicke encephalopathy (3) Anxiety disorder, unspecified (4) Alcohol dependence (5) Alcohol withdrawal (6) Alcohol withdrawal delirium IVANNA GUNDERSON MD Mar 28, 2021 22:01
[2021-03-29 06:46] VITALS: BP 107/69
[2021-03-29] MEDS: LACTOBACILLUS RHAMNOSUS GG 1 CAPSULE. PO SCH ×2 (08:10→20:40)
[2021-03-29] MEDS: NICOTINE 14MG PATCH. TD SCH (08:10)
[2021-03-29] MEDS: SERTRALINE 25 MG TABLET. PO SCH (08:10)
[2021-03-29] MEDS: POTASSIUM CHLORIDE 20 MEQ TABLET.ER. PO SCH (08:11)
[2021-03-29] MEDS: THIAMINE 100 MG TABLET. PO SCH (08:11)
[2021-03-29] MEDS: FOLIC ACID 1 MG TABLET PO SCH (08:11)
[2021-03-29] MEDS: MULTIVITAMIN with MINERAL TABLET. PO SCH (08:11)
[2021-03-29] MEDS: CHOLECALCIFEROL (VITAMIN D3) 50,000 UNIT CAPSULE PO SCH (08:11)
[2021-03-29] MEDS: MAGNESIUM OXIDE 400 MG TABLET PO SCH (08:11)
[2021-03-29] MEDS: CYCLOBENZAPRINE 10 MG TABLET. PO SCH ×2 (08:11→20:40)
--- NOTE | 2021-03-29 09:06 | PDOC ---
Exam Note: Nadeem Note: This note is a late entry for 03/26/2021 covers elements not covered in my initial note. Subjective: The patient was reviewed at treatment team meeting individually in the morning on 03/26/2021 with Cindy Santana, Genoveva Huitron, and Keli (social service director), Lissette, activity therapy and Jackie SHERMAN, discussed and reviewed the chart. Reviewed the patients history, diagnoses, overall functioning on the unit, current psychotropics and risk-benefit ratio. The patient slept 6-1/4 hours previous night. Appetite is 90%. She was somewhat withdrawn, minimizes her past alcohol abuse, repetitive that she will never drink again, attended 8/10 groups in the past week, calm. She has difficulty with computation, unable to do 100-7 as I questioned her. Review of Systems: No CV, , pulmonary, eye, ENT system symptoms on review. Mental Status Exam: The patient is oriented to herself and situation. Speech has some latency, coherent. Abstraction fair. Computation impaired. Language function intact. Attention span short. Mood and affect withdrawn. Laboratory Data: Reviewed. Impression: Major depressive disorder recurrent. Alcohol abuse/dependence/withdrawal. Anxiety disorder unspecified. History of Wernickes encephalopathy. Plan: Defer to Genoveva Huitron social service director to coordinate with the family and the patient about appropriate disposition. Assessment: Vital Signs/I&O: Vital Signs Date Time Temp Pulse Resp B/P (MAP) Pulse Ox O2 Delivery O2 Flow Rate FiO2 03/29/21 06:46 97.0 71 18 107/69 (82) 96 03/26/21 16:57 Room Air I & O 03/28/21 03/28/21 03/29/21 15:00 23:00 07:00 Intake Total 720 ml 1020 ml Balance 720 ml 1020 ml Current Medications: Meds: Current Medications Medications (Trade) Dose Ordered Sig/Hunter Route PRN Reason Start Time Stop Time Status Last Admin Dose Admin Multi-Ingredient Ointment (Analgesic [place]) 1 lico PRN QID PRN TP MUSCLE PAIN 02/11/21 06:45 03/03/21 20:33 Al Hydroxide/Mg Hydroxide (Mylanta Plus Xs) 15 ml PRN AFTMEALHC PRN PO DYSPEPSIA 02/11/21 06:45 Magnesium Hydroxide (Milk Of Magnesia) 2,400 mg PRN QHS PRN PO CONSTIPATION 02/11/21 06:45 Acetaminophen (Tylenol) 650 mg PRN Q6HRS PRN PO MILD PAIN / TEMP > 100.3'F 02/11/21 12:00 03/19/21 06:15 Enoxaparin Sodium (Lovenox 40mg Syringe) 40 mg DAILY SQ 02/12/21 09:00 02/13/21 17:54 DC Lorazepam (Ativan) 1 mg PRN Q4HRS PRN PO ANXIETY / AGITATION 02/11/21 12:00 02/13/21 21:35 DC 02/13/21 16:15 Melatonin (Melatonin) 3 mg PRN QHS PRN PO INSOMNIA 02/11/21 12:00 03/15/21 20:11 Nicotine (Nicoderm Cq 21mg Patch) 1 patch DAILY TD 02/12/21 09:00 03/28/21 18:50 DC 03/28/21 09:12 Nicotine Polacrilex (Nicorette Gum) 2 mg PRN Q2HRS PRN BC SMOKING CESSATION 02/11/21 12:00 02/17/21 18:24 Olanzapine (ZyPREXA ZYDIS) 5 mg PRN BID PRN PO PSYCHOSIS 02/11/21 12:00 02/13/21 20:07 DC 02/13/21 18:10 Potassium Chloride (Klor-Con) 20 meq DAILY PO 02/12/21 09:00 03/29/21 08:11 Folic Acid (Folic Acid) 1 mg DAILY PO 02/12/21 09:00 03/29/21 08:11 Thiamine HCl (Vitamin B-1) 100 mg DAILY PO 02/12/21 09:00 03/29/21 08:11 Non-Formulary Medication ([Folic Acid] ) 1 mg DAILY PO 02/12/21 09:00 02/11/21 12:25 DC Acetaminophen (Tylenol) 650 mg PRN Q6HRS PRN PO MILD PAIN / TEMP > 100.3'F 02/11/21 12:15 02/11/21 12:22 DC Multi-Ingredient Ointment (Analgesic [place]) 1 lico PRN QID PRN TP MUSCLE PAIN 02/11/21 12:15 02/11/21 12:22 DC Al Hydroxide/Mg Hydroxide (Mylanta Plus Xs) 15 ml PRN AFTMEALHC PRN PO DYSPEPSIA 02/11/21 12:15 02/11/21 12:22 DC Magnesium Hydroxide (Milk Of Magnesia) 2,400 mg PRN QHS PRN PO CONSTIPATION 02/11/21 12:15 02/11/21 12:22 DC Lidocaine (Lidoderm) 1 patch PRN DAILY PRN TD NECK PAIN 02/13/21 19:00 03/17/21 14:46 Olanzapine (ZyPREXA ZYDIS) 2.5 mg PRN Q2HR PRN PO PSYCHOSIS 02/13/21 20:15 02/13/21 23:06 Sertraline HCl (Zoloft) 50 mg DAILY PO 02/14/21 09:00 02/21/21 19:55 DC 02/21/21 08:09 Risperidone (RisperDAL) 0.5 mg QHS PO 02/13/21 21:00 03/28/21 21:13 Lorazepam (Ativan) 0.5 mg PRN Q1HR PRN PO ANXIETY / AGITATION 02/13/21 21:45 02/20/21 20:58 DC 02/20/21 16:54 Multivitamins/ Calcium (Thera-M Plus) 1 tab DAILY PO 02/13/21 21:30 03/29/21 08:11 Clonidine HCl (Catapres) 0.1 mg PRN Q1HR PRN PO SBP>180 OR DBP>100, MR X 3 02/13/21 21:30 Magnesium Oxide (Magnesium Oxide) 400 mg DAILY PO 02/14/21 09:00 02/13/21 21:36 DC Magnesium Oxide (Magnesium Oxide) 400 mg DAILY PO 02/13/21 21:45 03/29/21 08:11 Vitamin D (Vitamin D3) 50,000 unit WEEKLY PO 02/15/21 16:30 03/29/21 08:11 Lorazepam (Ativan) 0.5 mg PRN TID PRN PO ANXIETY / AGITATION 02/20/21 21:00 03/12/21 09:21 Cyclobenzaprine HCl (Flexeril) 10 mg BID PO 02/21/21 21:00 02/21/21 09:33 DC Cyclobenzaprine HCl (Flexeril) 10 mg BID PO 02/21/21 09:45 03/29/21 08:11 Sertraline HCl (Zoloft) 75 mg DAILY PO 02/22/21 09:00 03/29/21 08:10 Hydrocortisone (Cortizone-10) 1 lico PRN TID PRN TP ITCHING 02/24/21 12:00 Mirtazapine (Remeron) 7.5 mg QHS PO 02/28/21 21:30 03/28/21 21:13 Influenza Virus Vaccine Quadrival (Flulaval Quad Syringe) 0.5 ml ONCE ONCE VAX IM 03/11/21 09:00 03/11/21 09:01 DC 03/11/21 11:30 Amoxicillin/ Clavulanate Potassium (Augmentin 875/ 125mg) 1 tab BID PO 03/14/21 17:30 03/14/21 17:23 DC Amoxicillin/ Clavulanate Potassium (Augmentin 875/ 125mg) 1 tab BID PO 03/14/21 18:00 03/15/21 10:44 DC 03/15/21 09:16 Lactobacillus Rhamnosus (Culturelle) 1 cap BID PO 03/14/21 21:00 03/29/21 08:10 Amoxicillin/ Clavulanate Potassium (Augmentin 875/ 125mg) 1 tab BIDWMEALS PO 03/15/21 17:00 03/23/21 18:00 DC 03/23/21 17:27 Carbamide Peroxide (Debrox) 5 drop BID AU 03/21/21 21:00 03/24/21 11:16 DC 03/24/21 09:00 Nicotine (Nicoderm Cq 14mg Patch) 1 patch DAILY TD 03/29/21 09:00 03/29/21 08:10 Current Medications Medications (Trade) Dose Ordered Sig/Hunter Route PRN Reason Start Time Stop Time Status Last Admin Dose Admin Nicotine (Nicoderm Cq 14mg Patch) 1 patch DAILY TD 03/29/21 09:00 03/29/21 08:10 I have reviewed the current psychotropics carefully including drug interactions. Risk benefit ratio favors no change other than as noted in my dictated progress note. Diagnosis: Problems: (1) Major depressive disorder, recurrent episode (2) Wernicke encephalopathy (3) Anxiety disorder, unspecified (4) Alcohol dependence (5) Alcohol withdrawal (6) Alcohol withdrawal delirium IVANNA GUNDERSON MD Mar 29, 2021 09:06
--- NOTE | 2021-03-29 09:18 | PDOC ---
Exam Note: Nadeem Note: This note is a late entry for 03/27/2021 covers elements not covered in my initial note. Subjective: The patient was seen individually in the evening of 03/27/2021 with Corey SHERMAN, discussed and reviewed the chart. The patient slept 7-1/2 hours previous night. I met with the patient in her room at length in the evening. We again talked about her transition to a lower level of care to avoid alcohol and she is totally convinced she will never use alcohol again. I processed this with her. Review of Systems: No CV, , pulmonary, eye system symptoms on review. Mental Status Exam: The patient is reasonably oriented. Speech has some latency, coherent. Abstraction fair. Computation impaired. Language function intact. Attention span short. Mood and affect withdrawn. Laboratory Data: Reviewed. Impression: Major depressive disorder recurrent. Alcohol abuse/dependence/withdrawal. Anxiety disorder unspecified. History of Wernicke s encephalopathy. Plan: Continue psychotropics mentioned in my initial note. Assessment: Vital Signs/I&O: Vital Signs Date Time Temp Pulse Resp B/P (MAP) Pulse Ox O2 Delivery O2 Flow Rate FiO2 03/29/21 06:46 97.0 71 18 107/69 (82) 96 03/26/21 16:57 Room Air I & O 03/28/21 03/28/21 03/29/21 15:00 23:00 07:00 Intake Total 720 ml 1020 ml Balance 720 ml 1020 ml Current Medications: Meds: Current Medications Medications (Trade) Dose Ordered Sig/Hunter Route PRN Reason Start Time Stop Time Status Last Admin Dose Admin Multi-Ingredient Ointment (Analgesic [place]) 1 lico PRN QID PRN TP MUSCLE PAIN 02/11/21 06:45 03/03/21 20:33 Al Hydroxide/Mg Hydroxide (Mylanta Plus Xs) 15 ml PRN AFTMEALHC PRN PO DYSPEPSIA 02/11/21 06:45 Magnesium Hydroxide (Milk Of Magnesia) 2,400 mg PRN QHS PRN PO CONSTIPATION 02/11/21 06:45 Acetaminophen (Tylenol) 650 mg PRN Q6HRS PRN PO MILD PAIN / TEMP > 100.3'F 02/11/21 12:00 03/19/21 06:15 Enoxaparin Sodium (Lovenox 40mg Syringe) 40 mg DAILY SQ 02/12/21 09:00 02/13/21 17:54 DC Lorazepam (Ativan) 1 mg PRN Q4HRS PRN PO ANXIETY / AGITATION 02/11/21 12:00 02/13/21 21:35 DC 02/13/21 16:15 Melatonin (Melatonin) 3 mg PRN QHS PRN PO INSOMNIA 02/11/21 12:00 03/15/21 20:11 Nicotine (Nicoderm Cq 21mg Patch) 1 patch DAILY TD 02/12/21 09:00 03/28/21 18:50 DC 03/28/21 09:12 Nicotine Polacrilex (Nicorette Gum) 2 mg PRN Q2HRS PRN BC SMOKING CESSATION 02/11/21 12:00 02/17/21 18:24 Olanzapine (ZyPREXA ZYDIS) 5 mg PRN BID PRN PO PSYCHOSIS 02/11/21 12:00 02/13/21 20:07 DC 02/13/21 18:10 Potassium Chloride (Klor-Con) 20 meq DAILY PO 02/12/21 09:00 03/29/21 08:11 Folic Acid (Folic Acid) 1 mg DAILY PO 02/12/21 09:00 03/29/21 08:11 Thiamine HCl (Vitamin B-1) 100 mg DAILY PO 02/12/21 09:00 03/29/21 08:11 Non-Formulary Medication ([Folic Acid] ) 1 mg DAILY PO 02/12/21 09:00 02/11/21 12:25 DC Acetaminophen (Tylenol) 650 mg PRN Q6HRS PRN PO MILD PAIN / TEMP > 100.3'F 02/11/21 12:15 02/11/21 12:22 DC Multi-Ingredient Ointment (Analgesic [place]) 1 lico PRN QID PRN TP MUSCLE PAIN 02/11/21 12:15 02/11/21 12:22 DC Al Hydroxide/Mg Hydroxide (Mylanta Plus Xs) 15 ml PRN AFTMEALHC PRN PO DYSPEPSIA 02/11/21 12:15 02/11/21 12:22 DC Magnesium Hydroxide (Milk Of Magnesia) 2,400 mg PRN QHS PRN PO CONSTIPATION 02/11/21 12:15 02/11/21 12:22 DC Lidocaine (Lidoderm) 1 patch PRN DAILY PRN TD NECK PAIN 02/13/21 19:00 03/17/21 14:46 Olanzapine (ZyPREXA ZYDIS) 2.5 mg PRN Q2HR PRN PO PSYCHOSIS 02/13/21 20:15 02/13/21 23:06 Sertraline HCl (Zoloft) 50 mg DAILY PO 02/14/21 09:00 02/21/21 19:55 DC 02/21/21 08:09 Risperidone (RisperDAL) 0.5 mg QHS PO 02/13/21 21:00 03/28/21 21:13 Lorazepam (Ativan) 0.5 mg PRN Q1HR PRN PO ANXIETY / AGITATION 02/13/21 21:45 02/20/21 20:58 DC 02/20/21 16:54 Multivitamins/ Calcium (Thera-M Plus) 1 tab DAILY PO 02/13/21 21:30 03/29/21 08:11 Clonidine HCl (Catapres) 0.1 mg PRN Q1HR PRN PO SBP>180 OR DBP>100, MR X 3 02/13/21 21:30 Magnesium Oxide (Magnesium Oxide) 400 mg DAILY PO 02/14/21 09:00 02/13/21 21:36 DC Magnesium Oxide (Magnesium Oxide) 400 mg DAILY PO 02/13/21 21:45 03/29/21 08:11 Vitamin D (Vitamin D3) 50,000 unit WEEKLY PO 02/15/21 16:30 03/29/21 08:11 Lorazepam (Ativan) 0.5 mg PRN TID PRN PO ANXIETY / AGITATION 02/20/21 21:00 03/12/21 09:21 Cyclobenzaprine HCl (Flexeril) 10 mg BID PO 02/21/21 21:00 02/21/21 09:33 DC Cyclobenzaprine HCl (Flexeril) 10 mg BID PO 02/21/21 09:45 03/29/21 08:11 Sertraline HCl (Zoloft) 75 mg DAILY PO 02/22/21 09:00 03/29/21 08:10 Hydrocortisone (Cortizone-10) 1 lico PRN TID PRN TP ITCHING 02/24/21 12:00 Mirtazapine (Remeron) 7.5 mg QHS PO 02/28/21 21:30 03/28/21 21:13 Influenza Virus Vaccine Quadrival (Flulaval Quad Syringe) 0.5 ml ONCE ONCE VAX IM 03/11/21 09:00 03/11/21 09:01 DC 03/11/21 11:30 Amoxicillin/ Clavulanate Potassium (Augmentin 875/ 125mg) 1 tab BID PO 03/14/21 17:30 03/14/21 17:23 DC Amoxicillin/ Clavulanate Potassium (Augmentin 875/ 125mg) 1 tab BID PO 03/14/21 18:00 03/15/21 10:44 DC 03/15/21 09:16 Lactobacillus Rhamnosus (Culturelle) 1 cap BID PO 03/14/21 21:00 03/29/21 08:10 Amoxicillin/ Clavulanate Potassium (Augmentin 875/ 125mg) 1 tab BIDWMEALS PO 03/15/21 17:00 03/23/21 18:00 DC 03/23/21 17:27 Carbamide Peroxide (Debrox) 5 drop BID AU 03/21/21 21:00 03/24/21 11:16 DC 03/24/21 09:00 Nicotine (Nicoderm Cq 14mg Patch) 1 patch DAILY TD 03/29/21 09:00 03/29/21 08:10 Current Medications Medications (Trade) Dose Ordered Sig/Hunter Route PRN Reason Start Time Stop Time Status Last Admin Dose Admin Nicotine (Nicoderm Cq 14mg Patch) 1 patch DAILY TD 03/29/21 09:00 03/29/21 08:10 I have reviewed the current psychotropics carefully including drug interactions. Risk benefit ratio favors no change other than as noted in my dictated progress note. Diagnosis: Problems: (1) Major depressive disorder, recurrent episode (2) Wernicke encephalopathy (3) Anxiety disorder, unspecified (4) Alcohol dependence (5) Alcohol withdrawal (6) Alcohol withdrawal delirium IVANNA GUNDERSON MD Mar 29, 2021 09:18
[2021-03-29 11:07] LABS: BASO # 0.1 x10^3/uL (0.0-0.2); BASO % 1 % (0-3); EOS # 0.4 x10^3/uL (0.0-0.7); EOS % 6 % (0-3); HEMOGLOBIN 11.8 g/dL (12.0-15.5); LYMPH # 1.7 x10^3/uL (1.0-4.8); LYMPH % 27 % (24-48); MEAN CORPUSCULAR HEMOGLOBIN 33 pg (25-35); MEAN CORPUSCULAR HGB CONC 34 g/dL (31-37); MEAN CORPUSCULAR VOLUME 98 fL (79-100); MONO # 0.6 x10^3/uL (0.0-1.1); MONO % 10 % (0-9); NEUT # 3.5 x10^3uL (1.8-7.7); NEUT % 56 % (31-73); PLATELET COUNT 353 x10^3/uL (140-400); RED BLOOD COUNT 3.56 x10^6/uL (3.50-5.40); RED CELL DISTRIBUTION WIDTH 13.4 % (11.5-14.5); WHITE BLOOD COUNT 6.3 x10^3/uL (4.0-11.0)
[2021-03-29 11:13] LABS: ALBUMIN 3.4 g/dL (3.4-5.0); CREATININE 0.3 mg/dL (0.6-1.0); GFR 226.9; POTASSIUM 4.2 mmol/L (3.5-5.1); TOTAL BILIRUBIN 0.2 mg/dL (0.2-1.0); TOTAL PROTEIN 6.9 g/dL (6.4-8.2)
[2021-03-29 16:00] VITALS: BP 112/71
[2021-03-29] MEDS: MIRTAZAPINE 7.5 MG TABLET. PO SCH (20:40)
[2021-03-29] MEDS: risperiDONE 0.5 MG TABLET. PO SCH (20:40)
--- NOTE | 2021-03-29 22:07 | PDOC ---
Exam Note: Nadeem Note: Please also refer to the separate dictated note~for this date of service dictated separately.~Patient seen individually. Discussed the patient with Nursing staff reviewed the chart.~Reviewed interim history and current functioning. Reviewed vital signs,~Labs/ Radiology~and current medications noted below. Continue current treatment with the changes noted in the dictated addendum note Assessment: Vital Signs/I&O: Vital Signs Date Time Temp Pulse Resp B/P (MAP) Pulse Ox O2 Delivery O2 Flow Rate FiO2 03/29/21 16:00 97.9 97 18 112/71 (85) 97 03/26/21 16:57 Room Air I & O 03/28/21 03/28/21 03/29/21 15:00 23:00 07:00 Intake Total 720 ml 1020 ml Balance 720 ml 1020 ml Labs: Laboratory Tests Test 03/29/21 10:15 White Blood Count 6.3 x10^3/uL (4.0-11.0) Red Blood Count 3.56 x10^6/uL (3.50-5.40) Hemoglobin 11.8 g/dL (12.0-15.5) L Hematocrit 35.0 % (36.0-47.0) L Mean Corpuscular Volume 98 fL (79-100) Mean Corpuscular Hemoglobin 33 pg (25-35) Mean Corpuscular Hemoglobin Concent 34 g/dL (31-37) Red Cell Distribution Width 13.4 % (11.5-14.5) Platelet Count 353 x10^3/uL (140-400) Neutrophils (%) (Auto) 56 % (31-73) Lymphocytes (%) (Auto) 27 % (24-48) Monocytes (%) (Auto) 10 % (0-9) H Eosinophils (%) (Auto) 6 % (0-3) H Basophils (%) (Auto) 1 % (0-3) Neutrophils # (Auto) 3.5 x10^3uL (1.8-7.7) Lymphocytes # (Auto) 1.7 x10^3/uL (1.0-4.8) Monocytes # (Auto) 0.6 x10^3/uL (0.0-1.1) Eosinophils # (Auto) 0.4 x10^3/uL (0.0-0.7) Basophils # (Auto) 0.1 x10^3/uL (0.0-0.2) Sodium Level 133 mmol/L (136-145) L Potassium Level 4.2 mmol/L (3.5-5.1) Chloride Level 100 mmol/L (98-107) Carbon Dioxide Level 27 mmol/L (21-32) Anion Gap 6 (6-14) Blood Urea Nitrogen 16 mg/dL (7-20) Creatinine 0.3 mg/dL (0.6-1.0) L Estimated GFR (Cockcroft-Gault) 226.9 BUN/Creatinine Ratio 53 (6-20) H Glucose Level 72 mg/dL (70-99) Calcium Level 9.0 mg/dL (8.5-10.1) Total Bilirubin 0.2 mg/dL (0.2-1.0) Aspartate Amino Transferase (AST) 19 U/L (15-37) Alanine Aminotransferase (ALT) 22 U/L (14-59) Alkaline Phosphatase 58 U/L (46-116) Total Protein 6.9 g/dL (6.4-8.2) Albumin 3.4 g/dL (3.4-5.0) Albumin/Globulin Ratio 1.0 (1.0-1.7) Current Medications: Meds: Laboratory Tests Test 03/29/21 10:15 White Blood Count 6.3 x10^3/uL Red Blood Count 3.56 x10^6/uL Hemoglobin 11.8 g/dL Hematocrit 35.0 % Mean Corpuscular Volume 98 fL Mean Corpuscular Hemoglobin 33 pg Mean Corpuscular Hemoglobin Concent 34 g/dL Red Cell Distribution Width 13.4 % Platelet Count 353 x10^3/uL Neutrophils (%) (Auto) 56 % Lymphocytes (%) (Auto) 27 % Monocytes (%) (Auto) 10 % Eosinophils (%) (Auto) 6 % Basophils (%) (Auto) 1 % Neutrophils # (Auto) 3.5 x10^3uL Lymphocytes # (Auto) 1.7 x10^3/uL Monocytes # (Auto) 0.6 x10^3/uL Eosinophils # (Auto) 0.4 x10^3/uL Basophils # (Auto) 0.1 x10^3/uL Sodium Level 133 mmol/L Potassium Level 4.2 mmol/L Chloride Level 100 mmol/L Carbon Dioxide Level 27 mmol/L Anion Gap 6 Blood Urea Nitrogen 16 mg/dL Creatinine 0.3 mg/dL Estimated GFR (Cockcroft-Gault) 226.9 BUN/Creatinine Ratio 53 Glucose Level 72 mg/dL Calcium Level 9.0 mg/dL Total Bilirubin 0.2 mg/dL Aspartate Amino Transf (AST/SGOT) 19 U/L Alanine Aminotransferase (ALT/SGPT) 22 U/L Alkaline Phosphatase 58 U/L Total Protein 6.9 g/dL Albumin 3.4 g/dL Albumin/Globulin Ratio 1.0 Current Medications Medications (Trade) Dose Ordered Sig/Hunter Route PRN Reason Start Time Stop Time Status Last Admin Dose Admin Multi-Ingredient Ointment (Analgesic [place]) 1 lico PRN QID PRN TP MUSCLE PAIN 02/11/21 06:45 03/03/21 20:33 Al Hydroxide/Mg Hydroxide (Mylanta Plus Xs) 15 ml PRN AFTMEALHC PRN PO DYSPEPSIA 02/11/21 06:45 Magnesium Hydroxide (Milk Of Magnesia) 2,400 mg PRN QHS PRN PO CONSTIPATION 02/11/21 06:45 Acetaminophen (Tylenol) 650 mg PRN Q6HRS PRN PO MILD PAIN / TEMP > 100.3'F 02/11/21 12:00 03/19/21 06:15 Enoxaparin Sodium (Lovenox 40mg Syringe) 40 mg DAILY SQ 02/12/21 09:00 02/13/21 17:54 DC Lorazepam (Ativan) 1 mg PRN Q4HRS PRN PO ANXIETY / AGITATION 02/11/21 12:00 02/13/21 21:35 DC 02/13/21 16:15 Melatonin (Melatonin) 3 mg PRN QHS PRN PO INSOMNIA 02/11/21 12:00 03/15/21 20:11 Nicotine (Nicoderm Cq 21mg Patch) 1 patch DAILY TD 02/12/21 09:00 03/28/21 18:50 DC 03/28/21 09:12 Nicotine Polacrilex (Nicorette Gum) 2 mg PRN Q2HRS PRN BC SMOKING CESSATION 02/11/21 12:00 02/17/21 18:24 Olanzapine (ZyPREXA ZYDIS) 5 mg PRN BID PRN PO PSYCHOSIS 02/11/21 12:00 02/13/21 20:07 DC 02/13/21 18:10 Potassium Chloride (Klor-Con) 20 meq DAILY PO 02/12/21 09:00 03/29/21 08:11 Folic Acid (Folic Acid) 1 mg DAILY PO 02/12/21 09:00 03/29/21 08:11 Thiamine HCl (Vitamin B-1) 100 mg DAILY PO 02/12/21 09:00 03/29/21 08:11 Non-Formulary Medication ([Folic Acid] ) 1 mg DAILY PO 02/12/21 09:00 02/11/21 12:25 DC Acetaminophen (Tylenol) 650 mg PRN Q6HRS PRN PO MILD PAIN / TEMP > 100.3'F 02/11/21 12:15 02/11/21 12:22 DC Multi-Ingredient Ointment (Analgesic [place]) 1 lico PRN QID PRN TP MUSCLE PAIN 02/11/21 12:15 02/11/21 12:22 DC Al Hydroxide/Mg Hydroxide (Mylanta Plus Xs) 15 ml PRN AFTMEALHC PRN PO DYSPEPSIA 02/11/21 12:15 02/11/21 12:22 DC Magnesium Hydroxide (Milk Of Magnesia) 2,400 mg PRN QHS PRN PO CONSTIPATION 02/11/21 12:15 02/11/21 12:22 DC Lidocaine (Lidoderm) 1 patch PRN DAILY PRN TD NECK PAIN 02/13/21 19:00 03/17/21 14:46 Olanzapine (ZyPREXA ZYDIS) 2.5 mg PRN Q2HR PRN PO PSYCHOSIS 02/13/21 20:15 02/13/21 23:06 Sertraline HCl (Zoloft) 50 mg DAILY PO 02/14/21 09:00 02/21/21 19:55 DC 02/21/21 08:09 Risperidone (RisperDAL) 0.5 mg QHS PO 02/13/21 21:00 03/29/21 20:40 Lorazepam (Ativan) 0.5 mg PRN Q1HR PRN PO ANXIETY / AGITATION 02/13/21 21:45 02/20/21 20:58 DC 02/20/21 16:54 Multivitamins/ Calcium (Thera-M Plus) 1 tab DAILY PO 02/13/21 21:30 03/29/21 08:11 Clonidine HCl (Catapres) 0.1 mg PRN Q1HR PRN PO SBP>180 OR DBP>100, MR X 3 02/13/21 21:30 Magnesium Oxide (Magnesium Oxide) 400 mg DAILY PO 02/14/21 09:00 02/13/21 21:36 DC Magnesium Oxide (Magnesium Oxide) 400 mg DAILY PO 02/13/21 21:45 03/29/21 08:11 Vitamin D (Vitamin D3) 50,000 unit WEEKLY PO 02/15/21 16:30 03/29/21 08:11 Lorazepam (Ativan) 0.5 mg PRN TID PRN PO ANXIETY / AGITATION 02/20/21 21:00 03/12/21 09:21 Cyclobenzaprine HCl (Flexeril) 10 mg BID PO 02/21/21 21:00 02/21/21 09:33 DC Cyclobenzaprine HCl (Flexeril) 10 mg BID PO 02/21/21 09:45 03/29/21 20:40 Sertraline HCl (Zoloft) 75 mg DAILY PO 02/22/21 09:00 03/29/21 08:10 Hydrocortisone (Cortizone-10) 1 lico PRN TID PRN TP ITCHING 02/24/21 12:00 Mirtazapine (Remeron) 7.5 mg QHS PO 02/28/21 21:30 03/29/21 20:40 Influenza Virus Vaccine Quadrival (Flulaval Quad [id number] Syringe) 0.5 ml ONCE ONCE VAX IM 03/11/21 09:00 03/11/21 09:01 DC 03/11/21 11:30 Amoxicillin/ Clavulanate Potassium (Augmentin 875/ 125mg) 1 tab BID PO 03/14/21 17:30 03/14/21 17:23 DC Amoxicillin/ Clavulanate Potassium (Augmentin 875/ 125mg) 1 tab BID PO 03/14/21 18:00 03/15/21 10:44 DC 03/15/21 09:16 Lactobacillus Rhamnosus (Culturelle) 1 cap BID PO 03/14/21 21:00 03/29/21 20:40 Amoxicillin/ Clavulanate Potassium (Augmentin 875/ 125mg) 1 tab BIDWMEALS PO 03/15/21 17:00 03/23/21 18:00 DC 03/23/21 17:27 Carbamide Peroxide (Debrox) 5 drop BID AU 03/21/21 21:00 03/24/21 11:16 DC 03/24/21 09:00 Nicotine (Nicoderm Cq 14mg Patch) 1 patch DAILY TD 03/29/21 09:00 03/29/21 08:10 Current Medications Medications (Trade) Dose Ordered Sig/Hunter Route PRN Reason Start Time Stop Time Status Last Admin Dose Admin Nicotine (Nicoderm Cq 14mg Patch) 1 patch DAILY TD 03/29/21 09:00 03/29/21 08:10 I have reviewed the current psychotropics carefully including drug interactions. Risk benefit ratio favors no change other than as noted in my dictated progress note. Diagnosis: Problems: (1) Major depressive disorder, recurrent episode (2) Wernicke encephalopathy (3) Anxiety disorder, unspecified (4) Alcohol dependence (5) Alcohol withdrawal (6) Alcohol withdrawal delirium IVANNA GUNDERSON MD Mar 29, 2021 22:07
[2021-03-30 05:39] VITALS: BP 114/70
--- NOTE | 2021-03-30 07:13 | PDOC ---
Exam Note: Nadeem Note: This note is a late entry for 03/28/2021 covers elements not covered in my initial note. Subjective: The patient was seen individually in the evening of 03/28/2021 with Allan SHERMAN, discussed and reviewed the chart. The patient slept 6-1/4 hours previous night. She remains somewhat withdrawn. No behaviors noted. She is anxious. We discussed discharge plans at length including outpatient follow up and abstaining from alcohol. Review of Systems: No CV, , pulmonary, eye system symptoms on review. Mental Status Exam: The patient is reasonably oriented. Speech has some latency, coherent. Abstraction fair. Computation impaired. Language function intact. Attention span short. Mood and affect withdrawn. Laboratory Data: Reviewed. Impression: Major depressive disorder recurrent. Alcohol abuse/dependenc e/withdrawal. Anxiety disorder unspecified. History of Wernickes encephalopathy. Plan: Continue psychotropics mentioned in my initial note. Assessment: Vital Signs/I&O: Vital Signs Date Time Temp Pulse Resp B/P (MAP) Pulse Ox O2 Delivery O2 Flow Rate FiO2 03/30/21 05:39 97.6 69 18 114/70 (85) 97 03/26/21 16:57 Room Air I & O 03/29/21 03/29/21 03/30/21 15:00 23:00 07:00 Intake Total 720 ml 780 ml Balance 720 ml 780 ml Labs: Laboratory Tests Test 03/29/21 10:15 White Blood Count 6.3 x10^3/uL (4.0-11.0) Red Blood Count 3.56 x10^6/uL (3.50-5.40) Hemoglobin 11.8 g/dL (12.0-15.5) L Hematocrit 35.0 % (36.0-47.0) L Mean Corpuscular Volume 98 fL (79-100) Mean Corpuscular Hemoglobin 33 pg (25-35) Mean Corpuscular Hemoglobin Concent 34 g/dL (31-37) Red Cell Distribution Width 13.4 % (11.5-14.5) Platelet Count 353 x10^3/uL (140-400) Neutrophils (%) (Auto) 56 % (31-73) Lymphocytes (%) (Auto) 27 % (24-48) Monocytes (%) (Auto) 10 % (0-9) H Eosinophils (%) (Auto) 6 % (0-3) H Basophils (%) (Auto) 1 % (0-3) Neutrophils # (Auto) 3.5 x10^3uL (1.8-7.7) Lymphocytes # (Auto) 1.7 x10^3/uL (1.0-4.8) Monocytes # (Auto) 0.6 x10^3/uL (0.0-1.1) Eosinophils # (Auto) 0.4 x10^3/uL (0.0-0.7) Basophils # (Auto) 0.1 x10^3/uL (0.0-0.2) Sodium Level 133 mmol/L (136-145) L Potassium Level 4.2 mmol/L (3.5-5.1) Chloride Level 100 mmol/L (98-107) Carbon Dioxide Level 27 mmol/L (21-32) Anion Gap 6 (6-14) Blood Urea Nitrogen 16 mg/dL (7-20) Creatinine 0.3 mg/dL (0.6-1.0) L Estimated GFR (Cockcroft-Gault) 226.9 BUN/Creatinine Ratio 53 (6-20) H Glucose Level 72 mg/dL (70-99) Calcium Level 9.0 mg/dL (8.5-10.1) Total Bilirubin 0.2 mg/dL (0.2-1.0) Aspartate Amino Transferase (AST) 19 U/L (15-37) Alanine Aminotransferase (ALT) 22 U/L (14-59) Alkaline Phosphatase 58 U/L (46-116) Total Protein 6.9 g/dL (6.4-8.2) Albumin 3.4 g/dL (3.4-5.0) Albumin/Globulin Ratio 1.0 (1.0-1.7) Current Medications: Meds: Laboratory Tests Test 03/29/21 10:15 White Blood Count 6.3 x10^3/uL Red Blood Count 3.56 x10^6/uL Hemoglobin 11.8 g/dL Hematocrit 35.0 % Mean Corpuscular Volume 98 fL Mean Corpuscular Hemoglobin 33 pg Mean Corpuscular Hemoglobin Concent 34 g/dL Red Cell Distribution Width 13.4 % Platelet Count 353 x10^3/uL Neutrophils (%) (Auto) 56 % Lymphocytes (%) (Auto) 27 % Monocytes (%) (Auto) 10 % Eosinophils (%) (Auto) 6 % Basophils (%) (Auto) 1 % Neutrophils # (Auto) 3.5 x10^3uL Lymphocytes # (Auto) 1.7 x10^3/uL Monocytes # (Auto) 0.6 x10^3/uL Eosinophils # (Auto) 0.4 x10^3/uL Basophils # (Auto) 0.1 x10^3/uL Sodium Level 133 mmol/L Potassium Level 4.2 mmol/L Chloride Level 100 mmol/L Carbon Dioxide Level 27 mmol/L Anion Gap 6 Blood Urea Nitrogen 16 mg/dL Creatinine 0.3 mg/dL Estimated GFR (Cockcroft-Gault) 226.9 BUN/Creatinine Ratio 53 Glucose Level 72 mg/dL Calcium Level 9.0 mg/dL Total Bilirubin 0.2 mg/dL Aspartate Amino Transf (AST/SGOT) 19 U/L Alanine Aminotransferase (ALT/SGPT) 22 U/L Alkaline Phosphatase 58 U/L Total Protein 6.9 g/dL Albumin 3.4 g/dL Albumin/Globulin Ratio 1.0 Current Medications Medications (Trade) Dose Ordered Sig/Hunter Route PRN Reason Start Time Stop Time Status Last Admin Dose Admin Multi-Ingredient Ointment (Analgesic [place]) 1 lico PRN QID PRN TP MUSCLE PAIN 02/11/21 06:45 03/03/21 20:33 Al Hydroxide/Mg Hydroxide (Mylanta Plus Xs) 15 ml PRN AFTMEALHC PRN PO DYSPEPSIA 02/11/21 06:45 Magnesium Hydroxide (Milk Of Magnesia) 2,400 mg PRN QHS PRN PO CONSTIPATION 02/11/21 06:45 Acetaminophen (Tylenol) 650 mg PRN Q6HRS PRN PO MILD PAIN / TEMP > 100.3'F 02/11/21 12:00 03/19/21 06:15 Enoxaparin Sodium (Lovenox 40mg Syringe) 40 mg DAILY SQ 02/12/21 09:00 02/13/21 17:54 DC Lorazepam (Ativan) 1 mg PRN Q4HRS PRN PO ANXIETY / AGITATION 02/11/21 12:00 02/13/21 21:35 DC 02/13/21 16:15 Melatonin (Melatonin) 3 mg PRN QHS PRN PO INSOMNIA 02/11/21 12:00 03/15/21 20:11 Nicotine (Nicoderm Cq 21mg Patch) 1 patch DAILY TD 02/12/21 09:00 03/28/21 18:50 DC 03/28/21 09:12 Nicotine Polacrilex (Nicorette Gum) 2 mg PRN Q2HRS PRN BC SMOKING CESSATION 02/11/21 12:00 02/17/21 18:24 Olanzapine (ZyPREXA ZYDIS) 5 mg PRN BID PRN PO PSYCHOSIS 02/11/21 12:00 02/13/21 20:07 DC 02/13/21 18:10 Potassium Chloride (Klor-Con) 20 meq DAILY PO 02/12/21 09:00 03/29/21 08:11 Folic Acid (Folic Acid) 1 mg DAILY PO 02/12/21 09:00 03/29/21 08:11 Thiamine HCl (Vitamin B-1) 100 mg DAILY PO 02/12/21 09:00 03/29/21 08:11 Non-Formulary Medication ([Folic Acid] ) 1 mg DAILY PO 02/12/21 09:00 02/11/21 12:25 DC Acetaminophen (Tylenol) 650 mg PRN Q6HRS PRN PO MILD PAIN / TEMP > 100.3'F 02/11/21 12:15 02/11/21 12:22 DC Multi-Ingredient Ointment (Analgesic [place]) 1 lico PRN QID PRN TP MUSCLE PAIN 02/11/21 12:15 02/11/21 12:22 DC Al Hydroxide/Mg Hydroxide (Mylanta Plus Xs) 15 ml PRN AFTMEALHC PRN PO DYSPEPSIA 02/11/21 12:15 02/11/21 12:22 DC Magnesium Hydroxide (Milk Of Magnesia) 2,400 mg PRN QHS PRN PO CONSTIPATION 02/11/21 12:15 02/11/21 12:22 DC Lidocaine (Lidoderm) 1 patch PRN DAILY PRN TD NECK PAIN 02/13/21 19:00 03/17/21 14:46 Olanzapine (ZyPREXA ZYDIS) 2.5 mg PRN Q2HR PRN PO PSYCHOSIS 02/13/21 20:15 02/13/21 23:06 Sertraline HCl (Zoloft) 50 mg DAILY PO 02/14/21 09:00 02/21/21 19:55 DC 02/21/21 08:09 Risperidone (RisperDAL) 0.5 mg QHS PO 02/13/21 21:00 03/29/21 20:40 Lorazepam (Ativan) 0.5 mg PRN Q1HR PRN PO ANXIETY / AGITATION 02/13/21 21:45 02/20/21 20:58 DC 02/20/21 16:54 Multivitamins/ Calcium (Thera-M Plus) 1 tab DAILY PO 02/13/21 21:30 03/29/21 08:11 Clonidine HCl (Catapres) 0.1 mg PRN Q1HR PRN PO SBP>180 OR DBP>100, MR X 3 02/13/21 21:30 Magnesium Oxide (Magnesium Oxide) 400 mg DAILY PO 02/14/21 09:00 02/13/21 21:36 DC Magnesium Oxide (Magnesium Oxide) 400 mg DAILY PO 02/13/21 21:45 03/29/21 08:11 Vitamin D (Vitamin D3) 50,000 unit WEEKLY PO 02/15/21 16:30 03/29/21 08:11 Lorazepam (Ativan) 0.5 mg PRN TID PRN PO ANXIETY / AGITATION 02/20/21 21:00 03/12/21 09:21 Cyclobenzaprine HCl (Flexeril) 10 mg BID PO 02/21/21 21:00 02/21/21 09:33 DC Cyclobenzaprine HCl (Flexeril) 10 mg BID PO 02/21/21 09:45 03/29/21 20:40 Sertraline HCl (Zoloft) 75 mg DAILY PO 02/22/21 09:00 03/29/21 08:10 Hydrocortisone (Cortizone-10) 1 lico PRN TID PRN TP ITCHING 02/24/21 12:00 Mirtazapine (Remeron) 7.5 mg QHS PO 02/28/21 21:30 03/29/21 20:40 Influenza Virus Vaccine Quadrival (Flulaval Quad [id number] Syringe) 0.5 ml ONCE ONCE VAX IM 03/11/21 09:00 03/11/21 09:01 DC 03/11/21 11:30 Amoxicillin/ Clavulanate Potassium (Augmentin 875/ 125mg) 1 tab BID PO 03/14/21 17:30 03/14/21 17:23 DC Amoxicillin/ Clavulanate Potassium (Augmentin 875/ 125mg) 1 tab BID PO 03/14/21 18:00 03/15/21 10:44 DC 03/15/21 09:16 Lactobacillus Rhamnosus (Culturelle) 1 cap BID PO 03/14/21 21:00 03/29/21 20:40 Amoxicillin/ Clavulanate Potassium (Augmentin 875/ 125mg) 1 tab BIDWMEALS PO 03/15/21 17:00 03/23/21 18:00 DC 03/23/21 17:27 Carbamide Peroxide (Debrox) 5 drop BID AU 03/21/21 21:00 03/24/21 11:16 DC 03/24/21 09:00 Nicotine (Nicoderm Cq 14mg Patch) 1 patch DAILY TD 03/29/21 09:00 03/29/21 08:10 Current Medications Medications (Trade) Dose Ordered Sig/Hunter Route PRN Reason Start Time Stop Time Status Last Admin Dose Admin Nicotine (Nicoderm Cq 14mg Patch) 1 patch DAILY TD 03/29/21 09:00 03/29/21 08:10 I have reviewed the current psychotropics carefully including drug interactions. Risk benefit ratio favors no change other than as noted in my dictated progress note. Diagnosis: Problems: (1) Major depressive disorder, recurrent episode (2) Wernicke encephalopathy (3) Anxiety disorder, unspecified (4) Alcohol dependence (5) Alcohol withdrawal (6) Alcohol withdrawal delirium IVANNA GUNDERSON MD Mar 30, 2021 07:13
--- NOTE | 2021-03-30 07:42 | PDOC ---
Exam Note: Nadeem Note: This note is a late entry for 03/29/2021 covers elements not covered in my initial note. Subjective: The patient was seen individually in the evening of 03/29/2021 with Natalia SHERMAN, discussed and reviewed the chart. The patient slept 6-1/4 hours previous night. Patient has been isolative. We once again discussed her alcohol abuse and follow up post her returning home as she insists she does not want to go to her facility. She had many questions about her family picking her up next week and we addressed this. Review of Systems: No CV, , pulmonary, eye system symptoms on review. Mental Status Exam: The patient is reasonably oriented. Speech has some latency, coherent. Abstraction fair. Computation impaired. Language function intact. Attention span short. Mood and affect withdrawn. Laboratory Data: Reviewed. Impression: Major depressive disorder recurrent. Alcohol abuse/dependence/withdrawal. Anxiety disorder unspecified. History of Wernickes encephalopathy. Plan: Continue psychotropics mentioned in my initial note. Assessment: Vital Signs/I&O: Vital Signs Date Time Temp Pulse Resp B/P (MAP) Pulse Ox O2 Delivery O2 Flow Rate FiO2 03/30/21 05:39 97.6 69 18 114/70 (85) 97 03/26/21 16:57 Room Air I & O 03/29/21 03/29/21 03/30/21 15:00 23:00 07:00 Intake Total 720 ml 780 ml Balance 720 ml 780 ml Labs: Laboratory Tests Test 03/29/21 10:15 White Blood Count 6.3 x10^3/uL (4.0-11.0) Red Blood Count 3.56 x10^6/uL (3.50-5.40) Hemoglobin 11.8 g/dL (12.0-15.5) L Hematocrit 35.0 % (36.0-47.0) L Mean Corpuscular Volume 98 fL (79-100) Mean Corpuscular Hemoglobin 33 pg (25-35) Mean Corpuscular Hemoglobin Concent 34 g/dL (31-37) Red Cell Distribution Width 13.4 % (11.5-14.5) Platelet Count 353 x10^3/uL (140-400) Neutrophils (%) (Auto) 56 % (31-73) Lymphocytes (%) (Auto) 27 % (24-48) Monocytes (%) (Auto) 10 % (0-9) H Eosinophils (%) (Auto) 6 % (0-3) H Basophils (%) (Auto) 1 % (0-3) Neutrophils # (Auto) 3.5 x10^3uL (1.8-7.7) Lymphocytes # (Auto) 1.7 x10^3/uL (1.0-4.8) Monocytes # (Auto) 0.6 x10^3/uL (0.0-1.1) Eosinophils # (Auto) 0.4 x10^3/uL (0.0-0.7) Basophils # (Auto) 0.1 x10^3/uL (0.0-0.2) Sodium Level 133 mmol/L (136-145) L Potassium Level 4.2 mmol/L (3.5-5.1) Chloride Level 100 mmol/L (98-107) Carbon Dioxide Level 27 mmol/L (21-32) Anion Gap 6 (6-14) Blood Urea Nitrogen 16 mg/dL (7-20) Creatinine 0.3 mg/dL (0.6-1.0) L Estimated GFR (Cockcroft-Gault) 226.9 BUN/Creatinine Ratio 53 (6-20) H Glucose Level 72 mg/dL (70-99) Calcium Level 9.0 mg/dL (8.5-10.1) Total Bilirubin 0.2 mg/dL (0.2-1.0) Aspartate Amino Transferase (AST) 19 U/L (15-37) Alanine Aminotransferase (ALT) 22 U/L (14-59) Alkaline Phosphatase 58 U/L (46-116) Total Protein 6.9 g/dL (6.4-8.2) Albumin 3.4 g/dL (3.4-5.0) Albumin/Globulin Ratio 1.0 (1.0-1.7) Current Medications: Meds: Laboratory Tests Test 03/29/21 10:15 White Blood Count 6.3 x10^3/uL Red Blood Count 3.56 x10^6/uL Hemoglobin 11.8 g/dL Hematocrit 35.0 % Mean Corpuscular Volume 98 fL Mean Corpuscular Hemoglobin 33 pg Mean Corpuscular Hemoglobin Concent 34 g/dL Red Cell Distribution Width 13.4 % Platelet Count 353 x10^3/uL Neutrophils (%) (Auto) 56 % Lymphocytes (%) (Auto) 27 % Monocytes (%) (Auto) 10 % Eosinophils (%) (Auto) 6 % Basophils (%) (Auto) 1 % Neutrophils # (Auto) 3.5 x10^3uL Lymphocytes # (Auto) 1.7 x10^3/uL Monocytes # (Auto) 0.6 x10^3/uL Eosinophils # (Auto) 0.4 x10^3/uL Basophils # (Auto) 0.1 x10^3/uL Sodium Level 133 mmol/L Potassium Level 4.2 mmol/L Chloride Level 100 mmol/L Carbon Dioxide Level 27 mmol/L Anion Gap 6 Blood Urea Nitrogen 16 mg/dL Creatinine 0.3 mg/dL Estimated GFR (Cockcroft-Gault) 226.9 BUN/Creatinine Ratio 53 Glucose Level 72 mg/dL Calcium Level 9.0 mg/dL Total Bilirubin 0.2 mg/dL Aspartate Amino Transf (AST/SGOT) 19 U/L Alanine Aminotransferase (ALT/SGPT) 22 U/L Alkaline Phosphatase 58 U/L Total Protein 6.9 g/dL Albumin 3.4 g/dL Albumin/Globulin Ratio 1.0 Current Medications Medications (Trade) Dose Ordered Sig/Hunter Route PRN Reason Start Time Stop Time Status Last Admin Dose Admin Multi-Ingredient Ointment (Analgesic [place]) 1 lico PRN QID PRN TP MUSCLE PAIN 02/11/21 06:45 03/03/21 20:33 Al Hydroxide/Mg Hydroxide (Mylanta Plus Xs) 15 ml PRN AFTMEALHC PRN PO DYSPEPSIA 02/11/21 06:45 Magnesium Hydroxide (Milk Of Magnesia) 2,400 mg PRN QHS PRN PO CONSTIPATION 02/11/21 06:45 Acetaminophen (Tylenol) 650 mg PRN Q6HRS PRN PO MILD PAIN / TEMP > 100.3'F 02/11/21 12:00 03/19/21 06:15 Enoxaparin Sodium (Lovenox 40mg Syringe) 40 mg DAILY SQ 02/12/21 09:00 02/13/21 17:54 DC Lorazepam (Ativan) 1 mg PRN Q4HRS PRN PO ANXIETY / AGITATION 02/11/21 12:00 02/13/21 21:35 DC 02/13/21 16:15 Melatonin (Melatonin) 3 mg PRN QHS PRN PO INSOMNIA 02/11/21 12:00 03/15/21 20:11 Nicotine (Nicoderm Cq 21mg Patch) 1 patch DAILY TD 02/12/21 09:00 03/28/21 18:50 DC 03/28/21 09:12 Nicotine Polacrilex (Nicorette Gum) 2 mg PRN Q2HRS PRN BC SMOKING CESSATION 02/11/21 12:00 02/17/21 18:24 Olanzapine (ZyPREXA ZYDIS) 5 mg PRN BID PRN PO PSYCHOSIS 02/11/21 12:00 02/13/21 20:07 DC 02/13/21 18:10 Potassium Chloride (Klor-Con) 20 meq DAILY PO 02/12/21 09:00 03/29/21 08:11 Folic Acid (Folic Acid) 1 mg DAILY PO 02/12/21 09:00 03/29/21 08:11 Thiamine HCl (Vitamin B-1) 100 mg DAILY PO 02/12/21 09:00 03/29/21 08:11 Non-Formulary Medication ([Folic Acid] ) 1 mg DAILY PO 02/12/21 09:00 02/11/21 12:25 DC Acetaminophen (Tylenol) 650 mg PRN Q6HRS PRN PO MILD PAIN / TEMP > 100.3'F 02/11/21 12:15 02/11/21 12:22 DC Multi-Ingredient Ointment (Analgesic [place]) 1 lico PRN QID PRN TP MUSCLE PAIN 02/11/21 12:15 02/11/21 12:22 DC Al Hydroxide/Mg Hydroxide (Mylanta Plus Xs) 15 ml PRN AFTMEALHC PRN PO DYSPEPSIA 02/11/21 12:15 02/11/21 12:22 DC Magnesium Hydroxide (Milk Of Magnesia) 2,400 mg PRN QHS PRN PO CONSTIPATION 02/11/21 12:15 02/11/21 12:22 DC Lidocaine (Lidoderm) 1 patch PRN DAILY PRN TD NECK PAIN 02/13/21 19:00 03/17/21 14:46 Olanzapine (ZyPREXA ZYDIS) 2.5 mg PRN Q2HR PRN PO PSYCHOSIS 02/13/21 20:15 02/13/21 23:06 Sertraline HCl (Zoloft) 50 mg DAILY PO 02/14/21 09:00 02/21/21 19:55 DC 02/21/21 08:09 Risperidone (RisperDAL) 0.5 mg QHS PO 02/13/21 21:00 03/29/21 20:40 Lorazepam (Ativan) 0.5 mg PRN Q1HR PRN PO ANXIETY / AGITATION 02/13/21 21:45 02/20/21 20:58 DC 02/20/21 16:54 Multivitamins/ Calcium (Thera-M Plus) 1 tab DAILY PO 02/13/21 21:30 03/29/21 08:11 Clonidine HCl (Catapres) 0.1 mg PRN Q1HR PRN PO SBP>180 OR DBP>100, MR X 3 02/13/21 21:30 Magnesium Oxide (Magnesium Oxide) 400 mg DAILY PO 02/14/21 09:00 02/13/21 21:36 DC Magnesium Oxide (Magnesium Oxide) 400 mg DAILY PO 02/13/21 21:45 03/29/21 08:11 Vitamin D (Vitamin D3) 50,000 unit WEEKLY PO 02/15/21 16:30 03/29/21 08:11 Lorazepam (Ativan) 0.5 mg PRN TID PRN PO ANXIETY / AGITATION 02/20/21 21:00 03/12/21 09:21 Cyclobenzaprine HCl (Flexeril) 10 mg BID PO 02/21/21 21:00 02/21/21 09:33 DC Cyclobenzaprine HCl (Flexeril) 10 mg BID PO 02/21/21 09:45 03/29/21 20:40 Sertraline HCl (Zoloft) 75 mg DAILY PO 02/22/21 09:00 03/29/21 08:10 Hydrocortisone (Cortizone-10) 1 lico PRN TID PRN TP ITCHING 02/24/21 12:00 Mirtazapine (Remeron) 7.5 mg QHS PO 02/28/21 21:30 03/29/21 20:40 Influenza Virus Vaccine Quadrival (Flulaval Quad [id number] Syringe) 0.5 ml ONCE ONCE VAX IM 03/11/21 09:00 03/11/21 09:01 DC 03/11/21 11:30 Amoxicillin/ Clavulanate Potassium (Augmentin 875/ 125mg) 1 tab BID PO 03/14/21 17:30 03/14/21 17:23 DC Amoxicillin/ Clavulanate Potassium (Augmentin 875/ 125mg) 1 tab BID PO 03/14/21 18:00 03/15/21 10:44 DC 03/15/21 09:16 Lactobacillus Rhamnosus (Culturelle) 1 cap BID PO 03/14/21 21:00 03/29/21 20:40 Amoxicillin/ Clavulanate Potassium (Augmentin 875/ 125mg) 1 tab BIDWMEALS PO 03/15/21 17:00 03/23/21 18:00 DC 03/23/21 17:27 Carbamide Peroxide (Debrox) 5 drop BID AU 03/21/21 21:00 03/24/21 11:16 DC 03/24/21 09:00 Nicotine (Nicoderm Cq 14mg Patch) 1 patch DAILY TD 03/29/21 09:00 03/29/21 08:10 Current Medications Medications (Trade) Dose Ordered Sig/Hunter Route PRN Reason Start Time Stop Time Status Last Admin Dose Admin Nicotine (Nicoderm Cq 14mg Patch) 1 patch DAILY TD 03/29/21 09:00 03/29/21 08:10 I have reviewed the current psychotropics carefully including drug interactions. Risk benefit ratio favors no change other than as noted in my dictated progress note. Diagnosis: Problems: (1) Major depressive disorder, recurrent episode (2) Wernicke encephalopathy (3) Anxiety disorder, unspecified (4) Alcohol dependence (5) Alcohol withdrawal (6) Alcohol withdrawal delirium IVANNA GUNDERSON MD Mar 30, 2021 07:42
[2021-03-30] MEDS: POTASSIUM CHLORIDE 20 MEQ TABLET.ER. PO SCH (08:26)
[2021-03-30] MEDS: FOLIC ACID 1 MG TABLET PO SCH (08:26)
[2021-03-30] MEDS: LACTOBACILLUS RHAMNOSUS GG 1 CAPSULE. PO SCH ×2 (08:27→20:45)
[2021-03-30] MEDS: MAGNESIUM OXIDE 400 MG TABLET PO SCH (08:27)
[2021-03-30] MEDS: MULTIVITAMIN with MINERAL TABLET. PO SCH (08:27)
[2021-03-30] MEDS: THIAMINE 100 MG TABLET. PO SCH (08:27)
[2021-03-30] MEDS: SERTRALINE 25 MG TABLET. PO SCH (08:27)
[2021-03-30] MEDS: CYCLOBENZAPRINE 10 MG TABLET. PO SCH ×2 (08:27→20:45)
[2021-03-30] MEDS: NICOTINE 14MG PATCH. TD SCH (08:29)
[2021-03-30] MEDS: ACETAMINOPHEN 325 MG TABLET PO PRN (08:32)
[2021-03-30 15:45] VITALS: BP 110/73
[2021-03-30] MEDS: MIRTAZAPINE 7.5 MG TABLET. PO SCH (20:45)
[2021-03-30] MEDS: risperiDONE 0.5 MG TABLET. PO SCH (20:46)
--- NOTE | 2021-03-30 21:54 | PDOC ---
Exam Note: Nadeem Note: Please also refer to the separate dictated note~for this date of service dictated separately.~Patient seen individually. Discussed the patient with Nursing staff reviewed the chart.~Reviewed interim history and current functioning. Reviewed vital signs,~Labs/ Radiology~and current medications noted below. Continue current treatment with the changes noted in the dictated addendum note Assessment: Vital Signs/I&O: Vital Signs Date Time Temp Pulse Resp B/P (MAP) Pulse Ox O2 Delivery O2 Flow Rate FiO2 03/30/21 15:45 97.3 97 20 110/73 (85) 99 03/26/21 16:57 Room Air I & O 03/29/21 03/29/21 03/30/21 15:00 23:00 07:00 Intake Total 720 ml 780 ml Balance 720 ml 780 ml Current Medications: Meds: Current Medications Medications (Trade) Dose Ordered Sig/Hunter Route PRN Reason Start Time Stop Time Status Last Admin Dose Admin Multi-Ingredient Ointment (Analgesic [place]) 1 lico PRN QID PRN TP MUSCLE PAIN 02/11/21 06:45 03/03/21 20:33 Al Hydroxide/Mg Hydroxide (Mylanta Plus Xs) 15 ml PRN AFTMEALHC PRN PO DYSPEPSIA 02/11/21 06:45 Magnesium Hydroxide (Milk Of Magnesia) 2,400 mg PRN QHS PRN PO CONSTIPATION 02/11/21 06:45 Acetaminophen (Tylenol) 650 mg PRN Q6HRS PRN PO MILD PAIN / TEMP > 100.3'F 02/11/21 12:00 03/30/21 08:32 Enoxaparin Sodium (Lovenox 40mg Syringe) 40 mg DAILY SQ 02/12/21 09:00 02/13/21 17:54 DC Lorazepam (Ativan) 1 mg PRN Q4HRS PRN PO ANXIETY / AGITATION 02/11/21 12:00 02/13/21 21:35 DC 02/13/21 16:15 Melatonin (Melatonin) 3 mg PRN QHS PRN PO INSOMNIA 02/11/21 12:00 03/15/21 20:11 Nicotine (Nicoderm Cq 21mg Patch) 1 patch DAILY TD 02/12/21 09:00 03/28/21 18:50 DC 03/28/21 09:12 Nicotine Polacrilex (Nicorette Gum) 2 mg PRN Q2HRS PRN BC SMOKING CESSATION 02/11/21 12:00 02/17/21 18:24 Olanzapine (ZyPREXA ZYDIS) 5 mg PRN BID PRN PO PSYCHOSIS 02/11/21 12:00 02/13/21 20:07 DC 02/13/21 18:10 Potassium Chloride (Klor-Con) 20 meq DAILY PO 02/12/21 09:00 03/30/21 08:26 Folic Acid (Folic Acid) 1 mg DAILY PO 02/12/21 09:00 03/30/21 08:26 Thiamine HCl (Vitamin B-1) 100 mg DAILY PO 02/12/21 09:00 03/30/21 08:27 Non-Formulary Medication ([Folic Acid] ) 1 mg DAILY PO 02/12/21 09:00 02/11/21 12:25 DC Acetaminophen (Tylenol) 650 mg PRN Q6HRS PRN PO MILD PAIN / TEMP > 100.3'F 02/11/21 12:15 02/11/21 12:22 DC Multi-Ingredient Ointment (Analgesic [place]) 1 lico PRN QID PRN TP MUSCLE PAIN 02/11/21 12:15 02/11/21 12:22 DC Al Hydroxide/Mg Hydroxide (Mylanta Plus Xs) 15 ml PRN AFTMEALHC PRN PO DYSPEPSIA 02/11/21 12:15 02/11/21 12:22 DC Magnesium Hydroxide (Milk Of Magnesia) 2,400 mg PRN QHS PRN PO CONSTIPATION 02/11/21 12:15 02/11/21 12:22 DC Lidocaine (Lidoderm) 1 patch PRN DAILY PRN TD NECK PAIN 02/13/21 19:00 03/17/21 14:46 Olanzapine (ZyPREXA ZYDIS) 2.5 mg PRN Q2HR PRN PO PSYCHOSIS 02/13/21 20:15 02/13/21 23:06 Sertraline HCl (Zoloft) 50 mg DAILY PO 02/14/21 09:00 02/21/21 19:55 DC 02/21/21 08:09 Risperidone (RisperDAL) 0.5 mg QHS PO 02/13/21 21:00 03/30/21 20:46 Lorazepam (Ativan) 0.5 mg PRN Q1HR PRN PO ANXIETY / AGITATION 02/13/21 21:45 02/20/21 20:58 DC 02/20/21 16:54 Multivitamins/ Calcium (Thera-M Plus) 1 tab DAILY PO 02/13/21 21:30 03/30/21 08:27 Clonidine HCl (Catapres) 0.1 mg PRN Q1HR PRN PO SBP>180 OR DBP>100, MR X 3 02/13/21 21:30 Magnesium Oxide (Magnesium Oxide) 400 mg DAILY PO 02/14/21 09:00 02/13/21 21:36 DC Magnesium Oxide (Magnesium Oxide) 400 mg DAILY PO 02/13/21 21:45 03/30/21 08:27 Vitamin D (Vitamin D3) 50,000 unit WEEKLY PO 02/15/21 16:30 03/29/21 08:11 Lorazepam (Ativan) 0.5 mg PRN TID PRN PO ANXIETY / AGITATION 02/20/21 21:00 03/12/21 09:21 Cyclobenzaprine HCl (Flexeril) 10 mg BID PO 02/21/21 21:00 02/21/21 09:33 DC Cyclobenzaprine HCl (Flexeril) 10 mg BID PO 02/21/21 09:45 03/30/21 20:45 Sertraline HCl (Zoloft) 75 mg DAILY PO 02/22/21 09:00 03/30/21 08:27 Hydrocortisone (Cortizone-10) 1 lico PRN TID PRN TP ITCHING 02/24/21 12:00 Mirtazapine (Remeron) 7.5 mg QHS PO 02/28/21 21:30 03/30/21 20:45 Influenza Virus Vaccine Quadrival (Flulaval Quad [id number] Syringe) 0.5 ml ONCE ONCE VAX IM 03/11/21 09:00 03/11/21 09:01 DC 03/11/21 11:30 Amoxicillin/ Clavulanate Potassium (Augmentin 875/ 125mg) 1 tab BID PO 03/14/21 17:30 03/14/21 17:23 DC Amoxicillin/ Clavulanate Potassium (Augmentin 875/ 125mg) 1 tab BID PO 03/14/21 18:00 03/15/21 10:44 DC 03/15/21 09:16 Lactobacillus Rhamnosus (Culturelle) 1 cap BID PO 03/14/21 21:00 03/30/21 20:45 Amoxicillin/ Clavulanate Potassium (Augmentin 875/ 125mg) 1 tab BIDWMEALS PO 03/15/21 17:00 03/23/21 18:00 DC 03/23/21 17:27 Carbamide Peroxide (Debrox) 5 drop BID AU 03/21/21 21:00 03/24/21 11:16 DC 03/24/21 09:00 Nicotine (Nicoderm Cq 14mg Patch) 1 patch DAILY TD 03/29/21 09:00 03/30/21 08:29 I have reviewed the current psychotropics carefully including drug interactions. Risk benefit ratio favors no change other than as noted in my dictated progress note. Diagnosis: Problems: (1) Major depressive disorder, recurrent episode (2) Wernicke encephalopathy (3) Anxiety disorder, unspecified (4) Alcohol dependence (5) Alcohol withdrawal (6) Alcohol withdrawal delirium IVANNA GUNDERSON MD Mar 30, 2021 21:54
[2021-03-30] MEDS ORDERED: CYCL-331 PO (22:38)
[2021-03-30] MEDS ORDERED: CHOL500021 PO (22:48)
[2021-03-30] MEDS ORDERED: HYDR28GE TP (22:51)
[2021-03-30] MEDS ORDERED: LACT1CAP6 PO (22:52)
[2021-03-30] MEDS ORDERED: LIDO700A21 TP (22:53)
[2021-03-30] MEDS ORDERED: MAG30ORA2 PO (22:55)
[2021-03-30] MEDS ORDERED: MAGN24003 PO (22:56)
[2021-03-30] MEDS ORDERED: MAGN400T48 PO (22:57)
[2021-03-30] MEDS ORDERED: METH57CR17 TP (22:59)
[2021-03-30] MEDS ORDERED: MIRT7.5T8 PO (23:00)
[2021-03-30] MEDS ORDERED: MULT-245 PO (23:01)
[2021-03-30] MEDS ORDERED: NICO1PAT25 TD (23:02)
[2021-03-30] MEDS ORDERED: SERT50TA PO (23:03)
[2021-03-30] MEDS ORDERED: RISP0.5T24 PO (23:04)
[2021-03-31] MEDS: ACETAMINOPHEN 325 MG TABLET PO PRN (03:48)
[2021-03-31] MEDS: LORazepam 0.5 MG TABLET PO PRN (03:48)
[2021-03-31 06:27] VITALS: BP 125/74
[2021-03-31] MEDS: SERTRALINE 25 MG TABLET. PO SCH (08:14)
[2021-03-31] MEDS: LACTOBACILLUS RHAMNOSUS GG 1 CAPSULE. PO SCH (08:14)
[2021-03-31] MEDS: NICOTINE 14MG PATCH. TD SCH ×3 (08:14→09:23)
[2021-03-31] MEDS: MAGNESIUM OXIDE 400 MG TABLET PO SCH (08:14)
[2021-03-31] MEDS: POTASSIUM CHLORIDE 20 MEQ TABLET.ER. PO SCH (08:14)
[2021-03-31] MEDS: FOLIC ACID 1 MG TABLET PO SCH (08:14)
[2021-03-31] MEDS: THIAMINE 100 MG TABLET. PO SCH (08:14)
[2021-03-31] MEDS: CYCLOBENZAPRINE 10 MG TABLET. PO SCH (08:14)
[2021-03-31] MEDS: MULTIVITAMIN with MINERAL TABLET. PO SCH (08:14)
--- NOTE | 2021-03-31 22:01 | PDOC ---
Exam Note: Nadeem Note: Please also refer to the separate dictated note~for this date of service dictated separately.~Patient seen individually. Discussed the patient with Nursing staff reviewed the chart.~Reviewed interim history and current functioning. Reviewed vital signs,~Labs/ Radiology~and current medications noted below. Continue current treatment with the changes noted in the dictated addendum note Assessment: Vital Signs/I&O: Vital Signs Date Time Temp Pulse Resp B/P (MAP) Pulse Ox O2 Delivery O2 Flow Rate FiO2 03/31/21 06:27 96.9 74 16 125/74 (91) 97 03/26/21 16:57 Room Air I & O 03/30/21 03/30/21 03/31/21 15:00 23:00 07:00 Intake Total 1320 ml 840 ml Balance 1320 ml 840 ml Current Medications: Meds: Current Medications Medications (Trade) Dose Ordered Sig/Hunter Route PRN Reason Start Time Stop Time Status Last Admin Dose Admin Multi-Ingredient Ointment (Analgesic [place]) 1 lico PRN QID PRN TP MUSCLE PAIN 02/11/21 06:45 03/31/21 12:45 DC 03/03/21 20:33 Al Hydroxide/Mg Hydroxide (Mylanta Plus Xs) 15 ml PRN AFTMEALHC PRN PO DYSPEPSIA 02/11/21 06:45 03/31/21 12:45 DC Magnesium Hydroxide (Milk Of Magnesia) 2,400 mg PRN QHS PRN PO CONSTIPATION 02/11/21 06:45 03/31/21 12:45 DC Acetaminophen (Tylenol) 650 mg PRN Q6HRS PRN PO MILD PAIN / TEMP > 100.3'F 02/11/21 12:00 03/31/21 12:45 DC 03/31/21 03:48 Enoxaparin Sodium (Lovenox 40mg Syringe) 40 mg DAILY SQ 02/12/21 09:00 02/13/21 17:54 DC Lorazepam (Ativan) 1 mg PRN Q4HRS PRN PO ANXIETY / AGITATION 02/11/21 12:00 02/13/21 21:35 DC 02/13/21 16:15 Melatonin (Melatonin) 3 mg PRN QHS PRN PO INSOMNIA 02/11/21 12:00 03/31/21 12:45 DC 03/15/21 20:11 Nicotine (Nicoderm Cq 21mg Patch) 1 patch DAILY TD 02/12/21 09:00 03/28/21 18:50 DC 03/28/21 09:12 Nicotine Polacrilex (Nicorette Gum) 2 mg PRN Q2HRS PRN BC SMOKING CESSATION 02/11/21 12:00 03/31/21 12:45 DC 02/17/21 18:24 Olanzapine (ZyPREXA ZYDIS) 5 mg PRN BID PRN PO PSYCHOSIS 02/11/21 12:00 02/13/21 20:07 DC 02/13/21 18:10 Potassium Chloride (Klor-Con) 20 meq DAILY PO 02/12/21 09:00 03/31/21 12:45 DC 03/31/21 08:14 Folic Acid (Folic Acid) 1 mg DAILY PO 02/12/21 09:00 03/31/21 12:45 DC 03/31/21 08:14 Thiamine HCl (Vitamin B-1) 100 mg DAILY PO 02/12/21 09:00 03/31/21 12:45 DC 03/31/21 08:14 Non-Formulary Medication ([Folic Acid] ) 1 mg DAILY PO 02/12/21 09:00 02/11/21 12:25 DC Acetaminophen (Tylenol) 650 mg PRN Q6HRS PRN PO MILD PAIN / TEMP > 100.3'F 02/11/21 12:15 02/11/21 12:22 DC Multi-Ingredient Ointment (Analgesic [place]) 1 lico PRN QID PRN TP MUSCLE PAIN 02/11/21 12:15 02/11/21 12:22 DC Al Hydroxide/Mg Hydroxide (Mylanta Plus Xs) 15 ml PRN AFTMEALHC PRN PO DYSPEPSIA 02/11/21 12:15 02/11/21 12:22 DC Magnesium Hydroxide (Milk Of Magnesia) 2,400 mg PRN QHS PRN PO CONSTIPATION 02/11/21 12:15 02/11/21 12:22 DC Lidocaine (Lidoderm) 1 patch PRN DAILY PRN TD NECK PAIN 02/13/21 19:00 03/31/21 12:45 DC 03/17/21 14:46 Olanzapine (ZyPREXA ZYDIS) 2.5 mg PRN Q2HR PRN PO PSYCHOSIS 02/13/21 20:15 03/31/21 12:45 DC 02/13/21 23:06 Sertraline HCl (Zoloft) 50 mg DAILY PO 02/14/21 09:00 02/21/21 19:55 DC 02/21/21 08:09 Risperidone (RisperDAL) 0.5 mg QHS PO 02/13/21 21:00 03/31/21 12:45 DC 03/30/21 20:46 Lorazepam (Ativan) 0.5 mg PRN Q1HR PRN PO ANXIETY / AGITATION 02/13/21 21:45 02/20/21 20:58 DC 02/20/21 16:54 Multivitamins/ Calcium (Thera-M Plus) 1 tab DAILY PO 02/13/21 21:30 03/31/21 12:45 DC 03/31/21 08:14 Clonidine HCl (Catapres) 0.1 mg PRN Q1HR PRN PO SBP>180 OR DBP>100, MR X 3 02/13/21 21:30 03/31/21 12:45 DC Magnesium Oxide (Magnesium Oxide) 400 mg DAILY PO 02/14/21 09:00 02/13/21 21:36 DC Magnesium Oxide (Magnesium Oxide) 400 mg DAILY PO 02/13/21 21:45 03/31/21 12:45 DC 03/31/21 08:14 Vitamin D (Vitamin D3) 50,000 unit WEEKLY PO 02/15/21 16:30 03/31/21 12:45 DC 03/29/21 08:11 Lorazepam (Ativan) 0.5 mg PRN TID PRN PO ANXIETY / AGITATION 02/20/21 21:00 03/31/21 12:45 DC 03/12/21 09:21 Cyclobenzaprine HCl (Flexeril) 10 mg BID PO 02/21/21 21:00 02/21/21 09:33 DC Cyclobenzaprine HCl (Flexeril) 10 mg BID PO 02/21/21 09:45 03/31/21 12:45 DC 03/31/21 08:14 Sertraline HCl (Zoloft) 75 mg DAILY PO 02/22/21 09:00 03/31/21 12:45 DC 03/31/21 08:14 Hydrocortisone (Cortizone-10) 1 lico PRN TID PRN TP ITCHING 02/24/21 12:00 03/31/21 12:45 DC Mirtazapine (Remeron) 7.5 mg QHS PO 02/28/21 21:30 03/31/21 12:45 DC 03/30/21 20:45 Influenza Virus Vaccine Quadrival (Flulaval Quad Syringe) 0.5 ml ONCE ONCE VAX IM 03/11/21 09:00 03/11/21 09:01 DC 03/11/21 11:30 Amoxicillin/ Clavulanate Potassium (Augmentin 875/ 125mg) 1 tab BID PO 03/14/21 17:30 03/14/21 17:23 DC Amoxicillin/ Clavulanate Potassium (Augmentin 875/ 125mg) 1 tab BID PO 03/14/21 18:00 03/15/21 10:44 DC 03/15/21 09:16 Lactobacillus Rhamnosus (Culturelle) 1 cap BID PO 03/14/21 21:00 03/31/21 12:45 DC 03/31/21 08:14 Amoxicillin/ Clavulanate Potassium (Augmentin 875/ 125mg) 1 tab BIDWMEALS PO 03/15/21 17:00 03/23/21 18:00 DC 03/23/21 17:27 Carbamide Peroxide (Debrox) 5 drop BID AU 03/21/21 21:00 03/24/21 11:16 DC 03/24/21 09:00 Nicotine (Nicoderm Cq 14mg Patch) 1 patch DAILY TD 03/29/21 09:00 03/31/21 12:45 DC 03/31/21 09:23 I have reviewed the current psychotropics carefully including drug interactions. Risk benefit ratio favors no change other than as noted in my dictated progress note. Diagnosis: Problems: (1) Major depressive disorder, recurrent episode (2) Wernicke encephalopathy (3) Anxiety disorder, unspecified (4) Alcohol dependence (5) Alcohol withdrawal (6) Alcohol withdrawal delirium IVANNA GUNDERSON MD Mar 31, 2021 22:01
--- NOTE | 2021-03-31 23:04 | DS ---
DATE OF DISCHARGE: 03/31/2021 DISCHARGE SUMMARY/PSYCHIATRIC PROGRESS NOTE DISCHARGING PHYSICIAN: Dr. Carreon. REASON FOR ADMISSION: Please refer to the admission history for details. Briefly, the patient is a 60-year-old female referred to us from home from where she was admitted to [facility] on account of a history of significant alcohol dependence and abuse and possible early Wernicke's encephalopathy. The patient had been hallucinating, noted to have acute mental status changes, wandering naked in the street. She had crawled into a neighbor's car. She had marked mood lability, was tangential in her speech, cognitively impaired, restless, fighting with staff. She had failed outpatient psychiatric interventions. Behavior is deemed dangerous, unmanageable resulting in this referral. SIGNIFICANT FINDINGS AND CLINICAL COURSE: Following admission, the patient was seen daily individually by myself from a psychiatric standpoint, medical followup, Dr. Vidales/Dr. Otoole. The patient was quite confused, seemed to be somewhat delirious. She had been detoxed for alcohol at [facility], but she seemed to have a brief episode of delirium tremens with marked confusion, agitation, psychotic symptoms, and we had placed her back on Ativan which seemed to help. Once she recovered from this, we had extensive discussions about her need to abstain from alcohol. At some point, she was quite confident, she would have no problem doing this. Family had expressed concerns, were trying to facilitate placement, but the patient signs for herself and was quite clear that she wanted to get back home. She was not having any suicidal or homicidal ideation and some of this would have to be left to the outpatient providers. Gradually, the patient's psychotropics were adjusted. She seemed to respond to a combination of Zoloft 75 mg a day, Remeron 7.5 mg at bedtime, Risperdal 0.5 mg at bedtime, Ativan p.r.n., Zyprexa p.r.n., melatonin 3 mg at bedtime p.r.n. insomnia. Prior to discharge, no, CV, , pulmonary, eye, ENT system symptoms on review, but computation was impaired. She had difficulty doing serial sevens, unable to calculate elementary things, if she would manage her own checkbook and grocery shopping and finances. CONDITION AT DISCHARGE: Improved. FINAL DIAGNOSES: Alcohol dependence, in partial remission. Delirium tremens, resolved. History of alcohol abuse. Psychotic disorder, unspecified. Rest diagnoses unchanged from her admission note. DISCHARGE MEDICATIONS: Please refer to the MRAD. Psychiatric and medical followup as arranged by [facility]. GEETA DR: Vianey TID: [id number]
--- NOTE | 2021-04-01 08:20 | PDOC ---
Exam Note: Nadeem Note: This note is a late entry for 03/30/2021 covers elements not covered in my initial note. Subjective: The patient was seen individually in the evening of 03/30/2021 with Alex SHERMAN, discussed and reviewed the chart. The patient slept 6-1/2 hours previous night. I met with the patient at great length in her room. Discussed discharge plans for 03/31 and outpatient follow up. She minimizes alcohol usage but gave me many reasons why she abstained from alcohol. Review of Systems: No CV, , pulmonary, eye system symptoms on review. Mental Status Exam: The patient is reasonably oriented. Speech has some latency, coherent. Abstraction fair. Computation impaired. Language function intact. Attention span short. Mood and affect withdrawn. Laboratory Data: Reviewed. Impression: Major depressive disorder recurrent. Alcohol abuse/dependence/withdrawal. Anxiety disorder unspecified. History of Wernickes encephalopathy. Plan: Continue psychotropics mentioned in my initial note. Assessment: Vital Signs/I&O: Vital Signs Date Time Temp Pulse Resp B/P (MAP) Pulse Ox O2 Delivery O2 Flow Rate FiO2 03/31/21 06:27 96.9 74 16 125/74 (91) 97 03/26/21 16:57 Room Air I & O 03/31/21 03/31/21 04/01/21 15:00 23:00 07:00 Intake Total 960 ml Balance 960 ml Current Medications: Meds: Current Medications Medications (Trade) Dose Ordered Sig/Hunter Route PRN Reason Start Time Stop Time Status Last Admin Dose Admin Multi-Ingredient Ointment (Analgesic Douglas) 1 lico PRN QID PRN TP MUSCLE PAIN 02/11/21 06:45 03/31/21 12:45 DC 03/03/21 20:33 Al Hydroxide/Mg Hydroxide (Mylanta Plus Xs) 15 ml PRN AFTMEALHC PRN PO DYSPEPSIA 02/11/21 06:45 03/31/21 12:45 DC Magnesium Hydroxide (Milk Of Magnesia) 2,400 mg PRN QHS PRN PO CONSTIPATION 02/11/21 06:45 03/31/21 12:45 DC Acetaminophen (Tylenol) 650 mg PRN Q6HRS PRN PO MILD PAIN / TEMP > 100.3'F 02/11/21 12:00 03/31/21 12:45 DC 03/31/21 03:48 Enoxaparin Sodium (Lovenox 40mg Syringe) 40 mg DAILY SQ 02/12/21 09:00 02/13/21 17:54 DC Lorazepam (Ativan) 1 mg PRN Q4HRS PRN PO ANXIETY / AGITATION 02/11/21 12:00 02/13/21 21:35 DC 02/13/21 16:15 Melatonin (Melatonin) 3 mg PRN QHS PRN PO INSOMNIA 02/11/21 12:00 03/31/21 12:45 DC 03/15/21 20:11 Nicotine (Nicoderm Cq 21mg Patch) 1 patch DAILY TD 02/12/21 09:00 03/28/21 18:50 DC 03/28/21 09:12 Nicotine Polacrilex (Nicorette Gum) 2 mg PRN Q2HRS PRN BC SMOKING CESSATION 02/11/21 12:00 03/31/21 12:45 DC 02/17/21 18:24 Olanzapine (ZyPREXA ZYDIS) 5 mg PRN BID PRN PO PSYCHOSIS 02/11/21 12:00 02/13/21 20:07 DC 02/13/21 18:10 Potassium Chloride (Klor-Con) 20 meq DAILY PO 02/12/21 09:00 03/31/21 12:45 DC 03/31/21 08:14 Folic Acid (Folic Acid) 1 mg DAILY PO 02/12/21 09:00 03/31/21 12:45 DC 03/31/21 08:14 Thiamine HCl (Vitamin B-1) 100 mg DAILY PO 02/12/21 09:00 03/31/21 12:45 DC 03/31/21 08:14 Non-Formulary Medication ([Folic Acid] ) 1 mg DAILY PO 02/12/21 09:00 02/11/21 12:25 DC Acetaminophen (Tylenol) 650 mg PRN Q6HRS PRN PO MILD PAIN / TEMP > 100.3'F 02/11/21 12:15 02/11/21 12:22 DC Multi-Ingredient Ointment (Analgesic Douglas) 1 lico PRN QID PRN TP MUSCLE PAIN 02/11/21 12:15 02/11/21 12:22 DC Al Hydroxide/Mg Hydroxide (Mylanta Plus Xs) 15 ml PRN AFTMEALHC PRN PO DYSPEPSIA 02/11/21 12:15 02/11/21 12:22 DC Magnesium Hydroxide (Milk Of Magnesia) 2,400 mg PRN QHS PRN PO CONSTIPATION 02/11/21 12:15 02/11/21 12:22 DC Lidocaine (Lidoderm) 1 patch PRN DAILY PRN TD NECK PAIN 02/13/21 19:00 03/31/21 12:45 DC 03/17/21 14:46 Olanzapine (ZyPREXA ZYDIS) 2.5 mg PRN Q2HR PRN PO PSYCHOSIS 02/13/21 20:15 03/31/21 12:45 DC 02/13/21 23:06 Sertraline HCl (Zoloft) 50 mg DAILY PO 02/14/21 09:00 02/21/21 19:55 DC 02/21/21 08:09 Risperidone (RisperDAL) 0.5 mg QHS PO 02/13/21 21:00 03/31/21 12:45 DC 03/30/21 20:46 Lorazepam (Ativan) 0.5 mg PRN Q1HR PRN PO ANXIETY / AGITATION 02/13/21 21:45 02/20/21 20:58 DC 02/20/21 16:54 Multivitamins/ Calcium (Thera-M Plus) 1 tab DAILY PO 02/13/21 21:30 03/31/21 12:45 DC 03/31/21 08:14 Clonidine HCl (Catapres) 0.1 mg PRN Q1HR PRN PO SBP>180 OR DBP>100, MR X 3 02/13/21 21:30 03/31/21 12:45 DC Magnesium Oxide (Magnesium Oxide) 400 mg DAILY PO 02/14/21 09:00 02/13/21 21:36 DC Magnesium Oxide (Magnesium Oxide) 400 mg DAILY PO 02/13/21 21:45 03/31/21 12:45 DC 03/31/21 08:14 Vitamin D (Vitamin D3) 50,000 unit WEEKLY PO 02/15/21 16:30 03/31/21 12:45 DC 03/29/21 08:11 Lorazepam (Ativan) 0.5 mg PRN TID PRN PO ANXIETY / AGITATION 02/20/21 21:00 03/31/21 12:45 DC 03/12/21 09:21 Cyclobenzaprine HCl (Flexeril) 10 mg BID PO 02/21/21 21:00 02/21/21 09:33 DC Cyclobenzaprine HCl (Flexeril) 10 mg BID PO 02/21/21 09:45 03/31/21 12:45 DC 03/31/21 08:14 Sertraline HCl (Zoloft) 75 mg DAILY PO 02/22/21 09:00 03/31/21 12:45 DC 03/31/21 08:14 Hydrocortisone (Cortizone-10) 1 lico PRN TID PRN TP ITCHING 02/24/21 12:00 03/31/21 12:45 DC Mirtazapine (Remeron) 7.5 mg QHS PO 02/28/21 21:30 03/31/21 12:45 DC 03/30/21 20:45 Influenza Virus Vaccine Quadrival (Flulaval Quad [id number] Syringe) 0.5 ml ONCE ONCE VAX IM 03/11/21 09:00 03/11/21 09:01 DC 03/11/21 11:30 Amoxicillin/ Clavulanate Potassium (Augmentin 875/ 125mg) 1 tab BID PO 03/14/21 17:30 03/14/21 17:23 DC Amoxicillin/ Clavulanate Potassium (Augmentin 875/ 125mg) 1 tab BID PO 03/14/21 18:00 03/15/21 10:44 DC 03/15/21 09:16 Lactobacillus Rhamnosus (Culturelle) 1 cap BID PO 03/14/21 21:00 03/31/21 12:45 DC 03/31/21 08:14 Amoxicillin/ Clavulanate Potassium (Augmentin 875/ 125mg) 1 tab BIDWMEALS PO 03/15/21 17:00 03/23/21 18:00 DC 03/23/21 17:27 Carbamide Peroxide (Debrox) 5 drop BID AU 03/21/21 21:00 03/24/21 11:16 DC 03/24/21 09:00 Nicotine (Nicoderm Cq 14mg Patch) 1 patch DAILY TD 03/29/21 09:00 03/31/21 12:45 DC 03/31/21 09:23 I have reviewed the current psychotropics carefully including drug interactions. Risk benefit ratio favors no change other than as noted in my dictated progress note. Diagnosis: Problems: (1) Major depressive disorder, recurrent episode (2) Wernicke encephalopathy (3) Anxiety disorder, unspecified (4) Alcohol dependence (5) Alcohol withdrawal (6) Alcohol withdrawal delirium IVANNA GUNDERSON MD Apr 01, 2021 08:20
== END 2021-03-31 12:44 | disposition home health service (06) | DRG 885 ==
LOC: GEROPSY 06:29
PROVIDERS: ADMIT Psychiatry & Neurology Psychiatry; ATTEND Psychiatry & Neurology Psychiatry
DX: F33.9 Major depressive disorder, recurrent, unspecified (principal); F10.231 Alcohol dependence with withdrawal delirium; E51.2 Wernicke's encephalopathy; E87.1 Hypo-osmolality and hyponatremia; F29 Unspecified psychosis not due to a substance or known physiological condition; F41.9 Anxiety disorder, unspecified; F60.3 Borderline personality disorder; G47.00 Insomnia, unspecified; H66.90 Otitis media, unspecified, unspecified ear; J44.9 Chronic obstructive pulmonary disease, unspecified; Z20.822 Contact with and (suspected) exposure to COVID-19; Z79.899 Other long term (current) drug therapy; Z87.891 Personal history of nicotine dependence; F63.9 Impulse disorder, unspecified; Z60.2 Problems related to living alone
CPT/HCPCS: 36415; 80053; 80061; 81001; 82140; 82306; 82607; 83036; 83540; 83550; 83735; 84436; 84443; 84480; 85025; 85379; 86592; 90471; 90686; 93005; 99406; G0378; G0379; U0003; 92610; 97116; 97535